=== PATIENT | female | born 1955 | race Caucasian/White ===

== ENCOUNTER → 2021-09-14 04:25 | Outpatient (REF) | payer MEDICARE, MEDICAID, SELFPAY ==
[2021-09-14 06:44] LABS: Hemoglobin 8.8 g/dL (12.0-15.0); Mean Corp Hgb Conc 29.3 g/dL (32-36); Mean Corpuscular Hgb 27.5 pg (27.0-32.0); Mean Corpuscular Volume 93.8 fL (81-99); Mean Platelet Vol. 11.2 fl (6.2-12.0); Platelet Count 300 K/mm3 (150-450); RBC Distribution Width CV 14.6 % (11.6-14.6); RBC Distribution Width SD 49.9 fl (35.1-43.9); White Blood Count 6.5 K/mm3 (4.4-11.0)
[2021-09-14 06:59] LABS: Anion Gap 6 (5-15); BUN 11 mg/dL (7-18); BUN/Creat Ratio 17.7 RATIO (10-20); Calcium,Total 8.6 mg/dL (8.5-10.1); Chloride 108 mmol/L (98-107); Creatinine, Serum 0.62 mg/dL (0.55-1.02); EST Glomerular Filtration Rate 102 mL/min (>60); Est Glom Filt Rate - Afr Amer 123 mL/min (>60); Glucose 86 mg/dL (74-106); Potassium 3.7 mmol/L (3.5-5.1); Sodium Level 142 mmol/L (136-145)
== END ==
LOC: OLS.WHLTCC 04:25
PROVIDERS: Visit Provider Family Medicine
DX: N17.8 Other acute kidney failure (principal); R65.21 Severe sepsis with septic shock; G25.0 Essential tremor; J96.11 Chronic respiratory failure with hypoxia; J44.9 Chronic obstructive pulmonary disease, unspecified; I50.32 Chronic diastolic (congestive) heart failure
CPT/HCPCS: 36415; 80048; 85027

== ENCOUNTER 2021-09-21 05:00 | Outpatient (REF) | payer MEDICARE, MEDICAID, SELFPAY ==
[2021-09-21 06:52] LABS: Hematocrit 27.7 % (37-47); Hemoglobin 8.3 g/dL (12.0-15.0); Mean Corpuscular Hgb 27.9 pg (27.0-32.0); Mean Platelet Vol. 11.3 fl (6.2-12.0); Platelet Count 254 K/mm3 (150-450); RBC Distribution Width CV 14.6 % (11.6-14.6); RBC Distribution Width SD 49.7 fl (35.1-43.9); Red Blood Count 2.98 M/mm3 (4.2-5.4); White Blood Count 5.9 K/mm3 (4.4-11.0)
[2021-09-21 07:05] LABS: Anion Gap 5 (5-15); BUN 10 mg/dL (7-18); BUN/Creat Ratio 18.9 RATIO (10-20); Calcium,Total 8.9 mg/dL (8.5-10.1); Chloride 110 mmol/L (98-107); Creatinine, Serum 0.53 mg/dL (0.55-1.02); EST Glomerular Filtration Rate 122 mL/min (>60); Est Glom Filt Rate - Afr Amer 148 mL/min (>60); Glucose 97 mg/dL (74-106); Potassium 3.9 mmol/L (3.5-5.1); Sodium Level 143 mmol/L (136-145)
== END 2021-09-21 23:59 | disposition home or self-care (01) ==
LOC: OLS.WHLTCC 05:00
PROVIDERS: Visit Provider Family Medicine
DX: N17.8 Other acute kidney failure (principal); R65.21 Severe sepsis with septic shock; J44.9 Chronic obstructive pulmonary disease, unspecified; I50.32 Chronic diastolic (congestive) heart failure; J96.11 Chronic respiratory failure with hypoxia; G25.0 Essential tremor
CPT/HCPCS: 36415; 80048; 85027

== ENCOUNTER 2021-09-28 04:00 | Outpatient (REF) | payer MEDICARE, MEDICAID, SELFPAY ==
[2021-09-28 08:36] LABS: Hemoglobin 8.6 g/dL (12.0-15.0); Mean Corp Hgb Conc 29.7 g/dL (32-36); Mean Corpuscular Hgb 27.2 pg (27.0-32.0); Mean Corpuscular Volume 91.8 fL (81-99); Mean Platelet Vol. 11.1 fl (6.2-12.0); Platelet Count 245 K/mm3 (150-450); RBC Distribution Width CV 14.7 % (11.6-14.6); RBC Distribution Width SD 49.7 fl (35.1-43.9); Red Blood Count 3.16 M/mm3 (4.2-5.4); White Blood Count 5.9 K/mm3 (4.4-11.0)
[2021-09-28 08:44] LABS: Anion Gap 6 (5-15); BUN 8 mg/dL (7-18); Calcium,Total 8.6 mg/dL (8.5-10.1); Chloride 111 mmol/L (98-107); EST Glomerular Filtration Rate 131 mL/min (>60); Est Glom Filt Rate - Afr Amer 158 mL/min (>60); Glucose 85 mg/dL (74-106); Potassium 3.8 mmol/L (3.5-5.1); Sodium Level 143 mmol/L (136-145)
== END 2021-09-28 23:59 | disposition home or self-care (01) ==
LOC: OLS.WHLEAS 04:00
PROVIDERS: Referring Provider Family Medicine; Visit Provider Family Medicine
DX: N17.8 Other acute kidney failure (principal); R65.21 Severe sepsis with septic shock; J44.9 Chronic obstructive pulmonary disease, unspecified; I50.32 Chronic diastolic (congestive) heart failure; J96.11 Chronic respiratory failure with hypoxia; G25.0 Essential tremor
CPT/HCPCS: 36415; 80048; 85027

== ENCOUNTER → 2021-10-05 | Outpatient (REF) | payer MEDICARE, MEDICAID, SELFPAY ==
[2021-10-05 07:06] LABS: Hematocrit 29.1 % (37-47); Hemoglobin 8.5 g/dL (12.0-15.0); Mean Corp Hgb Conc 29.2 g/dL (32-36); Mean Corpuscular Hgb 26.4 pg (27.0-32.0); Mean Corpuscular Volume 90.4 fL (81-99); Platelet Count 276 K/mm3 (150-450); RBC Distribution Width SD 49.8 fl (35.1-43.9); Red Blood Count 3.22 M/mm3 (4.2-5.4); White Blood Count 5.4 K/mm3 (4.4-11.0)
[2021-10-05 07:28] LABS: Anion Gap 7 (5-15); BUN 8 mg/dL (7-18); BUN/Creat Ratio 15.5 RATIO (10-20); Calcium,Total 8.4 mg/dL (8.5-10.1); Chloride 110 mmol/L (98-107); Creatinine, Serum 0.52 mg/dL (0.55-1.02); EST Glomerular Filtration Rate 126 mL/min (>60); Est Glom Filt Rate - Afr Amer 152 mL/min (>60); Glucose 87 mg/dL (74-106); Potassium 3.5 mmol/L (3.5-5.1); Sodium Level 143 mmol/L (136-145)
== END | disposition home or self-care (01) ==
LOC: OLS.WHLEAS 04:00
PROVIDERS: Visit Provider Family Medicine
DX: N17.8 Other acute kidney failure (principal); R65.21 Severe sepsis with septic shock; J44.9 Chronic obstructive pulmonary disease, unspecified; I50.32 Chronic diastolic (congestive) heart failure; J96.11 Chronic respiratory failure with hypoxia; G25.0 Essential tremor
CPT/HCPCS: 36415; 80048; 85027

== ENCOUNTER → 2021-10-12 | Outpatient (REF) | payer MEDICARE, MEDICAID, SELFPAY ==
[2021-10-12 08:21] LABS: Hematocrit 29.3 % (37-47); Hemoglobin 8.8 g/dL (12.0-15.0); Mean Corpuscular Hgb 26.8 pg (27.0-32.0); Mean Corpuscular Volume 89.3 fL (81-99); Platelet Count 301 K/mm3 (150-450); RBC Distribution Width CV 15.2 % (11.6-14.6); RBC Distribution Width SD 49.9 fl (35.1-43.9); Red Blood Count 3.28 M/mm3 (4.2-5.4); White Blood Count 6.4 K/mm3 (4.4-11.0)
[2021-10-12 08:38] LABS: Anion Gap 9 (5-15); BUN 7 mg/dL (7-18); Calcium,Total 8.8 mg/dL (8.5-10.1); Chloride 110 mmol/L (98-107); Creatinine, Serum 0.54 mg/dL (0.55-1.02); EST Glomerular Filtration Rate 120 mL/min (>60); Est Glom Filt Rate - Afr Amer 145 mL/min (>60); Glucose 87 mg/dL (74-106); Potassium 3.7 mmol/L (3.5-5.1); Sodium Level 142 mmol/L (136-145)
== END | disposition home or self-care (01) ==
LOC: OLS.WHLEAS 04:00
PROVIDERS: Visit Provider Family Medicine
DX: N17.8 Other acute kidney failure (principal); R65.21 Severe sepsis with septic shock; J44.9 Chronic obstructive pulmonary disease, unspecified; I50.32 Chronic diastolic (congestive) heart failure; J96.11 Chronic respiratory failure with hypoxia; G25.0 Essential tremor
CPT/HCPCS: 36415; 80048; 85027

== ENCOUNTER → 2021-10-19 | Outpatient (REF) | payer MEDICARE, MEDICAID, SELFPAY ==
[2021-10-19 10:37] LABS: Hematocrit 30.5 % (37-47); Hemoglobin 9.1 g/dL (12.0-15.0); Mean Corp Hgb Conc 29.8 g/dL (32-36); Mean Corpuscular Hgb 26.5 pg (27.0-32.0); Mean Corpuscular Volume 88.9 fL (81-99); Mean Platelet Vol. 11.2 fl (6.2-12.0); Platelet Count 276 K/mm3 (150-450); RBC Distribution Width CV 15.8 % (11.6-14.6); RBC Distribution Width SD 51.4 fl (35.1-43.9); Red Blood Count 3.43 M/mm3 (4.2-5.4); White Blood Count 5.7 K/mm3 (4.4-11.0)
[2021-10-19 11:08] LABS: Anion Gap 10 (5-15); BUN 17 mg/dL (7-18); BUN/Creat Ratio 16.8 RATIO (10-20); Calcium,Total 8.9 mg/dL (8.5-10.1); Chloride 110 mmol/L (98-107); Creatinine, Serum 1.01 mg/dL (0.55-1.02); EST Glomerular Filtration Rate 58 mL/min (>60); Est Glom Filt Rate - Afr Amer 70 mL/min (>60); Glucose 85 mg/dL (74-106); Potassium 4.4 mmol/L (3.5-5.1); Sodium Level 138 mmol/L (136-145)
== END | disposition home or self-care (01) ==
LOC: OLS.WHLEAS 04:00
PROVIDERS: Visit Provider Family Medicine
DX: N17.8 Other acute kidney failure (principal); R65.21 Severe sepsis with septic shock; J44.9 Chronic obstructive pulmonary disease, unspecified; I50.32 Chronic diastolic (congestive) heart failure; J96.11 Chronic respiratory failure with hypoxia; G25.0 Essential tremor
CPT/HCPCS: 36415; 80048; 85027

== ENCOUNTER → 2021-10-26 | Outpatient (REF) | payer MEDICARE, MEDICAID, SELFPAY ==
[2021-10-26 09:34] LABS: Hematocrit 30.5 % (37-47); Mean Corp Hgb Conc 29.5 g/dL (32-36); Mean Corpuscular Hgb 26.2 pg (27.0-32.0); Mean Corpuscular Volume 88.9 fL (81-99); Mean Platelet Vol. 11.4 fl (6.2-12.0); Platelet Count 298 K/mm3 (150-450); RBC Distribution Width CV 16.3 % (11.6-14.6); RBC Distribution Width SD 53.3 fl (35.1-43.9); Red Blood Count 3.43 M/mm3 (4.2-5.4); White Blood Count 6.7 K/mm3 (4.4-11.0)
[2021-10-26 10:07] LABS: Anion Gap 6 (5-15); BUN 12 mg/dL (7-18); BUN/Creat Ratio 15.5 RATIO (10-20); Calcium,Total 8.6 mg/dL (8.5-10.1); Chloride 113 mmol/L (98-107); Creatinine, Serum 0.78 mg/dL (0.55-1.02); EST Glomerular Filtration Rate 79 mL/min (>60); Est Glom Filt Rate - Afr Amer 95 mL/min (>60); Glucose 102 mg/dL (74-106); Sodium Level 143 mmol/L (136-145)
[2021-10-26 10:23] LABS: Digoxin Level 1.18 ng/mL (0.80-2.00)
== END | disposition home or self-care (01) ==
LOC: OLS.WHLEAS 04:00
PROVIDERS: Referring Provider Family Medicine; Visit Provider Family Medicine
DX: N17.8 Other acute kidney failure (principal); R65.21 Severe sepsis with septic shock; J44.9 Chronic obstructive pulmonary disease, unspecified; I50.32 Chronic diastolic (congestive) heart failure; J96.11 Chronic respiratory failure with hypoxia; I48.91 Unspecified atrial fibrillation; G25.0 Essential tremor
CPT/HCPCS: 36415; 80048; 80162; 85027

== ENCOUNTER 2021-11-17 15:15 | Outpatient (CLI) | payer MEDICARE, MEDICAID, SELFPAY | END 2021-11-17 23:59 | disposition home or self-care (01) | LOC: OPBI 15:25 | PROVIDERS: Visit Provider Family Medicine | DX: Z00.00 Encounter for general adult medical examination without abnormal findings (principal) ==

== ENCOUNTER 2021-11-30 14:29 | Outpatient (CLI) | payer MEDICARE, MEDICAID, SELFPAY ==
--- NOTE | 2021-11-30 14:40 | BI_ITS ---
MAMMOGRAPHY - BILATERAL DIAGNOSTIC REASON FOR EXAM: Female, 66 years old. Left nipple discharge. PERTINENT HISTORY: TECHNIQUE: Digital bilateral breast rachelle (3D mammographic acquisition) in the CC and MLO projections. 2-D mediolateral oblique (MLO) and craniocaudad (CC) views of both breasts were obtained. CAD: Full Field Digital Mammography with Computer Added Detection was performed. COMPARISON: Comparison is made with prior outside examination dated 04/24/2019. FINDINGS: Breast Composition: The breasts are heterogeneously dense, which may obscure small masses. There are no dominant masses or suspicious calcifications. A port is seen in the axillary region of the left breast. No other significant abnormalities are identified. There has been no significant change since the prior study. BI/DIAG MAMM W/CAD, BILAT IMPRESSION: Stable bilateral diagnostic mammogram. With the patient''s history of left nipple discharge, correlation with ultrasound is recommended. ASSESSMENT CATEGORY: BIRADS Category 0: Incomplete. Need additional imaging evaluation. A letter regarding these results will be sent to the patient by the facility within 30 days. Approximately 10% of breast cancers are not detected by mammography. A normal mammogram should not delay biopsy of a clinically suspicious abnormality. Electronically Signed: Emmanuel Martínez MD at 15:35 EST ,
--- NOTE | 2021-11-30 14:41 | US_ITS ---
STUDY: ULTRASOUND BREAST - LEFT REASON FOR EXAM: Female, 66 years old. Nipple discharge. TECHNIQUE: Axial and longitudinal images of the LEFT breast were performed with a high resolution ultrasound transducer. # OF IMAGES: 12 COMPARISON: Comparison is made with prior mammogram done earlier in the day. FINDINGS: LEFT Breast: The retroareolar region of the breast was examined with ultrasound. No sonographic abnormality is seen. US/Breast Limited Unilateral IMPRESSION: No sonographic abnormality is seen. ASSESSMENT CATEGORY: BIRADS Category 1: Negative. A letter regarding these results will be sent to the patient by the facility within 30 days. Electronically Signed: Emmanuel Martínez MD at 11:01 EST ,
== END 2021-11-30 23:59 | disposition home or self-care (01) ==
LOC: OPBI 14:30
PROVIDERS: Visit Provider Family Medicine
DX: R92.2 Inconclusive mammogram (principal); N63.20 Unspecified lump in the left breast, unspecified quadrant
CPT/HCPCS: 76642; 77062; 77066; G0279

== ENCOUNTER → 2022-01-14 | Outpatient (REF) | payer MEDICARE, MEDICAID, SELFPAY ==
[2022-01-14 09:47] LABS: Absolute Lymphocyte Count 1.78 X10^3/uL (0.83-4.51); Absolute Neutrophil Count 3.5 X10^3/uL (2.0-7.7); Basophil# 0.01 X10^3/uL; Basophil% 0.2 % (0-1); Eosinophil# 0.08 X10^3/uL; Eosinophils% 1.4 % (0-5); Hematocrit 27.7 % (37-47); Lymphocyte # 1.78 X10^3/ul (0.83-4.51); Lymphocyte % 30.3 % (19-41); Mean Corp Hgb Conc 28.9 g/dL (32-36); Mean Corpuscular Hgb 26.8 pg (27.0-32.0); Mean Corpuscular Volume 92.6 fL (81-99); Mean Platelet Vol. 11.5 fl (6.2-12.0); Monocyte# 0.45 X10^3/uL; Monocyte% 7.7 % (0-10); NRBC Flagged by Analyzer 0 % (0-5); Neutrophil # 3.54 X10^3/uL (2.7-7.7); Neutrophil % 60.1 % (47-70); Platelet Count 212 K/mm3 (150-450); RBC Distribution Width CV 17.5 % (11.6-14.6); RBC Distribution Width SD 59.4 fl (35.1-43.9); Red Blood Count 2.99 M/mm3 (4.2-5.4); White Blood Count 5.9 K/mm3 (4.4-11.0)
[2022-01-14 10:00] LABS: Anion Gap 6 (5-15); BUN 25 mg/dL (7-18); BUN/Creat Ratio 24.5 RATIO (10-20); Calcium,Total 8.5 mg/dL (8.5-10.1); Chloride 108 mmol/L (98-107); Creatinine, Serum 1.02 mg/dL (0.55-1.02); EST Glomerular Filtration Rate 57 mL/min (>60); Est Glom Filt Rate - Afr Amer 69 mL/min (>60); Glucose 106 mg/dL (74-106); Potassium 4.7 mmol/L (3.5-5.1); Sodium Level 137 mmol/L (136-145)
[2022-01-14 10:35] LABS: Digoxin Level 1.26 ng/mL (0.80-2.00)
== END | disposition home or self-care (01) ==
LOC: OLS.WHLEAS 05:00
PROVIDERS: Visit Provider Family Medicine
DX: R11.0 Nausea (principal); J96.11 Chronic respiratory failure with hypoxia; F71 Moderate intellectual disabilities; M62.81 Muscle weakness (generalized); R26.2 Difficulty in walking, not elsewhere classified; R27.8 Other lack of coordination; Z74.1 Need for assistance with personal care
CPT/HCPCS: 36415; 80048; 80162; 85025

== ENCOUNTER → 2022-01-25 | Outpatient (REF) | payer MEDICARE, MEDICAID, SELFPAY ==
[2022-01-25 09:13] LABS: Hematocrit 30.5 % (37-47); Mean Corp Hgb Conc 29.5 g/dL (32-36); Mean Corpuscular Hgb 26.5 pg (27.0-32.0); Mean Platelet Vol. 11.1 fl (6.2-12.0); Platelet Count 391 K/mm3 (150-450); RBC Distribution Width CV 16.6 % (11.6-14.6); RBC Distribution Width SD 55.3 fl (35.1-43.9); Red Blood Count 3.39 M/mm3 (4.2-5.4); White Blood Count 7.4 K/mm3 (4.4-11.0)
[2022-01-25 09:23] LABS: Anion Gap 8 (5-15); BUN 22 mg/dL (7-18); BUN/Creat Ratio 15.5 RATIO (10-20); Calcium,Total 9.3 mg/dL (8.5-10.1); Chloride 110 mmol/L (98-107); Creatinine, Serum 1.42 mg/dL (0.55-1.02); EST Glomerular Filtration Rate 39 mL/min (>60); Est Glom Filt Rate - Afr Amer 47 mL/min (>60); Glucose 87 mg/dL (74-106); Potassium 4.5 mmol/L (3.5-5.1); Sodium Level 137 mmol/L (136-145); Vitamin B12 1405 pg/mL (211-911)
== END | disposition home or self-care (01) ==
LOC: OLS.WHLEAS 04:00
PROVIDERS: Referring Provider Family Medicine; Visit Provider Family Medicine
DX: E55.9 Vitamin D deficiency, unspecified (principal); J96.11 Chronic respiratory failure with hypoxia; F71 Moderate intellectual disabilities; M62.81 Muscle weakness (generalized); R26.2 Difficulty in walking, not elsewhere classified; R27.8 Other lack of coordination; D50.9 Iron deficiency anemia, unspecified; Z74.1 Need for assistance with personal care
CPT/HCPCS: 36415; 80048; 82607; 85027

== ENCOUNTER → 2022-01-28 | Outpatient (REF) | payer SELFPAY ==
[2022-01-28 07:43] LABS: Absolute Lymphocyte Count 1.47 X10^3/uL (0.83-4.51); Basophil# 0.03 X10^3/uL; Basophil% 0.4 % (0-1); Hematocrit 32.4 % (37-47); Hemoglobin 9.3 g/dL (12.0-15.0); Lymphocyte # 1.47 X10^3/ul (0.83-4.51); Lymphocyte % 18.9 % (19-41); Mean Corp Hgb Conc 28.7 g/dL (32-36); Mean Corpuscular Hgb 26.3 pg (27.0-32.0); Mean Corpuscular Volume 91.5 fL (81-99); Mean Platelet Vol. 11.3 fl (6.2-12.0); Monocyte# 0.15 X10^3/uL; Monocyte% 1.9 % (0-10); NRBC Flagged by Analyzer 0 % (0-5); Neutrophil # 6.03 X10^3/uL (2.7-7.7); Neutrophil % 77.8 % (47-70); Platelet Count 449 K/mm3 (150-450); RBC Distribution Width CV 16.6 % (11.6-14.6); Red Blood Count 3.54 M/mm3 (4.2-5.4); White Blood Count 7.8 K/mm3 (4.4-11.0)
[2022-01-28 08:05] LABS: ALB/GLOB Ratio 0.9 RATIO (0.9-2.4); AST(SGOT) 6 U/L (15-37); Alanine Aminotransfer ALT/SGPT 9 U/L (13-56); Albumin, Serum 3.2 g/dL (3.2-5.0); Alkaline Phosphatase 60 U/L (45-117); Anion Gap 6 (5-15); BUN 27 mg/dL (7-18); BUN/Creat Ratio 14.5 RATIO (10-20); Calcium,Total 9.1 mg/dL (8.5-10.1); Chloride 110 mmol/L (98-107); Creatinine, Serum 1.86 mg/dL (0.55-1.02); EST Glomerular Filtration Rate 29 mL/min (>60); Est Glom Filt Rate - Afr Amer 35 mL/min (>60); Globulin 3.7 g/dL (2.2-4.2); Glucose 109 mg/dL (74-106); Potassium 5.8 mmol/L (3.5-5.1); Protein, Total 6.9 g/dL (6.4-8.2); Sodium Level 135 mmol/L (136-145)
== END | disposition home or self-care (01) ==
LOC: OLS.WHLEAS 04:00
PROVIDERS: Visit Provider Family Medicine
DX: R11.0 Nausea (principal); J96.11 Chronic respiratory failure with hypoxia; F71 Moderate intellectual disabilities; M62.81 Muscle weakness (generalized); R26.2 Difficulty in walking, not elsewhere classified; R27.8 Other lack of coordination; Z74.1 Need for assistance with personal care
CPT/HCPCS: 36415; 80053; 85025

== ENCOUNTER 2022-01-30 16:26 | Inpatient (IN) | payer MEDICARE, MEDICAID, SELFPAY ==
[2022-01-30] VITALS (9 sets, daily range): BP systolic 72–113; BP diastolic 32–68; PULSE 68–105; RESP 16–20; TEMP 36.3–37; O2SAT 95–100; BMI 26.9; BMI 26.2
--- NOTE | 2022-01-30 16:56 | EKG12_ITS ---
Test Reason : ABP Blood Pressure : / mmHG Vent. Rate : 068 BPM Atrial Rate : 068 BPM P-R Int : 166 ms QRS Dur : 076 ms QT Int : 372 ms P-R-T Axes : 040 -01 057 degrees QTc Int : 395 ms Normal sinus rhythm Low voltage QRS Borderline ECG Confirmed by MARY BETH CABALLERO, JULES ([id number]), film or videotape editor NATALIA ROJAS ([id number]) on 02/01/2022 11:20:01 AM Referred By: MICHELE Confirmed By:JULES CLINTON MD
--- NOTE | 2022-01-30 16:57 | CT_ITS ---
INDICATION: abd pain EXAMINATION: CT ABDOMEN AND PELVIS WITHOUT CONTRAST - CT Abdomen And Pelvis W/O Contrast Injection TECHNIQUE: Helically acquired images were obtained of the abdomen and pelvis without oral or IV contrast. A radiation dose optimization technique was used for this scan. IV Contrast dosage and agent: None. Oral contrast: None. COMPARISON: None. FINDINGS: LOWER CHEST: Lung bases are clear. No cardiomegaly or pericardial effusion. Coronary artery calcifications and/or stents. Possible left mitral valvular calcifications. LIVER: Homogeneous. No focal mass. GALLBLADDER AND BILIARY TREE: Surgically absent. Surgical clips gallbladder fossa. No intra- or extrahepatic biliary ductal dilation. PANCREAS: No focal cystic or solid mass. SPLEEN: Normal size without focal cystic or solid mass. ADRENAL GLANDS: No nodules. KIDNEYS, URETERS and BLADDER: Normal renal size and position. No mass. No hydronephrosis. Bladder is unremarkable. PERITONEUM: No ascites or free air. No other fluid collection. BOWEL: Cervical clips within the cecum suggesting prior appendectomy. No appendix visualized. General clips also seen around the proximal stomach and in the splenic hilum. There is a mildly distended, 5 cm diameter loop of small bowel that appears adherent to the anterior abdominal wall, below the umbilicus suggesting adhesion. Surgical lines visible around the small bowel at this level. This short segment of distended small bowel is not associated with wall thickening and the rest of the small bowel is within normal limits. LYMPH NODES: No enlarged mesenteric or retroperitoneal lymph nodes. VESSELS: Scattered intimal calcifications at the origin of the celiac trunk and renal arteries and in the proximal common iliac arteries. REPRODUCTIVE ORGANS: Within normal limits for age. ABDOMINAL WALL: No discrete abdominal or pelvic wall hernia. BONES: No lytic or blastic abnormality. Evidence of remote right inferior pubic ramus fracture. Status post right hip total arthroplasty without evidence of complication. Subjective appearance of decreased bone mineral density. Expected degenerative changes lower lumbar spine with no evidence of significant stenosis. CT/Abdomen/Pelvis without Cont IMPRESSION: No evidence of acute intra-abdominal pathology. Patient status post multiple surgeries with surgical clips seen around the stomach and small bowel, cecum and gallbladder fossa. There is a distended small bowel loop, which appears adherent to the anterior abdomen, suggesting adhesions without small bowel obstruction. Coronary artery calcifications may be associated with increased risk for acute coronary syndrome. Electronically Signed: Estuardo Monteiro DO at 19:20 EDT ,
--- NOTE | 2022-01-30 17:00 | EDS_ITS ---
HPI HPI - GI History of Present Illness Chief Complaint: Abd Pain Informant: patient and family Narrative Narrative: Patient evidently started with some mild nausea about a week or 2 ago. This is progressed to epigastric area discomfort for about a week. Outpatient ultrasound was ordered. This was not able to get done yet. She did have some blood work that showed a rise in creatinine from 1.04-1.68. Potassium was slightly high at 5.8. Hemoglobin is 9.3 which is about her baseline. Her primary physician held her potassium chloride, lisinopril and digoxin. Today he was called from the [facility] that patient has some low blood pressure and has a little bit increased abdominal pain. She admits she really has not been eating or drinking because eating or drinking aggravates her symptoms. She is still moving some bowels but slightly dry. Patient has had multiple abdominal surgeries. Is unclear exactly how many. She has had several hernias. She has had several placements of mesh. She has had multiple bowel obstructions. In 2018 she had a surgery to try to decrease the recurrence of adhesions up in [facility]. She generally has not had many problems since. She is not having urinary symptoms now. [facility] Medical History (Updated 01/30/22 @ 20:[address] Nestor Gandara MD) Anxiety and depression Atrial fibrillation Chronic anemia Chronic respiratory failure COPD (chronic obstructive pulmonary disease) Crohn's disease Diastolic CHF Dysphagia Former tobacco use GERD (gastroesophageal reflux disease) History of COVID-19 History of deep venous thrombosis or pulmonary embolus Hypertension Iron deficiency anemia Parkinsons disease Sleep apnea Home Medications Lactobacillus rhamnosus GG [Culturelle] 1 cap PO DAILY 01/30/22 [History Last Taken Unknown] albuterol 90 mcg INHALATION BID 01/30/22 [History Last Taken Unknown] apixaban [Eliquis] 5 mg PO BID 01/30/22 [History Last Taken Unknown] aspirin 81 mg PO DAILY 01/30/22 [History Last Taken Unknown] budesonide 3 mg PO DAILY 01/30/22 [History Last Taken Unknown] cetirizine 10 mg PO DAILY 01/30/22 [History Last Taken Unknown] cyanocobalamin (vitamin B-12) 1,000 mcg PO DAILY 01/30/22 [History Last Taken Unknown] cyclobenzaprine 10 mg PO QHS 01/30/22 [History Last Taken Unknown] diltiazem HCl 240 mg PO DAILY 01/30/22 [History Last Taken Unknown] dorzolamide-timolol (PF) 1 drp OPHTHALMIC (EYE) BID 01/30/22 [History Last Taken Unknown] qpthhaxqjgy-maawgxqfy-rhllgzkm [Trelegy Ellipta] 1 inh INHALATION DAILY 01/30/22 [History Last Taken Unknown] folic acid 1 mg PO DAILY 01/30/22 [History Last Taken Unknown] furosemide 20 mg PO DAILY 01/30/22 [History Last Taken Unknown] guaifenesin [Mucinex] 600 mg PO BID 01/30/22 [History Last Taken Unknown] ipratropium-albuterol 3 ml INHALATION Q4H PRN 01/30/22 [History Last Taken Unknown] loperamide 2 mg PO Q4H PRN 01/30/22 [History Last Taken Unknown] mesalamine 1.125 g PO DAILY 01/30/22 [History Last Taken Unknown] metoprolol tartrate 100 mg PO Q12H 01/30/22 [History Last Taken Unknown] pantoprazole 40 mg PO BID 01/30/22 [History Last Taken Unknown] potassium chloride 20 meq PO BID 01/30/22 [History Last Taken Unknown] prednisone 10 mg PO BID 01/30/22 [History Last Taken Unknown] roflumilast [Daliresp] 250 mcg PO QHS 01/30/22 [History Last Taken Unknown] sulfasalazine 1 g PO BID 01/30/22 [History Last Taken Unknown] Allergy/AdvReac Type Severity Reaction Status Date / Time amoxicillin [From Augmentin] Allergy PT UNABLE Verified 01/30/22 16:37 TO RESPOND-NEEDS F/U clavulanic acid Allergy PT UNABLE Verified 01/30/22 16:37 [From Augmentin] TO RESPOND-NEEDS F/U codeine Allergy PT UNABLE Verified 01/30/22 16:37 TO RESPOND-NEEDS F/U Iodinated Contrast Media Allergy Anaphylaxis Verified 01/30/22 16:37 metronidazole [From Flagyl] Allergy PT UNABLE Verified 01/30/22 16:37 TO RESPOND-NEEDS F/U morphine Allergy PT UNSURE Verified 01/30/22 16:37 OF REACTION oxycodone Allergy PT UNSURE Verified 01/30/22 16:37 OF REACTION ropinirole Allergy PT UNSURE Verified 01/30/22 16:37 OF REACTION acetaminophen [From Vicodin] AdvReac PT UNSURE Verified 01/30/22 16:37 OF REACTION hydrocodone [From Vicodin] AdvReac PT UNSURE Verified 01/30/22 16:37 OF REACTION IV DYE Allergy Anaphylaxis Uncoded 01/30/22 16:37 Family History (Updated 01/30/22 @ 20:[address] Ladonna Pastor MD) Mother Alzheimer's dementia Surgical History (Updated 01/30/22 @ 20:[address] Ladonna Pastor MD) H/O exploratory laparotomy History of bilateral tubal ligation History of repair of hiatal hernia History of resection of small bowel History of total right hip replacement Hx of cataract surgery S/P carpal tunnel release S/P cholecystectomy Social History (Updated 01/30/22 @ 19:[address] Ladonna Pastor MD) housing: long-term Smoking Status: Current every day smoker how long ago did patient quit smoking: Quit ~ 13 years prior to current presentation. alcohol intake: never substance use type: does not use ROS ROS ED Constitutional Constitutional ED: Denies chills or fever(s) ENT ENT ED: Denies rhinorrhea Cardiovascular Cardiovascular: Denies chest pain or palpitations Respiratory/Chest Respiratory/Chest: Denies cough or dyspnea Gastrointestinal Gastrointestinal: Reports abdominal pain, constipation, nausea and vomiting; Denies diarrhea Genitourinary Genitourinary ED: Denies dysuria or hematuria Musculoskeletal Musculoskeletal: Denies myalgias Integumentary Denies rash Neurologic Neurologic: Denies headache(s) Endocrine Endocrinology: Denies polydipsia or polyuria Hematologic/Lymphatic Hematologic/Lymphatic: Reports easy bleeding, easy bruising and other Details: Patient is on anticoagulation possibly Eliquis. We are obtaining a med list because she and her sister are not familiar with all the meds she is on. Allergic/Immunologic Allergic/Immunologic ED: Reports urticaria EXAM Physical Exam Const Vital Signs: 01/30/22 16:28 01/30/22 17:00 01/30/22 17:19 Temperature 97.7 F L Temperature Source Temporal Pulse Rate 90 68 68 Respiratory Rate 18 17 17 Blood Pressure 78/52 L 81/39 L 86/32 L Blood Pressure Mean 60 53 50 Pulse Ox 97 96 100 Oxygen Delivery Method Nasal Cannula Nasal Cannula Nasal Cannula Oxygen Flow Rate (L/min) 2 01/30/22 17:38 01/30/22 17:45 01/30/22 18:15 Temperature 97.8 F Temperature Source Oral Pulse Rate 68 73 105 H Respiratory Rate 17 17 Blood Pressure 72/37 L 89/53 L 89/42 L Blood Pressure Mean 48 65 57 Pulse Ox 100 98 Oxygen Delivery Method Nasal Cannula Nasal Cannula Nasal Cannula Oxygen Flow Rate (L/min) Positive well nourished and well developed Constitutional Narrative: Patient is awake and alert. She looks clinically dehydrated. General Appearance ED: well developed HEENT Reports dry mucous membranes Mouth ED: Yes dry mucous membranes Mouth: dry mucous membranes Eyes General Eye ED: Negative for pale conjunctiva or scleral icterus Neck no JVD Resp normal respiratory effort and clear to auscultation bilaterally Cardio regular rate and regular rhythm GI non-distended and no masses GI Narrative: Abdomen does not look notably distended. There are well-healed surgical scars. Bowel sounds sound decreased. There is mild nonfocal tenderness but no rebound or guarding. No rigidity. No mass. Auscultation: Negative for normoactive bowel sounds Palpation: soft and tender; Negative for guarding, rigid or rebound tenderness present Back/Spine no CVA tenderness Extremity General Extremety ED: Negative for edema or tenderness General Extremity: Negative for edema Neuro Sensorium / Orientation: alert and oriented to person Psych mental status grossly normal Skin Rashes: no rashes MDM MDM MDM Narrative Medical decision making narrative: Patient's blood pressure is making a slight trend up. She still fluctuates between the low 90s and about 120. Most of her blood pressures are in the mid to upper 90s. However, her lactate is normal despite this and having 2 weeks of symptoms. Hemoglobin is low but at her baseline. White count is not elevated. Creatinine is elevated fairly above her baseline showing an acute kidney injury. LFTs show no acute process. Lipase is 293. Urine is clean. CT scan was done that shows chronic changes. There is a small bowel loop that slightly distended and appears to be adherent to the anterior abdominal wall. However there is no inflammatory changes or small bowel obstruction. She does have a history of significant adhesions. But this does not appear as though it is causing obstruction. With her 2 weeks of symptoms, unable to control symptoms in outpatient, acute kidney injury I think she does need to come in the hospital. I discussed case with hospitalist. Lab Data Attestation: I reviewed the patient's lab results. Labs: Laboratory Results - last 24 hr 01/30/22 01/30/22 01/30/22 16:50 16:50 17:30 WBC 9.6 RBC 3.55 L Hgb 9.2 L Hct 31.7 L MCV 89.3 MCH 25.9 L MCHC 29.0 L RDW Std Deviation 55.7 H RDW Coeff of Pascual 16.9 H Plt Count 467 H MPV 11.3 Immature Gran % (Auto) 1.000 H Neut % (Auto) 70.2 H Lymph % (Auto) 20.1 [place] % (Auto) 7.3 Eos % (Auto) 0.7 Baso % (Auto) 0.7 Absolute Neuts (auto) 6.7 Absolute Lymphs (auto) 1.93 Nucleated RBC % 0 Sodium 136 Potassium 4.9 Chloride 111 H Carbon Dioxide 14.0 L Anion Gap 11 BUN 41 H Creatinine 2.67 H Estim Creat Clear Calc 18.56 Est GFR (MDRD) Af Amer 23 L Est GFR (MDRD) Non-Af 19 L BUN/Creatinine Ratio 15.4 Glucose 108 H Lactic Acid 0.5 Calcium 9.0 Total Bilirubin 0.40 AST 5 L ALT < 6 L Alkaline Phosphatase 63 Troponin I High Sens 28 Total Protein 6.7 Albumin 3.0 L Globulin 3.7 Albumin/Globulin Ratio 0.8 L Lipase 293 Urine Color Urine Clarity Urine pH Ur Specific [place] Urine Protein Urine Glucose (UA) Urine Ketones Urine Occult Blood Urine Nitrite Urine Bilirubin Urine Urobilinogen Ur Leukocyte Esterase Urine RBC Urine WBC Ur Squamous Epith Cells Urine Bacteria Urine Mucus 01/30/22 17:47 WBC RBC Hgb Hct MCV MCH MCHC RDW Std Deviation RDW Coeff of Pascual Plt Count MPV Immature Gran % (Auto) Neut % (Auto) Lymph % (Auto) [place] % (Auto) Eos % (Auto) Baso % (Auto) Absolute Neuts (auto) Absolute Lymphs (auto) Nucleated RBC % Sodium Potassium Chloride Carbon Dioxide Anion Gap BUN Creatinine Estim Creat Clear Calc Est GFR (MDRD) Af Amer Est GFR (MDRD) Non-Af BUN/Creatinine Ratio Glucose Lactic Acid Calcium Total Bilirubin AST ALT Alkaline Phosphatase Troponin I High Sens Total Protein Albumin Globulin Albumin/Globulin Ratio Lipase Urine Color Yellow Urine Clarity Clear Urine pH 5.0 Ur Specific [place] 1.010 Urine Protein Negative Urine Glucose (UA) Normal Urine Ketones 5 H Urine Occult Blood 10 H Urine Nitrite Negative Urine Bilirubin Negative Urine Urobilinogen Normal Ur Leukocyte Esterase Negative Urine RBC 0 SEEN Urine WBC 0 SEEN Ur Squamous Epith Cells 0-5 SEEN Urine Bacteria RARE Urine Mucus 0 SEEN Radiography Diagnostic Testing: Clinical Impression(s) from Imaging Studies Abdomen/Pelvis CT 01/30/22 16:57 IMPRESSION: No evidence of acute intra-abdominal pathology. Patient status post multiple surgeries with surgical clips seen around the stomach and small bowel, cecum and gallbladder fossa. There is a distended small bowel loop, which appears adherent to the anterior abdomen, suggesting adhesions without small bowel obstruction. Coronary artery calcifications may be associated with increased risk for acute coronary syndrome. Electronically Signed: Estuardo Monteiro DO at 19:20 EDT , Discharge Plan Triage Chief Complaint: Abd Pain ED Provider: Nestor Gandara Dx/Rx/DC Orders Clinical Impression: Nausea & vomiting, CATE (acute kidney injury) Primary Care Provider: Quique Burroughs Disposition Disposition: Acute Care Hospital
[2022-01-30 17:23] LABS: Absolute Lymphocyte Count 1.93 X10^3/uL (0.83-4.51); Absolute Neutrophil Count 6.7 X10^3/uL (2.0-7.7); Basophil# 0.07 X10^3/uL; Basophil% 0.7 % (0-1); Eosinophil# 0.07 X10^3/uL; Eosinophils% 0.7 % (0-5); Hematocrit 31.7 % (37-47); Hemoglobin 9.2 g/dL (12.0-15.0); Lymphocyte # 1.93 X10^3/ul (0.83-4.51); Lymphocyte % 20.1 % (19-41); Mean Corpuscular Hgb 25.9 pg (27.0-32.0); Mean Corpuscular Volume 89.3 fL (81-99); Mean Platelet Vol. 11.3 fl (6.2-12.0); Monocyte% 7.3 % (0-10); NRBC Flagged by Analyzer 0 % (0-5); Neutrophil # 6.73 X10^3/uL (2.7-7.7); Neutrophil % 70.2 % (47-70); Platelet Count 467 K/mm3 (150-450); RBC Distribution Width CV 16.9 % (11.6-14.6); RBC Distribution Width SD 55.7 fl (35.1-43.9); Red Blood Count 3.55 M/mm3 (4.2-5.4); White Blood Count 9.6 K/mm3 (4.4-11.0)
[2022-01-30] MEDS: Ondansetron 4 MG/2 ML Vial IV (17:31)
[2022-01-30 17:56] LABS: ALB/GLOB Ratio 0.8 RATIO (0.9-2.4); AST(SGOT) 5 U/L (15-37); Alanine Aminotransfer ALT/SGPT < 6 U/L (13-56); Alkaline Phosphatase 63 U/L (45-117); Anion Gap 11 (5-15); BUN 41 mg/dL (7-18); BUN/Creat Ratio 15.4 RATIO (10-20); Chloride 111 mmol/L (98-107); Creatinine, Serum 2.67 mg/dL (0.55-1.02); EST Glomerular Filtration Rate 19 mL/min (>60); Est Glom Filt Rate - Afr Amer 23 mL/min (>60); Estimated Creatinine Clearance 18.56 ml/min; Globulin 3.7 g/dL (2.2-4.2); Glucose 108 mg/dL (74-106); Lipase 293 U/L (73-393); Potassium 4.9 mmol/L (3.5-5.1); Protein, Total 6.7 g/dL (6.4-8.2); Sodium Level 136 mmol/L (136-145); Troponin-I HS 28 pg/mL (3.0-54.0)
[2022-01-30 17:59] LABS: Mucous, Urine 0 SEEN /hpf (<or=2+); Red Blood Cells-Urine 0 SEEN /hpf (0-5); White Blood Cells 0 SEEN /hpf (0-5)
[2022-01-30 18:08] LABS: Color, Urine Yellow (Yellow); Glucose, Dipstick Normal (Normal); Ketone-Dipstick 5 mg/dl (Negative); Leukocyte Esterase-Dipstick Negative /ul (Negative); Nitrite-Dipstick Negative (Negative); Occult Blood-Urine 10 /ul (Negative); Protein-Dipstick Negative (Negative); Urine Bilirubin Dipstick Negative (Negative); Urine Clarity Clear (Clear); Urine Urobilinogen Normal (Normal)
[2022-01-30 18:23] LABS: Lactic Acid 0.5 mmol/L (0.4-1.9)
[2022-01-30 18:26] LABS: Bacteria RARE /hpf (None Seen); Squamous Epithelial Cells - UA 0-5 SEEN /hpf (5-10)
--- NOTE | 2022-01-30 20:01 | HP.PCM.HOS_ITS ---
HPI - General General Date of Admission: 01/30/22 Date of Service: 01/30/22 Chief Complaint: N/V/Diarrhea, abdominal discomfort. HPI Narrative The patient is a 67 y/o F w/ PMHx: Chronic normocytic anemia/iron deficiency anemia, Anxiety and Depression, PAF, Chronic Diastolic CHF, COPD w/ Chronic Hypoxic Respiratory Failure (4L NC), Crohn's disease, HTN, HLD, LEMUEL, GERD who presents to the [facility] ED on 01/30/22 with history of ~ 2 weeks of nausea, emesis, diarrhea earlier in the course although lessened, abdominal discomfort, weakness, dizziness and decreased BP on day of presentation prompting ED evaluation given not improving. She notes when she eats at all she has episodes of emesis. She has been able to keep fluids down. She saw her PCP outpatient and he was going to order a GB US but she has primarily epigastric discomfort. She d enies any fever or chills. Work-up in the ED included T97.7, heart rate 90, BP initially 78/52 with most recent 89/42, respiratory rate 97% on 2 L nasal cannula, CBC with WC 9.6, hemoglobin 9.2, platelet 467 with increased immature granulocytes, CMP with chloride 111, complex at 14, BUN/creat 41/2.67, glucose 108, lactic acid 0.5, hepatic profile not marked appearing, lipase 293, troponin 28, urinalysis unremarkable, CT abdomen and pelvis with no acute evidence of intra-abdominal pathology with evidence of significant multiple surgeries with surgical clips seen around the stomach and small bowel, cecum and gallbladder fossa with distended small loop which appears adherent to the anterior abdomen suggestive of likely adhesions but no evidence of any bowel obstruction, coronary artery calcifications evident. In the ED patient ministered normal saline 2 L bolus and Zofran 4 mg IV x1. [facility] Medical History (Updated 01/30/22 @ 20:[address] Ladonna Pastor MD) Anxiety and depression Atrial fibrillation Chronic anemia Chronic respiratory failure COPD (chronic obstructive pulmonary disease) Crohn's disease Diastolic CHF Dysphagia Former tobacco use GERD (gastroesophageal reflux disease) History of COVID-19 History of deep venous thrombosis or pulmonary embolus Hypertension Iron deficiency anemia Parkinsons disease Sleep apnea Home Medications Lactobacillus rhamnosus GG [Culturelle] 1 cap PO DAILY 01/30/22 [History Last Taken Unknown] albuterol 90 mcg INHALATION BID 01/30/22 [History Last Taken Unknown] apixaban [Eliquis] 5 mg PO BID 01/30/22 [History Last Taken Unknown] aspirin 81 mg PO DAILY 01/30/22 [History Last Taken Unknown] budesonide 3 mg PO DAILY 01/30/22 [History Last Taken Unknown] cetirizine 10 mg PO DAILY 01/30/22 [History Last Taken Unknown] cyanocobalamin (vitamin B-12) 1,000 mcg PO DAILY 01/30/22 [History Last Taken Unknown] cyclobenzaprine 10 mg PO QHS 01/30/22 [History Last Taken Unknown] diltiazem HCl 240 mg PO DAILY 01/30/22 [History Last Taken Unknown] dorzolamide-timolol (PF) 1 drp OPHTHALMIC (EYE) BID 01/30/22 [History Last Taken Unknown] [id number] [Trelegy Ellipta] 1 inh INHALATION DAILY 01/30/22 [History Last Taken Unknown] folic acid 1 mg PO DAILY 01/30/22 [History Last Taken Unknown] furosemide 20 mg PO DAILY 01/30/22 [History Last Taken Unknown] guaifenesin [Mucinex] 600 mg PO BID 01/30/22 [History Last Taken Unknown] ipratropium-albuterol 3 ml INHALATION Q4H PRN 01/30/22 [History Last Taken Unknown] loperamide 2 mg PO Q4H PRN 01/30/22 [History Last Taken Unknown] mesalamine 1.125 g PO DAILY 01/30/22 [History Last Taken Unknown] metoprolol tartrate 100 mg PO Q12H 01/30/22 [History Last Taken Unknown] pantoprazole 40 mg PO BID 01/30/22 [History Last Taken Unknown] potassium chloride 20 meq PO BID 01/30/22 [History Last Taken Unknown] prednisone 10 mg PO BID 01/30/22 [History Last Taken Unknown] roflumilast [Daliresp] 250 mcg PO QHS 01/30/22 [History Last Taken Unknown] sulfasalazine 1 g PO BID 01/30/22 [History Last Taken Unknown] Allergy/AdvReac Type Severity Reaction Status Date / Time amoxicillin [From Augmentin] Allergy PT UNABLE Verified 01/30/22 16:37 TO RESPOND-NEEDS F/U clavulanic acid Allergy PT UNABLE Verified 01/30/22 16:37 [From Augmentin] TO RESPOND-NEEDS F/U codeine Allergy PT UNABLE Verified 01/30/22 16:37 TO RESPOND-NEEDS F/U Iodinated Contrast Media Allergy Anaphylaxis Verified 01/30/22 16:37 metronidazole [From Flagyl] Allergy PT UNABLE Verified 01/30/22 16:37 TO RESPOND-NEEDS F/U morphine Allergy PT UNSURE Verified 01/30/22 16:37 OF REACTION oxycodone Allergy PT UNSURE Verified 01/30/22 16:37 OF REACTION ropinirole Allergy PT UNSURE Verified 01/30/22 16:37 OF REACTION acetaminophen [From Vicodin] AdvReac PT UNSURE Verified 01/30/22 16:37 OF REACTION hydrocodone [From Vicodin] AdvReac PT UNSURE Verified 01/30/22 16:37 OF REACTION IV DYE Allergy Anaphylaxis Uncoded 01/30/22 16:37 Family History (Updated 01/30/22 @ 20:[address] Ladonna Pastor MD) Mother Alzheimer's dementia other (Patient does not know her father nor any of his medical history of note.) Surgical History (Updated 01/30/22 @ 20:[address] Ladonna Pastor MD) H/O exploratory laparotomy History of bilateral tubal ligation History of repair of hiatal hernia History of resection of small bowel History of total right hip replacement Hx of cataract surgery S/P carpal tunnel release S/P cholecystectomy Social History (Updated 01/30/22 @ 19:[address] Ladonna Pastor MD) housing: senior care Smoking Status: Current every day smoker how long ago did patient quit smoking: Quit ~ 13 years prior to current presentation. alcohol intake: never substance use type: does not use ROS ROS Narrative Admission Review of Systems: CONSTITUTIONAL: No weight loss, fever, chills, + weakness or fatigue. HEENT: + Headache. Eyes: No visual loss, blurred vision, double vision or yellow sclerae. Ears, Nose, Throat: No hearing loss, sneezing, congestion, runny nose or sore throat. SKIN: No rash or itching, lesions, wounds. CARDIOVASCULAR: No chest pain, chest pressure or chest discomfort, palpitations, edema, orthopnea, syncopal events. RESPIRATORY: + Chronic dyspnea, occasional chronic cough and wheezing, No hemoptysis. GASTROINTESTINAL: + Anorexia, nausea, vomiting, diarrhea, abdominal pain, No melena, BRBPR. GENITOURINARY: No dysuria, frequency, urgency or retention. NEUROLOGICAL:+ Headache, dizziness, No syncope, paralysis, ataxia, numbness or tingling in the extremities, focal weakness, change in bowel or bladder control, seizure. MUSCULOSKELETAL: + muscle, back pain, joint pain or stiffness. HEMATOLOGIC: + anemia, bleeding or bruising. LYMPHATICS: No enlarged nodes. No history of splenectomy. PSYCHIATRIC: No history of depression or anxiety. ENDOCRINOLOGIC: No reports of sweating, cold or heat intolerance. No polyuria or polydipsia. ALLERGIES: + history of hives, eczema or rhinitis. Vital Signs Vital Signs Vital Signs: 01/30/22 16:28 01/30/22 17:00 01/30/22 17:19 Temperature 97.7 F L Temperature Source Temporal Pulse Rate 90 68 68 Respiratory Rate 18 17 17 Blood Pressure 78/52 L 81/39 L 86/32 L Blood Pressure Mean 60 53 50 Pulse Ox 97 96 100 Oxygen Delivery Method Nasal Cannula Nasal Cannula Nasal Cannula Oxygen Flow Rate (L/min) 2 01/30/22 17:38 01/30/22 17:45 01/30/22 18:15 Temperature 97.8 F Temperature Source Oral Pulse Rate 68 73 105 H Respiratory Rate 17 17 Blood Pressure 72/37 L 89/53 L 89/42 L Blood Pressure Mean 48 65 57 Pulse Ox 100 98 Oxygen Delivery Method Nasal Cannula Nasal Cannula Nasal Cannula Oxygen Flow Rate (L/min) Weight Weight: 128 lb 8.472 oz Body Mass Index (BMI) 26.9 Physical Exam Narrative Physical Examination: General: Awake, alert, oriented x 3 and cooperative, seated upright in the ED bed, fatigued appearing. Skin: Normal color, normal turgor, no icterus, no cyanosis. HEENT: AT/NC, EOMI, PERRLA, dry MM, no carotid bruits or JVD noted; however, thickened neck makes evaluation difficult. Lungs: Significantly diffusely diminished, greater bases, moderate effort, on chronic supplementation 4 L, no rales, ronchi or wheezing. Heart: Currently regular rate and rhythm; no gallop, rub audible. Abdomen: Soft, mild generalized discomfort but no rebound or guarding, ND, mildly distant hyperactive BS, no HSM. Extremities: No cyanosis, clubbing, or edema. Neurological: Patient awake, alert, oriented as noted, cognitive function appears intact; pupils equally reactive to light and accommodation, cranial nerves grossly normal, moving all 4 extremities, no focal deficits, strength moderately to severely global decreased secondary to acute presentation Psychiatric: Affect appears fatigued otherwise normal, no acute evidence of depressive or anxiety feelings. Results Lab / Micro Data Result Diagrams: 01/30/22 16:50 01/30/22 16:50 Labs: Laboratory Results - last 24 hr 01/30/22 16:50: WBC 9.6, RBC 3.55 L, Hgb 9.2 L, Hct 31.7 L, MCV 89.3, MCH 25.9 L , MCHC 29.0 L, RDW Std Deviation 55.7 H, RDW Coeff of Pascual 16.9 H, Plt Count 467 H, MPV 11.3, Immature Gran % (Auto) 1.000 H, Neut % (Auto) 70.2 H, Lymph % (Aut o) 20.1, [place] % (Auto) 7.3, Eos % (Auto) 0.7, Baso % (Auto) 0.7, Absolute Neuts (auto) 6.7, Absolute Lymphs (auto) 1.93, Nucleated RBC % 0 01/30/22 16:50: Sodium 136, Potassium 4.9, Chloride 111 H, Carbon Dioxide 14.0 L , Anion Gap 11, BUN 41 H, Creatinine 2.67 H, Estim Creat Clear Calc 18.56, Est GFR (MDRD) Af Amer 23 L, Est GFR (MDRD) Non-Af 19 L, BUN/Creatinine Ratio 15.4, Glucose 108 H, Calcium 9.0, Total Bilirubin 0.40, AST 5 L, ALT < 6 L, Alkaline Phosphatase 63, Troponin I High Sens 28, Total Protein 6.7, Albumin 3.0 L, Globulin 3.7, Albumin/Globulin Ratio 0.8 L, Lipase 293 01/30/22 17:30: Lactic Acid 0.5 01/30/22 17:47: Urine Color Yellow, Urine Clarity Clear, Urine pH 5.0, Ur Specific [place] 1.010, Urine Protein Negative, Urine Glucose (UA) Normal, Urine Ketones 5 H, Urine Occult Blood 10 H, Urine Nitrite Negative, Urine Bilirubin Negative, Urine Urobilinogen Normal, Ur Leukocyte Esterase Negative, Urine RBC 0 SEEN, Urine WBC 0 SEEN, Ur Squamous Epith Cells 0-5 SEEN, Urine Bacteria RARE, Urine Mucus 0 SEEN Radiology Impression Abdomen/Pelvis CT 01/30/22 16:57 IMPRESSION: No evidence of acute intra-abdominal pathology. Patient status post multiple surgeries with surgical clips seen around the stomach and small bowel, cecum and gallbladder fossa. There is a distended small bowel loop, which appears adherent to the anterior abdomen, suggesting adhesions without small bowel obstruction. Coronary artery calcifications may be associated with increased risk for acute coronary syndrome. Electronically Signed: Estuardo Monteiro DO at 19:20 EDT , Assessment & Plan Assessment/Plan (1) Gastroenteritis: (2) CATE (acute kidney injury): PLAN: The patient is a 67 y/o F w/ PMHx: Chronic normocytic anemia/iron deficiency anemia, Anxiety and Depression, PAF, Chronic Diastolic CHF, COPD w/ Chronic Hypoxic Respiratory Failure (4L NC), Crohn's disease, HTN, HLD, LEMUEL, GERD who presents to the [facility] ED on 01/30/22 with history of ~ 2 weeks of nausea, emesis, diarrhea earlier in the course although lessened, abdominal discomfort, weakness, dizziness and decreased BP on day of presentation prompting ED evaluation given not improving. #1. N/V/D, Gastroenteritis with significant GI losses with associated hypotension and #2: We will admit to PCU given initial significant hypotension, continue judicious hydration, will obtain c diff, stool cx if recurrent diarrhea with repeat AM CBC. Will not start antibiotics at this time given unclear source pending stool studies as may be viral gastroenteritis. Will request respiratory panel. Anti-emetics, pain regimen PRN. Maintain on fall precautions. We will trial clear liquids only at this time if able to tolerate. Will maintain on IV PPI. Procalcitonin requested. COVID requested. PT/OT/case management consultations for discharge planning. #2. Acute kidney injury: Secondary to poor intake with acute GI presentation complaint. Admission BUN/Cr 41/2.67, prior baseline creatinine noted to be 0.7- 1.0 but has been increasing since recent onset of symptoms. Will hydrate, hold nephrotoxic medications and repeat chemistry in AM. If no improvement would plan FeNa assessment. #3. Chronic Diastolic CHF: Unclear EF, no ECHO in system, judiciously hydrating given presentation, holding patient hypertensive regimen, not on statin therapy. #4. PAF: We will continue patient home Eliquis regimen, temporarily holding patient's metoprolol given hypotension on presentation, add back once appropriate as well as patient's diltiazem. #5. Crohn's disease: We will continue patient home sulfasalazine, mesalamine, budesonide home regimen. CT with no obvious acute findings of exacerbation. If worsening discomfort may need to consider GI involvement given extensive history. #6. Chronic COPD w/ Chronic Hypoxic Respiratory Failure: Will maintain on oxygen with wean as tolerated to room air, temporarily hold home inhalers and transition to ATC duonebs, continue home Daliresp regimen, PRN albuterol, HOB, IS parameters. #7. Hypertension: Patient with notably low BP upon presentation, will hold regimen and add back once appropriate, as needed IV hydralazine in interim. #8. Hyperlipidemia: Not on regimen, defer to outpatient. #9. Parkinson disease with chronic tremors: Encourage continued outpatient follow-up with neurology, maintain on fall precautions. #10. Chronic normocytic anemia/iron deficiency anemia: Admission hemoglobin 9.2, baseline 8-9, stable, trend. #11. GERD: We will maintain on IV PPI. #12. LEMUEL: Will place on BIPAP q HS, patient reports not using since SNF transition but had prior. #13. DVT prophylaxis: SCDs, will maintain on home Eliquis regimen. #14. CODE status: Patient ALDAIR is her sister she notes and living will is she believes not in place but unsure. Discussed CODE status at length including difference between FULL code, DNR-CCA and DNR-CC status. Following discussions about the differences in these status, requested DNR-CCA, no intubation status. Advanced Care Planning Face to Face Time: 16 minutes. Charges/Coding Visit Charges Inpatient E&M: 15240 Init Hosp L3 Procedures Hospitalists Procedures: 77419 Advncd Care Plan 30 Min
[2022-01-30 21:30] LABS: Magnesium 1.5 mg/dL (1.6-2.6); Phosphorus 4.6 mg/dL (2.5-4.9)
[2022-01-30] MEDS: 0.9% Normal Saline 1,000 ML 100 ML IV (21:33)
[2022-01-30] MEDS: guaiFENesin 600 MG Tablet PO (21:38)
[2022-01-30] MEDS: APIXABAN 2.5 MG TABLET PO (21:38)
[2022-01-30] MEDS: Dorzolamide HCL/Timolol 10 ml Bottle 1 DRP OPHTHALMIC (21:41)
--- NOTE | 2022-01-30 22:36 | CPS ---
Patient stated that she used to wear a bipap machine at night, however no longer wears one and feels that her breathing is better. Patient stated that she no longer has the machine, and does not wish to wear one while here.
[2022-01-30] MEDS: Acetaminophen 325 MG Tablet 650 MG PO (22:53)
--- NOTE | 2022-01-30 23:17 | NURSING ---
This RN called [facility] ([phone]) to ask if someone can bring a med that pt currently taking. Spoke w/ Qiana (unit staff) and no one is able to bring med at this time. Qiana states that she will ff up tomorrow and ask.
[2022-01-31] VITALS (10 sets, daily range): BP systolic 103–111; BP diastolic 52–60; PULSE 67–107; RESP 18; TEMP 36.3–36.6; O2SAT 96–99
[2022-01-31 07:39] LABS: Absolute Lymphocyte Count 1.72 X10^3/uL (0.83-4.51); Absolute Neutrophil Count 2.9 X10^3/uL (2.0-7.7); Basophil# 0.03 X10^3/uL; Basophil% 0.6 % (0-1); Eosinophil# 0.06 X10^3/uL; Eosinophils% 1.2 % (0-5); Hematocrit 28.7 % (37-47); Hemoglobin 8.1 g/dL (12.0-15.0); Lymphocyte # 1.72 X10^3/ul (0.83-4.51); Lymphocyte % 33.2 % (19-41); Mean Corp Hgb Conc 28.2 g/dL (32-36); Mean Platelet Vol. 11.3 fl (6.2-12.0); Monocyte# 0.42 X10^3/uL; Monocyte% 8.1 % (0-10); NRBC Flagged by Analyzer 0 % (0-5); Neutrophil # 2.89 X10^3/uL (2.7-7.7); Neutrophil % 55.7 % (47-70); Platelet Count 290 K/mm3 (150-450); RBC Distribution Width SD 57.5 fl (35.1-43.9); Red Blood Count 3.12 M/mm3 (4.2-5.4); White Blood Count 5.2 K/mm3 (4.4-11.0)
[2022-01-31] MEDS: 0.9% Normal Saline 1,000 ML 100 ML IV ×2 (07:42→15:47)
[2022-01-31] MEDS: sulfaSALAzine 500 MG Tablet 1000 MG PO ×2 (07:48→15:47)
[2022-01-31] MEDS: Folic Acid 1 MG Tablet PO (07:48)
[2022-01-31] MEDS: Potassium Chloride Oral Tablet 20 MEQ PO ×2 (07:48→15:47)
[2022-01-31] MEDS: predniSONE 10 MG Tablet PO ×2 (07:49→15:47)
[2022-01-31] MEDS: Aspirin 81 MG TAB.CHEW PO (07:49)
[2022-01-31 07:54] LABS: ALB/GLOB Ratio 0.8 RATIO (0.9-2.4); AST(SGOT) 8 U/L (15-37); Alanine Aminotransfer ALT/SGPT 8 U/L (13-56); Albumin, Serum 2.7 g/dL (3.2-5.0); Alkaline Phosphatase 55 U/L (45-117); Anion Gap 10 (5-15); BUN 32 mg/dL (7-18); BUN/Creat Ratio 17.8 RATIO (10-20); Chloride 115 mmol/L (98-107); EST Glomerular Filtration Rate 30 mL/min (>60); Est Glom Filt Rate - Afr Amer 36 mL/min (>60); Estimated Creatinine Clearance 27.48 ml/min; Globulin 3.2 g/dL (2.2-4.2); Glucose 76 mg/dL (74-106); Potassium 4.4 mmol/L (3.5-5.1); Protein, Total 5.9 g/dL (6.4-8.2); Sodium Level 138 mmol/L (136-145)
[2022-01-31] MEDS: Acetaminophen 325 MG Tablet 650 MG PO ×3 (07:55→21:24)
[2022-01-31 08:54] LABS: Procalcitonin 0.09 ng/mL (0.00-0.09)
--- NOTE | 2022-01-31 09:24 | EKG12_ITS ---
Test Reason : CP Blood Pressure : / mmHG Vent. Rate : 076 BPM Atrial Rate : 076 BPM P-R Int : 148 ms QRS Dur : 074 ms QT Int : 372 ms P-R-T Axes : 008 -17 042 degrees QTc Int : 418 ms Normal sinus rhythm Nonspecific ST and T wave abnormality Abnormal ECG When compared with ECG of 30-JAN-2022 17:05, MANUAL COMPARISON REQUIRED, DATA IS UNCONFIRMED Confirmed by MELBA CABALLERO, VALENTIN ([id number]), newspaper photo editor NATALIA ROJAS ([id number]) on 02/02/2022 8:22:42 AM Referred By: RAMONA Confirmed By:VALENTIN REILLY MD
[2022-01-31] MEDS: Budesonide 3 MG CAPSULE.EC PO (09:26)
[2022-01-31] MEDS: guaiFENesin 600 MG Tablet PO ×2 (09:26→21:24)
[2022-01-31] MEDS: Loratadine 10 MG Tablet PO (09:26)
[2022-01-31] MEDS: Cyanocobalamin 500 MCG Tablet 1000 MCG PO (09:27)
[2022-01-31] MEDS: APIXABAN 2.5 MG TABLET PO ×2 (09:27→21:24)
[2022-01-31] MEDS: Lidocaine 5% Patch 1 PATCH TOPICAL (09:29)
[2022-01-31] MEDS: Dorzolamide HCL/Timolol 10 ml Bottle 1 DRP OPHTHALMIC ×2 (09:31→21:25)
--- NOTE | 2022-01-31 13:13 | PCM.PN.HOSP ---
Documented by User: Quique CHERY 01/31/22 13:35 Subjective Subjective Patient is a 67-year-old female comfortably resting in bed, alert and orient x3. Patient reports that her abdominal pain has improved from admission. Denies any N/V/D. Does not appear in acute distress. Objective Data Objective Data Vital Signs: Vital Signs Temp Pulse Resp BP Pulse Ox 97.9 F 81 18 103/54 L 99 01/31/22 09:22 01/31/22 09:22 01/31/22 09:22 01/31/22 09:22 01/31/22 10:13 Oxygen Flow Rate (L/min) 4 Oxygen Delivery Method Nasal Cannula Weight: 128 lb 4.944 oz Body Mass Index (BMI) 26.2 Intake & Output: Intake and Output for Last 24 Hours 01/29/22 01/30/22 01/31/22 23:59 23:59 23:59 Intake Total 1170 / 1170 1760 / 1760 Output Total 650 / 650 Balance 1170 / 1170 1110 / 1110 Medical Nutrition Assessment Dietitian: Malnutrition Criteria Met Start: 01/31/22 10:37 Freq: Status: Active Protocol: Document 01/31/22 10:37 SLA (Rec: 01/31/22 10:37 SLA [id number]) Nutrition Malnutrition Evidence of Malnutrition Exists Yes Malnutrition (severe): Acute Illness/Injury Evidenced By Suboptimal Energy Intake ( Severe),Weight Loss (Severe) Clinical Problem Acute Disease or Injury Related Malnutrition Etiology related to gastroenteritis 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 as evidenced by <50% po intake and 8.4% wt loss x 2 wks Status Active Problem Recommendation Dietitian Recommendations/Changes Will provide 8 oz ensure clear w/ meals while pt on liquid diet As medically able, rec diet as tolerated to Transitional diet Lab / Micro Data Result Diagrams: 01/31/22 07:15 01/31/22 07:15 Labs: Laboratory Results - last 24 hr 01/30/22 16:50: WBC 9.6, RBC 3.55 L, Hgb 9.2 L, Hct 31.7 L, MCV 89.3, MCH 25.9 L, MCHC 29.0 L, RDW Std Deviation 55.7 H, RDW Coeff of Pascual 16.9 H, Plt Count 467 H, MPV 11.3, Immature Gran % (Auto) 1.000 H, Neut % (Auto) 70.2 H, Lymph % (Auto) 20.1, [place] % (Auto) 7.3, Eos % (Auto) 0.7, Baso % (Auto) 0.7, Absolute Neuts (auto) 6.7, Absolute Lymphs (auto) 1.93, Nucleated RBC % 0 01/30/22 16:50: Sodium 136, Potassium 4.9, Chloride 111 H, Carbon Dioxide 14.0 L, Anion Gap 11, BUN 41 H, Creatinine 2.67 H, Estim Creat Clear Calc 18.56, Est GFR (MDRD) Af Amer 23 L, Est GFR (MDRD) Non-Af 19 L, BUN/Creatinine Ratio 15.4, Glucose 108 H, Calcium 9.0, Total Bilirubin 0.40, AST 5 L, ALT < 6 L, Alkaline Phosphatase 63, Troponin I High Sens 28, Total Protein 6.7, Albumin 3.0 L, Globulin 3.7, Albumin/Globulin Ratio 0.8 L, Lipase 293 01/30/22 16:50: Phosphorus 4.6, Magnesium 1.5 L 01/30/22 17:30: Lactic Acid 0.5 01/30/22 17:47: Urine Color Yellow, Urine Clarity Clear, Urine pH 5.0, Ur Specific [place] 1.010, Urine Protein Negative, Urine Glucose (UA) Normal, Urine Ketones 5 H, Urine Occult Blood 10 H, Urine Nitrite Negative, Urine Bilirubin Negative, Urine Urobilinogen Normal, Ur Leukocyte Esterase Negative, Urine RBC 0 SEEN, Urine WBC 0 SEEN, Ur Squamous Epith Cells 0-5 SEEN, Urine Bacteria RARE, Urine Mucus 0 SEEN 01/30/22 21:45: COVID-19 ([place]) Not Detected 01/31/22 07:15: Procalcitonin 0.09 01/31/22 07:15: WBC 5.2, RBC 3.12 L, Hgb 8.1 L, Hct 28.7 L, MCV 92.0, MCH 26.0 L, MCHC 28.2 L, RDW Std Deviation 57.5 H, RDW Coeff of Pascual 17.0 H, Plt Count 290, MPV 11.3, Immature Gran % (Auto) 1.200 H, Neut % (Auto) 55.7, Lymph % (Auto) 33.2, [place] % (Auto) 8.1, Eos % (Auto) 1.2, Baso % (Auto) 0.6, Absolute Neuts (auto) 2.9, Absolute Lymphs (auto) 1.72, Nucleated RBC % 0 01/31/22 07:15: Sodium 138, Potassium 4.4, Chloride 115 H, Carbon Dioxide 13.0 L, Anion Gap 10, BUN 32 H, Creatinine 1.80 H, Estim Creat Clear Calc 27.48, Est GFR (MDRD) Af Amer 36 L, Est GFR (MDRD) Non-Af 30 L, BUN/Creatinine Ratio 17.8, Glucose 76, Calcium 8.0 L, Total Bilirubin 0.30, AST 8 L, ALT 8 L, Alkaline Phosphatase 55, Total Protein 5.9 L, Albumin 2.7 L, Globulin 3.2, Albumin/Globulin Ratio 0.8 L Micro: Microbiology 01/30/22 21:45 Mucosa - Nose Respiratory Panel (PCR) - Final Radiography Diagnostic Testing: Radiology Impression Abdomen/Pelvis CT 01/30/22 16:57 IMPRESSION: No evidence of acute intra-abdominal pathology. Patient status post multiple surgeries with surgical clips seen around the stomach and small bowel, cecum and gallbladder fossa. There is a distended small bowel loop, which appears adherent to the anterior abdomen, suggesting adhesions without small bowel obstruction. Coronary artery calcifications may be associated with increased risk for acute coronary syndrome. Electronically Signed: Estuardo Monteiro DO at 19:20 EDT , Physical Exam Const alert, oriented x3 and no apparent distress HEENT head/scalp atraumatic and moist oral mucous membranes Head and Scalp: normocephalic Eyes PERRL, EOMs intact bilaterally and conjunctivae normal Neck no lymphadenopathy, supple and no JVD Resp normal respiratory effort, no retractions and no use of accessory muscles Cardio regular rate, regular rhythm and no JVD GI normal to inspection, nondistended, normoactive bowel sounds and soft to palpation Extremity normal to inspection and full ROM Skin no rashes or lesions noted, no wounds and skin turgor normal Neuro CN's II-XII intact bilaterally Psych affect normal Assessment & Plan Assessment/Plan (1) Gastroenteritis: (2) CATE (acute kidney injury): (3) Nausea & vomiting: PLAN: Day 1 Discharge planning: To be determined. 1) gastroenteritis Viral respiratory panel is unremarkable. Vital signs stable, CBC does not demonstrate a white count. Patient reports that her abdominal pain and N/V/D have markedly improved. Currently awaiting for patient to produce a stool sample to test for C. difficile, advance to full liquid diet and advance as tolerated. 2) CATE Improved, creatinine currently 1.8, down from admission. Likely secondary to poor oral intake and fluid loss. We will continue IV fluids and hold nephrotoxic agents. 3) paroxysmal atrial fibrillation On diltiazem and metoprolol for rate control. Patient is anticoagulated on Eliquis. Continue to hold diltiazem and metoprolol given ongoing hypotension. We will add back when ready. 4) Crohn's disease Complicates #1. CT obtained admission did not demonstrate any findings of an acute exacerbation. Continue home cefazolin, mesalamine and budesonide. 5) chronic COPD with chronic hypoxic respiratory failure Not in acute exacerbation, patient is maintaining on 4 L of oxygen which is her home oxygen requirement. Continue bronchodilators, and Daliresp regimen. 6) hypertension Currently BP is running low, continue to hold diltiazem and metoprolol as above. 7) GERD Continue IV PPI. 8) LEMUEL Continue BiPAP nightly. DVT prophylaxis -chronic Eliquis. Patient seen by Quique Beebe PA-C, under the supervision of Dr. Stubbs. Time spent on patient care: 10 minutes. Documented by User: Dr. Jerod Stubbs MD 01/31/22 15:04 Objective Data Lab / Micro Data Result Diagrams: 01/31/22 07:15 01/31/22 07:15 Charges/Coding Addendum Addendum: Dr. Stubbs: I personally reviewed the chart and examined the patient, and agree with the above findings. 67-year-old female from a [place] [facility] admitted for gastroenteritis resulting in an CATE. Reports were that she has been having 2 weeks of nausea, emesis, and diarrhea though then she also states that she is has not had a bowel movement in 5 days. She has not had a bowel movement today and we are unable to send a stool sample to check for C. difficile or any other type of infection. The fact that she has not had multiple episodes of diarrhea here Erin speaks against C. difficile as a diagnosis. We will continue with IV fluids, her creatinine has improved today. She does have chronic oxygen requirements of 4 L secondary to COPD. Her other medical history appears to be stable at this time. Clinical time spent in all aspects of patient care: 20 minutes Visit Charges Inpatient E&M: 55361 Subs Hosp L2
[2022-02-01] VITALS (13 sets, daily range): BP systolic 100–149; BP diastolic 51–73; PULSE 77–120; RESP 16–18; TEMP 36.5–36.7; O2SAT 95–100
[2022-02-01] MEDS: 0.9% Normal Saline 1,000 ML 100 ML IV ×2 (01:53→13:36)
[2022-02-01] MEDS: Acetaminophen 325 MG Tablet 650 MG PO ×2 (02:13→11:29)
[2022-02-01 06:08] LABS: Absolute Lymphocyte Count 1.12 X10^3/uL (0.83-4.51); Absolute Neutrophil Count 2.3 X10^3/uL (2.0-7.7); Basophil# 0.02 X10^3/uL; Basophil% 0.5 % (0-1); Eosinophil# 0.02 X10^3/uL; Eosinophils% 0.5 % (0-5); Hematocrit 23.4 % (37-47); Hemoglobin 6.8 g/dL (12.0-15.0); Lymphocyte # 1.12 X10^3/ul (0.83-4.51); Lymphocyte % 30.3 % (19-41); Mean Corp Hgb Conc 29.1 g/dL (32-36); Mean Corpuscular Hgb 26.4 pg (27.0-32.0); Mean Corpuscular Volume 90.7 fL (81-99); Mean Platelet Vol. 10.9 fl (6.2-12.0); Monocyte# 0.23 X10^3/uL; Monocyte% 6.2 % (0-10); NRBC Flagged by Analyzer 0 % (0-5); Neutrophil # 2.28 X10^3/uL (2.7-7.7); Neutrophil % 61.7 % (47-70); Platelet Count 248 K/mm3 (150-450); RBC Distribution Width CV 17.3 % (11.6-14.6); RBC Distribution Width SD 57.6 fl (35.1-43.9); Red Blood Count 2.58 M/mm3 (4.2-5.4); White Blood Count 3.7 K/mm3 (4.4-11.0)
[2022-02-01 06:59] LABS: Anion Gap 8 (5-15); BUN 17 mg/dL (7-18); BUN/Creat Ratio 17.6 RATIO (10-20); Calcium,Total 7.6 mg/dL (8.5-10.1); Chloride 118 mmol/L (98-107); Creatinine, Serum 0.97 mg/dL (0.55-1.02); EST Glomerular Filtration Rate 61 mL/min (>60); Est Glom Filt Rate - Afr Amer 74 mL/min (>60); Estimated Creatinine Clearance 51.26 ml/min; Glucose 92 mg/dL (74-106); Potassium 4.1 mmol/L (3.5-5.1); Sodium Level 141 mmol/L (136-145)
[2022-02-01] MEDS: guaiFENesin 600 MG Tablet PO ×2 (09:52→22:21)
[2022-02-01] MEDS: Budesonide 3 MG CAPSULE.EC PO (09:52)
[2022-02-01] MEDS: Potassium Chloride Oral Tablet 20 MEQ PO ×2 (09:52→17:09)
[2022-02-01] MEDS: Cyanocobalamin 500 MCG Tablet 1000 MCG PO (09:52)
[2022-02-01] MEDS: predniSONE 10 MG Tablet PO ×2 (09:52→17:09)
[2022-02-01] MEDS: sulfaSALAzine 500 MG Tablet 1000 MG PO ×2 (09:52→17:09)
[2022-02-01] MEDS: Loratadine 10 MG Tablet PO (09:52)
[2022-02-01] MEDS: APIXABAN 2.5 MG TABLET PO (09:52)
[2022-02-01] MEDS: Aspirin 81 MG TAB.CHEW PO (09:52)
[2022-02-01] MEDS: Folic Acid 1 MG Tablet PO (09:52)
[2022-02-01] MEDS: Lidocaine 5% Patch 1 PATCH TOPICAL (09:56)
[2022-02-01] MEDS: Dorzolamide HCL/Timolol 10 ml Bottle 1 DRP OPHTHALMIC ×2 (09:57→21:34)
--- NOTE | 2022-02-01 10:20 | CASEMGMT ---
SINDI reviewed chart and patient is from [facility]. SINDI faxed information to [facility]. SINDI also called Tawn[facility] and left her a voice mail. Carrie Haley [employer] WU
[2022-02-01 10:28] LABS: Platelet Count 267 K/mm3 (150-450); Reticulocyte Count 1.89 % (0.5-1.5)
[2022-02-01 10:43] LABS: Ferritin 102 ng/mL (8-252); Iron 75 ug/dL (50-170); Iron Binding Capacity,Total 197 ug/dL (250-450); PERCENT IRON SATURATION 38.1 % (15.0-55.0)
--- NOTE | 2022-02-01 11:49 | CASEMGMT ---
SW met with patient. Introduced self and role at [facility]. Patient confirmed her plan is to return to [place] at discharge. Carrie Haley MSW WU
--- NOTE | 2022-02-01 12:30 | PN.HOSP_ITS ---
Documented by User: Quique CHERY 02/01/22 12:43 Subjective Subjective Patient is a 67-year-old female comfortably resting in bed, alert and orient x3. Patient denies development of any new symptoms overnight. Does not appear in acute distress. Objective Data Objective Data Vital Signs: Vital Signs Temp Pulse Resp BP Pulse Ox 97.8 F 101 H 18 122/70 H 97 02/01/22 09:41 02/01/22 09:41 02/01/22 09:41 02/01/22 09:41 02/01/22 09:41 Oxygen Flow Rate (L/min) 4 Oxygen Delivery Method Nasal Cannula Weight: 128 lb 15.527 oz Body Mass Index (BMI) 26.2 Intake & Output: Intake and Output for Last 24 Hours 01/30/22 01/31/22 02/01/22 23:59 23:59 23:59 Intake Total 1170 / 1170 3300.33 / 3300.33 2551.67 / 2551.67 Output Total 650 / 650 Balance 1170 / 1170 2650.33 / 2650.33 2551.67 / 2551.67 Medical Nutrition Assessment Dietitian: Malnutrition Criteria Met Start: 01/31/22 10:37 Freq: Status: Active Protocol: Document 01/31/22 10:37 STEFFI (Rec: 01/31/22 10:37 [id number] [id number]) Nutrition Malnutrition Evidence of Malnutrition Exists Yes Malnutrition (severe): Acute Illness/Injury Evidenced By Suboptimal Energy Intake ( Severe),Weight Loss (Severe) Clinical Problem Acute Disease or Injury Related Malnutrition Etiology related to gastroenteritis w/ n/v/d x 2 wks travel pta Signs/Symptoms as evidenced by <50% po intake and 8.4% wt loss x 2 wks Status Active Problem Recommendation Dietitian Recommendations/Changes Will provide 8 oz ensure clear w/ meals while pt on liquid diet As medically able, rec diet as tolerated to Transitional diet Lab / Micro Data Result Diagrams: 02/01/22 06:00 02/01/22 06:00 Labs: Laboratory Results - last 24 hr 02/01/22 06:00: Sodium 141, Potassium 4.1, Chloride 118 H, Carbon Dioxide 15.0 L , Anion Gap 8, BUN 17, Creatinine 0.97, Estim Creat Clear Calc 51.26, Est GFR (MDRD) Af Amer 74, Est GFR (MDRD) Non-Af 61, BUN/Creatinine Ratio 17.6, Glucose 92, Calcium 7.6 L 02/01/22 06:00: WBC 3.7 L, RBC 2.58 L, Hgb 6.8 L, Hct 23.4 L, MCV 90.7, MCH 26.4 L, MCHC 29.1 L, RDW Std Deviation 57.6 H, RDW Coeff of Pascual 17.3 H, Plt Count 248, MPV 10.9, Immature Gran % (Auto) 0.800, Neut % (Auto) 61.7, Lymph % (Auto) 30.3, [place] % (Auto) 6.2, Eos % (Auto) 0.5, Baso % (Auto) 0.5, Absolute Neuts (auto) 2.3, Absolute Lymphs (auto) 1.12, Nucleated RBC % 0 02/01/22 06:00: Retic Count 1.89 H, Immature Retic Fraction 16.60 H, Retic Hgb Equivalent 28.0 L 02/01/22 06:00: Iron 75, TIBC 197 L, Iron Saturation 38.1, Ferritin 102 02/01/22 : WBC Cancelled, Corrected WBC Cancelled, RBC Cancelled, Hgb Cancelled, Hct Cancelled, MCV Cancelled, MCH Cancelled, MCHC Cancelled, RDW Std Deviation Cancelled, RDW Coeff of [place] Cancelled, Plt Count Cancelled, MPV Cancelled, Immature Gran % (Auto) Cancelled, Neut % (Auto) Cancelled, Lymph % (Auto) Cancelled, [place] % (Auto) Cancelled, Eos % (Auto) Cancelled, Baso % (Auto) Cancelled, Absolute Neuts (auto) Cancelled, Absolute Lymphs (auto) Cancelled, Total Counted Cancelled, Neutrophils % (Manual) Cancelled, Band Neutrophils % Cancelled, Lymphocytes % (Manual) Cancelled, Monocytes % (Manual) Cancelled, Eosinophils % (Manual) Cancelled, Basophils % (Manual) Cancelled, Metamyelocytes % Cancelled, Myelocytes % Cancelled, Promyelocytes % Cancelled, Blast Cells % Cancelled, Plasma Cell % (Manual) Cancelled, Other Cells % Cancelled, Nucleated RBC % Cancelled, Nucleated RBCs/100 WBC Cancelled, Differential Comment Cancelled, Diff Path Review Cancelled, Hypersegmented Neuts Cancelled, Atypical Lymphocytes Cancelled, Reactive Lymphocytes Cancelled, Smudge Cells Cancelled, Toxic Granulation Cancelled, Toxic Vacuolation Cancelled, Dohle Bodies Cancelled, Shyann Rods Cancelled, Platelet Estimate Cancelled, Plt Morphology Comment Cancelled, RBC Morphology Cancelled, Polychromasia Cancelled, Hypochromasia Cancelled, Poikilocytosis Cancelled, Basophilic Stippling Cancelled, Anisocytosis Cancelled, Microcytosis Cancelled, Macrocytosis Cancelled, Spherocytes Cancelled, Sickle Cells Cancelled, Target Cells Cancelled, Tear Drop Cells Cancelled, Ovalocytes Cancelled, Stomatocytes Cancelled, [place] Bodies Cancelled, [place] Cells Cancelled, Bite Cells Cancelled, Crenated Cell Cancelled, Acanthocytes (Spur) Cancelled, Rouleaux Cancelled, Schistocytes Cancelled 02/01/22 : Sodium Cancelled, Potassium Cancelled, Chloride Cancelled, Carbon Dioxide Cancelled, Anion Gap Cancelled, BUN Cancelled, Creatinine Cancelled, Estim Creat Clear Calc Cancelled, Est GFR (MDRD) Af Amer Cancelled, Est GFR (MDRD) Non-Af Cancelled, BUN/Creatinine Ratio Cancelled, Glucose Cancelled, Calcium Cancelled Micro: Microbiology 01/31/22 14:40 Stool Stool Lactoferrin - Final 01/31/22 14:40 Stool Stool Occult Blood ([facility]) - Final 01/30/22 21:45 Mucosa - Nose Respiratory Panel (PCR) - Final Physical Exam Const alert, oriented x3 and no apparent distress HEENT head/scalp atraumatic and moist oral mucous membranes Head and Scalp: normocephalic Eyes PERRL, EOMs intact bilaterally and conjunctivae normal Neck no lymphadenopathy, supple and no JVD Resp normal respiratory effort, no retractions and no use of accessory muscles Cardio regular rate, regular rhythm and no JVD GI normal to inspection, nondistended, normoactive bowel sounds and soft to palpation Extremity normal to inspection, full ROM and no clubbing, cyanosis or edema Skin no rashes or lesions noted Neuro CN's II-XII intact bilaterally Psych affect normal Assessment & Plan Assessment/Plan (1) Gastroenteritis: (2) CATE (acute kidney injury): (3) Nausea & vomiting: PLAN: Day 2 Discharge planning: To be determined. 1) gastroenteritis Viral respiratory panel is unremarkable. Vital signs stable, CBC does not demonstrate a white count. Patient reports that her abdominal pain and N/V/D have markedly improved. Viral panel is negative. C. difficile stool panel and enteric stool panel are currently pending. We will continue supportive treatments. 2) acute on chronic anemia Patient's hemoglobin this a.m. was 6.8, baseline appears between 8 and 9. Patient does report blood in stool, although stool lactoferrin and occult stool were negative. Patient does have history of iron deficiency anemia, but does not take iron supplementation at home. Initiate IV iron, continue IV PPI, GI consult ordered. 3) CATE Resolved, creatinine currently 0.97. Likely due to poor oral intake and fluid loss on admission. We will continue to monitor. 4) Crohn's disease Complicates #1. CT obtained admission did not demonstrate any findings of an acute exacerbation. Continue home cefazolin, mesalamine and budesonide. 5) chronic COPD with chronic hypoxic respiratory failure Not in acute exacerbation, patient is maintaining on 4 L of oxygen which is her home oxygen requirement. Continue bronchodilators. 6) hypertension Currently BP is running low, continue to hold diltiazem and metoprolol as above. 7) GERD Continue IV PPI. 8) LEMUEL Continue BiPAP nightly. 9) paroxysmal atrial fibrillation On diltiazem and metoprolol for rate control. Patient is anticoagulated on Eliquis. Continue to hold diltiazem and metoprolol given ongoing hypotension. We will add back when ready. Hold home Eliquis Given #2. DVT prophylaxis - SCD's Patient seen by Quique Beebe PA-C, under the supervision of Dr. Min. Time spent on patient care: 10 minutes Documented by User: Dr. Avery Min MD 02/01/22 16:35 Subjective Subjective Follow-up for gastroenteritis and abdominal pain. Seen and examined Patient does not have abdominal pain today. Last bowel movement was darker stool yesterday morning/afternoon. Hemoglobin dropped to 6.8. No dizziness or headache or hypotension. Objective Data Lab / Micro Data Result Diagrams: 02/01/22 06:00 02/01/22 06:00 Physical Exam Narrative General: Alert, Oriented x3, Cooperative HEENT: Atraumatic, PERRLA, EOMI, Normocephalic, glaucoma in left eye Oral: No Gingival or Mucosal Lesions/ Ulcerations Neck: Supple, No JVD, Negative Carotid Bruits Lungs: Air entry diminished in bilateral lung bases. No crepitation/rhonchi Cardiovascular: Sinus tachycardia, Normal S1, Normal S2, systolic murmur over LLSB Abdomen: Bowel Sounds Present, Soft, Non Tender, Non-Distended. Lower surgical abdominal scar : No renal angle tenderness. No suprapubic tenderness. Extremities: No edema, Capillary Refill Less than 3 Seconds Skin: No rashes, No breakdown Musculoskeletal: No Tenderness to Palpation of Joints or Extremities Neurological: Cranial nerves II-XII grossly intact, DTR 2+/4 and Symmetrical, Neuro grossly intact Psych/Mental Status: Normal Affect, Appropriate Assessment & Plan Assessment/Plan (1) Gastroenteritis: (2) CATE (acute kidney injury): PLAN: This patient was seen in conjunction with MIRI Ferrell. I have independently interviewed and examined the patient and reviewed pertinent history, examination findings, laboratory and plan of management. I have reviewed the note and agree with the documented findings with the few ad ditional points. In brief, patient is 67-year-old female was admitted with abdominal pain and diarrhea. Her last bowel movement was yesterday, dark stool. Abdominal pain and diarrhea has resolved. She did not receive any antibiotic in last 6 months. Stool for C. difficile, occult blood and lactoferrin negative. Viral respiratory panel negative. GI consulted for acute drop in hemoglobin from 8.1- 6.8. Platelet 48,000. Patient was on apixaban 2.5 mg twice daily discontinued. Assessment and plan Acute gastroenteritis most probably viral: Resolved. CT abdomen shows a small loop of bowel adhered to the anterior abdominal wall not associated with wall edema. Acute on chronic normocytic normochromic anemia probably lower GI bleed: GI is consulted. Monitor H&H. Rest as mentioned above Patient has Crohn's disease on sulfasalazine. At home she is on Entocort and sulfasalazine. The patient has history of resection and small bowel with anastomosis. CATE most likely due to prerenal/volume loss Paroxysmal A. fib on Eliquis, Eliquis discontinued. COPD with chronic hypoxic respiratory failure on 4 L of oxygen. She also has glaucoma in left eye with blurry vision she says was try central Multiple other comorbidities include hypertension, dyslipidemia, chronic diastolic heart failure, Parkinson's disease, chronic normocytic anemia, obstructive sleep apnea on BiPAP: Multiple comorbidities complicates the present care and expect difficult and delay recovery I have discussed my assessment with MIRI Ferrell and orders have been reviewed. Charges/Coding Visit Charges Inpatient E&M: 75956 Subs Hosp L2
--- NOTE | 2022-02-01 13:30 | CON.PCM_ITS ---
Assessment & Plan Assessment/Plan (1) Nausea & vomiting: PLAN: She is tolerating a diet and not having any signs of nausea vomiting at this time. Her C. difficile and stool lactoferrin were negative for infectious etiologies of her gastroenteritis. That is a lot better. My only concern is that she could be haVING an intermittent upper GI bleed secondary to Eliquis and aspirin. I would continue PPI therapy. For now would not (2) Anemia: PLAN: She seems to think that her anemia is secondary to a very large hemorrhoid. She does have a small hemorrhoid on exam but it did not have any bleeding stigmata. I would recommend an upper lower endoscopy to evaluate her upper lower GI tract for inflammatory bowel disease and or peptic ulcer disease along with telangiectasias. However she would rather do work-up as an outpatient as she does not want to lose her bed at the alf. (3) Crohn's disease: PLAN: She is on mesalamine therapy now. I would not make any changes regarding her current therapy recommendations until she is undergone an upper lower endoscopy to stage and determined allergy of the GI bleedinG and anemia. HPI Consult Data Date of Consult: 02/01/22 HPI Narrative HPI Narrative: GOLDIE PAIZ, is a 67 F who presents from the nurse at home with worsening shortness of breath and abdominal pain. She has a past medical history of COPD on 4 L of oxygen, Crohn's disease status post ileocolonic resection on mesalamine therapy. She also has a past medical history of paroxysmal atrial fibrillation on anticoagulation and iron deficiency anemia. She did admit to some blood in her stool but she is convinced it is from her hemorrhoids that have been treated in past with banding procedures. Her abdominal pain is a lot better since being started on antisuppressive therapy and antisecretory therapy. She is tolerating a diet. I was called to see her due to the fact that she had blood in her stool and a hemoglobin of 6.8. Initially when she came to the hospital her hemoglobin was 9.2, white blood cell count of 9.6, platelet count of 467. Her hemoglobin dropped down to 6.8 this morning. In the hospital emergency room she had a CT scan abdomen pelvis that showed no acute evidence of intra-abdominal pathology. There were multiple surg eries seen because of the presence of clips and a right upper quadrant and right lower quadrant. [facility] Medical History (Updated 02/01/22 @ 13:[address] Alegre Friend, DO) Anxiety and depression Atrial fibrillation Chronic anemia Chronic respiratory failure COPD (chronic obstructive pulmonary disease) Crohn's disease Crohn's disease Diastolic CHF Dysphagia Former tobacco use GERD (gastroesophageal reflux disease) History of COVID-19 History of deep venous thrombosis or pulmonary embolus Hypertension Iron deficiency anemia Parkinsons disease Sleep apnea Home Medications Lactobacillus rhamnosus GG [Culturelle] 1 cap PO DAILY 01/30/22 [History Last Taken Unknown] albuterol 90 mcg INHALATION BID 01/30/22 [History Last Taken Unknown] apixaban [Eliquis] 5 mg PO BID 01/30/22 [History Last Taken Unknown] aspirin 81 mg PO DAILY 01/30/22 [History Last Taken Unknown] budesonide 3 mg PO DAILY 01/30/22 [History Last Taken Unknown] cetirizine 10 mg PO DAILY 01/30/22 [History Last Taken Unknown] cyanocobalamin (vitamin B-12) 1,000 mcg PO DAILY 01/30/22 [History Last Taken Unknown] cyclobenzaprine 10 mg PO QHS 01/30/22 [History Last Taken Unknown] diltiazem HCl 240 mg PO DAILY 01/30/22 [History Last Taken Unknown] dorzolamide-timolol (PF) 1 drp OPHTHALMIC (EYE) BID 01/30/22 [History Last Taken Unknown] nnsgerygupk-[id number]-[id number] [Trelegy Ellipta] 1 inh INHALATION DAILY 01/30/22 [History Last Taken Unknown] folic acid 1 mg PO DAILY 01/30/22 [History Last Taken Unknown] furosemide 20 mg PO DAILY 01/30/22 [History Last Taken Unknown] guaifenesin [Mucinex] 600 mg PO BID 01/30/22 [History Last Taken Unknown] ipratropium-albuterol 3 ml INHALATION Q4H PRN 01/30/22 [History Last Taken Unknown] loperamide 2 mg PO Q4H PRN 01/30/22 [History Last Taken Unknown] mesalamine 1.125 g PO DAILY 01/30/22 [History Last Taken Unknown] metoprolol tartrate 100 mg PO Q12H 01/30/22 [History Last Taken Unknown] pantoprazole 40 mg PO BID 01/30/22 [History Last Taken Unknown] potassium chloride 20 meq PO BID 01/30/22 [History Last Taken Unknown] prednisone 10 mg PO BID 01/30/22 [History Last Taken Unknown] roflumilast [Daliresp] 250 mcg PO QHS 01/30/22 [History Last Taken Unknown] sulfasalazine 1 g PO BID 01/30/22 [History Last Taken Unknown] Allergy/AdvReac Type Severity Reaction Status Date / Time amoxicillin [From Augmentin] Allergy PT UNABLE Verified 01/30/22 16:37 TO RESPOND-NEEDS F/U clavulanic acid Allergy PT UNABLE Verified 01/30/22 16:37 [From Augmentin] TO RESPOND-NEEDS F/U codeine Allergy PT UNABLE Verified 01/30/22 16:37 TO RESPOND-NEEDS F/U Iodinated Contrast Media Allergy Anaphylaxis Verified 01/30/22 16:37 metronidazole [From Flagyl] Allergy PT UNABLE Verified 01/30/22 16:37 TO RESPOND-NEEDS F/U morphine Allergy PT UNSURE Verified 01/30/22 16:37 OF REACTION oxycodone Allergy PT UNSURE Verified 01/30/22 16:37 OF REACTION ropinirole Allergy PT UNSURE Verified 01/30/22 16:37 OF REACTION acetaminophen [From Vicodin] AdvReac PT UNSURE Verified 01/30/22 16:37 OF REACTION hydrocodone [From Vicodin] AdvReac PT UNSURE Verified 01/30/22 16:37 OF REACTION IV DYE Allergy Anaphylaxis Uncoded 01/30/22 16:37 Family History (Updated 01/30/22 @ 20:[address] Ladonna Pastor MD) Mother Alzheimer's dementia Family History other Surgical History (Updated 01/30/22 @ 20:[address] Ladonna Pastor MD) H/O exploratory laparotomy History of bilateral tubal ligation History of repair of hiatal hernia History of resection of small bowel History of total right hip replacement Hx of cataract surgery S/P carpal tunnel release S/P cholecystectomy Social History (Updated 01/30/22 @ 19:[address] Ladonna Pastor MD) housing: alf Smoking Status: Current every day smoker tobacco type: cigarettes how long ago did patient quit smoking: Quit ~ 13 years prior to current presentation. alcohol intake: never substance use type: does not use ROS Gastrointestinal Gastrointestinal: Reports abdominal pain and hematochezia Physical Exam Const alert General Appearance: cooperative Orientation / Consciousness: oriented to person HEENT hearing grossly normal bilaterally Head and Scalp: normal to inspection Face and Sinus: face symmetric Nose: external nose normal Mouth: oral and palatal mucosa normal Eyes conjunctivae normal General Eye: normal appearance of both eyes Neck full ROM General: normal visual inspection Lymph Lymphatic: no lymphadenopathy noted Chest inspection of chest normal and palpation of chest normal Chest: symmetrical chest wall rise Resp normal respiratory effort Effort and Inspection: able to speak in complete sentences Cardio regular rate GI non-distended Percussion: normal to percussion Rectal Exam: deferred Neuro Speech: speech normal Gait (Neuro): normal gait Medical Records Data Medical Nutrition Assessment Dietitian: Malnutrition Criteria Met Start: 01/31/22 10:37 Freq: Status: Active Protocol: Document 01/31/22 10:37 [facility] (Rec: 01/31/22 10:37 [facility] [id number]) Nutrition Malnutrition Evidence of Malnutrition Exists Yes Malnutrition (severe): Acute Illness/Injury Evidenced By Suboptimal Energy Intake ( Severe),Weight Loss (Severe) Clinical Problem Acute Disease or Injury Related Malnutrition Etiology related to gastroenteritis w/ n/v/d x 2 wks mechanical intern Signs/Symptoms as evidenced by <50% po intake and 8.4% wt loss x 2 wks Status Active Problem Recommendation Dietitian Recommendations/Changes Will provide 8 oz ensure clear w/ meals while pt on liquid diet As medically able, rec diet as tolerated to Transitional diet Lab / Micro Data Result Diagrams: 02/01/22 06:00 02/01/22 06:00 Labs: Laboratory Results - last 24 hr 02/01/22 06:00: Sodium 141, Potassium 4.1, Chloride 118 H, Carbon Dioxide 15.0 L , Anion Gap 8, BUN 17, Creatinine 0.97, Estim Creat Clear Calc 51.26, Est GFR (MDRD) Af Amer 74, Est GFR (MDRD) Non-Af 61, BUN/Creatinine Ratio 17.6, Glucose 92, Calcium 7.6 L 02/01/22 06:00: WBC 3.7 L, RBC 2.58 L, Hgb 6.8 L, Hct 23.4 L, MCV 90.7, MCH 26.4 L, MCHC 29.1 L, RDW Std Deviation 57.6 H, RDW Coeff of [place] 17.3 H, Plt Count 248, MPV 10.9, Immature Gran % (Auto) 0.800, Neut % (Auto) 61.7, Lymph % (Auto) 30.3, [place] % (Auto) 6.2, Eos % (Auto) 0.5, Baso % (Auto) 0.5, Absolute Neuts (auto) 2.3, Absolute Lymphs (auto) 1.12, Nucleated RBC % 0 02/01/22 06:00: Retic Count 1.89 H, Immature Retic Fraction 16.60 H, Retic Hgb Equivalent 28.0 L 02/01/22 06:00: Iron 75, TIBC 197 L, Iron Saturation 38.1, Ferritin 102 02/01/22 : WBC Cancelled, Corrected WBC Cancelled, RBC Cancelled, Hgb Cancelled, Hct Cancelled, MCV Cancelled, MCH Cancelled, MCHC Cancelled, RDW Std Deviation Cancelled, RDW Coeff of [place] Cancelled, Plt Count Cancelled, MPV Cancelled, Immature Gran % (Auto) Cancelled, Neut % (Auto) Cancelled, Lymph % (Auto) Cancelled, [place] % (Auto) Cancelled, Eos % (Auto) Cancelled, Baso % (Auto) Cancelled, Absolute Neuts (auto) Cancelled, Absolute Lymphs (auto) Cancelled, Total Counted Cancelled, Neutrophils % (Manual) Cancelled, Band Neutrophils % Cancelled, Lymphocytes % (Manual) Cancelled, Monocytes % (Manual) Cancelled, Eosinophils % (Manual) Cancelled, Basophils % (Manual) Cancelled, Metamyelocytes % Cancelled, Myelocytes % Cancelled, Promyelocytes % Cancelled, Blast Cells % Cancelled, Plasma Cell % (Manual) Cancelled, Other Cells % Cancelled, Nucleated RBC % Cancelled, Nucleated RBCs/100 WBC Cancelled, Differential Comment Cancelled, Diff Path Review Cancelled, Hypersegmented Neuts Cancelled, Atypical Lymphocytes Cancelled, Reactive Lymphocytes Cancelled, Smudge Cells Cancelled, Toxic Granulation Cancelled, Toxic Vacuolation Cancelled, Dohle Bodies Cancelled, Shyann Rods Cancelled, Platelet Estimate Cancelled, Plt Morphology Comment Cancelled, RBC Morphology Cancelled, Polychromasia Cancelled, Hypochromasia Cancelled, Poikilocytosis Cancelled, Basophilic Stippling Cancelled, Anisocytosis Cancelled, Microcytosis Cancelled, Macrocytosis Cancelled, Spherocytes Cancelled, Sickle Cells Cancelled, Target Cells Cancelled , Tear Drop Cells Cancelled, Ovalocytes Cancelled, Stomatocytes Cancelled, Breaux[place] Bodies Cancelled, [place] Cells Cancelled, Bite Cells Cancelled, Crenated Cell Cancelled, Acanthocytes (Spur) Cancelled, Rouleaux Cancelled, Schistocytes Cancelled 02/01/22 : Sodium Cancelled, Potassium Cancelled, Chloride Cancelled, Carbon Dioxide Cancelled, Anion Gap Cancelled, BUN Cancelled, Creatinine Cancelled, Estim Creat Clear Calc Cancelled, Est GFR (MDRD) Af Amer Cancelled, Est GFR (MDRD) Non-Af Cancelled, BUN/Creatinine Ratio Cancelled, Glucose Cancelled, Calcium Cancelled Micro: Microbiology 01/31/22 14:40 Stool C. difficile DNA Amplification - Final 01/31/22 14:40 Stool Stool Lactoferrin - Final 01/31/22 14:40 Stool Stool Occult Blood ([facility]) - Final Charges/Coding Visit Charges Inpatient E&M: 91216 Init Hosp L3
[2022-02-01] MEDS: Metoprolol Tartrate 100 MG Tablet PO ×2 (15:49→21:34)
[2022-02-01 17:33] LABS: Hematocrit 25.1 % (37-47); Hemoglobin 7.7 g/dL (12.0-15.0)
[2022-02-01] MEDS: Pantoprazole Sodium 40 MG Tablet PO (21:34)
[2022-02-02] VITALS (8 sets, daily range): BP systolic 107–128; BP diastolic 63–67; PULSE 62–78; RESP 16–18; TEMP 36.6–36.7; O2SAT 93–100
[2022-02-02 01:01] LABS: Hematocrit 23.5 % (37-47); Hemoglobin 6.8 g/dL (12.0-15.0)
[2022-02-02 05:42] LABS: Absolute Lymphocyte Count 1.26 X10^3/uL (0.83-4.51); Absolute Neutrophil Count 2.8 X10^3/uL (2.0-7.7); Basophil# 0.02 X10^3/uL; Basophil% 0.4 % (0-1); Eosinophil# 0.03 X10^3/uL; Eosinophils% 0.7 % (0-5); Hematocrit 23.6 % (37-47); Hemoglobin 6.9 g/dL (12.0-15.0); Lymphocyte # 1.26 X10^3/ul (0.83-4.51); Lymphocyte % 27.8 % (19-41); Mean Corp Hgb Conc 29.2 g/dL (32-36); Mean Corpuscular Hgb 26.3 pg (27.0-32.0); Mean Corpuscular Volume 90.1 fL (81-99); Mean Platelet Vol. 11.1 fl (6.2-12.0); Monocyte# 0.33 X10^3/uL; Monocyte% 7.3 % (0-10); NRBC Flagged by Analyzer 0 % (0-5); Neutrophil # 2.76 X10^3/uL (2.7-7.7); Neutrophil % 60.7 % (47-70); Platelet Count 228 K/mm3 (150-450); RBC Distribution Width CV 17.3 % (11.6-14.6); RBC Distribution Width SD 57.7 fl (35.1-43.9); Red Blood Count 2.62 M/mm3 (4.2-5.4); White Blood Count 4.5 K/mm3 (4.4-11.0)
[2022-02-02 06:10] LABS: Anion Gap 7 (5-15); BUN 9 mg/dL (7-18); BUN/Creat Ratio 12.8 RATIO (10-20); Calcium,Total 6.9 mg/dL (8.5-10.1); Chloride 118 mmol/L (98-107); EST Glomerular Filtration Rate 88 mL/min (>60); Est Glom Filt Rate - Afr Amer 106 mL/min (>60); Estimated Creatinine Clearance 49.73 ml/min; Glucose 92 mg/dL (74-106); Magnesium 1.3 mg/dL (1.6-2.6); Potassium 4.2 mmol/L (3.5-5.1); Sodium Level 142 mmol/L (136-145)
[2022-02-02] MEDS: Potassium Chloride Oral Tablet 20 MEQ PO (08:04)
[2022-02-02] MEDS: Aspirin 81 MG TAB.CHEW PO (08:04)
[2022-02-02] MEDS: sulfaSALAzine 500 MG Tablet 1000 MG PO (08:04)
[2022-02-02] MEDS: Folic Acid 1 MG Tablet PO (08:04)
[2022-02-02] MEDS: predniSONE 10 MG Tablet PO (08:04)
[2022-02-02] MEDS: guaiFENesin 600 MG Tablet PO (10:02)
[2022-02-02] MEDS: Cyanocobalamin 500 MCG Tablet 1000 MCG PO (10:02)
[2022-02-02] MEDS: Loratadine 10 MG Tablet PO (10:02)
[2022-02-02] MEDS: Budesonide 3 MG CAPSULE.EC PO (10:02)
[2022-02-02] MEDS: Pantoprazole Sodium 40 MG Tablet PO (10:03)
[2022-02-02] MEDS: Metoprolol Tartrate 100 MG Tablet PO (10:03)
[2022-02-02] MEDS: dilTIAZem CD 240 MG Capsule PO (10:03)
--- NOTE | 2022-02-02 10:03 | TREXTCAR_ITS ---
Documented by User: Quique CHERY 02/02/22 11:04 Diet 02/01/22 10:31 Diet: Regular - General Food consistency:: Soft & Bite Sized Liquid Consistency:: Regular/Thin Is pt able to select menu?: Yes Diet Comments: 8 oz ensure clear w/ meals while on liquid diet Therapies Weight Bearing: Full weight bearing Physical Therapy: Eval and Treat Occupational Therapy: Eval and Treat Problem/Diagnosis (1) Gastroenteritis: Status: Acute (2) CATE (acute kidney injury): Status: Acute Allergies/Procedures Done in Hospital Allergies amoxicillin [From Augmentin] Allergy (Verified 01/30/22 16:37) PT UNABLE TO RESPOND-NEEDS F/U clavulanic acid [From Augmentin] Allergy (Verified 01/30/22 16:37) PT UNABLE TO RESPOND-NEEDS F/U codeine Allergy (Verified 01/30/22 16:37) PT UNABLE TO RESPOND-NEEDS F/U Iodinated Contrast Media Allergy (Verified 01/30/22 16:37) Anaphylaxis metronidazole [From Flagyl] Allergy (Verified 01/30/22 16:37) PT UNABLE TO RESPOND-NEEDS F/U morphine Allergy (Verified 01/30/22 16:37) PT UNSURE OF REACTION oxycodone Allergy (Verified 01/30/22 16:37) PT UNSURE OF REACTION ropinirole Allergy (Verified 01/30/22 16:37) PT UNSURE OF REACTION acetaminophen [From Vicodin] Adverse Reaction (Verified 01/30/22 16:37) PT UNSURE OF REACTION hydrocodone [From Vicodin] Adverse Reaction (Verified 01/30/22 16:37) PT UNSURE OF REACTION IV DYE Allergy (Uncoded 01/30/22 16:37) Anaphylaxis Type of Care/Length of Stay Estimated LOS: More Than 30 Days Type of Care Needed: Intermediate Rehab Potential: Fair Prognosis: Fair Additional Orders/Day of Discharge Day of Discharge: 02/02/22 Dietary and Speech Recommendations Dietitian Recommendations/Changes: Will provide 8 oz ensure clear w/ meals while pt on liquid diet As medically able, rec diet as tolerated to Transitional diet Discharge Plan Admission Admit Date/Time: 01/30/22 20:07 Primary Reason for Your Visit: abdominal pain with N/V/D. Attending Provider: Avery Min Primary Care Provider: Quique Burroughs Instructions Additional Instructions / Restrictions: * obtain daily Hemoglobin & Hematocrit for the next 4-5 days to monitor your anemia. Discharge Orders/Prescriptions Prescriptions: Continued cyclobenzaprine 10 mg Tablet 10 mg PO QHS RF: 0 diltiazem HCl 240 mg Capsule,Ext.Rel 24h Degradable 240 mg PO DAILY RF: 0 metoprolol tartrate 100 mg Tablet 100 mg PO Q12H RF: 0 cyanocobalamin (vitamin B-12) 500 mcg Tablet 1,000 mcg PO DAILY RF: 0 folic acid 1 mg Tablet 1 mg PO DAILY RF: 0 albuterol 90 mcg/actuation Aerosol 90 mcg INHALATION BID RF: 0 budesonide 3 mg Capsule,Delayed,Extend.Release 3 mg PO DAILY RF: 0 mesalamine 0.375 gram Capsule,Extended Release 24hr 1.125 g PO DAILY RF: 0 dorzolamide-timolol (PF) 2-0.5 % Dropperette 1 drp OPHTHALMIC (EYE) BID RF: 0 guaifenesin [Mucinex] 600 mg Tablet Extended Release 12hr 600 mg PO BID RF: 0 Daliresp 250 mcg Tablet 250 mcg PO QHS RF: 0 sulfasalazine 500 mg Tablet 1 g PO BID RF: 0 cetirizine 10 mg Tablet 10 mg PO DAILY RF: 0 loperamide 2 mg Tablet 2 mg PO Q4H PRN (Reason: Diarrhea) RF: 0 potassium chloride 20 mEq Packet 20 meq PO BID RF: 0 furosemide 20 mg Tablet 20 mg PO DAILY RF: 0 Culturelle 15 billion cell Capsule, Sprinkle 1 cap PO DAILY RF: 0 Trelegy Ellipta 100-62.5-25 mcg Blister With Device 1 inh INHALATION DAILY RF: 0 ipratropium-albuterol 0.5 mg-3 mg(2.5 mg base)/3 mL Solution For Nebulization 3 ml INHALATION Q4H PRN (Reason: SHORTNESS) RF: 0 pantoprazole 40 mg Tablet,Delayed Release (Dr/Ec) 40 mg PO BID RF: 0 Held Eliquis 5 mg Tablet 5 mg PO BID RF: 0 Hold Instructions: Hold it at least for 2 MORE days until Hb >8 gm/dl and resume at lower dose 2.5 mg bid. Daily CBC prednisone 10 mg Tablet 10 mg PO BID RF: 0 Hold Instructions: Hold until instrcuted to resume by your primary care provider. Discontinued aspirin 81 mg Tablet 81 mg PO DAILY RF: 0 Hold Instructions: Hold until told to resume by our primary care provider. Other Ambulatory Orders: HH, Hemoglobin & Hematocrit (Routine) Timeframe: 1 Day Facility: [facility] - Location: Laboratory Ordered By: Quique CHREY Referrals / Follow Up: Quique Burroughs MD [Primary Care Provider] - Within 2 Weeks FriendCodey DO [STAFF PHYSICIAN] - 03/15/22 8:15 am Disposition Disposition (needs filled in before D/C Order can be placed): Home, Self Care Documented by User: Dr. Avery Min MD 02/02/22 11:33 Allergies/Procedures Done in Hospital Allergies amoxicillin [From Augmentin] Allergy (Verified 01/30/22 16:37) PT UNABLE TO RESPOND-NEEDS F/U clavulanic acid [From Augmentin] Allergy (Verified 01/30/22 16:37) PT UNABLE TO RESPOND-NEEDS F/U codeine Allergy (Verified 01/30/22 16:37) PT UNABLE TO RESPOND-NEEDS F/U Iodinated Contrast Media Allergy (Verified 01/30/22 16:37) Anaphylaxis metronidazole [From Flagyl] Allergy (Verified 01/30/22 16:37) PT UNABLE TO RESPOND-NEEDS F/U morphine Allergy (Verified 01/30/22 16:37) PT UNSURE OF REACTION oxycodone Allergy (Verified 01/30/22 16:37) PT UNSURE OF REACTION ropinirole Allergy (Verified 01/30/22 16:37) PT UNSURE OF REACTION acetaminophen [From Vicodin] Adverse Reaction (Verified 01/30/22 16:37) PT UNSURE OF REACTION hydrocodone [From Vicodin] Adverse Reaction (Verified 01/30/22 16:37) PT UNSURE OF REACTION IV DYE Allergy (Uncoded 01/30/22 16:37) Anaphylaxis Discharge Plan Admission Admit Date/Time: 01/30/22 20:07 Primary Reason for Your Visit: abdominal pain with N/V/D. Attending Provider: Avery Min Primary Care Provider: Quique Burroughs Instructions Additional Instructions / Restrictions: * obtain daily Hemoglobin & Hematocrit for the next 4-5 days to monitor your anemia. Discharge Orders/Prescriptions Prescriptions: Continued cyclobenzaprine 10 mg Tablet 10 mg PO QHS RF: 0 diltiazem HCl 240 mg Capsule,Ext.Rel 24h Degradable 240 mg PO DAILY RF: 0 metoprolol tartrate 100 mg Tablet 100 mg PO Q12H RF: 0 cyanocobalamin (vitamin B-12) 500 mcg Tablet 1,000 mcg PO DAILY RF: 0 folic acid 1 mg Tablet 1 mg PO DAILY RF: 0 albuterol 90 mcg/actuation Aerosol 90 mcg INHALATION BID RF: 0 budesonide 3 mg Capsule,Delayed,Extend.Release 3 mg PO DAILY RF: 0 mesalamine 0.375 gram Capsule,Extended Release 24hr 1.125 g PO DAILY RF: 0 dorzolamide-timolol (PF) 2-0.5 % Dropperette 1 drp OPHTHALMIC (EYE) BID RF: 0 guaifenesin [Mucinex] 600 mg Tablet Extended Release 12hr 600 mg PO BID RF: 0 Daliresp 250 mcg Tablet 250 mcg PO QHS RF: 0 sulfasalazine 500 mg Tablet 1 g PO BID RF: 0 cetirizine 10 mg Tablet 10 mg PO DAILY RF: 0 loperamide 2 mg Tablet 2 mg PO Q4H PRN (Reason: Diarrhea) RF: 0 potassium chloride 20 mEq Packet 20 meq PO BID RF: 0 furosemide 20 mg Tablet 20 mg PO DAILY RF: 0 Culturelle 15 billion cell Capsule, Sprinkle 1 cap PO DAILY RF: 0 Trelegy Ellipta 100-62.5-25 mcg Blister With Device 1 inh INHALATION DAILY RF: 0 ipratropium-albuterol 0.5 mg-3 mg(2.5 mg base)/3 mL Solution For Nebulization 3 ml INHALATION Q4H PRN (Reason: SHORTNESS) RF: 0 pantoprazole 40 mg Tablet,Delayed Release (Dr/Ec) 40 mg PO BID RF: 0 Held Eliquis 5 mg Tablet 5 mg PO BID RF: 0 Hold Instructions: Hold it at least for 2 MORE days until Hb >8 gm/dl and resume at lower dose 2.5 mg bid. Daily CBC prednisone 10 mg Tablet 10 mg PO BID RF: 0 Hold Instructions: Hold until instrcuted to resume by your primary care provider. Discontinued aspirin 81 mg Tablet 81 mg PO DAILY RF: 0 Hold Instructions: Hold until told to resume by our primary care provider. Other Ambulatory Orders: HH, Hemoglobin & Hematocrit (Routine) Timeframe: 1 Day Facility: [facility] - Location: Laboratory Ordered By: Quique CHERY Referrals / Follow Up: Quique Burroughs MD [Primary Care Provider] - Within 2 Weeks FriendCodey DO [STAFF PHYSICIAN] - 03/15/22 8:15 am Disposition Disposition (needs filled in before D/C Order can be placed): Home, Self Care
[2022-02-02] MEDS: Dorzolamide HCL/Timolol 10 ml Bottle 1 DRP OPHTHALMIC (10:04)
[2022-02-02] MEDS: Lidocaine 5% Patch 1 PATCH TOPICAL (10:05)
--- NOTE | 2022-02-02 10:29 | DCINST_ITS ---
Discharge Instructions Follow Up Care Test Results: Test results from this visit will be discussed in further detail at your follow-up appointment, if applicable. Discharge Plan Admission Admit Date/Time: 01/30/22 20:07 Primary Reason for Your Visit: abdominal pain with N/V/D. Attending Provider: Avery Min Primary Care Provider: Quique Burroughs Instructions Additional Instructions / Restrictions: * obtain daily Hemoglobin & Hematocrit for the next 4-5 days to monitor your anemia. Discharge Orders/Prescriptions Prescriptions: Continued cyclobenzaprine 10 mg Tablet 10 mg PO QHS RF: 0 diltiazem HCl 240 mg Capsule,Ext.Rel 24h Degradable 240 mg PO DAILY RF: 0 metoprolol tartrate 100 mg Tablet 100 mg PO Q12H RF: 0 cyanocobalamin (vitamin B-12) 500 mcg Tablet 1,000 mcg PO DAILY RF: 0 folic acid 1 mg Tablet 1 mg PO DAILY RF: 0 albuterol 90 mcg/actuation Aerosol 90 mcg INHALATION BID RF: 0 budesonide 3 mg Capsule,Delayed,Extend.Release 3 mg PO DAILY RF: 0 mesalamine 0.375 gram Capsule,Extended Release 24hr 1.125 g PO DAILY RF: 0 dorzolamide-timolol (PF) 2-0.5 % Dropperette 1 drp OPHTHALMIC (EYE) BID RF: 0 guaifenesin [Mucinex] 600 mg Tablet Extended Release 12hr 600 mg PO BID RF: 0 Daliresp 250 mcg Tablet 250 mcg PO QHS RF: 0 sulfasalazine 500 mg Tablet 1 g PO BID RF: 0 cetirizine 10 mg Tablet 10 mg PO DAILY RF: 0 loperamide 2 mg Tablet 2 mg PO Q4H PRN (Reason: Diarrhea) RF: 0 potassium chloride 20 mEq Packet 20 meq PO BID RF: 0 furosemide 20 mg Tablet 20 mg PO DAILY RF: 0 Culturelle 15 billion cell Capsule, Sprinkle 1 cap PO DAILY RF: 0 Trelegy Ellipta 100-62.5-25 mcg Blister With Device 1 inh INHALATION DAILY RF: 0 ipratropium-albuterol 0.5 mg-3 mg(2.5 mg base)/3 mL Solution For Nebulization 3 ml INHALATION Q4H PRN (Reason: SHORTNESS) RF: 0 pantoprazole 40 mg Tablet,Delayed Release (Dr/Ec) 40 mg PO BID RF: 0 Held aspirin 81 mg Tablet 81 mg PO DAILY RF: 0 Hold Instructions: Hold until told to resume by our primary care provider. Eliquis 5 mg Tablet 5 mg PO BID RF: 0 Hold Instructions: Resume on 02/08/22. prednisone 10 mg Tablet 10 mg PO BID RF: 0 Hold Instructions: Hold until instrcuted to resume by your primary care provider. Other Ambulatory Orders: HH, Hemoglobin & Hematocrit (Routine) Timeframe: 1 Day Facility: [facility] - Location: Laboratory Ordered By: Quique CHERY Referrals / Follow Up: Quique Burroughs MD [Primary Care Provider] - Within 2 Weeks Codey Schaffer DO [STAFF PHYSICIAN] - Within 2 Weeks Disposition Disposition (needs filled in before D/C Order can be placed): Home, Self Care
--- NOTE | 2022-02-02 10:54 | PHA.DC.MR ---
Pharmacy Service has performed discharge medication reconciliation for this patient. The patient's discharge medication list was reviewed for discrepancies and discrepancies were resolved. Home Medications Culturelle 1 cap PO DAILY 01/30/22 Daliresp 250 mcg PO QHS 01/30/22 Eliquis 5 mg PO BID 01/30/22 Trelegy Ellipta 1 inh INHALATION DAILY 01/30/22 albuterol 90 mcg INHALATION BID 01/30/22 aspirin 81 mg PO DAILY 01/30/22 budesonide 3 mg PO DAILY 01/30/22 cetirizine 10 mg PO DAILY 01/30/22 cyanocobalamin (vitamin B-12) 1,000 mcg PO DAILY 01/30/22 cyclobenzaprine 10 mg PO QHS 01/30/22 diltiazem HCl 240 mg PO DAILY 01/30/22 dorzolamide-timolol (PF) 1 drp OPHTHALMIC (EYE) BID 01/30/22 folic acid 1 mg PO DAILY 01/30/22 furosemide 20 mg PO DAILY 01/30/22 guaifenesin [Mucinex] 600 mg PO BID 01/30/22 ipratropium-albuterol 3 ml INHALATION Q4H PRN 01/30/22 loperamide 2 mg PO Q4H PRN 01/30/22 mesalamine 1.125 g PO DAILY 01/30/22 metoprolol tartrate 100 mg PO Q12H 01/30/22 pantoprazole 40 mg PO BID 01/30/22 potassium chloride 20 meq PO BID 01/30/22 prednisone 10 mg PO BID 01/30/22 sulfasalazine 1 g PO BID 01/30/22
--- NOTE | 2022-02-02 11:22 | CASEMGMT ---
Patient is ready for discharge back to [facility] today. SINDI called Tawny at [facility] and left her a voice mail letting her know this information. Patient told the physician and her RN that her sister can transport her. SW called patient's sister, Janette. Janette said she is not going to be able to transport patient. She has an appt later today and she has a class. SINDI told Janette that is fine and SINDI can arrange transportation for patient. She did not need to know a orange picker time. SINDI notified RN and patient that Janette cannot transport patient and SINDI will arrange transport. Carrie Haley ASSISTANT BASKETBALL COACH WU
--- NOTE | 2022-02-02 12:07 | CASEMGMT ---
SINDI called Tawny at [facility] and updated her on patient and d/c information. Carrie Haley HEATING AND COOLING TECHNICIAN DEPILATORY PAINTER
--- NOTE | 2022-02-02 13:19 | PCM.DC.SUM ---
Documented by User: Quique CHERY 02/02/22 13:44 Providers Date of Admission: 01/30/22 Date of Discharge: 02/02/22 Primary Care Physician: Dr. Quique Burroughs MD Consultations 02/01/22 09:47 Consult: Gastroenterology Routine Consulting Provider: [facility] Reason for Consult: Acute anemia, seems lower GI Bleed EMERGENT Consult: No MD Notified: Yes Date Notified: 02/01/22 Time Notified: 09:47 Method of Notification: Text Reason For Visit: GASTROENTERITIS, CATE, HYPOTENSION Diagnosis Discharge Diagnosis (1) Gastroenteritis: Status: Acute Code(s): K52.9 - Noninfective gastroenteritis and colitis, unspecified (2) CATE (acute kidney injury): Status: Acute Code(s): N17.9 - Acute kidney failure, unspecified Medications at Discharge Home Medications Culturelle 1 cap PO DAILY 01/30/22 Daliresp 250 mcg PO QHS 01/30/22 Eliquis 5 mg PO BID 01/30/22 Trelegy Ellipta 1 inh INHALATION DAILY 01/30/22 albuterol 90 mcg INHALATION BID 01/30/22 budesonide 3 mg PO DAILY 01/30/22 cetirizine 10 mg PO DAILY 01/30/22 cyanocobalamin (vitamin B-12) 1,000 mcg PO DAILY 01/30/22 cyclobenzaprine 10 mg PO QHS 01/30/22 diltiazem HCl 240 mg PO DAILY 01/30/22 dorzolamide-timolol (PF) 1 drp OPHTHALMIC (EYE) BID 01/30/22 folic acid 1 mg PO DAILY 01/30/22 furosemide 20 mg PO DAILY 01/30/22 guaifenesin [Mucinex] 600 mg PO BID 01/30/22 ipratropium-albuterol 3 ml INHALATION Q4H PRN 01/30/22 loperamide 2 mg PO Q4H PRN 01/30/22 mesalamine 1.125 g PO DAILY 01/30/22 metoprolol tartrate 100 mg PO Q12H 01/30/22 pantoprazole 40 mg PO BID 01/30/22 potassium chloride 20 meq PO BID 01/30/22 prednisone 10 mg PO BID 01/30/22 sulfasalazine 1 g PO BID 01/30/22 Hospital Course Summary of Care Provided Minutes Spent on Discharge: 20 Hospital Course: Patient is a 67-year-old female who was admitted to [facility] on 01/30/2022 for evaluation and management of abdominal pain with N/V/D. Hospital course and management as below. 1) gastroenteritis Viral respiratory panel is unremarkable. Vital signs stable, CBC does not demonstrate a white count. Patient reports that her abdominal pain and N/V/D have markedly improved. Viral panel is negative. C. difficile stool panel and enteric stool panel are negative. Stable for discharge. 2) acute on chronic anemia Patient's hemoglobin on day of discharge was 6.9. Occult stool and stool lactoferrin were negative. Patient was evaluated by GI who feels that patient's anemia could be multifactorial and related to patient's known hemorrhoids, Crohn's disease and blood thinners. Patient's home aspirin was stopped, home Eliquis and prednisone are being held on discharge. Patient to resume Eliquis in 2 days or when hemoglobin raises above 8. Patient should monitor H&H daily after discharge. Patient is to follow-up with Dr. Schaffer within the next 1 to 2 weeks for outpatient colonoscopy/endoscopy. Iron to be transfused prior to discharge. 3) CATE Resolved. Likely due to poor oral intake and fluid loss on admission. 4) Crohn's disease Complicates #1. CT obtained admission did not demonstrate any findings of an acute exacerbation. Continue home regimen. 5) chronic COPD with chronic hypoxic respiratory failure Not in acute exacerbation, patient is maintaining on 4 L of oxygen which is her home oxygen requirement. Continue bronchodilators. 6) hypertension Currently BP is running low, continue to hold diltiazem and metoprolol as above. 7) GERD Continue PPI. 8) LEMUEL Continue BiPAP nightly. 9) paroxysmal atrial fibrillation On diltiazem and metoprolol for rate control. Patient is anticoagulated on Eliquis. Continue to hold diltiazem and metoprolol given ongoing hypotension. We will add back when ready. Hold home Eliquis as above. Patient seen by Quique Beebe PA-C, under the supervision of Dr. Min. 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 Signs/Symptoms as evidenced by <50% po intake and 8.4% wt loss x 2 wks Status Active Problem Recommendation Dietitian Recommendations/Changes Will provide 8 oz ensure clear w/ meals while pt on liquid diet As medically able, rec diet as tolerated to Transitional diet Weight / BMI Weight Weight: 128 lb 15.527 oz Body Mass Index (BMI) 26.2 ABG / Lab / Microbiology Data Result Diagrams: 02/02/22 05:30 02/02/22 05:30 Laboratory: Laboratory Results - last 24 hr 02/01/22 17:08: Hgb 7.7 L, Hct 25.1 L 02/02/22 00:55: Hgb 6.8 L, Hct 23.5 L 02/02/22 05:30: WBC 4.5, RBC 2.62 L, Hgb 6.9 L, Hct 23.6 L, MCV 90.1, MCH 26.3 L, MCHC 29.2 L, RDW Std Deviation 57.7 H, RDW Coeff of Pascual 17.3 H, Plt Count 228, MPV 11.1, Immature Gran % (Auto) 3.100 H, Neut % (Auto) 60.7, Lymph % (Auto) 27.8, [place] % (Auto) 7.3, Eos % (Auto) 0.7, Baso % (Auto) 0.4, Absolute Neuts (auto) 2.8, Absolute Lymphs (auto) 1.26, Nucleated RBC % 0 02/02/22 05:30: Sodium 142, Potassium 4.2, Chloride 118 H, Carbon Dioxide 17.0 L, Anion Gap 7, BUN 9, Creatinine 0.70, Estim Creat Clear Calc 49.73, Est GFR (MDRD) Af Amer 106, Est GFR (MDRD) Non-Af 88, BUN/Creatinine Ratio 12.8, Glucose 92, Calcium 6.9 L, Magnesium 1.3 L Microbiology: Microbiology 02/02/22 11:55 Nasal Secretion SARS-CoV-2 Antigen (Rapid) - Final 01/31/22 14:40 Stool C. difficile DNA Amplification - Final 01/31/22 14:40 Stool Stool Lactoferrin - Final 01/31/22 14:40 Stool Stool Occult Blood (WILLEM) - Final 01/30/22 21:45 Mucosa - Nose Respiratory Panel (PCR) - Final Meaningful Use Info Meaningful Use Diagnoses (Choose all that apply): None applicable Discharge Plan Admission Admit Date/Time: 01/30/22 20:07 Primary Reason for Your Visit: abdominal pain with N/V/D. Attending Provider: Avery Min Primary Care Provider: Quique Burroughs Instructions Additional Instructions / Restrictions: * obtain daily Hemoglobin & Hematocrit for the next 4-5 days to monitor your anemia. Discharge Orders/Prescriptions Prescriptions: Continued cyclobenzaprine 10 mg Tablet 10 mg PO QHS RF: 0 diltiazem HCl 240 mg Capsule,Ext.Rel 24h Degradable 240 mg PO DAILY RF: 0 metoprolol tartrate 100 mg Tablet 100 mg PO Q12H RF: 0 cyanocobalamin (vitamin B-12) 500 mcg Tablet 1,000 mcg PO DAILY RF: 0 folic acid 1 mg Tablet 1 mg PO DAILY RF: 0 albuterol 90 mcg/actuation Aerosol 90 mcg INHALATION BID RF: 0 budesonide 3 mg Capsule,Delayed,Extend.Release 3 mg PO DAILY RF: 0 mesalamine 0.375 gram Capsule,Extended Release 24hr 1.125 g PO DAILY RF: 0 dorzolamide-timolol (PF) 2-0.5 % Dropperette 1 drp OPHTHALMIC (EYE) BID RF: 0 guaifenesin [Mucinex] 600 mg Tablet Extended Release 12hr 600 mg PO BID RF: 0 Daliresp 250 mcg Tablet 250 mcg PO QHS RF: 0 sulfasalazine 500 mg Tablet 1 g PO BID RF: 0 cetirizine 10 mg Tablet 10 mg PO DAILY RF: 0 loperamide 2 mg Tablet 2 mg PO Q4H PRN (Reason: Diarrhea) RF: 0 potassium chloride 20 mEq Packet 20 meq PO BID RF: 0 furosemide 20 mg Tablet 20 mg PO DAILY RF: 0 Culturelle 15 billion cell Capsule, Sprinkle 1 cap PO DAILY RF: 0 Trelegy Ellipta 100-62.5-25 mcg Blister With Device 1 inh INHALATION DAILY RF: 0 ipratropium-albuterol 0.5 mg-3 mg(2.5 mg base)/3 mL Solution For Nebulization 3 ml INHALATION Q4H PRN (Reason: SHORTNESS) RF: 0 pantoprazole 40 mg Tablet,Delayed Release (Dr/Ec) 40 mg PO BID RF: 0 Held Eliquis 5 mg Tablet 5 mg PO BID RF: 0 Hold Instructions: Resume on 02/08/22. prednisone 10 mg Tablet 10 mg PO BID RF: 0 Hold Instructions: Hold until instrcuted to resume by your primary care provider. Discontinued aspirin 81 mg Tablet 81 mg PO DAILY RF: 0 Hold Instructions: Hold until told to resume by our primary care provider. Other Ambulatory Orders: HH, Hemoglobin & Hematocrit (Routine) Timeframe: 1 Day Facility: [facility] - Location: Laboratory Ordered By: Quique CHERY Referrals / Follow Up: Quique Burroughs MD [Primary Care Provider] - Within 2 Weeks FriendCodey DO [STAFF PHYSICIAN] - 03/15/22 8:15 am Disposition Disposition (needs filled in before D/C Order can be placed): Home, Self Care Documented by User: Dr. Avery Min MD 02/02/22 17:30 Providers Date of Admission: 01/30/22 Reason For Visit: GASTROENTERITIS, CATE, HYPOTENSION Medications at Discharge Home Medications Culturelle 1 cap PO DAILY 01/30/22 Daliresp 250 mcg PO QHS 01/30/22 Eliquis 5 mg PO BID 01/30/22 Trelegy Ellipta 1 inh INHALATION DAILY 01/30/22 albuterol 90 mcg INHALATION BID 01/30/22 budesonide 3 mg PO DAILY 01/30/22 cetirizine 10 mg PO DAILY 01/30/22 cyanocobalamin (vitamin B-12) 1,000 mcg PO DAILY 01/30/22 cyclobenzaprine 10 mg PO QHS 01/30/22 diltiazem HCl 240 mg PO DAILY 01/30/22 dorzolamide-timolol (PF) 1 drp OPHTHALMIC (EYE) BID 01/30/22 folic acid 1 mg PO DAILY 01/30/22 furosemide 20 mg PO DAILY 01/30/22 guaifenesin [Mucinex] 600 mg PO BID 01/30/22 ipratropium-albuterol 3 ml INHALATION Q4H PRN 01/30/22 loperamide 2 mg PO Q4H PRN 01/30/22 mesalamine 1.125 g PO DAILY 01/30/22 metoprolol tartrate 100 mg PO Q12H 01/30/22 pantoprazole 40 mg PO BID 01/30/22 potassium chloride 20 meq PO BID 01/30/22 prednisone 10 mg PO BID 01/30/22 sulfasalazine 1 g PO BID 01/30/22 Hospital Course Summary of Care Provided Hospital Course: This patient was seen in conjunction with MIRI Ferrell. I have independently interviewed and examined the patient and reviewed pertinent history, examination findings, laboratory and plan of management. I have reviewed the note and agree with the documented findings with the few additional points. In brief, patient is 67-year-old female was admitted with abdominal pain and diarrhea. Her last bowel movement was yesterday, dark stool. Abdominal pain and diarrhea has resolved. She did not receive any antibiotic in last 6 months. Stool for C. difficile, occult blood and lactoferrin negative. Viral respiratory panel negative. GI consulted for acute drop in hemoglobin from 8.1-6.8. Platelet 48,000. Patient was on apixaban 2.5 mg twice daily discontinued. Assessment and plan Acute gastroenteritis most probably viral: Resolved. CT abdomen shows a small loop of bowel adhered to the anterior abdominal wall not associated with wall edema. Acute on chronic normocytic normochromic anemia probably lower GI bleed: GI was consulted. Her bleeding most likely due to Eliquis and aspirin. Aspirin is discontinued. Hold Eliquis until bleeding is controlled and hemoglobin is more than 8. Patient will need daily monitoring of CBC chcf. Patient does not want EGD and colonoscopy as she might lose precertification but wants to get it done as an outpatient. Continue Protonix 40 mg twice daily. Patient has Crohn's disease on sulfasalazine. At home she is on Entocort and sulfasalazine. The patient has history of resection and small bowel with anastomosis. CATE most likely due to prerenal/volume loss. CATE resolved. Paroxysmal A. fib on Eliquis. Eliquis on hold as mentioned above COPD with chronic hypoxic respiratory failure on 4 L of oxygen. She also has glaucoma in left eye with blurry vision. Continue follow-up with [facility]. Multiple other comorbidities include hypertension, dyslipidemia, chronic diastolic heart failure, Parkinson's disease, chronic normocytic anemia, obstructive sleep apnea on BiPAP: Multiple comorbidities complicates the present care and expect difficult and delay recovery I have discussed my assessment with MIRI Ferrell and orders have been reviewed. Physical Exam Narrative Seen and examined on the day of discharge. Patient had dark-colored bowel movement in the morning. No abdominal pain. She denies dizziness. She wants EGD and colonoscopy as an outpatient as he does not want to lose precertification for chcf. General: Alert, Oriented x3, Cooperative HEENT: Atraumatic, PERRLA, EOMI, Normocephalic, glaucoma in left eye Oral: No Gingival or Mucosal Lesions/ Ulcerations Neck: Supple, No JVD, Negative Carotid Bruits Lungs: Air entry diminished in bilateral lung bases. No crepitation/rhonchi Cardiovascular: Sinus tachycardia, Normal S1, Normal S2, systolic murmur over LLSB Abdomen: Bowel Sounds Present, Soft, Non Tender, Non-Distended. Lower surgical abdominal scar : No renal angle tenderness. No suprapubic tenderness. Extremities: No edema, Capillary Refill Less than 3 Seconds Skin: No rashes, No breakdown Musculoskeletal: No Tenderness to Palpation of Joints or Extremities Neurological: Cranial nerves II-XII grossly intact, DTR 2+/4 and Symmetrical, Neuro grossly intact Psych/Mental Status: Normal Affect, Appropriate ABG / Lab / Microbiology Data Result Diagrams: 02/02/22 05:30 02/02/22 05:30 Discharge Plan Admission Admit Date/Time: 01/30/22 20:07 Primary Reason for Your Visit: abdominal pain with N/V/D. Attending Provider: Aevry Min Primary Care Provider: Quique Burroughs Instructions Additional Instructions / Restrictions: * obtain daily Hemoglobin & Hematocrit for the next 4-5 days to monitor your anemia. Discharge Orders/Prescriptions Prescriptions: Continued cyclobenzaprine 10 mg Tablet 10 mg PO QHS RF: 0 diltiazem HCl 240 mg Capsule,Ext.Rel 24h Degradable 240 mg PO DAILY RF: 0 metoprolol tartrate 100 mg Tablet 100 mg PO Q12H RF: 0 cyanocobalamin (vitamin B-12) 500 mcg Tablet 1,000 mcg PO DAILY RF: 0 folic acid 1 mg Tablet 1 mg PO DAILY RF: 0 albuterol 90 mcg/actuation Aerosol 90 mcg INHALATION BID RF: 0 budesonide 3 mg Capsule,Delayed,Extend.Release 3 mg PO DAILY RF: 0 mesalamine 0.375 gram Capsule,Extended Release 24hr 1.125 g PO DAILY RF: 0 dorzolamide-timolol (PF) 2-0.5 % Dropperette 1 drp OPHTHALMIC (EYE) BID RF: 0 guaifenesin [Mucinex] 600 mg Tablet Extended Release 12hr 600 mg PO BID RF: 0 Daliresp 250 mcg Tablet 250 mcg PO QHS RF: 0 sulfasalazine 500 mg Tablet 1 g PO BID RF: 0 cetirizine 10 mg Tablet 10 mg PO DAILY RF: 0 loperamide 2 mg Tablet 2 mg PO Q4H PRN (Reason: Diarrhea) RF: 0 potassium chloride 20 mEq Packet 20 meq PO BID RF: 0 furosemide 20 mg Tablet 20 mg PO DAILY RF: 0 Culturelle 15 billion cell Capsule, Sprinkle 1 cap PO DAILY RF: 0 Trelegy Ellipta 100-62.5-25 mcg Blister With Device 1 inh INHALATION DAILY RF: 0 ipratropium-albuterol 0.5 mg-3 mg(2.5 mg base)/3 mL Solution For Nebulization 3 ml INHALATION Q4H PRN (Reason: SHORTNESS) RF: 0 pantoprazole 40 mg Tablet,Delayed Release (Dr/Ec) 40 mg PO BID RF: 0 Held Eliquis 5 mg Tablet 5 mg PO BID RF: 0 Hold Instructions: Resume on 02/08/22. prednisone 10 mg Tablet 10 mg PO BID RF: 0 Hold Instructions: Hold until instrcuted to resume by your primary care provider. Discontinued aspirin 81 mg Tablet 81 mg PO DAILY RF: 0 Hold Instructions: Hold until told to resume by our primary care provider. Other Ambulatory Orders: HH, Hemoglobin & Hematocrit (Routine) Timeframe: 1 Day Facility: [facility] - Location: Laboratory Ordered By: Quique CHERY Referrals / Follow Up: Quique Burroughs MD [Primary Care Provider] - Within 2 Weeks Codey Schaffer DO [STAFF PHYSICIAN] - 03/15/22 8:15 am Disposition Disposition (needs filled in before D/C Order can be placed): Home, Self Care Charges/Coding Visit Charges Inpatient E&M: 31199 Disch Hosp
--- NOTE | 2022-02-02 14:11 | CASEMGMT ---
SINDI faxed negative COVID test to [facility] along with picker tender time of 4p. SW notified RN and department secretary. Plan: d/c back to [facility] under intermediate level of care. [facility] transported patient. Carrie WASHBURN
[2022-02-02] MEDS: 0.9 % NaCl (Sterile) Posiflush 10 mL IV (15:28)
--- NOTE | 2022-02-02 15:29 | NURSING ---
report called to wvm to bryanna with no questions voiced.
== END 2022-02-02 16:15 | disposition home or self-care (01) | DRG 391 ==
LOC: ED 20:13 → PCU 20:27
PROVIDERS: Family Medicine; Physician Assistant; Admitting Provider Family Medicine; Emergency Provider Emergency Medicine; Visit Provider Internal Medicine
DX: A08.4 Viral intestinal infection, unspecified (principal); E43 Unspecified severe protein-calorie malnutrition; N17.9 Acute kidney failure, unspecified; J96.11 Chronic respiratory failure with hypoxia; K92.2 Gastrointestinal hemorrhage, unspecified; I50.32 Chronic diastolic (congestive) heart failure; K50.90 Crohn's disease, unspecified, without complications; D63.8 Anemia in other chronic diseases classified elsewhere; I11.0 Hypertensive heart disease with heart failure; G20 Parkinson's disease; J44.9 Chronic obstructive pulmonary disease, unspecified; I48.0 Paroxysmal atrial fibrillation; F17.200 Nicotine dependence, unspecified, uncomplicated; D50.9 Iron deficiency anemia, unspecified; E78.5 Hyperlipidemia, unspecified; K21.9 Gastro-esophageal reflux disease without esophagitis; G47.33 Obstructive sleep apnea (adult) (pediatric); Z79.51 Long term (current) use of inhaled steroids; H40.9 Unspecified glaucoma; Z79.01 Long term (current) use of anticoagulants; Z66 Do not resuscitate; T45.515A Adverse effect of anticoagulants, initial encounter; T39.015A Adverse effect of aspirin, initial encounter
CPT/HCPCS: 36415; 74176; 80048; 80053; 81001; 82274; 82728; 83540; 83550; 83605; 83630; 83690; 83735; 84100; 84145; 84484; 85014; 85018; 85025; 85045; 87426; 87493; 87506; 87633; 87635; 93005; 97161; 97165; 97530; 97535; 97802; 99251; 99285; J7030; J7050; A4216; G0463; J2405; J2916; U0003; U0005

== ENCOUNTER → 2022-02-03 | Outpatient (REF) | payer SELFPAY ==
[2022-02-03 08:10] LABS: Hematocrit 23.8 % (37-47); Hemoglobin 7.3 g/dL (12.0-15.0); Mean Corp Hgb Conc 30.7 g/dL (32-36); Mean Corpuscular Volume 84.7 fL (81-99); Mean Platelet Vol. 11.6 fl (6.2-12.0); Platelet Count 218 K/mm3 (150-450); RBC Distribution Width CV 17.7 % (11.6-14.6); RBC Distribution Width SD 55.4 fl (35.1-43.9); Red Blood Count 2.81 M/mm3 (4.2-5.4); White Blood Count 6.6 K/mm3 (4.4-11.0)
== END | disposition home or self-care (01) ==
LOC: OLS.WHLEAS 05:00
PROVIDERS: Visit Provider Family Medicine
DX: D50.9 Iron deficiency anemia, unspecified (principal); N17.9 Acute kidney failure, unspecified; J96.11 Chronic respiratory failure with hypoxia; K52.9 Noninfective gastroenteritis and colitis, unspecified; F71 Moderate intellectual disabilities; M62.81 Muscle weakness (generalized)
CPT/HCPCS: 36415; 85027

== ENCOUNTER → 2022-02-04 | Outpatient (REF) | payer SELFPAY ==
[2022-02-04 07:42] LABS: Hematocrit 25.8 % (37-47); Hemoglobin 7.5 g/dL (12.0-15.0); Mean Corp Hgb Conc 29.1 g/dL (32-36); Mean Corpuscular Volume 89.6 fL (81-99); Mean Platelet Vol. 11.7 fl (6.2-12.0); Platelet Count 197 K/mm3 (150-450); RBC Distribution Width CV 18.1 % (11.6-14.6); RBC Distribution Width SD 58.4 fl (35.1-43.9); Red Blood Count 2.88 M/mm3 (4.2-5.4); White Blood Count 7.2 K/mm3 (4.4-11.0)
[2022-02-04 07:54] LABS: Anion Gap 6 (5-15); BUN 4 mg/dL (7-18); BUN/Creat Ratio 6.5 RATIO (10-20); Calcium,Total 8.4 mg/dL (8.5-10.1); Chloride 113 mmol/L (98-107); Creatinine, Serum 0.62 mg/dL (0.55-1.02); EST Glomerular Filtration Rate 103 mL/min (>60); Est Glom Filt Rate - Afr Amer 124 mL/min (>60); Glucose 87 mg/dL (74-106); Potassium 3.6 mmol/L (3.5-5.1); Sodium Level 141 mmol/L (136-145)
== END | disposition home or self-care (01) ==
LOC: OLS.WHLEAS 04:00
PROVIDERS: Visit Provider Family Medicine
DX: N17.9 Acute kidney failure, unspecified (principal); J96.11 Chronic respiratory failure with hypoxia; K52.9 Noninfective gastroenteritis and colitis, unspecified; F71 Moderate intellectual disabilities; M62.81 Muscle weakness (generalized)
CPT/HCPCS: 36415; 80048; 85027

== ENCOUNTER → 2022-02-05 | Outpatient (REF) | payer SELFPAY ==
[2022-02-05 09:41] LABS: Hematocrit 25.1 % (37-47); Hemoglobin 7.7 g/dL (12.0-15.0); Mean Corp Hgb Conc 30.7 g/dL (32-36); Mean Corpuscular Hgb 26.6 pg (27.0-32.0); Mean Corpuscular Volume 86.9 fL (81-99); Mean Platelet Vol. 12.1 fl (6.2-12.0); Platelet Count 186 K/mm3 (150-450); RBC Distribution Width CV 18.3 % (11.6-14.6); RBC Distribution Width SD 57.1 fl (35.1-43.9); Red Blood Count 2.89 M/mm3 (4.2-5.4); White Blood Count 8.2 K/mm3 (4.4-11.0)
[2022-02-05 09:42] LABS: Anion Gap 10 (5-15); BUN 7 mg/dL (7-18); BUN/Creat Ratio 11.9 RATIO (10-20); Calcium,Total 7.8 mg/dL (8.5-10.1); Chloride 111 mmol/L (98-107); Creatinine, Serum 0.59 mg/dL (0.55-1.02); EST Glomerular Filtration Rate 108 mL/min (>60); Est Glom Filt Rate - Afr Amer 131 mL/min (>60); Glucose 84 mg/dL (74-106); Potassium 3.1 mmol/L (3.5-5.1); Sodium Level 142 mmol/L (136-145)
== END | disposition home or self-care (01) ==
LOC: OLS.WHLEAS 05:00
PROVIDERS: Visit Provider Family Medicine
DX: D50.9 Iron deficiency anemia, unspecified (principal); N17.9 Acute kidney failure, unspecified; J96.11 Chronic respiratory failure with hypoxia; K52.9 Noninfective gastroenteritis and colitis, unspecified; F71 Moderate intellectual disabilities; M62.81 Muscle weakness (generalized)
CPT/HCPCS: 36415; 80048; 85027

== ENCOUNTER → 2022-02-06 | Outpatient (REF) | payer SELFPAY ==
[2022-02-06 10:41] LABS: Hematocrit 28.7 % (37-47); Hemoglobin 8.4 g/dL (12.0-15.0); Mean Corp Hgb Conc 29.3 g/dL (32-36); Mean Corpuscular Hgb 26.2 pg (27.0-32.0); Mean Corpuscular Volume 89.4 fL (81-99); Mean Platelet Vol. 11.6 fl (6.2-12.0); Platelet Count 239 K/mm3 (150-450); RBC Distribution Width SD 58.3 fl (35.1-43.9); Red Blood Count 3.21 M/mm3 (4.2-5.4); White Blood Count 10.8 K/mm3 (4.4-11.0)
== END | disposition home or self-care (01) ==
LOC: OLS.WHLEAS 10:00
PROVIDERS: Visit Provider Family Medicine
DX: D50.9 Iron deficiency anemia, unspecified (principal); N17.9 Acute kidney failure, unspecified; J96.11 Chronic respiratory failure with hypoxia; K52.9 Noninfective gastroenteritis and colitis, unspecified; F71 Moderate intellectual disabilities; M62.81 Muscle weakness (generalized)
CPT/HCPCS: 36415; 85027

== ENCOUNTER → 2022-02-07 | Outpatient (REF) | payer SELFPAY ==
[2022-02-07 09:02] LABS: Hematocrit 25.6 % (37-47); Hemoglobin 7.8 g/dL (12.0-15.0); Mean Corp Hgb Conc 30.5 g/dL (32-36); Mean Corpuscular Hgb 27.2 pg (27.0-32.0); Mean Corpuscular Volume 89.2 fL (81-99); Mean Platelet Vol. 11.3 fl (6.2-12.0); Platelet Count 196 K/mm3 (150-450); RBC Distribution Width CV 18.9 % (11.6-14.6); RBC Distribution Width SD 58.4 fl (35.1-43.9); Red Blood Count 2.87 M/mm3 (4.2-5.4)
== END | disposition home or self-care (01) ==
LOC: OLS.WHLEAS 08:25
PROVIDERS: Visit Provider Family Medicine
DX: D50.9 Iron deficiency anemia, unspecified (principal); N17.9 Acute kidney failure, unspecified; J96.11 Chronic respiratory failure with hypoxia; K52.9 Noninfective gastroenteritis and colitis, unspecified; F71 Moderate intellectual disabilities; M62.81 Muscle weakness (generalized)
CPT/HCPCS: 36415; 85027

== ENCOUNTER → 2022-02-08 | Outpatient (REF) | payer SELFPAY ==
[2022-02-08 09:35] LABS: Hematocrit 28.9 % (37-47); Hemoglobin 8.2 g/dL (12.0-15.0); Mean Corp Hgb Conc 28.4 g/dL (32-36); Mean Corpuscular Hgb 26.5 pg (27.0-32.0); Mean Corpuscular Volume 93.5 fL (81-99); POSITIVE MORPHOLOGY YES; Platelet Count 258 K/mm3 (150-450); RBC Distribution Width CV 20.2 % (11.6-14.6); RBC Distribution Width SD 64.3 fl (35.1-43.9); Red Blood Count 3.09 M/mm3 (4.2-5.4); Scan Indicated on CBC? Y/N YES- FLAGS NOTED; White Blood Count 9.4 K/mm3 (4.4-11.0)
[2022-02-08 09:40] LABS: Phosphorus 1.3 mg/dL (2.5-4.9)
[2022-02-08 09:45] LABS: Vitamin D,25 Hydroxy 19.4 ng/mL
[2022-02-08 10:37] LABS: PTHIN 123.7 pg/mL (18.4-80.1)
[2022-02-08 10:42] LABS: Differential Comment SCANNED
== END | disposition home or self-care (01) ==
LOC: OLS.WHLEAS 05:00
PROVIDERS: Visit Provider Family Medicine
DX: D50.9 Iron deficiency anemia, unspecified (principal); N17.9 Acute kidney failure, unspecified; J96.11 Chronic respiratory failure with hypoxia; K52.9 Noninfective gastroenteritis and colitis, unspecified; F71 Moderate intellectual disabilities; M62.81 Muscle weakness (generalized); E83.51 Hypocalcemia
CPT/HCPCS: 36415; 82306; 83970; 84100; 85027

== ENCOUNTER → 2022-02-15 | Outpatient (REF) | payer SELFPAY ==
[2022-02-15 09:06] LABS: Hematocrit 27.5 % (37-47); Hemoglobin 7.7 g/dL (12.0-15.0); Mean Corpuscular Hgb 27.4 pg (27.0-32.0); Mean Corpuscular Volume 97.9 fL (81-99); Mean Platelet Vol. 10.8 fl (6.2-12.0); POSITIVE MORPHOLOGY YES; Platelet Count 187 K/mm3 (150-450); RBC Distribution Width CV 21.6 % (11.6-14.6); Red Blood Count 2.81 M/mm3 (4.2-5.4); White Blood Count 5.6 K/mm3 (4.4-11.0)
[2022-02-15 09:08] LABS: Scan Indicated on CBC? Y/N YES- FLAGS NOTED
[2022-02-15 09:32] LABS: Anion Gap 10 (5-15); BUN 13 mg/dL (7-18); Calcium,Total 7.5 mg/dL (8.5-10.1); Chloride 105 mmol/L (98-107); Creatinine, Serum 0.57 mg/dL (0.55-1.02); EST Glomerular Filtration Rate 113 mL/min (>60); Est Glom Filt Rate - Afr Amer 137 mL/min (>60); Glucose 78 mg/dL (74-106)
[2022-02-15 13:50] LABS: Potassium 2.7 mmol/L (3.5-5.1)
[2022-02-15 13:51] LABS: Sodium Level 144 mmol/L (136-145)
== END | disposition home or self-care (01) ==
LOC: OLS.WHLEAS 05:00
PROVIDERS: Referring Provider Family Medicine; Visit Provider Family Medicine
DX: N17.9 Acute kidney failure, unspecified (principal); J96.11 Chronic respiratory failure with hypoxia; K52.9 Noninfective gastroenteritis and colitis, unspecified; F71 Moderate intellectual disabilities; M62.81 Muscle weakness (generalized)
CPT/HCPCS: 36415; 80048; 85027

== ENCOUNTER 2022-02-22 05:00 | Outpatient (REF) | payer SELFPAY ==
[2022-02-22 09:31] LABS: Absolute Lymphocyte Count 1.67 X10^3/uL (0.83-4.51); Absolute Neutrophil Count 2.5 X10^3/uL (2.0-7.7); Basophil# 0.03 X10^3/uL; Basophil% 0.6 % (0-1); Eosinophil# 0.15 X10^3/uL; Eosinophils% 3.1 % (0-5); Hematocrit 28.7 % (37-47); Hemoglobin 7.9 g/dL (12.0-15.0); Lymphocyte # 1.67 X10^3/ul (0.83-4.51); Lymphocyte % 34.1 % (19-41); Mean Corp Hgb Conc 27.5 g/dL (32-36); Mean Corpuscular Hgb 27.3 pg (27.0-32.0); Mean Corpuscular Volume 99.3 fL (81-99); Mean Platelet Vol. 10.6 fl (6.2-12.0); Monocyte% 10.2 % (0-10); NRBC Flagged by Analyzer 0 % (0-5); Neutrophil # 2.53 X10^3/uL (2.7-7.7); Neutrophil % 51.6 % (47-70); POSITIVE MORPHOLOGY YES; Platelet Count 261 K/mm3 (150-450); RBC Distribution Width CV 20.6 % (11.6-14.6); RBC Distribution Width SD 75.5 fl (35.1-43.9); Red Blood Count 2.89 M/mm3 (4.2-5.4); White Blood Count 4.9 K/mm3 (4.4-11.0)
[2022-02-22 09:32] LABS: Differential Indicated SCAN CRITERIA MET
[2022-02-22 09:53] LABS: Anion Gap 6 (5-15); BUN 10 mg/dL (7-18); BUN/Creat Ratio 15.1 RATIO (10-20); Calcium,Total 7.6 mg/dL (8.5-10.1); Chloride 109 mmol/L (98-107); Creatinine, Serum 0.66 mg/dL (0.55-1.02); EST Glomerular Filtration Rate 95 mL/min (>60); Est Glom Filt Rate - Afr Amer 114 mL/min (>60); Glucose 87 mg/dL (74-106); Potassium 3.8 mmol/L (3.5-5.1); Sodium Level 141 mmol/L (136-145)
[2022-02-22 10:35] LABS: Anisocytosis 1+; Hypochromasia 1+
== END 2022-02-22 23:59 | disposition home or self-care (01) ==
LOC: OLS.WHLEAS 05:00
PROVIDERS: Visit Provider Family Medicine
DX: N17.9 Acute kidney failure, unspecified (principal); J96.11 Chronic respiratory failure with hypoxia; K52.9 Noninfective gastroenteritis and colitis, unspecified; F71 Moderate intellectual disabilities; M62.81 Muscle weakness (generalized)
CPT/HCPCS: 36415; 80048; 85025

== ENCOUNTER → 2022-03-02 | Outpatient (REF) | payer SELFPAY ==
[2022-03-02 09:00] LABS: Hematocrit 30.4 % (37-47); Mean Corp Hgb Conc 29.6 g/dL (32-36); Mean Corpuscular Hgb 28.8 pg (27.0-32.0); Mean Corpuscular Volume 97.4 fL (81-99); POSITIVE MORPHOLOGY YES; Platelet Count 308 K/mm3 (150-450); RBC Distribution Width CV 19.1 % (11.6-14.6); RBC Distribution Width SD 69.7 fl (35.1-43.9); Red Blood Count 3.12 M/mm3 (4.2-5.4); White Blood Count 4.8 K/mm3 (4.4-11.0)
[2022-03-02 09:17] LABS: Anion Gap 7 (5-15); BUN 12 mg/dL (7-18); BUN/Creat Ratio 20.7 RATIO (10-20); Calcium,Total 8.5 mg/dL (8.5-10.1); Chloride 108 mmol/L (98-107); Creatinine, Serum 0.58 mg/dL (0.55-1.02); EST Glomerular Filtration Rate 110 mL/min (>60); Est Glom Filt Rate - Afr Amer 133 mL/min (>60); Glucose 81 mg/dL (74-106); Potassium 4.2 mmol/L (3.5-5.1); Sodium Level 140 mmol/L (136-145)
== END | disposition home or self-care (01) ==
LOC: OLS.WHLEAS 04:00
PROVIDERS: Referring Provider Family Medicine; Visit Provider Family Medicine
DX: N17.9 Acute kidney failure, unspecified (principal); J96.11 Chronic respiratory failure with hypoxia; K52.9 Noninfective gastroenteritis and colitis, unspecified; F71 Moderate intellectual disabilities; M62.81 Muscle weakness (generalized)
CPT/HCPCS: 36415; 80048; 85027

== ENCOUNTER → 2022-03-04 | Outpatient (REF) | payer SELFPAY ==
[2022-03-04 09:11] LABS: Absolute Neutrophil Count 2.4 X10^3/uL (2.0-7.7); Basophil# 0.04 X10^3/uL; Basophil% 0.9 % (0-1); Eosinophil# 0.13 X10^3/uL; Eosinophils% 3.1 % (0-5); Hematocrit 30.9 % (37-47); Hemoglobin 8.8 g/dL (12.0-15.0); Lymphocyte % 28.4 % (19-41); Mean Corp Hgb Conc 28.5 g/dL (32-36); Mean Corpuscular Hgb 27.5 pg (27.0-32.0); Mean Corpuscular Volume 96.6 fL (81-99); Mean Platelet Vol. 11.2 fl (6.2-12.0); Monocyte# 0.49 X10^3/uL; Monocyte% 11.6 % (0-10); NRBC Flagged by Analyzer 0 % (0-5); Neutrophil # 2.35 X10^3/uL (2.7-7.7); Neutrophil % 55.8 % (47-70); POSITIVE MORPHOLOGY YES; Platelet Count 269 K/mm3 (150-450); RBC Distribution Width CV 18.7 % (11.6-14.6); RBC Distribution Width SD 67.3 fl (35.1-43.9); White Blood Count 4.2 K/mm3 (4.4-11.0)
[2022-03-04 09:14] LABS: Differential Indicated SCAN CRITERIA MET
[2022-03-04 09:48] LABS: Anisocytosis 2+
== END | disposition home or self-care (01) ==
LOC: OLS.WHLEAS 05:00
PROVIDERS: Referring Provider Family Medicine; Visit Provider Family Medicine
DX: N17.9 Acute kidney failure, unspecified (principal); J96.11 Chronic respiratory failure with hypoxia; K52.9 Noninfective gastroenteritis and colitis, unspecified; F71 Moderate intellectual disabilities; M62.81 Muscle weakness (generalized); K64.8 Other hemorrhoids
CPT/HCPCS: 36415; 85025

== ENCOUNTER → 2022-03-09 | Outpatient (REF) | payer MEDICARE, MEDICAID, SELFPAY ==
[2022-03-09 08:04] LABS: Hematocrit 31.8 % (37-47); Mean Corp Hgb Conc 28.3 g/dL (32-36); Mean Corpuscular Hgb 27.4 pg (27.0-32.0); Mean Corpuscular Volume 96.7 fL (81-99); Platelet Count 266 K/mm3 (150-450); RBC Distribution Width SD 63.9 fl (35.1-43.9); Red Blood Count 3.29 M/mm3 (4.2-5.4); White Blood Count 4.3 K/mm3 (4.4-11.0)
[2022-03-09 08:14] LABS: Anion Gap 6 (5-15); BUN 8 mg/dL (7-18); Calcium,Total 8.1 mg/dL (8.5-10.1); Chloride 110 mmol/L (98-107); Creatinine, Serum 0.62 mg/dL (0.55-1.02); EST Glomerular Filtration Rate 102 mL/min (>60); Est Glom Filt Rate - Afr Amer 124 mL/min (>60); Glucose 91 mg/dL (74-106); Potassium 3.7 mmol/L (3.5-5.1); Sodium Level 141 mmol/L (136-145)
== END | disposition home or self-care (01) ==
LOC: OLS.WHLEAS 05:00
PROVIDERS: Visit Provider Family Medicine
DX: N17.9 Acute kidney failure, unspecified (principal); J96.11 Chronic respiratory failure with hypoxia; K52.9 Noninfective gastroenteritis and colitis, unspecified; F71 Moderate intellectual disabilities; M62.81 Muscle weakness (generalized)
CPT/HCPCS: 36415; 80048; 85027

== ENCOUNTER → 2022-03-16 | Outpatient (REF) | payer MEDICARE, MEDICAID, SELFPAY ==
[2022-03-16 07:09] LABS: Hematocrit 33.2 % (37-47); Hemoglobin 9.9 g/dL (12.0-15.0); Mean Corp Hgb Conc 29.8 g/dL (32-36); Mean Corpuscular Hgb 27.6 pg (27.0-32.0); Mean Corpuscular Volume 92.5 fL (81-99); Mean Platelet Vol. 10.6 fl (6.2-12.0); Platelet Count 244 K/mm3 (150-450); RBC Distribution Width CV 17.3 % (11.6-14.6); RBC Distribution Width SD 59.4 fl (35.1-43.9); Red Blood Count 3.59 M/mm3 (4.2-5.4); White Blood Count 4.2 K/mm3 (4.4-11.0)
[2022-03-16 07:19] LABS: Anion Gap 7 (5-15); BUN 9 mg/dL (7-18); BUN/Creat Ratio 14.6 RATIO (10-20); Calcium,Total 8.3 mg/dL (8.5-10.1); Chloride 105 mmol/L (98-107); Creatinine, Serum 0.62 mg/dL (0.55-1.02); EST Glomerular Filtration Rate 102 mL/min (>60); Est Glom Filt Rate - Afr Amer 124 mL/min (>60); Glucose 121 mg/dL (74-106); Potassium 3.8 mmol/L (3.5-5.1); Sodium Level 139 mmol/L (136-145)
== END | disposition home or self-care (01) ==
LOC: OLS.WHLEAS 05:00
PROVIDERS: Visit Provider Family Medicine
DX: N17.9 Acute kidney failure, unspecified (principal); J96.11 Chronic respiratory failure with hypoxia; K52.9 Noninfective gastroenteritis and colitis, unspecified; F71 Moderate intellectual disabilities; M62.81 Muscle weakness (generalized)
CPT/HCPCS: 36415; 80048; 85027

== ENCOUNTER → 2022-03-23 | Outpatient (REF) | payer MEDICARE, MEDICAID, SELFPAY ==
[2022-03-23 08:10] LABS: Hematocrit 33.6 % (37-47); Hemoglobin 10.1 g/dL (12.0-15.0); Mean Corp Hgb Conc 30.1 g/dL (32-36); Mean Corpuscular Hgb 28.1 pg (27.0-32.0); Mean Corpuscular Volume 93.3 fL (81-99); Platelet Count 248 K/mm3 (150-450); RBC Distribution Width CV 17.6 % (11.6-14.6); RBC Distribution Width SD 60.7 fl (35.1-43.9); White Blood Count 3.5 K/mm3 (4.4-11.0)
[2022-03-23 08:21] LABS: Anion Gap 13 (5-15); BUN 9 mg/dL (7-18); BUN/Creat Ratio 12.9 RATIO (10-20); Calcium,Total 8.3 mg/dL (8.5-10.1); Chloride 107 mmol/L (98-107); EST Glomerular Filtration Rate 88 mL/min (>60); Est Glom Filt Rate - Afr Amer 107 mL/min (>60); Glucose 118 mg/dL (74-106); Potassium 3.8 mmol/L (3.5-5.1); Sodium Level 142 mmol/L (136-145)
== END | disposition home or self-care (01) ==
LOC: OLS.WHLEAS 05:00
PROVIDERS: Visit Provider Family Medicine
DX: K52.9 Noninfective gastroenteritis and colitis, unspecified (principal); J96.11 Chronic respiratory failure with hypoxia; F71 Moderate intellectual disabilities; M62.81 Muscle weakness (generalized)
CPT/HCPCS: 36415; 80048; 85027

== ENCOUNTER → 2022-03-30 | Outpatient (REF) | payer MEDICARE, MEDICAID, SELFPAY ==
[2022-03-30 09:03] LABS: Hematocrit 31.3 % (37-47); Hemoglobin 9.2 g/dL (12.0-15.0); Mean Corp Hgb Conc 29.4 g/dL (32-36); Mean Corpuscular Volume 95.4 fL (81-99); Mean Platelet Vol. 11.8 fl (6.2-12.0); Platelet Count 195 K/mm3 (150-450); RBC Distribution Width CV 17.9 % (11.6-14.6); RBC Distribution Width SD 62.8 fl (35.1-43.9); Red Blood Count 3.28 M/mm3 (4.2-5.4); White Blood Count 6.6 K/mm3 (4.4-11.0)
[2022-03-30 09:15] LABS: Anion Gap 8 (5-15); BUN 12 mg/dL (7-18); BUN/Creat Ratio 22.7 RATIO (10-20); Calcium,Total 7.1 mg/dL (8.5-10.1); Chloride 108 mmol/L (98-107); Creatinine, Serum 0.53 mg/dL (0.55-1.02); EST Glomerular Filtration Rate 122 mL/min (>60); Est Glom Filt Rate - Afr Amer 148 mL/min (>60); Glucose 93 mg/dL (74-106); Potassium 4.1 mmol/L (3.5-5.1); Sodium Level 142 mmol/L (136-145)
== END | disposition home or self-care (01) ==
LOC: OLS.WHLEAS 05:00
PROVIDERS: Referring Provider Family Medicine; Visit Provider Family Medicine
DX: N17.9 Acute kidney failure, unspecified (principal); J96.11 Chronic respiratory failure with hypoxia; K52.9 Noninfective gastroenteritis and colitis, unspecified; F71 Moderate intellectual disabilities; M62.81 Muscle weakness (generalized)
CPT/HCPCS: 36415; 80048; 85027

== ENCOUNTER 2022-04-06 04:00 | Outpatient (REF) | payer MEDICARE, MEDICAID, SELFPAY ==
[2022-04-06 09:11] LABS: Hematocrit 30.5 % (37-47); Hemoglobin 8.7 g/dL (12.0-15.0); Mean Corp Hgb Conc 28.5 g/dL (32-36); Mean Corpuscular Hgb 27.4 pg (27.0-32.0); Mean Corpuscular Volume 96.2 fL (81-99); Mean Platelet Vol. 11.4 fl (6.2-12.0); Platelet Count 176 K/mm3 (150-450); RBC Distribution Width CV 17.7 % (11.6-14.6); RBC Distribution Width SD 63.3 fl (35.1-43.9); Red Blood Count 3.17 M/mm3 (4.2-5.4)
[2022-04-06 09:23] LABS: Anion Gap 6 (5-15); BUN 14 mg/dL (7-18); BUN/Creat Ratio 24.8 RATIO (10-20); Chloride 111 mmol/L (98-107); Creatinine, Serum 0.56 mg/dL (0.55-1.02); EST Glomerular Filtration Rate 113 mL/min (>60); Est Glom Filt Rate - Afr Amer 137 mL/min (>60); Glucose 100 mg/dL (74-106); Potassium 3.2 mmol/L (3.5-5.1); Sodium Level 143 mmol/L (136-145)
[2022-04-06 09:29] LABS: Vitamin D,25 Hydroxy 38.5 ng/mL
== END 2022-04-06 23:59 | disposition home or self-care (01) ==
LOC: OLS.WHLEAS 04:00
PROVIDERS: Referring Provider Family Medicine; Visit Provider Family Medicine
DX: N17.9 Acute kidney failure, unspecified (principal); J44.9 Chronic obstructive pulmonary disease, unspecified; J96.11 Chronic respiratory failure with hypoxia; K52.9 Noninfective gastroenteritis and colitis, unspecified; F71 Moderate intellectual disabilities; M62.81 Muscle weakness (generalized); G25.0 Essential tremor; G47.33 Obstructive sleep apnea (adult) (pediatric); E87.6 Hypokalemia; E55.9 Vitamin D deficiency, unspecified
CPT/HCPCS: 36415; 80048; 82306; 85027

== ENCOUNTER → 2022-04-13 | Outpatient (REF) | payer MEDICARE, MEDICAID, SELFPAY ==
[2022-04-13 09:30] LABS: Hematocrit 34.9 % (37-47); Hemoglobin 10.2 g/dL (12.0-15.0); Mean Corp Hgb Conc 29.2 g/dL (32-36); Mean Corpuscular Hgb 28.3 pg (27.0-32.0); Mean Corpuscular Volume 96.7 fL (81-99); Mean Platelet Vol. 11.4 fl (6.2-12.0); Platelet Count 255 K/mm3 (150-450); RBC Distribution Width CV 16.8 % (11.6-14.6); RBC Distribution Width SD 59.7 fl (35.1-43.9); Red Blood Count 3.61 M/mm3 (4.2-5.4); White Blood Count 5.9 K/mm3 (4.4-11.0)
[2022-04-13 09:40] LABS: Anion Gap 5 (5-15); BUN 10 mg/dL (7-18); BUN/Creat Ratio 16.8 RATIO (10-20); Calcium,Total 8.2 mg/dL (8.5-10.1); Chloride 109 mmol/L (98-107); EST Glomerular Filtration Rate 107 mL/min (>60); Est Glom Filt Rate - Afr Amer 129 mL/min (>60); Glucose 94 mg/dL (74-106); Sodium Level 141 mmol/L (136-145)
== END | disposition home or self-care (01) ==
LOC: OLS.WHLEAS 07:30
PROVIDERS: Visit Provider Family Medicine
DX: N17.9 Acute kidney failure, unspecified (principal); J96.11 Chronic respiratory failure with hypoxia; K52.9 Noninfective gastroenteritis and colitis, unspecified; F71 Moderate intellectual disabilities; M62.81 Muscle weakness (generalized)
CPT/HCPCS: 36415; 80048; 85027

== ENCOUNTER → 2022-04-20 | Outpatient (REF) | payer MEDICARE, MEDICAID, SELFPAY ==
[2022-04-20 09:26] LABS: Hematocrit 34.8 % (37-47); Hemoglobin 10.4 g/dL (12.0-15.0); Mean Corp Hgb Conc 29.9 g/dL (32-36); Mean Corpuscular Hgb 28.2 pg (27.0-32.0); Mean Corpuscular Volume 94.3 fL (81-99); Mean Platelet Vol. 11.2 fl (6.2-12.0); Platelet Count 293 K/mm3 (150-450); RBC Distribution Width CV 15.5 % (11.6-14.6); RBC Distribution Width SD 54.3 fl (35.1-43.9); Red Blood Count 3.69 M/mm3 (4.2-5.4); White Blood Count 7.2 K/mm3 (4.4-11.0)
[2022-04-20 09:37] LABS: Anion Gap 9 (5-15); BUN 7 mg/dL (7-18); Calcium,Total 8.4 mg/dL (8.5-10.1); Chloride 109 mmol/L (98-107); Creatinine, Serum 0.64 mg/dL (0.55-1.02); EST Glomerular Filtration Rate 99 mL/min (>60); Est Glom Filt Rate - Afr Amer 119 mL/min (>60); Glucose 88 mg/dL (74-106); Potassium 3.9 mmol/L (3.5-5.1); Sodium Level 141 mmol/L (136-145)
== END | disposition home or self-care (01) ==
LOC: OLS.WHLEAS 08:05
PROVIDERS: Visit Provider Family Medicine
DX: N17.9 Acute kidney failure, unspecified (principal); J96.11 Chronic respiratory failure with hypoxia; K52.9 Noninfective gastroenteritis and colitis, unspecified; F71 Moderate intellectual disabilities; M62.81 Muscle weakness (generalized)
CPT/HCPCS: 36415; 80048; 85027

== ENCOUNTER → 2022-04-27 | Outpatient (REF) | payer MEDICARE, MEDICAID, SELFPAY ==
[2022-04-27 11:01] LABS: Hematocrit 37.2 % (37-47); Hemoglobin 10.7 g/dL (12.0-15.0); Mean Corp Hgb Conc 28.8 g/dL (32-36); Mean Corpuscular Hgb 27.7 pg (27.0-32.0); Mean Corpuscular Volume 96.4 fL (81-99); Mean Platelet Vol. 11.2 fl (6.2-12.0); Platelet Count 325 K/mm3 (150-450); RBC Distribution Width CV 15.6 % (11.6-14.6); RBC Distribution Width SD 55.6 fl (35.1-43.9); Red Blood Count 3.86 M/mm3 (4.2-5.4); White Blood Count 5.7 K/mm3 (4.4-11.0)
[2022-04-27 11:33] LABS: Anion Gap 8 (5-15); BUN 9 mg/dL (7-18); BUN/Creat Ratio 12.1 RATIO (10-20); Calcium,Total 8.4 mg/dL (8.5-10.1); Chloride 108 mmol/L (98-107); Creatinine, Serum 0.75 mg/dL (0.55-1.02); EST Glomerular Filtration Rate 82 mL/min (>60); Est Glom Filt Rate - Afr Amer 99 mL/min (>60); Glucose 83 mg/dL (74-106); Potassium 3.3 mmol/L (3.5-5.1); Sodium Level 140 mmol/L (136-145)
== END | disposition home or self-care (01) ==
LOC: OLS.WHLEAS 04:00
PROVIDERS: Visit Provider Family Medicine
DX: N17.9 Acute kidney failure, unspecified (principal); J96.11 Chronic respiratory failure with hypoxia; K52.9 Noninfective gastroenteritis and colitis, unspecified; F71 Moderate intellectual disabilities; M62.81 Muscle weakness (generalized)
CPT/HCPCS: 36415; 80048; 85027

== ENCOUNTER → 2022-05-04 | Outpatient (REF) | payer MEDICARE, MEDICAID, SELFPAY ==
[2022-05-04 07:59] LABS: Hemoglobin 11.5 g/dL (12.0-15.0); Mean Corp Hgb Conc 30.3 g/dL (32-36); Mean Corpuscular Hgb 27.5 pg (27.0-32.0); Mean Corpuscular Volume 90.9 fL (81-99); Mean Platelet Vol. 11.3 fl (6.2-12.0); Platelet Count 397 K/mm3 (150-450); RBC Distribution Width CV 15.5 % (11.6-14.6); Red Blood Count 4.18 M/mm3 (4.2-5.4); White Blood Count 7.7 K/mm3 (4.4-11.0)
[2022-05-04 08:14] LABS: Vitamin D,25 Hydroxy 57.5 ng/mL
[2022-05-04 08:25] LABS: Anion Gap 8 (5-15); BUN 12 mg/dL (7-18); BUN/Creat Ratio 15.8 RATIO (10-20); Calcium,Total 8.7 mg/dL (8.5-10.1); Chloride 110 mmol/L (98-107); Creatinine, Serum 0.76 mg/dL (0.55-1.02); EST Glomerular Filtration Rate 81 mL/min (>60); Est Glom Filt Rate - Afr Amer 98 mL/min (>60); Glucose 94 mg/dL (74-106); Potassium 3.6 mmol/L (3.5-5.1); Sodium Level 138 mmol/L (136-145)
== END ==
LOC: OLS.WHLEAS 05:00
PROVIDERS: Visit Provider Family Medicine
DX: N17.9 Acute kidney failure, unspecified (principal); K52.9 Noninfective gastroenteritis and colitis, unspecified; J96.11 Chronic respiratory failure with hypoxia; F71 Moderate intellectual disabilities; M62.81 Muscle weakness (generalized); E55.9 Vitamin D deficiency, unspecified
CPT/HCPCS: 36415; 80048; 82306; 85027

== ENCOUNTER 2022-05-05 20:50 | Inpatient (IN) | payer MEDICARE, MEDICAID, SELFPAY ==
[2022-05-05 20:51] VITALS: BP 160/98; PULSE 105; RESP 18; TEMP 36.4; O2SAT 100; BMI 25.9
--- NOTE | 2022-05-05 20:58 | EKG12_ITS ---
Test Reason : cp Blood Pressure : / mmHG Vent. Rate : 100 BPM Atrial Rate : 100 BPM P-R Int : 130 ms QRS Dur : 054 ms QT Int : 346 ms P-R-T Axes : -08 -04 030 degrees QTc Int : 446 ms Normal sinus rhythm Low voltage QRS Septal infarct , age undetermined Abnormal ECG Confirmed by MARY BETH CABALLERO, JULES ([id number]), editor index NATALIA ROJAS ([id number]) on 05/06/2022 1:26:38 PM Referred By: Rui Confirmed By:JULES CLINTON MD
[2022-05-05 21:00] VITALS: O2SAT 100
--- NOTE | 2022-05-05 21:15 | RAD_ITS ---
STUDY: X-RAY CHEST REASON FOR EXAM: Female, 67 years old. chest pain TECHNIQUE: XR Chest 1 View COMPARISON: None FINDINGS: There is no demonstrated pleural abnormality. There is no pneumothorax. There is a vascular port in place. Normal size heart. Normal mediastinum and syeda. Normal visualized pulmonary arteries. There is atherosclerotic calcification of the aortic arch with tortuosity. There are diffuse degenerative changes of the visualized thoracic spine. There is degenerative osteoarthritis of the bilateral shoulders. There is no demonstrated abnormality of the visualized soft tissue structures of the upper abdomen. RAD/Chest 1 View (Portable) IMPRESSION: There are no acute findings. Electronically Signed: Manolo Lagos MD at 21:27 EDT ,
[2022-05-05 21:20] LABS: Absolute Lymphocyte Count 2.65 X10^3/uL (0.83-4.51); Absolute Neutrophil Count 4.6 X10^3/uL (2.0-7.7); Basophil# 0.04 X10^3/uL; Basophil% 0.5 % (0-1); Eosinophil# 0.07 X10^3/uL; Eosinophils% 0.9 % (0-5); Hematocrit 37.6 % (37-47); Hemoglobin 11.8 g/dL (12.0-15.0); Lymphocyte # 2.65 X10^3/ul (0.83-4.51); Lymphocyte % 33.7 % (19-41); Mean Corp Hgb Conc 31.4 g/dL (32-36); Mean Corpuscular Hgb 28.4 pg (27.0-32.0); Mean Corpuscular Volume 90.4 fL (81-99); Mean Platelet Vol. 10.6 fl (6.2-12.0); Monocyte# 0.52 X10^3/uL; Monocyte% 6.6 % (0-10); NRBC Flagged by Analyzer 0 % (0-5); Neutrophil # 4.56 X10^3/uL (2.7-7.7); Platelet Count 354 K/mm3 (150-450); RBC Distribution Width CV 15.1 % (11.6-14.6); RBC Distribution Width SD 49.7 fl (35.1-43.9); Red Blood Count 4.16 M/mm3 (4.2-5.4); White Blood Count 7.9 K/mm3 (4.4-11.0)
[2022-05-05 21:44] LABS: Anion Gap 8 (5-15); BUN 12 mg/dL (7-18); BUN/Creat Ratio 13.5 RATIO (10-20); Calcium,Total 8.5 mg/dL (8.5-10.1); Chloride 108 mmol/L (98-107); Creatinine, Serum 0.89 mg/dL (0.55-1.02); EST Glomerular Filtration Rate 67 mL/min (>60); Est Glom Filt Rate - Afr Amer 81 mL/min (>60); Estimated Creatinine Clearance 53.77 ml/min; Glucose 103 mg/dL (74-106); Potassium 3.7 mmol/L (3.5-5.1); Sodium Level 138 mmol/L (136-145); Troponin-I HS (w/2H Reflex) 5 pg/mL (3.0-54.0)
--- NOTE | 2022-05-05 22:00 | CT_ITS ---
EXAM: CT HEAD WITHOUT INTRAVENOUS CONTRAST CLINICAL INDICATION: aphasia TECHNIQUE: Multiple axial images were obtained of the head without intravenous contrast. This CT exam was performed using one or more of the following dose reduction techniques: automated exposure control, adjustment of the mA and/or kV according to patient size, and/or use of iterative reconstruction technique. This report was created using [employer] report generation technology. RADIATION DOSE: CTDIvol = 44.99 mGy, DLP = 846.73 mGy-cm COMPARISON: None. FINDINGS: BRAIN AND EXTRA-AXIAL SPACES: There is a moderate zone of low attenuation in the inferior-posterior and medial left occipital lobe extending towards the posterior and medial left temporal lobe in the left CONCERT MANAGER distribution, with a mildly thick hyperdense serpiginous rim of suspected dystrophic calcification or laminar necrosis. The low attenuation is well circumscribed and very low in attenuation, there appears to be at least late subacute or chronic infarct. No midline shift. Also small chronic-appearing wedge-shaped infarct in the right gzzztzjl-nggwagyyt-mgdnbrv cerebellum without mass effect. Mild-moderate cavernous carotid calcifications. Mild low-attenuation deep periventricular chronic white matter changes. Small chronic lacunar infarct in the left thalamus. No intra- or extra-axial hemorrhage. No hydrocephalus. Basal cisterns are patent. BONES/JOINTS: Unremarkable. No discrete lytic or blastic abnormalities. SINUSES: Completely included paranasal sinuses are unremarkable with the exception of mild right nasal septal deviation. MASTOID AIR CELLS: Unremarkable. Clear. ORBITS: Visualized globes, extraocular muscles, optic nerves and retrobulbar fat appear unremarkable. CT/Brain/Head without Contrast IMPRESSION: 1. Multiple chronic-appearing infarcts, the largest in the left CONCERT MANAGER distribution. Suspicion of serpiginous dystrophic calcification along the margin of the left CONCERT MANAGER distribution infarct. Additional small chronic infarcts in the right cerebellum and left thalamus. 2. No convincing acute CVA. 3. Prior exam would be useful for comparison available. 4. Consider MRI if there is strong clinical suspicion of acute CVA. Electronically Signed: Grace Alcazar MD at 22:53 EDT ,
--- NOTE | 2022-05-05 22:13 | ED.VIS.STROK ---
HPI History of Present Illness Chief Complaint: Chest Pain Informant: patient and family Narrative Narrative: Patient is a 67-year-old female presenting from nursing facility for concern of speech difficulty. Patient has extensive medical history including Crohn's disease, diastolic heart failure, GERD, hypertension, Parkinson's disease, atrial fibrillation, COPD and chronic respiratory failure on 2 to 3 L of oxygen at baseline. She [facility] facility. At some time today patient started having word finding difficulties. Patient was trying to speak but just could not get the words out. Is not clear when this started but it seems to be around lunchtime. There is also report of patient having some chest pain however patient currently denies any chest pain or discomfort. Her sister is at the bedside who feels that her speech is improved but is waxing and waning. There was report of some vision changes earlier today as well. Her sister notes the patient's been more confused lately such as forgetting her bank number which she normally would know or forgetting about a food item that she is previously been very familiar with. [facility] Medical History (Updated 05/05/22 @ 23:[address] Alexandra Kimbrough, ) Anxiety and depression Atrial fibrillation Chronic anemia Chronic respiratory failure COPD (chronic obstructive pulmonary disease) Crohn's disease Crohn's disease Diastolic CHF Dysphagia Former tobacco use GERD (gastroesophageal reflux disease) History of COVID-19 History of deep venous thrombosis or pulmonary embolus Hypertension Iron deficiency anemia Parkinsons disease Sleep apnea Home Medications Lactobacillus rhamnosus GG 15 billion cell sprinkle capsule (Culturelle) 1 cap PO DAILY 01/30/22 [History Last Taken Unknown] albuterol 90 mcg/actuation aerosol inhaler 90 mcg inhalation BID 01/30/22 [History Last Taken Unknown] budesonide 3 mg capsule,delayed,extended release 3 mg PO DAILY 01/30/22 [History Last Taken Unknown] cetirizine 10 mg tablet 10 mg PO DAILY 01/30/22 [History Last Taken Unknown] cyanocobalamin (vitamin B-12) 500 mcg tablet 1,000 mcg PO DAILY 01/30/22 [History Last Taken Unknown] cyclobenzaprine 10 mg tablet 10 mg PO QHS 01/30/22 [History Last Taken Unknown] diltiazem HCl 240 mg capsule,extended release 24 hr, controlled 180 mg PO DAILY 01/30/22 [History Last Taken Unknown] fluticasone fur. 100 mcg-umeclid 62.5 mcg-vilant 25 mcg inhalat.powder (Trelegy Ellipta) 1 inh inhalation DAILY 01/30/22 [History Last Taken Unknown] folic acid 1 mg tablet 1 mg PO DAILY 01/30/22 [History Last Taken Unknown] furosemide 20 mg tablet 20 mg PO DAILY 01/30/22 [History Last Taken Unknown] guaifenesin 600 mg tablet, extended release 12 hr (Mucinex) 600 mg PO BID 01/30/22 [History Last Taken Unknown] ipratropium 0.5 mg-albuterol 3 mg (2.5 mg base)/3 mL nebulization soln 3 ml inhalation Q4H PRN SHORTNESS 01/30/22 [History Last Taken Unknown] loperamide 2 mg tablet 2 mg PO Q4H PRN Diarrhea 01/30/22 [History Last Taken Unknown] mesalamine 0.375 gram capsule,extended release 24 hr 1.125 g PO DAILY 01/30/22 [History Last Taken Unknown] metoprolol tartrate 100 mg tablet 50 mg PO Q12H 01/30/22 [History Last Taken Unknown] pantoprazole 40 mg tablet,delayed release 40 mg PO BID 01/30/22 [History Last Taken Unknown] potassium chloride 20 mEq oral packet 20 meq PO BID 01/30/22 [History Last Taken Unknown] roflumilast 250 mcg tablet (Daliresp) 250 mcg PO QHS 01/30/22 [History Last Taken Unknown] sulfasalazine 500 mg tablet 500 mg PO BID 01/30/22 [History Last Taken Unknown] latanoprost 0.005 % eye drops 1 drp EACH EYE QPM 05/05/22 [History Last Taken Unknown] tramadol 50 mg tablet 50 mg PO Q6H PRN Pain 05/05/22 [History Last Taken Unknown] Allergy/AdvReac Type Severity Reaction Status Date / Time amoxicillin [From Augmentin] Allergy PT UNABLE Verified 05/05/22 20:57 TO RESPOND-NEEDS F/U clavulanic acid Allergy PT UNABLE Verified 05/05/22 20:57 [From Augmentin] TO RESPOND-NEEDS F/U codeine Allergy PT UNABLE Verified 05/05/22 20:57 TO RESPOND-NEEDS F/U Iodinated Contrast Media Allergy Anaphylaxis Verified 05/05/22 20:57 metronidazole [From Flagyl] Allergy PT UNABLE Verified 05/05/22 20:57 TO RESPOND-NEEDS F/U morphine Allergy PT UNSURE Verified 05/05/22 20:57 OF REACTION oxycodone Allergy PT UNSURE Verified 05/05/22 20:57 OF REACTION ropinirole Allergy PT UNSURE Verified 05/05/22 20:57 OF REACTION acetaminophen [From Vicodin] AdvReac PT UNSURE Verified 05/05/22 20:57 OF REACTION hydrocodone [From Vicodin] AdvReac PT UNSURE Verified 05/05/22 20:57 OF REACTION Family History (Updated 01/30/22 @ 20:[address] Ladonna Pastor MD) Mother Alzheimer's dementia Surgical History H/O exploratory laparotomy History of bilateral tubal ligation History of repair of hiatal hernia History of resection of small bowel History of total right hip replacement Hx of cataract surgery S/P carpal tunnel release S/P cholecystectomy Social History (Updated 01/30/22 @ 19:[address] Ladonna Pastor MD) housing: care home Smoking Status: Former smoker how long ago did patient quit smoking: Quit ~ 13 years prior to current presentation. alcohol intake: never substance use type: does not use ROS ROS ED Review of Systems ROS Unobtainable: other Details: Difficulty speaking Eyes Eyes: Reports change in vision Cardiovascular Cardiovascular: Reports chest pain EXAM Physical Exam Const Vital Signs: 05/05/22 20:51 05/05/22 20:58 05/05/22 21:00 Temperature 97.6 F L Temperature Source Temporal Pulse Rate 105 H Respiratory Rate 18 Respiratory Effort Normal Non-Labored Blood Pressure 160/98 H Blood Pressure Mean 118 Pulse Ox 100 100 Oxygen Delivery Method Nasal Cannula Nasal Cannula Oxygen Flow Rate (L/min) 4 4 05/05/22 23:02 Temperature 97.9 F Temperature Source Temporal Pulse Rate 99 Respiratory Rate 18 Respiratory Effort Blood Pressure 153/90 H Blood Pressure Mean 111 Pulse Ox 98 Oxygen Delivery Method Nasal Cannula Oxygen Flow Rate (L/min) 2 Positive well nourished and well developed General Appearance ED: well developed and NAD HEENT Reports moist mucous membranes Eyes PERRL and EOMs intact bilaterally Neck supple and no JVD Chest Wall inspection of chest normal Resp normal respiratory effort Auscultation: diminished lung sounds Cardio no murmurs Rate: regular rate Rhythm: regular rhythm GI normal to inspection, nondistended, normoactive bowel sounds Extremity normal to inspection General Extremety ED: Negative for deformity or edema General Extremity: Negative for deformity or edema Neuro CN's II-XII intact bilaterally and no sensory deficits noted Neuro Narrative: Expressive aphasia. Patient intermittently can say some words but struggles. Can only name an ink pen but not a watch or glove. Intermittently can speak with no slurred speech. Sensorium / Orientation: alert Speech: Negative for speech normal Psych mental status grossly normal Skin no wounds STROKE Vital Signs/Narrative: Vital Signs Temp Pulse Resp BP Pulse Ox O2 Del Method O2 Flow Rate 05/05/22 23:02 97.9 F 99 18 153/90 H 98 Nasal Cannula 2 05/05/22 21:00 100 Nasal Cannula 4 05/05/22 20:51 97.6 F L 105 H 18 160/98 H 100 Nasal Cannula 4 NIHSS Initial: 1a Level of Consciousness: 0 1b LOC Questions (Score 2 if aphasic/stupor): 0 1c LOC Commands (Only score 1st attempt): 0 2 Best Gaze (If aphasic, use reflexive mvmts.): 0 3 Visual: 0 4 Facial Palsy: 0 5 Motor Arm Right (UN = amputation/fusion): 0 5 Motor Arm Left: 0 6 Motor Leg Right: 0 6 Motor Leg Left: 0 7 Limb ataxia (Only + if out of proportion): 0 8 Sensory (Aphasia/stupor=0 or 1, coma=2): 0 9 Best Language: 1 10 Dysarthria (mute, coma=2, intubated=UN): 0 11 Extinction and Inattention (only scored if +): 0 Total Score: 1 MDM MDM MDM Narrative Medical decision making narrative: Patient is evaluated for speech changes that occurred at sometime today. Last known well is not known as she is a resident of a care home. She is also had some increased forgetfulness over the past few days if not week per sister who is in the room. Initially protocol orders were placed because report was of more chest pain related. Patient is currently denying any chest pain for me. Cardiac work-up is unremarkable with no acute ischemic findings and normal high-sensitivity troponin. Urinalysis is consistent with infection with 500 leukoesterase, 25-50 white blood cells and 3+ bacteria. There is no contamination. CT of the brain shows multiple chronic appearing infarcts, the largest in the left SOCIAL WORK ASSISTANT distribution and suspicion of a serpiginous dystrophic calcification along the margins of the left SOCIAL WORK ASSISTANT distribution infarct. No acute stroke is seen. Patient is given aspirin. She is given a dose of IV Rocephin. She will be admitted to the hospital for further treatment of UTI as well as speech changes. Differential includes stroke versus encephalopathy from UTI. Given waxing and waning symptoms as well as unknown last normal she is not a tPA candidate. Lab Data Attestation: I reviewed the patient's lab results. Labs: Laboratory Results - last 24 hr 05/05/22 05/05/22 05/05/22 21:10 21:10 22:29 WBC 7.9 RBC 4.16 L Hgb 11.8 L Hct 37.6 MCV 90.4 MCH 28.4 MCHC 31.4 L RDW Std Deviation 49.7 H RDW Coeff of [place]ascual 15.1 H Plt Count 354 MPV 10.6 Immature Gran % (Auto) 0.300 Neut % (Auto) 58.0 Lymph % (Auto) 33.7 [place] % (Auto) 6.6 Eos % (Auto) 0.9 Baso % (Auto) 0.5 Absolute Neuts (auto) 4.6 Absolute Lymphs (auto) 2.65 Nucleated RBC % 0 Sodium 138 Potassium 3.7 Chloride 108 H Carbon Dioxide 22.0 Anion Gap 8 BUN 12 Creatinine 0.89 Estim Creat Clear Calc 53.77 Est GFR (MDRD) Af Amer 81 Est GFR (MDRD) Non-Af 67 BUN/Creatinine Ratio 13.5 Glucose 103 Calcium 8.5 Troponin I High Sens 5 Urine Color Yellow Urine Clarity Cloudy Urine pH 5.0 Ur Specific [place] 1.020 Urine Protein 30 H Urine Glucose (UA) Normal Urine Ketones Negative Urine Occult Blood 10 H Urine Nitrite Negative Urine Bilirubin 1 H Urine Urobilinogen Normal Ur Leukocyte Esterase 500 H Urine RBC 0-5 SEEN Urine WBC 25-50 SEEN Ur Squamous Epith Cells 0 SEEN Ur Transition Epith Cell 0 SEEN Urine Bacteria 3+ Hyaline Casts 10-25 SEEN Urine Mucus 0 SEEN Radiography Diagnostic Testing: Clinical Impression(s) from Imaging Studies Chest X-Ray 05/05/22 21:15 IMPRESSION: There are no acute findings. Electronically Signed: Manolo Lagos MD at 21:27 EDT , Brain CT 05/05/22 22:00 IMPRESSION: 1. Multiple chronic-appearing infarcts, the largest in the left SOCIAL WORK ASSISTANT distribution. Suspicion of serpiginous dystrophic calcification along the margin of the left SOCIAL WORK ASSISTANT distribution infarct. Additional small chronic infarcts in the right cerebellum and left thalamus. 2. No convincing acute CVA. 3. Prior exam would be useful for comparison available. 4. Consider MRI if there is strong clinical suspicion of acute CVA. Electronically Signed: Grace Alcazar MD at 22:53 EDT , Discharge Plan Triage Chief Complaint: Chest Pain ED Provider: Alexandra Kimbrough Dx/Rx/DC Orders Clinical Impression: Expressive aphasia, Acute UTI, Parkinson's disease Primary Care Provider: Quique Burroughs Disposition Disposition: Acute Care [facility]
[2022-05-05 22:35] LABS: Mucous, Urine 0 SEEN /hpf (<or=2+); Squamous Epithelial Cells - UA 0 SEEN /hpf (5-10)
[2022-05-05 22:37] LABS: Color, Urine Yellow (Yellow); Glucose, Dipstick Normal (Normal); Ketone-Dipstick Negative (Negative); Leukocyte Esterase-Dipstick 500 /ul (Negative); Nitrite-Dipstick Negative (Negative); Occult Blood-Urine 10 /ul (Negative); Protein-Dipstick 30 mg/dl (Negative); Urine Clarity Cloudy (Clear); Urine Urobilinogen Normal (Normal)
[2022-05-05 22:38] LABS: Urine Bilirubin Dipstick 1 mg/dL (Negative)
[2022-05-05 22:46] LABS: Bacteria 3+ /hpf (None Seen); Red Blood Cells-Urine 0-5 SEEN /hpf (0-5); White Blood Cells 25-50 SEEN /hpf (0-5)
[2022-05-05 22:47] LABS: Hyaline Cast 10-25 SEEN /lpf (0-5)
[2022-05-05 22:48] LABS: Transitional Epithelial - Ur 0 SEEN /hpf (0-5)
[2022-05-05 23:02] VITALS: BP 153/90; PULSE 99; RESP 18; TEMP 36.6; O2SAT 98
[2022-05-05 23:17] LABS: Reflex Troponin-HS? (from REC) Y
[2022-05-05] MEDS: Aspirin 325 MG Tablet PO (23:19)
[2022-05-05] MEDS: Ceftriaxone 1 GM/50 ML BAG IV (23:19)
--- NOTE | 2022-05-05 23:27 | HP.PCM.HOS_ITS ---
HPI - General General Date of Admission: 05/05/22 Date of Service: 05/05/22 Chief Complaint: Aphasia, confusion- 3 days HPI Narrative GOLDIE PAIZ, is a 67 F who presents with the above. Patient is a skilled nursing resident. Patient has baseline history of chronic hypoxic respiratory failure secondary to COPD, on 3 L of oxygen, hypertension, LEMUEL on BiPAP. Patient at baseline is alert oriented x3. History was obtained from patient's sister was at the bedside. Patient was noted to be intermittently confused on Tuesday when she spent the day with his sister and her family. She kept persevering on things that were not true. For example, she insisted that the fried rice overeating was red rice. She had to be corrected over and over was persevering with it. Her sister was called today from the skilled nursing that she is confused, appears weak, cannot seem to get her words out. According to her sister, she appears slow in proc essing things and answering questions. This is not how she is. She is having difficulty getting the words out. She seems to be more forgetful today. No obvious extremity weakness. She has chronic right shoulder weakness from shoulder injury. Admitting vitals in the ED showed blood pressure 160/98, heart rate 105, respiratory rate 18, temperature 97.6 F, SPO2 100% on 4 L of oxygen. WBC 7.9, h emoglobin 11.8, platelet count 354 BMP unremarkable. UA is cloudy, nitrite negative, leukocyte esterase 500, WBC 25-50, +3 bacteria. Urine culture is pending. Brain CT shows multiple chronic appearing infarcts, the largest in the left CAD LIBRARIAN distribution, small chronic infarct in the right cerebellar and left thalamus. Chest x-ray is unremarkable. Patient was started on IV ceftriaxone. [facility] Medical History Anxiety and depression Atrial fibrillation Chronic anemia Chronic respiratory failure COPD (chronic obstructive pulmonary disease) Crohn's disease Crohn's disease Diastolic CHF Dysphagia Former tobacco use GERD (gastroesophageal reflux disease) History of COVID-19 History of deep venous thrombosis or pulmonary embolus Hypertension Iron deficiency anemia Parkinsons disease Sleep apnea Home Medications Lactobacillus rhamnosus GG 15 billion cell sprinkle capsule (Culturelle) 1 cap PO DAILY 01/30/22 [History Last Taken Unknown] albuterol 90 mcg/actuation aerosol inhaler 90 mcg inhalation BID 01/30/22 [History Last Taken Unknown] budesonide 3 mg capsule,delayed,extended release 3 mg PO DAILY 01/30/22 [History Last Taken Unknown] cetirizine 10 mg tablet 10 mg PO DAILY 01/30/22 [History Last Taken Unknown] cyanocobalamin (vitamin B-12) 500 mcg tablet 1,000 mcg PO DAILY 01/30/22 [History Last Taken Unknown] cyclobenzaprine 10 mg tablet 10 mg PO QHS 01/30/22 [History Last Taken Unknown] diltiazem HCl 240 mg capsule,extended release 24 hr, controlled 180 mg PO DAILY 01/30/22 [History Last Taken Unknown] fluticasone fur. 100 mcg-umeclid 62.5 mcg-vilant 25 mcg inhalat.powder (Trelegy Ellipta) 1 inh inhalation DAILY 01/30/22 [History Last Taken Unknown] folic acid 1 mg tablet 1 mg PO DAILY 01/30/22 [History Last Taken Unknown] furosemide 20 mg tablet 20 mg PO DAILY 01/30/22 [History Last Taken Unknown] guaifenesin 600 mg tablet, extended release 12 hr (Mucinex) 600 mg PO BID 01/30/22 [History Last Taken Unknown] ipratropium 0.5 mg-albuterol 3 mg (2.5 mg base)/3 mL nebulization soln 3 ml inhalation Q4H PRN SHORTNESS 01/30/22 [History Last Taken Unknown] loperamide 2 mg tablet 2 mg PO Q4H PRN Diarrhea 01/30/22 [History Last Taken Unknown] mesalamine 0.375 gram capsule,extended release 24 hr 1.125 g PO DAILY 01/30/22 [History Last Taken Unknown] metoprolol tartrate 100 mg tablet 50 mg PO Q12H 01/30/22 [History Last Taken Unknown] pantoprazole 40 mg tablet,delayed release 40 mg PO BID 01/30/22 [History Last Taken Unknown] potassium chloride 20 mEq oral packet 20 meq PO BID 01/30/22 [History Last Taken Unknown] roflumilast 250 mcg tablet (Daliresp) 250 mcg PO QHS 01/30/22 [History Last Taken Unknown] sulfasalazine 500 mg tablet 500 mg PO BID 01/30/22 [History Last Taken Unknown] latanoprost 0.005 % eye drops 1 drp EACH EYE QPM 05/05/22 [History Last Taken Unknown] tramadol 50 mg tablet 50 mg PO Q6H PRN Pain 05/05/22 [History Last Taken Unknown] Allergy/AdvReac Type Severity Reaction Status Date / Time amoxicillin [From Augmentin] Allergy PT UNABLE Verified 05/05/22 20:57 TO RESPOND-NEEDS F/U clavulanic acid Allergy PT UNABLE Verified 05/05/22 20:57 [From Augmentin] TO RESPOND-NEEDS F/U codeine Allergy PT UNABLE Verified 05/05/22 20:57 TO RESPOND-NEEDS F/U Iodinated Contrast Media Allergy Anaphylaxis Verified 05/05/22 20:57 metronidazole [From Flagyl] Allergy PT UNABLE Verified 05/05/22 20:57 TO RESPOND-NEEDS F/U morphine Allergy PT UNSURE Verified 05/05/22 20:57 OF REACTION oxycodone Allergy PT UNSURE Verified 05/05/22 20:57 OF REACTION ropinirole Allergy PT UNSURE Verified 05/05/22 20:57 OF REACTION acetaminophen [From Vicodin] AdvReac PT UNSURE Verified 05/05/22 20:57 OF REACTION hydrocodone [From Vicodin] AdvReac PT UNSURE Verified 05/05/22 20:57 OF REACTION Family History Mother Alzheimer's dementia Surgical History H/O exploratory laparotomy History of bilateral tubal ligation History of repair of hiatal hernia History of resection of small bowel History of total right hip replacement Hx of cataract surgery S/P carpal tunnel release S/P cholecystectomy Social History housing: skilled nursing Smoking Status: Former smoker how long ago did patient quit smoking: Quit ~ 13 years prior to current presentation. alcohol intake: never substance use type: does not use ROS Review of Systems ROS Unobtainable: due to encephalopathy Vital Signs Vital Signs Vital Signs: 05/05/22 20:51 05/05/22 20:58 05/05/22 21:00 Temperature 97.6 F L Temperature Source Temporal Pulse Rate 105 H Respiratory Rate 18 Respiratory Effort Normal Non-Labored Blood Pressure 160/98 H Blood Pressure Mean 118 Pulse Ox 100 100 Oxygen Delivery Method Nasal Cannula Nasal Cannula Oxygen Flow Rate (L/min) 4 4 05/05/22 23:02 Temperature 97.9 F Temperature Source Temporal Pulse Rate 99 Respiratory Rate 18 Respiratory Effort Blood Pressure 153/90 H Blood Pressure Mean 111 Pulse Ox 98 Oxygen Delivery Method Nasal Cannula Oxygen Flow Rate (L/min) 2 Weight Weight: 56.3 kg Body Mass Index (BMI) 25.9 Physical Exam Narrative Physical exam: General: Alert, oriented to self, appears very frail, on 3 L of oxygen, HEENT: Atraumatic Oral: Moist Mucosa Neck: Supple Lungs: Diminished to auscultation Cardiovascular: HS I+II, regular, no murmurs Abdomen: Bowel Sounds Present, Soft, Non Tender Extremities: No edema Skin: No rashes, No breakdown Neurological: Slight right facial droop, power in all extremities is 4/5, right shoulder limited right upper extremity exam, appears dysarthric Psych/Mental Status: Appropriate Results Lab / Micro Data Result Diagrams: 05/05/22 21:10 05/05/22 21:10 Labs: Laboratory Results - last 24 hr 05/05/22 21:10: WBC 7.9, RBC 4.16 L, Hgb 11.8 L, Hct 37.6, MCV 90.4, MCH 28.4, MCHC 31.4 L, RDW Std Deviation 49.7 H, RDW Coeff of [place] 15.1 H, Plt Count 354, MPV 10.6, Immature Gran % (Auto) 0.300, Neut % (Auto) 58.0, Lymph % (Auto) 33.7, [place] % (Auto) 6.6, Eos % (Auto) 0.9, Baso % (Auto) 0.5, Absolute Neuts (auto) 4.6, Absolute Lymphs (auto) 2.65, Nucleated RBC % 0 05/05/22 21:10: Sodium 138, Potassium 3.7, Chloride 108 H, Carbon Dioxide 22.0, Anion Gap 8, BUN 12, Creatinine 0.89, Estim Creat Clear Calc 53.77, Est GFR (MDRD) Af Amer 81, Est GFR (MDRD) Non-Af 67, BUN/Creatinine Ratio 13.5, Glucose 103, Calcium 8.5, Troponin I High Sens 5 05/05/22 22:29: Urine Color Yellow, Urine Clarity Cloudy, Urine pH 5.0, Ur Specific [place] 1.020, Urine Protein 30 H, Urine Glucose (UA) Normal, Urine Ketones Negative, Urine Occult Blood 10 H, Urine Nitrite Negative, Urine Bilirubin 1 H, Urine Urobilinogen Normal, Ur Leukocyte Esterase 500 H, Urine RBC 0-5 SEEN, Urine WBC 25-50 SEEN, Ur Squamous Epith Cells 0 SEEN, Ur Transition Epith Cell 0 SEEN, Urine Bacteria 3+, Hyaline Casts 10-25 SEEN, Urine Mucus 0 SEEN Radiology Impression Chest X-Ray 05/05/22 21:15 IMPRESSION: There are no acute findings. Electronically Signed: Manolo Lagos MD at 21:27 EDT , Brain CT 05/05/22 22:00 IMPRESSION: 1. Multiple chronic-appearing infarcts, the largest in the left CAD LIBRARIAN distribution. Suspicion of serpiginous dystrophic calcification along the margin of the left CAD LIBRARIAN distribution infarct. Additional small chronic infarcts in the right cerebellum and left thalamus. 2. No convincing acute CVA. 3. Prior exam would be useful for comparison available. 4. Consider MRI if there is strong clinical suspicion of acute CVA. Electronically Signed: Grace Alcazar MD at 22:53 EDT , Assessment & Plan Assessment/Plan (1) Expressive aphasia: PLAN: Plan 1. Acute/subacute onset of expressive aphasia, confusion, suggestive of possible acute/subacute stroke Brain CT shows multiple chronic appearing infarcts, the largest in the left CAD LIBRARIAN distribution, small chronic infarct in the right cerebellar and left thalamus We will admit for acute stroke work-up, MRI brain, MRA head, Will hold off on ordering MRA of the neck because of contrast. Patient has allergy to contrast with anaphylaxis We will order carotid ultrasound although that would not do justice to the posterior circulation PT/OT/ST to evaluate and treat Continue on aspirin, statin 2. Probable acute UTI, patient denied acute symptoms, UA is positive, urine cultures pending Started on IV ceftriaxone, will continue it empirically pending urine cultures If MRI is positive, then acute UTI is less likely a contributing factor to #1 3. Paroxysmal atrial fibrillation/hypertension/hyperlipidemia We will continue to manage blood pressures as this condition does not appear to be acute Continue on metoprolol and Cardizem with holding parameters Patient is not on anticoagulation for A. fib; unclear reason, probably secondary to falls 4. Crohn's disease, continue on mesalamine, budesonide, sulfasalazine 5. Chronic hypoxic respiratory failure secondary to COPD, patient is on chronic 3 L of oxygen Continue on breathing treatments as needed 6. Chronic degenerative joint disease, continue on tramadol, Will discontinue Flexeril for now on account of current confusion 7. DVT prophylaxis?Heparin subcu CODE STATUS is DNR CCA, no intubation from the skilled nursing records Charges/Coding Visit Charges Inpatient E&M: 45353 Init Hosp L3
[2022-05-06] VITALS (20 sets, daily range): BP systolic 126–154; BP diastolic 56–87; PULSE 79–146; RESP 16–24; TEMP 36.4–36.9; O2SAT 89–100; BMI 21.2
--- NOTE | 2022-05-06 00:01 | MRI_ITS ---
INDICATION: Neuro deficits EXAMINATION: MRA - MRA Head W/O Contrast TECHNIQUE: Routine lummi of Boo/brain 3D time of flight MR angiogram protocol was performed without gadolinium. 3D reconstructions were reviewed. IV Contrast Dosage and Agent: None. COMPARISON: None. FINDINGS: --Anterior Circulation: ICAs: No significant stenosis at the intracranial/visualized segments. ACAs: No significant stenosis at the visualized segments. ACOM: Present. MCAs: No significant stenosis at the visualized segments. --Posterior Circulation: PCOMs: Not present nuclear medicine tech: Distal portion of the left posterior cerebral artery appears occluded in keeping with a chronic ischemic changes noted on MR and CT brain. Right posterior cerebral artery is patent. BASILAR ARTERY: No significant stenosis. VERTEBRAL ARTERIES: No significant stenosis at the intradural/visualized segments. No evidence of intracranial aneurysm or vascular malformation. 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 Otherwise normal MRA head. Electronically Signed: Reid Quiroz MD at 10:36 EDT ,
--- NOTE | 2022-05-06 00:01 | MRI_ITS ---
EXAM: MR HEAD WITHOUT INTRAVENOUS CONTRAST CLINICAL INDICATION: Neuro deficits TECHNIQUE: Multiplanar and multisequence MR images of the brain were obtained without intravenous contrast. This report was created using Intense[employer]ate report generation technology. COMPARISON: None. FINDINGS: BRAIN AND EXTRA-AXIAL SPACES: Localized restricted diffusion noted along the posterior left frontal cortex consistent with acute ischemia. Increased T2 signal intensity within the cerebral white matter suggestive of chronic microvascular change. Old lacunar infarct noted within the left thalamus. Large area of encephalomalacic change within the left occipital lobe consistent with chronic ischemic change associated with mild compensatory dilatation of the left lateral ventricle. No intra- or extra-axial hemorrhage. No intracranial mass or mass effect. Posterior fossa structures are unremarkable. Basal cisterns are patent. SELLA: Normal. Normal sella turcica, pituitary gland, infundibular stalk, optic chiasm and hypothalamus. AUDITORY SYSTEM: Normal. The internal auditory canals are patent. BONES/JOINTS: Intact calvarium. SINUSES: Unremarkable as visualized. Clear. MASTOID AIR CELLS: Unremarkable as visualized. Clear. ORBITS: Unremarkable as visualized. Both globes, extraocular muscles, optic nerves and retrobulbar fat appear unremarkable. VASCULATURE: Unremarkable as visualized. Normal flow voids in the major intracranial circulation. MRI/Brain without Contrast IMPRESSION: 1. Acute ischemic change of the left posterior frontal cortex. 2. Chronic microvascular changes. N.B. : The above Results were Read Back by Reid Quiroz MD to Krista Blackman RN, and understanding confirmed on 05/06/2022 11:15:14 (ET). Electronically Signed: Reid Quiroz MD at 10:57 EDT ,
[2022-05-06 00:08] LABS: Troponin-I HS 7 pg/mL (3.0-54.0)
[2022-05-06] MEDS: Metoprolol Tartrate 50 MG Tablet PO ×3 (02:46→22:43)
[2022-05-06] MEDS: 0.9% Normal Saline 1,000 ML 75 ML IV (02:47)
--- NOTE | 2022-05-06 06:17 | CDU_ITS ---
Reason For Study: CVA Rt. Velocities/BP Lt. Velocities/BP Prox CCA 108.8/23.3 cm/sec. Prox CCA 126.6/22.5 cm/sec. Mid CCA 149.9/33.6 cm/sec. Mid CCA 93.7/22.5 cm/sec. Dist CCA 114.8/35.8 cm/sec. Dist CCA 110.1/24.3 cm/sec. Prox ICA 97.4/20.6 cm/sec. Prox ICA 112/24.3 cm/sec. Mid ICA 91.2/28.6 cm/sec. Mid ICA 106.5/24.3 cm/sec. Dist ICA 113.5/29.1 cm/sec. Dist ICA 95.5/26.1 cm/sec. Rt. ICA/CCA = 0.99. Lt. ICA/CCA = 1.02. Prox ECA 97.2/16 cm/sec. Prox ECA 106.5/13.3 cm/sec. Rt. Vert. 50.9/11.3 cm/sec. Lt. Vert. 42.1/11.3 cm/sec. Right Extracranial There is homogeneous, smooth atherosclerotic plaque noted in the right common carotid artery. There is intimal thickening but no significant atherosclerotic plaque noted in the right internal carotid artery. There is intimal thickening but no significant atherosclerotic plaque noted in the right external carotid artery. Antegrade flow is noted in the right vertebral artery. Left Extracranial There is intimal thickening but no significant atherosclerotic plaque noted in the left common carotid artery. There is intimal thickening but no significant atherosclerotic plaque noted in the left internal carotid artery. There is intimal thickening but no significant atherosclerotic plaque noted in the left external carotid artery. Antegrade flow is noted in the left vertebral artery. Procedure Carotid Duplex 80009. This is a Carotid Duplex examination using B-mode, color flow and specral Doppler. Exam performed portable in patient room. VL/Carotid Duplex Ultrasound Interpretation Summary Mild (<50%) stenosis right extracranial internal carotid. Mild (<50%) stenosis left extracranial internal carotid. The Right vertebral artery is patent and antegrade. The Left vertebral artery is patent and antegrade. Ordering Physician: María Morfin Referring Physician: Quique Burroughs Performed By: Vicky Vitale RVT
[2022-05-06 06:45] LABS: Absolute Lymphocyte Count 2.33 X10^3/uL (0.83-4.51); Basophil# 0.04 X10^3/uL; Basophil% 0.6 % (0-1); Eosinophils% 1.4 % (0-5); Hematocrit 34.5 % (37-47); Hemoglobin 10.3 g/dL (12.0-15.0); Lymphocyte # 2.33 X10^3/ul (0.83-4.51); Lymphocyte % 33.2 % (19-41); Mean Corp Hgb Conc 29.9 g/dL (32-36); Mean Corpuscular Hgb 27.4 pg (27.0-32.0); Mean Corpuscular Volume 91.8 fL (81-99); Mean Platelet Vol. 11.2 fl (6.2-12.0); Monocyte# 0.49 X10^3/uL; NRBC Flagged by Analyzer 0 % (0-5); Neutrophil # 4.03 X10^3/uL (2.7-7.7); Neutrophil % 57.4 % (47-70); Platelet Count 283 K/mm3 (150-450); RBC Distribution Width CV 15.2 % (11.6-14.6); RBC Distribution Width SD 50.6 fl (35.1-43.9); Red Blood Count 3.76 M/mm3 (4.2-5.4)
[2022-05-06] MEDS: Ipratropium/Albuterol Sulfate 3 ML AMPUL.NEB INHALATION ×3 (07:07→20:38)
[2022-05-06] MEDS: Budesonide Respules 0.5 MG/2 ML AMPUL.NEB. INHALATION ×2 (07:07→20:38)
[2022-05-06 07:12] LABS: ALB/GLOB Ratio 0.9 RATIO (0.9-2.4); AST(SGOT) 11 U/L (15-37); Alanine Aminotransfer ALT/SGPT 10 U/L (13-56); Albumin, Serum 2.8 g/dL (3.2-5.0); Alkaline Phosphatase 60 U/L (45-117); Anion Gap 9 (5-15); BUN 11 mg/dL (7-18); BUN/Creat Ratio 14.8 RATIO (10-20); Calcium,Total 7.7 mg/dL (8.5-10.1); Chloride 109 mmol/L (98-107); Cholesterol 216 mg/dL (200); Creatinine, Serum 0.74 mg/dL (0.55-1.02); EST Glomerular Filtration Rate 83 mL/min (>60); Est Glom Filt Rate - Afr Amer 100 mL/min (>60); Estimated Creatinine Clearance 44.54 ml/min; Globulin 3.2 g/dL (2.2-4.2); Glucose 92 mg/dL (74-106); High Density Lipoprotein 77 mg/dL; Potassium 2.9 mmol/L (3.5-5.1); Sodium Level 138 mmol/L (136-145); Triglycerides 161 mg/dL; Very Low Density Lipoprotein 32 mg/dL (5-40)
[2022-05-06 07:42] LABS: Magnesium 0.6 mg/dL (1.6-2.6)
[2022-05-06] MEDS: Heparin Injection (Vial) 5,000 UNIT/ML VIAL 5000 UNIT SC ×2 (07:46→22:43)
[2022-05-06] MEDS: Aspirin 81 MG TAB.CHEW PO (07:47)
[2022-05-06] MEDS: Cyanocobalamin 500 MCG Tablet 1000 MCG PO (07:47)
[2022-05-06] MEDS: Folic Acid 1 MG Tablet PO (07:47)
[2022-05-06] MEDS: Potassium Chloride Oral Tablet 20 MEQ PO ×2 (07:47→17:44)
[2022-05-06] MEDS: Pantoprazole Sodium 40 MG Tablet PO ×2 (07:47→22:43)
[2022-05-06] MEDS: guaiFENesin 600 MG Tablet PO ×2 (07:47→22:43)
[2022-05-06] MEDS: dilTIAZem CD 180 MG Capsule PO (07:48)
[2022-05-06] MEDS: Loratadine 10 MG Tablet PO (07:48)
[2022-05-06] MEDS: Budesonide 3 MG CAPSULE.EC PO (07:48)
[2022-05-06] MEDS: sulfaSALAzine 500 MG Tablet PO ×2 (07:48→17:42)
[2022-05-06] MEDS: Mesalamine 1.2 GM Tablet PO (07:48)
--- NOTE | 2022-05-06 10:00 | CASEMGMT ---
Social Work Note SINDI reviewed chart. Pt is listed as being from [facility]. SINDI placed a call to Tawny at [facility]. [facility] states pt is [facility] and they will want pt to return skilled. SINDI to continue to follow. Plan: Return to [facility] skilled Vicky Miller [employer], WHEEL [employer]
--- NOTE | 2022-05-06 11:16 | TELEMED_ITS ---
SOC Telemed has confirmed receipt of a request for visit. This document confirms receipt of the order initiating the consult. To find the results of the consultation, please view the patient's reports for the scanned Telemed Consult.
[2022-05-06 11:23] LABS: Hemoglobin A1c 4.6 % (3.8-5.6)
--- NOTE | 2022-05-06 11:41 | PCM.PN.HOSP ---
Documented by User: Felicia Flores NP-Chiqui 05/06/22 12:11 Subjective Subjective Patient seen and examined. Patient lying in bed no distress noted. Daughter at bedside. Objective Data Objective Data Vital Signs: Vital Signs Temp Pulse Resp BP Pulse Ox O2 Del Method O2 Flow Rate 98.5 F 84 16 146/77 H 89 Nasal Cannula 2 05/06/22 06:00 05/06/22 10:00 05/06/22 10:00 05/06/22 10:00 05/06/22 10:00 05/06/22 10:00 05/06/22 10:00 Oxygen Flow Rate (L/min) 2 Oxygen Delivery Method Nasal Cannula Weight: 121 lb 4.068 oz Body Mass Index (BMI) 21.2 Intake & Output: Intake and Output for Last 24 Hours 05/04/22 05/05/22 05/06/22 23:59 23:59 23:59 Intake Total 170 / 170 Balance 170 / 170 Lab / Micro Data Result Diagrams: 05/06/22 06:14 05/06/22 06:14 Labs: Laboratory Results - last 24 hr 05/05/22 21:10: WBC 7.9, RBC 4.16 L, Hgb 11.8 L, Hct 37.6, MCV 90.4, MCH 28.4, MCHC 31.4 L, RDW Std Deviation 49.7 H, RDW Coeff of Pascual 15.1 H, Plt Count 354, MPV 10.6, Immature Gran % (Auto) 0.300, Neut % (Auto) 58.0, Lymph % (Auto) 33.7, Ballard % (Auto) 6.6, Eos % (Auto) 0.9, Baso % (Auto) 0.5, Absolute Neuts (auto) 4.6, Absolute Lymphs (auto) 2.65, Nucleated RBC % 0 05/05/22 21:10: Sodium 138, Potassium 3.7, Chloride 108 H, Carbon Dioxide 22.0, Anion Gap 8, BUN 12, Creatinine 0.89, Estim Creat Clear Calc 53.77, Est GFR (MDRD) Af Amer 81, Est GFR (MDRD) Non-Af 67, BUN/Creatinine Ratio 13.5, Glucose 103, Calcium 8.5, Troponin I High Sens 5 05/05/22 22:29: Urine Color Yellow, Urine Clarity Cloudy, Urine pH 5.0, Ur Specific [place] 1.020, Urine Protein 30 H, Urine Glucose (UA) Normal, Urine Ketones Negative, Urine Occult Blood 10 H, Urine Nitrite Negative, Urine Bilirubin 1 H, Urine Urobilinogen Normal, Ur Leukocyte Esterase 500 H, Urine RBC 0-5 SEEN, Urine WBC 25-50 SEEN, Ur Squamous Epith Cells 0 SEEN, Ur Transition Epith Cell 0 SEEN, Urine Bacteria 3+, Hyaline Casts 10-25 SEEN, Urine Mucus 0 SEEN 05/05/22 23:35: Troponin I High Sens 7 05/06/22 06:14: WBC 7.0, RBC 3.76 L, Hgb 10.3 L, Hct 34.5 L, MCV 91.8, MCH 27.4, MCHC 29.9 L, RDW Std Deviation 50.6 H, RDW Coeff of Pascual 15.2 H, Plt Count 283, MPV 11.2, Immature Gran % (Auto) 0.400, Neut % (Auto) 57.4, Lymph % (Auto) 33.2, Ballard % (Auto) 7.0, Eos % (Auto) 1.4, Baso % (Auto) 0.6, Absolute Neuts (auto) 4.0, Absolute Lymphs (auto) 2.33, Nucleated RBC % 0 05/06/22 06:14: Sodium 138, Potassium 2.9 L, Chloride 109 H, Carbon Dioxide 20.0 L, Anion Gap 9, BUN 11, Creatinine 0.74, Estim Creat Clear Calc 44.54, Est GFR (MDRD) Af Amer 100, Est GFR (MDRD) Non-Af 83, BUN/Creatinine Ratio 14.8, Glucose 92, Calcium 7.7 L, Total Bilirubin 0.20, AST 11 L, ALT 10 L, Alkaline Phosphatase 60, Total Protein 6.0 L, Albumin 2.8 L, Globulin 3.2, Albumin/Globulin Ratio 0.9, Triglycerides 161, Cholesterol 216 H, LDL Cholesterol 107, VLDL Cholesterol 32, HDL Cholesterol 77 05/06/22 06:14: Magnesium 0.6 L* 05/06/22 06:14: Hemoglobin A1c 4.6 Radiography Diagnostic Testing: Radiology Impression Chest X-Ray 05/05/22 21:15 IMPRESSION: There are no acute findings. Electronically Signed: Manolo Lagos MD at 21:27 EDT , Brain CT 05/05/22 22:00 IMPRESSION: 1. Multiple chronic-appearing infarcts, the largest in the left MESSENGER COPY distribution. Suspicion of serpiginous dystrophic calcification along the margin of the left MESSENGER COPY distribution infarct. Additional small chronic infarcts in the right cerebellum and left thalamus. 2. No convincing acute CVA. 3. Prior exam would be useful for comparison available. 4. Consider MRI if there is strong clinical suspicion of acute CVA. Electronically Signed: Grace Alcazar MD at 22:53 EDT , Brain MRI 05/06/22 00:01 IMPRESSION: 1. Acute ischemic change of the left posterior frontal cortex. 2. Chronic microvascular changes. Electronically Signed: Reid Quiroz MD at 10:57 EDT , Head MRA 05/06/22 00:01 IMPRESSION: Occlusion of the distal portion of the left posterior cerebral artery. Otherwise normal MRA head. Electronically Signed: Reid Quiroz MD at 10:36 EDT , Physical Exam Const alert and no apparent distress Orientation / Consciousness: confused HEENT head/scalp atraumatic and moist oral mucous membranes Head and Scalp: normocephalic Eyes conjunctivae normal and no scleral icterus Neck no lymphadenopathy and supple Resp normal respiratory effort, no use of accessory muscles and clear to auscultation bilaterally Cardio regular rate, regular rhythm, S1 normal heart sound and S2 normal heart sound GI normal to inspection, nondistended, normoactive bowel sounds, soft to palpation and non-tender Extremity normal to inspection and no clubbing, cyanosis or edema Neuro moves all extremities Neuro Narrative: Right-sided weakness and inattention Sensorium / Orientation: oriented to person and confused Psych affect normal Assessment & Plan Assessment/Plan (1) Acute UTI: (2) Expressive aphasia: PLAN: Plan 1. Acute CVA -MRI demonstrates acute ischemic change of the left posterior frontal cortex, MRA demonstrates occlusion of the distal portion of the left posterior cerebral artery -SOC consulted -Continue NIH and vital sign monitoring -Carotid ultrasound pending -PT OT and ST following -Continue aspirin and statin 2. Probable with UTI, urine cultures pending -Continue ceftriaxone pending culture results 3. Atrial fibrillation -Continue metoprolol and Cardizem -Patient not currently anticoagulated likely due to history of falls 4. Hypertension -Vital signs per protocol, currently stable -Continue metoprolol and Lasix 5. Crohn's disease -Continue mesalamine, budesonide, sulfasalazine 6. Chronic hypoxic respiratory failure secondary to COPD -Patient on 3 L nasal cannula, baseline O2 -Continue breathing treatments DVT prophylaxis-subcu heparin This patient was seen by Felicia Flores, GABE-C under the supervision of Dr. Davey. 12 minutes spent in clinical coordination of patient's plan of care. Documented by User: Dr. Tereso Davey DO 05/06/22 14:04 Objective Data Lab / Micro Data Result Diagrams: 05/06/22 06:14 05/06/22 06:14 Assessment & Plan Assessment/Plan (1) Acute UTI: (2) Expressive aphasia: Charges/Coding Addendum Addendum: Patient seen and examined independently. Data and vitals reviewed. I agree with the above note by the nurse practitioner. Subjective: Patient sisters at bedside and said that she is noticed weeks where the patient has been intermittently more confused. Objective: Patient is awake but confused. Extraocular muscles are limited as patient appears to have a right-sided deficit that she cannot turn either eyes to her right. Does have some slight right-sided neglect. Heart rate regular rate and rhythm plus S1-S2 with any murmurs Rubs. Lungs Are Clear to Auscultation Bilaterally. Abdomen Is Soft Nontender Nondistended Normal Bowel Sounds. Muscle Strength Is 5 out of 5 on the left but 4-5 on the right. Assessment and plan 1. Acute CVA MRI showed acute ischemic changes to the left posterior frontal cortex and MRA showed occlusion of the distal portion of the left posterior cerebral artery Consult SOC telemetry neurology for further recommendations. Continue aspirin, high intensity statin and clopidogrel 2. Urinary tract infection Urinalysis suggestive of UTI. Urine culture pending Continue with ceftriaxone Greater than 35 minutes spent reviewing data, documentation and discussing with the patient and primarily her sister at bedside. Visit Charges Inpatient E&M: 91541 Subs Hosp L3
[2022-05-06] MEDS: traMADol 50 MG Tablet PO (13:06)
[2022-05-06] MEDS: Magnesium Sulfate 4gm/100mL 4 GM/100 ML IV.SOLN. IV (13:12)
[2022-05-06] MEDS: Potassium Chloride Oral Tablet 20 MEQ 60 MEQ PO (13:12)
--- NOTE | 2022-05-06 14:04 | CASEMGMT ---
GITA MCFARLANE NOTE: Updated clinicals faxed to [place] at this time. Sinai LOCKHART RN CM
[2022-05-06] MEDS: Acetaminophen 325 MG Tablet 650 MG PO (18:54)
[2022-05-06] MEDS: Latanoprost 0.005% 1 Bottle 1 DRP EACH EYE (22:42)
[2022-05-06] MEDS: Atorvastatin Calcium 40 MG Tablet PO (22:43)
[2022-05-06] MEDS: Ceftriaxone 1 GM/50 ML BAG IV (22:43)
[2022-05-07] VITALS (11 sets, daily range): BP systolic 105–143; BP diastolic 55–74; PULSE 65–94; RESP 12–20; TEMP 36.6–36.7; O2SAT 95–100; BMI 21.2
[2022-05-07 06:39] LABS: Absolute Lymphocyte Count 1.55 X10^3/uL (0.83-4.51); Absolute Neutrophil Count 3.2 X10^3/uL (2.0-7.7); Basophil# 0.03 X10^3/uL; Basophil% 0.6 % (0-1); Eosinophil# 0.08 X10^3/uL; Eosinophils% 1.5 % (0-5); Hematocrit 31.5 % (37-47); Hemoglobin 9.7 g/dL (12.0-15.0); Lymphocyte # 1.55 X10^3/ul (0.83-4.51); Lymphocyte % 29.6 % (19-41); Mean Corp Hgb Conc 30.8 g/dL (32-36); Mean Corpuscular Hgb 28.4 pg (27.0-32.0); Mean Corpuscular Volume 92.4 fL (81-99); Mean Platelet Vol. 11.1 fl (6.2-12.0); Monocyte% 7.6 % (0-10); NRBC Flagged by Analyzer 0 % (0-5); Neutrophil # 3.16 X10^3/uL (2.7-7.7); Neutrophil % 60.3 % (47-70); Platelet Count 243 K/mm3 (150-450); RBC Distribution Width CV 15.8 % (11.6-14.6); RBC Distribution Width SD 52.9 fl (35.1-43.9); Red Blood Count 3.41 M/mm3 (4.2-5.4); White Blood Count 5.2 K/mm3 (4.4-11.0)
[2022-05-07] MEDS: Budesonide Respules 0.5 MG/2 ML AMPUL.NEB. INHALATION (06:56)
[2022-05-07] MEDS: Ipratropium/Albuterol Sulfate 3 ML AMPUL.NEB INHALATION ×2 (06:56→12:37)
[2022-05-07 07:03] LABS: ALB/GLOB Ratio 0.9 RATIO (0.9-2.4); AST(SGOT) 7 U/L (15-37); Alanine Aminotransfer ALT/SGPT 10 U/L (13-56); Albumin, Serum 2.6 g/dL (3.2-5.0); Alkaline Phosphatase 56 U/L (45-117); Anion Gap 4 (5-15); BUN 6 mg/dL (7-18); BUN/Creat Ratio 11.1 RATIO (10-20); Calcium,Total 8.1 mg/dL (8.5-10.1); Chloride 110 mmol/L (98-107); Creatinine, Serum 0.54 mg/dL (0.55-1.02); EST Glomerular Filtration Rate 119 mL/min (>60); Est Glom Filt Rate - Afr Amer 144 mL/min (>60); Estimated Creatinine Clearance 44.54 ml/min; Glucose 90 mg/dL (74-106); Potassium 4.1 mmol/L (3.5-5.1); Protein, Total 5.6 g/dL (6.4-8.2); Sodium Level 139 mmol/L (136-145)
[2022-05-07 07:08] LABS: Magnesium 2.3 mg/dL (1.6-2.6)
--- NOTE | 2022-05-07 09:31 | TREXTCAR_ITS ---
Diet Diet Order/Speech Therapy: 05/06/22 02:31 Diet: Cardiac - Heart Healthy Food consistency:: Easy to Chew Liquid Consistency:: Regular/Thin Is pt able to select menu?: No Diet Comments: Distant Supervision Routine Orders/Code Status Enema Type: Fleetz Enema Frequency: Daily PRN Suppository Type: Dulcolax 10mg Suppository Frequency: Daily PRN O2 Liters per Minute: 3 O2 Frequency: Continuous Keep PO Greater than or Equal to (%): 90 Routine Lab Work: CBC and BMP Code Status: DNRCC-A (no intubation) Suggestions for Active Care Change Position every (hours): 2 Times a day to sit in chair: 3 Therapies Weight Bearing: Full weight bearing Physical Therapy: Eval and Treat Occupational Therapy: Eval and Treat Speech Therapy: Eval and Treat Problem/Diagnosis (1) Acute UTI: Status: Acute Code(s): N39.0 - Urinary tract infection, site not specified (2) Expressive aphasia: Status: Acute Code(s): R47.01 - Aphasia Allergies/Procedures Done in Hospital Allergies amoxicillin [From Augmentin] Allergy (Verified 05/05/22 20:57) PT UNABLE TO RESPOND-NEEDS F/U clavulanic acid [From Augmentin] Allergy (Verified 05/05/22 20:57) PT UNABLE TO RESPOND-NEEDS F/U codeine Allergy (Verified 05/05/22 20:57) PT UNABLE TO RESPOND-NEEDS F/U Iodinated Contrast Media Allergy (Verified 05/05/22 20:57) Anaphylaxis metronidazole [From Flagyl] Allergy (Verified 05/05/22 20:57) PT UNABLE TO RESPOND-NEEDS F/U morphine Allergy (Verified 05/05/22 20:57) PT UNSURE OF REACTION oxycodone Allergy (Verified 05/05/22 20:57) PT UNSURE OF REACTION ropinirole Allergy (Verified 05/05/22 20:57) PT UNSURE OF REACTION acetaminophen [From Vicodin] Adverse Reaction (Verified 05/05/22 20:57) PT UNSURE OF REACTION hydrocodone [From Vicodin] Adverse Reaction (Verified 05/05/22 20:57) PT UNSURE OF REACTION Procedures: - (MRI Brain, MRA Head, Brain CT, Carotid Duplex) Type of Care/Length of Stay Estimated LOS: Convalescent Care Less Than 30 days Type of Care Needed: Skilled Rehab Potential: Fair Prognosis: Fair Additional Orders/Day of Discharge Day of Discharge: 05/07/22 Dietary and Speech Recommendations Dietitian Recommendations/Changes: Continue Cardiac - Heart Healthy Diet Speech Linguistic Eval Summary: Per family, the patient has prior deficits with reading longer words. Upon admission, the family member noticed that the patient was having increased difficulty writing her full name out when signing papers. She is having apparent word retrieval difficulty. Orientation: Pt oriented to self, month. She appeared to have difficulty with word retrieval answering orientation questions. She was able to orient to age, place, and full when provided field of 2 choices (written or verbal). Verbal Expression: In 2-minute conversational sample, she had MLU of ~4 words. Pt with frequent moments of anomia and attempts to gesture to communicate in these moments. Groping apparent in speech production attempts. Confrontation naming of common objects: 7/10 acc increasing to 9/10 with field of 2 choices (verbal). Generative namin animals in 1 minute (+1 perseveration). Auditory comprehension: Following 1-step directions - 9/10 acc. Following 2-step directions - 2/5 acc. Basic yes/no questions - 4/5 acc. Moderate yes/no questions - 2/5 acc. The patient presents with moderate mixed aphasia which appears to be negatively impacting her ability to meet basic, medical, and social and wants/needs. Will recommend skilled speech therapy services to address deficits in auditory comprehension, fluency, and word retrieval. Provided the patient a low tech [employer] picture communication board. Will further assess cognitive-linguistic abilities in upcoming sessions to set additional goals to POC as needed. Discharge Plan Admission Admit Date/Time: 05/05/22 23:15 Primary Reason for Your Visit: Acute CVA Attending Provider: Tereso Davey Primary Care Provider: Quique Burroughs Consulting Providers: María Morfin Discharge Orders/Prescriptions Prescriptions: New aspirin 81 mg Tablet,Chewable 81 mg PO BREAKFAST Qty: 0 0RF atorvastatin 40 mg Tablet 40 mg PO QHS Qty: 0 0RF cefdinir 300 mg capsule 300 mg PO BID Qty: 10 0RF Eliquis 2.5 mg tablet 2.5 mg PO BID Qty: 60 0RF Rx Instructions: Do not restart until 05/16/2022 Continued diltiazem HCl 240 mg Capsule,Ext.Rel 24h Degradable 180 mg PO DAILY metoprolol tartrate 100 mg Tablet 50 mg PO Q12H cyanocobalamin (vitamin B-12) 500 mcg Tablet 1,000 mcg PO DAILY folic acid 1 mg Tablet 1 mg PO DAILY albuterol 90 mcg/actuation Aerosol 90 mcg INHALATION BID budesonide 3 mg Capsule,Delayed,Extend.Release 3 mg PO DAILY mesalamine 0.375 gram Capsule,Extended Release 24hr 1.125 g PO DAILY guaifenesin [Mucinex] 600 mg Tablet Extended Release 12hr 600 mg PO BID Daliresp 250 mcg Tablet 250 mcg PO QHS sulfasalazine 500 mg Tablet 500 mg PO BID cetirizine 10 mg Tablet 10 mg PO DAILY loperamide 2 mg Tablet 2 mg PO Q4H PRN (Reason: Diarrhea) potassium chloride 20 mEq Packet 20 meq PO BID furosemide 20 mg Tablet 20 mg PO DAILY Culturelle 15 billion cell Capsule, Sprinkle 1 cap PO DAILY Trelegy Ellipta 100-62.5-25 mcg Blister With Device 1 inh INHALATION DAILY ipratropium-albuterol 0.5 mg-3 mg(2.5 mg base)/3 mL Solution For Nebulization 3 ml INHALATION Q4H PRN (Reason: SHORTNESS) pantoprazole 40 mg Tablet,Delayed Release (Dr/Ec) 40 mg PO BID latanoprost 0.005 % Drops 1 drp EACH EYE QPM tramadol 50 mg Tablet 50 mg PO Q6H PRN (Reason: Pain) Discontinued cyclobenzaprine 10 mg Tablet 10 mg PO QHS Referrals / Follow Up: Quique Burroughs MD [Primary Care Provider] - Disposition Disposition (needs filled in before D/C Order can be placed): Senior Living Facility
[2022-05-07] MEDS: guaiFENesin 600 MG Tablet PO (09:51)
[2022-05-07] MEDS: Heparin Injection (Vial) 5,000 UNIT/ML VIAL 5000 UNIT SC (09:51)
[2022-05-07] MEDS: Metoprolol Tartrate 50 MG Tablet PO (09:52)
[2022-05-07] MEDS: Mesalamine 1.2 GM Tablet PO (09:52)
[2022-05-07] MEDS: Loratadine 10 MG Tablet PO (09:52)
[2022-05-07] MEDS: Aspirin 81 MG TAB.CHEW PO (09:52)
[2022-05-07] MEDS: Cyanocobalamin 500 MCG Tablet 1000 MCG PO (09:52)
[2022-05-07] MEDS: Budesonide 3 MG CAPSULE.EC PO (09:52)
[2022-05-07] MEDS: Pantoprazole Sodium 40 MG Tablet PO (09:52)
[2022-05-07] MEDS: Folic Acid 1 MG Tablet PO (09:52)
[2022-05-07] MEDS: sulfaSALAzine 500 MG Tablet PO ×2 (09:52→17:36)
[2022-05-07] MEDS: dilTIAZem CD 180 MG Capsule PO (09:52)
[2022-05-07] MEDS: Potassium Chloride Oral Tablet 20 MEQ PO ×2 (09:53→17:36)
--- NOTE | 2022-05-07 09:53 | PCM.DC.SUM ---
Documented by User: ELSIE Carmen 05/07/22 10:07 Providers Date of Admission: 05/05/22 Date of Discharge: 05/07/22 Primary Care Physician: Dr. Quique Burroughs MD Reason For Visit: ACUTE CVA Diagnosis Discharge Diagnosis (1) Acute UTI: Status: Acute Code(s): N39.0 - Urinary tract infection, site not specified (2) Expressive aphasia: Status: Acute Code(s): R47.01 - Aphasia Plan 1. Acute CVA -MRI demonstrates acute ischemic change of the left posterior frontal cortex, MRA demonstrates occlusion of the distal portion of the left posterior cerebral artery -SOC consulted -Continue NIH and vital sign monitoring -Carotid ultrasound pending -PT OT and ST following -Continue aspirin and statin 2. Probable with UTI, urine cultures pending -Continue ceftriaxone pending culture results 3. Atrial fibrillation -Continue metoprolol and Cardizem -Patient not currently anticoagulated likely due to history of falls 4. Hypertension -Vital signs per protocol, currently stable -Continue metoprolol and Lasix 5. Crohn's disease -Continue mesalamine, budesonide, sulfasalazine 6. Chronic hypoxic respiratory failure secondary to COPD -Patient on 3 L nasal cannula, baseline O2 -Continue breathing treatments DVT prophylaxis-subcu heparin This patient was seen by ELSIE Carmen under the supervision of Dr. Davey. 12 minutes spent in clinical coordination of patient's plan of care. Medications at Discharge Home Medications Lactobacillus rhamnosus GG 15 billion cell sprinkle capsule (Culturelle) 1 cap PO DAILY 01/30/22 albuterol 90 mcg/actuation aerosol inhaler 90 mcg inhalation BID 01/30/22 budesonide 3 mg capsule,delayed,extended release 3 mg PO DAILY 01/30/22 cetirizine 10 mg tablet 10 mg PO DAILY 01/30/22 cyanocobalamin (vitamin B-12) 500 mcg tablet 1,000 mcg PO DAILY 01/30/22 diltiazem HCl 240 mg capsule,extended release 24 hr, controlled 180 mg PO DAILY 01/30/22 fluticasone fur. 100 mcg-umeclid 62.5 mcg-vilant 25 mcg inhalat.powder (Trelegy Ellipta) 1 inh inhalation DAILY 01/30/22 folic acid 1 mg tablet 1 mg PO DAILY 01/30/22 furosemide 20 mg tablet 20 mg PO DAILY 01/30/22 guaifenesin 600 mg tablet, extended release 12 hr (Mucinex) 600 mg PO BID 01/30/22 ipratropium 0.5 mg-albuterol 3 mg (2.5 mg base)/3 mL nebulization soln 3 ml inhalation Q4H PRN SHORTNESS 01/30/22 loperamide 2 mg tablet 2 mg PO Q4H PRN Diarrhea 01/30/22 mesalamine 0.375 gram capsule,extended release 24 hr 1.125 g PO DAILY 01/30/22 metoprolol tartrate 100 mg tablet 50 mg PO Q12H 01/30/22 pantoprazole 40 mg tablet,delayed release 40 mg PO BID 01/30/22 potassium chloride 20 mEq oral packet 20 meq PO BID 01/30/22 roflumilast 250 mcg tablet (Daliresp) 250 mcg PO QHS 01/30/22 sulfasalazine 500 mg tablet 500 mg PO BID 01/30/22 latanoprost 0.005 % eye drops 1 drp EACH EYE QPM 05/05/22 tramadol 50 mg tablet 50 mg PO Q6H PRN Pain 05/05/22 apixaban 2.5 mg tablet (Eliquis) 2.5 mg PO BID #60 tabs 05/07/22 aspirin 81 mg chewable tablet 81 mg PO BREAKFAST #0 tabs 05/07/22 atorvastatin 40 mg tablet 40 mg PO QHS #0 tabs 05/07/22 cefdinir 300 mg capsule 300 mg PO BID #10 caps 05/07/22 Hospital Course Operations None Procedures None Summary of Care Provided Minutes Spent on Discharge: 35 Hospital Course: Patient is a 67-year-old female who initially presented to the ER with slurred speech and confusion. Patient was noted to have a UTI and was initiated on Rocephin. Patient will be discharged with Omnicef p.o. for another 5 days. Patient work-up was also completed for stroke symptoms and patient was noted to have a new acute ischemic change of the left posterior frontal cortex. Patient also underwent head MRA which demonstrated occlusion of the distal portion of the left posterior cerebral artery. Carotid duplex demonstrates mild stenosis of the right and left extracranial internal carotid and patent left and right vertebral arteries. Patient was evaluated by [facility] neurology who encouraged the reinitiation of Eliquis 10 days post stroke. Patient had been on Eliquis but has a history of GI bleed however per GIs notes patient could be restarted on Eliquis. Eliquis prescribed at discharge with instructions to restart on 07/16/2022 at which time patient can discontinue aspirin. Patient will be discharged with instructions to continue PT, OT, ST. Physical Exam Const alert General Appearance: cooperative Orientation / Consciousness: oriented to person and confused HEENT normocephalic and head/scalp atraumatic Eyes conjunctivae normal and no scleral icterus Neck no lymphadenopathy and supple General: trachea midline Resp normal respiratory effort and normal air movement Auscultation: diminished lung sounds Cardio regular rate, regular rhythm, S1 normal heart sound and S2 normal heart sound GI normal to inspection, nondistended, normoactive bowel sounds, soft to palpation and non-tender Extremity normal capillary refill and no clubbing, cyanosis or edema Skin Lesions: no lesions Rashes: no rashes Neuro Neuro Narrative: Right-sided weakness upper and lower extremity and right side inattention Speech: speech normal Psych affect normal Weight / BMI Weight Weight: 122 lb 8 oz Body Mass Index (BMI) 21.2 ABG / Lab / Microbiology Data Result Diagrams: 05/07/22 05:35 05/07/22 05:35 Laboratory: Laboratory Results - last 24 hr 05/06/22 06:14: Hemoglobin A1c 4.6 05/07/22 05:35: WBC 5.2, RBC 3.41 L, Hgb 9.7 L, Hct 31.5 L, MCV 92.4, MCH 28.4, MCHC 30.8 L, RDW Std Deviation 52.9 H, RDW Coeff of Pascual 15.8 H, Plt Count 243, MPV 11.1, Immature Gran % (Auto) 0.400, Neut % (Auto) 60.3, Lymph % (Auto) 29.6, [place] % (Auto) 7.6, Eos % (Auto) 1.5, Baso % (Auto) 0.6, Absolute Neuts (auto) 3.2, Absolute Lymphs (auto) 1.55, Nucleated RBC % 0 05/07/22 05:35: Sodium 139, Potassium 4.1, Chloride 110 H, Carbon Dioxide 25.0, Anion Gap 4 L, BUN 6 L, Creatinine 0.54 L, Estim Creat Clear Calc 44.54, Est GFR (MDRD) Af Amer 144, Est GFR (MDRD) Non-Af 119, BUN/Creatinine Ratio 11.1, Glucose 90, Calcium 8.1 L, Total Bilirubin 0.20, AST 7 L, ALT 10 L, Alkaline Phosphatase 56, Total Protein 5.6 L, Albumin 2.6 L, Globulin 3.0, Albumin/Globulin Ratio 0.9 05/07/22 05:35: Magnesium 2.3 Radiography Diagnostic Testing: Radiology Impression Brain MRI 05/06/22 00:01 IMPRESSION: 1. Acute ischemic change of the left posterior frontal cortex. 2. Chronic microvascular changes. N.B. : The above Results were Read Back by Reid Quiroz MD to Krista Blackman RN, and understanding confirmed on 05/06/2022 11:15:14 (ET). Electronically Signed: Reid Quiroz MD at 10:57 EDT , Head MRA 05/06/22 00:01 IMPRESSION: Occlusion of the distal portion of the left posterior cerebral artery. Otherwise normal MRA head. Electronically Signed: Reid Quiroz MD at 10:36 EDT , Carotid Duplex 05/06/22 06:17 Interpretation Summary Mild (<50%) stenosis right extracranial internal carotid. Mild (<50%) stenosis left extracranial internal carotid. The Right vertebral artery is patent and antegrade. The Left vertebral artery is patent and antegrade. Ordering Physician: María Morfin Referring Physician: Quique Burroughs Performed By: Vicky Vitale RVT D/C Instructions Discharge Diet: Low fat / Low cholesterol Discharge Activity: Use Walker Call your doctor if you observe: Numbness or Tingling and Dizziness Meaningful Use Info Meaningful Use Diagnoses (Choose all that apply): Ischemic CVA CVA Therapy Assessed for PT,OT and/or ST?: Yes Ischemic Stroke Antithrombotic order at d/c?: Yes Dx of Atrial fib/flutter?: No Anticoagulant at discharge?: Yes Statins at discharge?: Yes Primary Dx Acute Ischemic CVA?: Yes IV tPA ordered during stay?: No Reason IV t-PA not ordered: Treatment not Indicated Discharge Plan Admission Admit Date/Time: 05/05/22 23:15 Primary Reason for Your Visit: Acute CVA Attending Provider: Tereso Davey Primary Care Provider: Quique Burroughs Consulting Providers: María Morfin Discharge Orders/Prescriptions Prescriptions: New aspirin 81 mg Tablet,Chewable 81 mg PO BREAKFAST Qty: 0 0RF atorvastatin 40 mg Tablet 40 mg PO QHS Qty: 0 0RF cefdinir 300 mg capsule 300 mg PO BID Qty: 10 0RF Eliquis 2.5 mg tablet 2.5 mg PO BID Qty: 60 0RF Rx Instructions: Do not restart until 05/16/2022 Continued diltiazem HCl 240 mg Capsule,Ext.Rel 24h Degradable 180 mg PO DAILY metoprolol tartrate 100 mg Tablet 50 mg PO Q12H cyanocobalamin (vitamin B-12) 500 mcg Tablet 1,000 mcg PO DAILY folic acid 1 mg Tablet 1 mg PO DAILY albuterol 90 mcg/actuation Aerosol 90 mcg INHALATION BID budesonide 3 mg Capsule,Delayed,Extend.Release 3 mg PO DAILY mesalamine 0.375 gram Capsule,Extended Release 24hr 1.125 g PO DAILY guaifenesin [Mucinex] 600 mg Tablet Extended Release 12hr 600 mg PO BID Daliresp 250 mcg Tablet 250 mcg PO QHS sulfasalazine 500 mg Tablet 500 mg PO BID cetirizine 10 mg Tablet 10 mg PO DAILY loperamide 2 mg Tablet 2 mg PO Q4H PRN (Reason: Diarrhea) potassium chloride 20 mEq Packet 20 meq PO BID furosemide 20 mg Tablet 20 mg PO DAILY Culturelle 15 billion cell Capsule, Sprinkle 1 cap PO DAILY Trelegy Ellipta 100-62.5-25 mcg Blister With Device 1 inh INHALATION DAILY ipratropium-albuterol 0.5 mg-3 mg(2.5 mg base)/3 mL Solution For Nebulization 3 ml INHALATION Q4H PRN (Reason: SHORTNESS) pantoprazole 40 mg Tablet,Delayed Release (Dr/Ec) 40 mg PO BID latanoprost 0.005 % Drops 1 drp EACH EYE QPM tramadol 50 mg Tablet 50 mg PO Q6H PRN (Reason: Pain) Discontinued cyclobenzaprine 10 mg Tablet 10 mg PO QHS Referrals / Follow Up: Quique Burroughs MD [Primary Care Provider] - Within 2 Weeks Ilan Russo MD [NON-STAFF] - Within 1 Month Disposition Disposition (needs filled in before D/C Order can be placed): [facility] Documented by User: Dr. Tereso Davey DO 05/07/22 11:27 Providers Date of Admission: 05/05/22 Reason For Visit: ACUTE CVA Diagnosis Discharge Diagnosis (1) Acute UTI: Status: Acute Code(s): N39.0 - Urinary tract infection, site not specified (2) Expressive aphasia: Status: Acute Code(s): R47.01 - Aphasia Medications at Discharge Home Medications Lactobacillus rhamnosus GG 15 billion cell sprinkle capsule (Culturelle) 1 cap PO DAILY 01/30/22 albuterol 90 mcg/actuation aerosol inhaler 90 mcg inhalation BID 01/30/22 budesonide 3 mg capsule,delayed,extended release 3 mg PO DAILY 01/30/22 cetirizine 10 mg tablet 10 mg PO DAILY 01/30/22 cyanocobalamin (vitamin B-12) 500 mcg tablet 1,000 mcg PO DAILY 01/30/22 diltiazem HCl 240 mg capsule,extended release 24 hr, controlled 180 mg PO DAILY 01/30/22 fluticasone fur. 100 mcg-umeclid 62.5 mcg-vilant 25 mcg inhalat.powder (Trelegy Ellipta) 1 inh inhalation DAILY 01/30/22 folic acid 1 mg tablet 1 mg PO DAILY 01/30/22 furosemide 20 mg tablet 20 mg PO DAILY 01/30/22 guaifenesin 600 mg tablet, extended release 12 hr (Mucinex) 600 mg PO BID 01/30/22 ipratropium 0.5 mg-albuterol 3 mg (2.5 mg base)/3 mL nebulization soln 3 ml inhalation Q4H PRN SHORTNESS 01/30/22 loperamide 2 mg tablet 2 mg PO Q4H PRN Diarrhea 01/30/22 mesalamine 0.375 gram capsule,extended release 24 hr 1.125 g PO DAILY 01/30/22 metoprolol tartrate 100 mg tablet 50 mg PO Q12H 01/30/22 pantoprazole 40 mg tablet,delayed release 40 mg PO BID 01/30/22 potassium chloride 20 mEq oral packet 20 meq PO BID 01/30/22 roflumilast 250 mcg tablet (Daliresp) 250 mcg PO QHS 01/30/22 sulfasalazine 500 mg tablet 500 mg PO BID 01/30/22 latanoprost 0.005 % eye drops 1 drp EACH EYE QPM 05/05/22 tramadol 50 mg tablet 50 mg PO Q6H PRN Pain 05/05/22 apixaban 2.5 mg tablet (Eliquis) 2.5 mg PO BID #60 tabs 05/07/22 aspirin 81 mg chewable tablet 81 mg PO BREAKFAST #0 tabs 05/07/22 atorvastatin 40 mg tablet 40 mg PO QHS #0 tabs 05/07/22 cefdinir 300 mg capsule 300 mg PO BID #10 caps 05/07/22 ABG / Lab / Microbiology Data Result Diagrams: 05/07/22 05:35 05/07/22 05:35 Discharge Plan Admission Admit Date/Time: 05/05/22 23:15 Primary Reason for Your Visit: Acute CVA Attending Provider: Tereso Davey Primary Care Provider: Quique Burroughs Consulting Providers: María Morfin Discharge Orders/Prescriptions Prescriptions: New aspirin 81 mg Tablet,Chewable 81 mg PO BREAKFAST Qty: 0 0RF atorvastatin 40 mg Tablet 40 mg PO QHS Qty: 0 0RF cefdinir 300 mg capsule 300 mg PO BID Qty: 10 0RF Eliquis 2.5 mg tablet 2.5 mg PO BID Qty: 60 0RF Rx Instructions: Do not restart until 05/16/2022 Continued diltiazem HCl 240 mg Capsule,Ext.Rel 24h Degradable 180 mg PO DAILY metoprolol tartrate 100 mg Tablet 50 mg PO Q12H cyanocobalamin (vitamin B-12) 500 mcg Tablet 1,000 mcg PO DAILY folic acid 1 mg Tablet 1 mg PO DAILY albuterol 90 mcg/actuation Aerosol 90 mcg INHALATION BID budesonide 3 mg Capsule,Delayed,Extend.Release 3 mg PO DAILY mesalamine 0.375 gram Capsule,Extended Release 24hr 1.125 g PO DAILY guaifenesin [Mucinex] 600 mg Tablet Extended Release 12hr 600 mg PO BID Daliresp 250 mcg Tablet 250 mcg PO QHS sulfasalazine 500 mg Tablet 500 mg PO BID cetirizine 10 mg Tablet 10 mg PO DAILY loperamide 2 mg Tablet 2 mg PO Q4H PRN (Reason: Diarrhea) potassium chloride 20 mEq Packet 20 meq PO BID furosemide 20 mg Tablet 20 mg PO DAILY Culturelle 15 billion cell Capsule, Sprinkle 1 cap PO DAILY Trelegy Ellipta 100-62.5-25 mcg Blister With Device 1 inh INHALATION DAILY ipratropium-albuterol 0.5 mg-3 mg(2.5 mg base)/3 mL Solution For Nebulization 3 ml INHALATION Q4H PRN (Reason: SHORTNESS) pantoprazole 40 mg Tablet,Delayed Release (Dr/Ec) 40 mg PO BID latanoprost 0.005 % Drops 1 drp EACH EYE QPM tramadol 50 mg Tablet 50 mg PO Q6H PRN (Reason: Pain) Discontinued cyclobenzaprine 10 mg Tablet 10 mg PO QHS Referrals / Follow Up: Quique Burroughs MD [Primary Care Provider] - Within 2 Weeks Ilan Russo MD [NON-STAFF] - Within 1 Month Disposition Disposition (needs filled in before D/C Order can be placed): [facility] Charges/Coding Addendum Addendum: Patient seen and examined independently.? Data and vitals reviewed.? I agree with the above note by the nurse practitioner. Subjective: Patient having difficulty speaking today. Objective: Patient is awake but having some expressive aphasia. Able to move all extremities spontaneously and able to tell me that she needs to have surgery on her right shoulder which she has limitations of movement of her right arm. Extraocular muscles are limited as patient appears to have a right-sided deficit that she cannot turn either eyes to her right.? Does have some slight right-sided neglect.? Heart rate regular rate and rhythm plus S1-S2 with any murmurs Rubs.? Lungs Are Clear to Auscultation Bilaterally.? Abdomen Is Soft Nontender Nondistended Normal Bowel Sounds.? Muscle Strength Is 5 out of 5 on the left but 4-5 on the right. Assessment and plan 1.? Acute CVA MRI showed acute ischemic changes to the left posterior frontal cortex and MRA showed occlusion of the distal portion of the left posterior cerebral artery Consult SOC telemetry neurology for further recommendations. Continue aspirin, high intensity statin and clopidogrel. SOC neurology consult. Patient to resume apixaban 10 days after her stroke. Patient was taken off of it previously due to a GI bleed. But that now that her hemoglobin has been stable it is okay to resume that but would give time for the stroke. 2.? Urinary tract infection Urinalysis suggestive of UTI.? Urine culture pending Continue with ceftriaxone Disposition is to [facility] facility. Greater than 35 minutes.
--- NOTE | 2022-05-07 11:34 | CASEMGMT ---
Social Work Telephone call [facility], [place]. Tawny confirms that plan would be for patient to return skilled. This social insurance specialist communicating that per physician patient is medically cleared for today. Tawny request for updated clinicals and then will let this social insurance specialist know if [facility] is able to accept patient today. Clinical information faxed. Will continue to follow. Jory BARNES, SHERRIE
[2022-05-07] MEDS: Acetaminophen 325 MG Tablet 650 MG PO (12:13)
[2022-05-07] MEDS: 0.9% Saline Lock 10 ML Syringe IV (14:04)
--- NOTE | 2022-05-07 14:07 | CASEMGMT ---
Social Work Telephone call from [facility]. [facility] reports to be able to accept patient skilled today. This social staff worker updated patient on above information. Patient agreeable to discharge date and plan. Patient request for this social staff worker to call patient daughter, Manju. Patient request to be transported via cot. Telephone call to Manju, This social staff worker updated Manju on above information. Proposed discharge date: 05/07/2022 PLAN: Discharge to [facility]. Jory BARNES, WU-S
--- NOTE | 2022-05-07 14:57 | CASEMGMT ---
Social Work Unable to complete PHQ-9 due to patient confusion. Patient tearful throughout conversation, this social service technician attempted to normalize patient emotions as a result of stroke. Active support provided. Patient difficult to understand as a result of stroke symptoms. This social service technician able to provide support. Jory BARNES, SHERRIE
--- NOTE | 2022-05-07 15:45 | CASEMGMT ---
Social Work Transportation set up for 18:00 [facility]. Transportation form completed and placed with discharge packet. This social sciences professor faxed discharge information (COVID test results, transfer summary, and signed medication list) to [facility]. This social sciences professor updated medical team, patient, patient family, and [facility] on discharge time/date. Proposed discharge date: 05/07/2022 PLAN: Discharge to [facility], skilled. Jory BARNES, WU-S
--- NOTE | 2022-05-07 18:08 | NURSING ---
[facility] as [facility] will transport pt to nursing facility
--- NOTE | 2022-05-07 18:20 | NURSING ---
Report given to nurse Tellez at [facility] as pt is getting transferred back to facility
== END 2022-05-07 18:18 | DRG 65 ==
LOC: ED 21:34 → PCU 23:46
PROVIDERS: Nurse Practitioner Family; Admitting Provider Internal Medicine; Emergency Provider Emergency Medicine
DX: I63.9 Cerebral infarction, unspecified (principal); N39.0 Urinary tract infection, site not specified; J96.11 Chronic respiratory failure with hypoxia; I50.32 Chronic diastolic (congestive) heart failure; K50.90 Crohn's disease, unspecified, without complications; G20 Parkinson's disease; I48.0 Paroxysmal atrial fibrillation; R47.01 Aphasia; E78.5 Hyperlipidemia, unspecified; E87.6 Hypokalemia; I11.0 Hypertensive heart disease with heart failure; J44.9 Chronic obstructive pulmonary disease, unspecified; K21.9 Gastro-esophageal reflux disease without esophagitis; M19.90 Unspecified osteoarthritis, unspecified site; G47.33 Obstructive sleep apnea (adult) (pediatric); Z87.891 Personal history of nicotine dependence; Z86.73 Personal history of transient ischemic attack (TIA), and cerebral infarction without residual deficits; Z79.51 Long term (current) use of inhaled steroids; Z51.5 Encounter for palliative care; Z79.82 Long term (current) use of aspirin; Z79.02 Long term (current) use of antithrombotics/antiplatelets; Z66 Do not resuscitate; Z79.01 Long term (current) use of anticoagulants; Z99.81 Dependence on supplemental oxygen
CPT/HCPCS: 36415; 36591; 70450; 70544; 70551; 71045; 80048; 80053; 80061; 81001; 83036; 83735; 84484; 85025; 87086; 87426; 92507; 92523; 92526; 92610; 93005; 93880; 94002; 94640; 94762; 97162; 97166; 97530; 97802; 99285; J7030; J7050; P9612; A4216

== ENCOUNTER 2022-05-28 06:13 | Inpatient (IN) | payer MEDICARE, MEDICAID, SELFPAY ==
[2022-05-28] VITALS (19 sets, daily range): BP systolic 91–149; BP diastolic 57–83; PULSE 75–141; RESP 12–26; TEMP 36.4–36.7; O2SAT 92–100; BMI 21.7; BMI 21.3
--- NOTE | 2022-05-28 06:27 | CT_ITS ---
STUDY: CT BRAIN WITHOUT CONTRAST REASON FOR EXAM: Female, 67 years old. altered mental status RADIATION DOSAGE (If Supplied By Facility): CTDIvol = ( 44.99 ) mGy, DLP = ( 863.60 ) mGycm TECHNIQUE: Transaxial CT imaging of the brain was performed without administration of intravenous contrast material. Individualized dose optimization techniques were used for this CT. COMPARISON: CT head 05/05/2022. MRI brain 05/06/2022. FINDINGS: BRAIN: No acute bleed. No edema. Decreased attenuation in the periventricular white matter bilaterally. Encephalomalacia left occipital lobe consistent with old infarct. Old lacunar infarcts in the left basal ganglia and thalamus. Small old infarct in the right cerebellar hemisphere. Small focus of decreased attenuation in the left frontoparietal periventricular white matter likely corresponds to the site of recent infarct shown on the recent MRI. Overton-white matter differentiation is maintained. VENTRICLES AND SULCI: Not dilated. EXTRA-AXIAL: No hemorrhage, fluid collection, or mass. CALVARIUM / SKULL BASE: Unremarkable. FACE/SINUSES: Unremarkable. SOFT TISSUES: Unremarkable. CT/Brain/Head without Contrast IMPRESSION: No acute findings. Small hypodensity in the left frontoparietal region may be related to recent infarct. MRI may be helpful to evaluate for acute infarct if clinically indicated. Old bilateral infarcts and chronic microvascular ischemic disease. Electronically Signed: Callie Mercado MD at 7:49 EDT ,
--- NOTE | 2022-05-28 06:27 | RAD_ITS ---
STUDY: X-RAY CHEST REASON FOR EXAM: Female, 67 years old. altered mental status TECHNIQUE: AP portable. 7:26 AM COMPARISON: 05/05/2022. FINDINGS: LINES/DEVICES: Indwelling central venous catheter are unchanged. LUNGS: No consolidation. No pneumothorax. MEDIASTINUM: Aorta atherosclerotic. CARDIAC SILHOUETTE: Not enlarged. BONES AND SOFT TISSUES: Degenerative changes dorsal spine and shoulders. Surgical clips in the upper abdomen. RAD/Chest 1 View (Portable) IMPRESSION: No evidence of active intrathoracic disease. Electronically Signed: Callie Mercado MD at 7:51 EDT ,
--- NOTE | 2022-05-28 06:29 | EKG12_ITS ---
Test Reason : Blood Pressure : / mmHG Vent. Rate : 115 BPM Atrial Rate : 115 BPM P-R Int : 144 ms QRS Dur : 070 ms QT Int : 352 ms P-R-T Axes : 004 -28 -03 degrees QTc Int : 486 ms Sinus tachycardia Anteroseptal infarct , age undetermined Abnormal ECG Confirmed by MARIAELENA CABALLERO, SADIA ([id number]), videotape editor NATALIA ROJAS ([id number]) on 05/31/2022 9:35:13 AM Referred By: KIERAN Confirmed By:DANIELA FERRELL MD
[2022-05-28 06:57] LABS: Absolute Lymphocyte Count 5.55 X10^3/uL (0.83-4.51); Absolute Neutrophil Count 6.8 X10^3/uL (2.0-7.7); Basophil# 0.04 X10^3/uL; Basophil% 0.3 % (0-1); Eosinophil# 0.22 X10^3/uL; Eosinophils% 1.7 % (0-5); Hematocrit 39.8 % (37-47); Hemoglobin 11.3 g/dL (12.0-15.0); Lymphocyte # 5.55 X10^3/ul (0.83-4.51); Lymphocyte % 41.7 % (19-41); Mean Corp Hgb Conc 28.4 g/dL (32-36); Mean Corpuscular Hgb 27.9 pg (27.0-32.0); Mean Corpuscular Volume 98.3 fL (81-99); Mean Platelet Vol. 11.5 fl (6.2-12.0); Monocyte# 0.71 X10^3/uL; Monocyte% 5.3 % (0-10); NRBC Flagged by Analyzer 0 % (0-5); Neutrophil # 6.75 X10^3/uL (2.7-7.7); Neutrophil % 50.6 % (47-70); POSITIVE COUNT YES; POSITIVE DIFFERENTIAL YES; POSITIVE MORPHOLOGY YES; Platelet Count 263 K/mm3 (150-450); RBC Distribution Width CV 17.4 % (11.6-14.6); RBC Distribution Width SD 63.3 fl (35.1-43.9); Red Blood Count 4.05 M/mm3 (4.2-5.4); White Blood Count 13.3 K/mm3 (4.4-11.0)
[2022-05-28] MEDS: LORazepam 2 MG/ML Syringe IM (06:58)
[2022-05-28 07:02] LABS: International Normalized Ratio 1.1; Prothrombin Time (Protime)PT. 13.7 SECONDS (11.7-14.9)
[2022-05-28 07:03] LABS: Differential Indicated SCAN CRITERIA MET
[2022-05-28 07:13] LABS: Partial Thromboplast Time < 24.0 Seconds (24.1-36.2)
--- NOTE | 2022-05-28 07:15 | EDS_ITS ---
HPI History of Present Illness Chief Complaint: Alt LOC Narrative Narrative: Patient is a 67-year-old female from the skilled nursing with past medical history of right sided deficit from previous CVA who is currently on Eliquis. 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 EMS states they were called this morning because nursing apparently witnessed patient shaking and foaming at the mouth and then was unresponsive. Reportedly skilled nursing thought patient was having another stroke and therefore EMS was called for evaluation. EMS states when they arrived she had a little bit of drool at her mouth but there was no seizure-like activity but she did appear postictal. Blood sugar was checked at that time and was normal at approximately 130. Upon arrival to the ER the patient is awake but not speaking and therefore she cannot offer further history. [facility] Medical History Anemia Anxiety and depression Atrial fibrillation Chronic anemia Chronic respiratory failure COPD (chronic obstructive pulmonary disease) Crohn's disease Crohn's disease [place] syndrome Diastolic CHF Dysphagia Former tobacco use GERD (gastroesophageal reflux disease) History of COVID-19 History of deep venous thrombosis or pulmonary embolus Hyperlipemia Hypertension Iron deficiency anemia Parkinsons disease Sleep apnea Stroke/cerebrovascular accident Home Medications albuterol 90 mcg/actuation aerosol inhaler 90 mcg inhalation BID 01/30/22 [ History Last Taken Unknown] budesonide 3 mg capsule,delayed,extended release 3 mg PO DAILY 01/30/22 [History Last Taken Unknown] cetirizine 10 mg tablet 10 mg PO DAILY 01/30/22 [History Last Taken Unknown] fluticasone fur. 100 mcg-umeclid 62.5 mcg-vilant 25 mcg inhalat.powder (Trelegy Ellipta) 1 inh inhalation DAILY 01/30/22 [History Last Taken Unknown] furosemide 20 mg tablet 20 mg PO DAILY 01/30/22 [History Last Taken Unknown] guaifenesin 600 mg tablet, extended release 12 hr (Mucinex) 600 mg PO BID 01/30/22 [History Last Taken Unknown] ipratropium 0.5 mg-albuterol 3 mg (2.5 mg base)/3 mL nebulization soln 3 ml inhalation Q4H PRN SHORTNESS 01/30/22 [History Last Taken Unknown] loperamide 2 mg tablet 2 mg PO Q4H PRN Diarrhea 01/30/22 [History Last Taken Unknown] mesalamine 0.375 gram capsule,extended release 24 hr 1.125 g PO DAILY 01/30/22 [History Last Taken Unknown] metoprolol tartrate 100 mg tablet 50 mg PO Q12H 01/30/22 [History Last Taken Unknown] pantoprazole 40 mg tablet,delayed release 40 mg PO BID 01/30/22 [History Last Taken Unknown] potassium chloride 20 mEq oral packet 20 meq PO BID 01/30/22 [History Last Taken Unknown] sulfasalazine 500 mg tablet 500 mg PO BID 01/30/22 [History Last Taken Unknown] latanoprost 0.005 % eye drops 1 drp EACH EYE QPM 05/05/22 [History Last Taken Unknown] tramadol 50 mg tablet 50 mg PO Q6H PRN Pain 05/05/22 [History Last Taken Unknown] apixaban 2.5 mg tablet (Eliquis) 2.5 mg PO BID #60 tabs 05/07/22 [Rx Last Taken Unknown] aspirin 81 mg chewable tablet 81 mg PO BREAKFAST #0 tabs 05/07/22 [Rx Last Taken Unknown] atorvastatin 40 mg tablet 40 mg PO QHS #0 tabs 05/07/22 [Rx Last Taken Unknown] acetaminophen 500 mg tablet 1,000 mg PO Q8H PRN 05/28/22 [History Last Taken Unknown] diclofenac sodium 1 % topical gel (Voltaren Arthritis Pain) 2 g topical BID 05/28/22 [History Last Taken Unknown] diltiazem HCl 180 mg capsule,extended release 24 hr 180 mg PO DAILY 05/28/22 [History Last Taken Unknown] dorzolamide 22.3 mg-timolol 6.8 mg/mL eye drops 1 drp EACH EYE BID 05/28/22 [History Last Taken Unknown] ferrous sulfate 325 mg (65 mg iron) tablet 325 mg PO DAILY 05/28/22 [History Last Taken Unknown] lidocaine 4 % topical patch 1 patch topical DAILY 05/28/22 [History Last Taken Unknown] ondansetron 4 mg disintegrating tablet 4 mg PO Q4H PRN PRN Nausea 05/28/22 [History Last Taken Unknown] roflumilast 250 mcg tablet (Daliresp) 250 mcg PO QHS 05/28/22 [History Last Taken Unknown] Allergy/AdvReac Type Severity Reaction Status Date / Time amoxicillin [From Augmentin] Allergy PT UNABLE Verified 05/28/22 06:19 TO RESPOND-NEEDS F/U clavulanic acid Allergy PT UNABLE Verified 05/28/22 06:19 [From Augmentin] TO RESPOND-NEEDS F/U codeine Allergy PT UNABLE Verified 05/28/22 06:19 TO RESPOND-NEEDS F/U Iodinated Contrast Media Allergy Anaphylaxis Verified 05/28/22 06:19 metronidazole [From Flagyl] Allergy PT UNABLE Verified 05/05/22 20:57 TO RESPOND-NEEDS F/U morphine Allergy PT UNSURE Verified 05/28/22 06:19 OF REACTION oxycodone Allergy PT UNSURE Verified 05/28/22 06:19 OF REACTION ropinirole Allergy PT UNSURE Verified 05/28/22 06:19 OF REACTION acetaminophen [From Vicodin] AdvReac PT UNSURE Verified 05/28/22 06:19 OF REACTION hydrocodone [From Vicodin] AdvReac PT UNSURE Verified 05/28/22 06:19 OF REACTION Family History Mother Alzheimer's dementia Surgical History H/O exploratory laparotomy History of bilateral tubal ligation History of repair of hiatal hernia History of resection of small bowel History of total right hip replacement Hx of cataract surgery S/P carpal tunnel release S/P cholecystectomy Social History housing: skilled nursing Smoking Status: Former smoker how long ago did patient quit smoking: Quit ~ 13 years prior to current presentation. alcohol intake: never substance use type: does not use ROS ROS ED ROS Narrative Review of systems unable to be obtained secondary to patient's mental condition Review of Systems ROS Unobtainable: due to mental condition EXAM Physical Exam Const Vital Signs: 05/28/22 06:15 05/28/22 07:19 Temperature 97.6 F L Temperature Source Temporal Pulse Rate 106 H 109 H Respiratory Rate 26 H 20 H Blood Pressure 91/69 132/83 H Blood Pressure Mean 76 99 Pulse Ox 98 100 Oxygen Delivery Method Room Air Nasal Cannula Oxygen Flow Rate (L/min) 4 Positive well nourished, well developed and obese General Appearance ED: well developed Nutritional Appearance: obese HEENT Reports moist mucous membranes HEENT Narrative: Positive lip biting noted Eyes PERRL and EOMs intact bilaterally Neck supple Neck Narrative: No meningeal signs Chest Wall palpation of chest normal Resp normal respiratory effort Resp Narrative: Breath sounds are diminished throughout with faint expiratory wheeze but no signs of respiratory distress Cardio regular rhythm Rate: tachycardic and other Other Details: Carotid pulses are equal bilaterally GI non-tender and non-distended GI Narrative: No voluntary guarding or rigidity no pulsatile mass Auscultation: normoactive bowel sounds Palpation: soft Extremity Extremity Narrative: No bony deformity or joint effusions noted Neuro Neuro Narrative: Patient is awake but nonverbal. She is moving her left arm and leg and has right sided arm and leg weakness consistent with her previous CVA. There is also right-sided facial droop noted which is consistent with her previous CVA. Patient is not following commands but does feel pain in the left arm and leg. Psych Psych Narrative: Patient is obtunded with GCS of 10 Skin no rashes or lesions noted MDM MDM MDM Narrative Medical decision making narrative: Patient arrived to the ER with GCS of 10 and protecting her airway but was not answering questions or following commands. The right sided deficits appear chronic in nature. The history of shaking and foaming of the mouth does correlate with seizure activity especially as she has biting to her left lower lip. While in the ER patient had a witnessed tonic-clonic seizure lasting approximately a minute with postictal phase. However prior to this patient had return to what nursing reports as her baseline as she could tell me her name and was answering question. Therefore this time as patient's had 2 seizures this morning with no known history of seizure activity basic work-up will be obtained patient will be given IV fluids and loaded with a gram of Keppra and will most likely need admitted to the hospital for further care. Patient will be signed out to Dr. Baker pending the completion of her work-up Lab Data Attestation: I reviewed the patient's lab results. Labs: Laboratory Results - last 24 hr 05/28/22 05/28/22 05/28/22 06:50 06:50 06:50 WBC 13.3 H RBC 4.05 L Hgb 11.3 L Hct 39.8 MCV 98.3 MCH 27.9 MCHC 28.4 L RDW Std Deviation 63.3 H RDW Coeff of Pascual 17.4 H Plt Count 263 MPV 11.5 Immature Gran % (Auto) 0.400 Neut % (Auto) 50.6 Lymph % (Auto) 41.7 H Evans % (Auto) 5.3 Eos % (Auto) 1.7 Baso % (Auto) 0.3 Absolute Neuts (auto) 6.8 Absolute Lymphs (auto) 5.55 H Nucleated RBC % 0 PT 13.7 INR 1.1 APTT < 24.0 L Sodium 141 Potassium 3.4 L Chloride 110 H Carbon Dioxide 18.0 L Anion Gap 13 BUN 6 L Creatinine 1.04 H Estim Creat Clear Calc 42.83 Est GFR (MDRD) Af Amer 68 Est GFR (MDRD) Non-Af 56 L BUN/Creatinine Ratio 5.8 L Glucose 136 H Calcium 7.7 L Discharge Plan Triage Chief Complaint: Alt LOC ED Provider: Roberto Becerril Dx/Rx/DC Orders Clinical Impression: New onset seizure, History of cerebrovascular accident, Paroxysmal A-fib, Current use of intermediate anticoagulation Prescriptions: No Action metoprolol tartrate 100 mg Tablet 50 mg PO Q12H albuterol 90 mcg/actuation Aerosol 90 mcg INHALATION BID budesonide 3 mg Capsule,Delayed,Extend.Release 3 mg PO DAILY mesalamine 0.375 gram Capsule,Extended Release 24hr 1.125 g PO DAILY guaifenesin [Mucinex] 600 mg Tablet Extended Release 12hr 600 mg PO BID PRN (Reason: Nasal Congestion) sulfasalazine 500 mg Tablet 1,000 mg PO BID cetirizine 10 mg Tablet 10 mg PO DAILY loperamide 2 mg Tablet 2 mg PO Q4H PRN (Reason: Diarrhea) potassium chloride 20 mEq Packet 40 meq PO QHS furosemide 20 mg Tablet 20 mg PO DAILY Trelegy Ellipta 100-62.5-25 mcg Blister With Device 1 inh INHALATION DAILY ipratropium-albuterol 0.5 mg-3 mg(2.5 mg base)/3 mL Solution For Nebulization 3 ml INHALATION Q4H PRN (Reason: SHORTNESS) pantoprazole 40 mg Tablet,Delayed Release (Dr/Ec) 40 mg PO BID latanoprost 0.005 % Drops 1 drp EACH EYE QPM tramadol 50 mg Tablet 50 mg PO Q6H PRN (Reason: Pain) aspirin 81 mg Tablet,Chewable 81 mg PO BREAKFAST Qty: 0 0RF atorvastatin 40 mg Tablet 40 mg PO QHS Qty: 0 0RF Eliquis 2.5 mg tablet 2.5 mg PO BID Qty: 60 0RF Rx Instructions: Do not restart until 05/16/2022 lidocaine 4 % Adhesive Patch,Medicated 1 patch TOPICAL DAILY diltiazem HCl 180 mg capsule,extended release 24hr 180 mg PO DAILY acetaminophen 500 mg Tablet 1,000 mg PO Q8H PRN ferrous sulfate 325 mg (65 mg iron) Tablet 325 mg PO DAILY dorzolamide-timolol 22.3-6.8 mg/mL drops 1 drp EACH EYE BID ondansetron 4 mg Tablet,Disintegrating 4 mg PO Q4H PRN PRN (Reason: Nausea) diclofenac sodium [Voltaren Arthritis Pain] 1 % Gel 2 g TOPICAL BID Daliresp 250 mcg tablet 250 mcg PO QHS Primary Care Provider: Quique Burroughs Referrals: Quique Burroughs MD [Primary Care Provider] -
[2022-05-28 07:17] LABS: Anion Gap 13 (5-15); BUN 6 mg/dL (7-18); BUN/Creat Ratio 5.8 RATIO (10-20); Calcium,Total 7.7 mg/dL (8.5-10.1); Chloride 110 mmol/L (98-107); Creatinine, Serum 1.04 mg/dL (0.55-1.02); EST Glomerular Filtration Rate 56 mL/min (>60); Est Glom Filt Rate - Afr Amer 68 mL/min (>60); Estimated Creatinine Clearance 42.83 ml/min; Glucose 136 mg/dL (74-106); Potassium 3.4 mmol/L (3.5-5.1); Sodium Level 141 mmol/L (136-145)
[2022-05-28] MEDS: levETIRAcetam IV 1,000 MG/100 ML BAG 400 MG IV (07:17)
[2022-05-28 07:26] LABS: Lactic Acid 5.2 mmol/L (0.4-1.9)
[2022-05-28 08:14] LABS: Bacteria 0 SEEN /hpf (None Seen)
[2022-05-28 08:18] LABS: Atypical Lymphocyte 1+ %; Platelet Estimate ADEQUATE (ADEQ); Red Cell Morphology NORM C+C NORMAL (NORM C&C)
[2022-05-28 08:21] LABS: Color, Urine Yellow (Yellow); Glucose, Dipstick Normal (Normal); Ketone-Dipstick 5 mg/dl (Negative); Leukocyte Esterase-Dipstick 500 /ul (Negative); Nitrite-Dipstick Negative (Negative); Occult Blood-Urine 25 /ul (Negative); Protein-Dipstick 30 mg/dl (Negative); Urine Bilirubin Dipstick Negative (Negative); Urine Clarity Sl. Cloudy (Clear); Urine Urobilinogen Normal (Normal)
[2022-05-28 08:40] LABS: Hyaline Cast 5-10 SEEN /lpf (0-5); Mucous, Urine 1+ /hpf (<or=2+); Red Blood Cells-Urine 5-10 SEEN /hpf (0-5); Squamous Epithelial Cells - UA 5-10 SEEN /hpf (5-10); Transitional Epithelial - Ur 10-25 SEEN /hpf (0-5); White Blood Cells 25-50 SEEN /hpf (0-5)
--- NOTE | 2022-05-28 09:35 | MRI_ITS ---
ACR Level 3 findings have been noted. An addendum which confirms receipt of the report will follow. HISTORY: seizure -- Pt moving, unable to tolerate. TECHNIQUE: Multiplanar and multisequence MR images of the brain were obtained without contrast. 285 images. COMPARISON: CT same day, MR 05/06/2022. FINDINGS: Motion artifact lowers the sensitivity of examination BRAIN PARENCHYMA: Small zone of restricted diffusion in the left posterior frontal subcortical white matter, more medial compared to prior acute cortical infarct. Chronic left posterior cerebral territory infarct. Chronic small vessel ischemic gliosis. No acute intracranial hemorrhage identified. CSF SPACES: Mild volume loss. No significant midline shift or other mass effect.No extra-axial fluid collection. VASCULAR SYSTEM: Major intracranial flow voids are maintained. PARANASAL SINUSES AND MASTOID AIR CELLS: No significant air fluid levels. ORBITS: Bilateral lens resections. MRI/Brain without Contrast IMPRESSION: Motion artifact. Small acute left posterior frontal subcortical infarct. Adjacent chronic left posterior frontal cortical infarct, corresponding to prior MRI findings. Chronic left posterior cerebral artery territory infarct. Electronically Signed: Leah Astudillo MD at 11:47 EDT ,
--- NOTE | 2022-05-28 09:55 | ED.RN ---
THIS RN GAVE REPORT TO ANTONIA Jane RN. PT TAKEN TO MRI PRIOR TO ROCEPHIN BEING GIVEN PER RAD NURSE REQUEST. WAIT FOR ANTIBIOTIC INFUSION UNTIL AFTER MRI. DR. VARGAS AWARE AND AGREES WITH PLAN.
--- NOTE | 2022-05-28 10:03 | ED.RN ---
pcu transmitter engineer in charge notified that rocephin will need to be given post mri.
[2022-05-28 10:52] LABS: Reflex Lactate? Y
[2022-05-28] MEDS: 0.9% Normal Saline 1,000 ML 70 ML IV (12:43)
[2022-05-28] MEDS: Ceftriaxone 1 GM/50 ML BAG IV (12:44)
[2022-05-28 13:16] LABS: Lactic Acid 0.8 mmol/L (0.4-1.9)
--- NOTE | 2022-05-28 13:21 | HP.PCM.HOS_ITS ---
HPI - General General Date of Admission: 05/28/22 Date of Service: 05/28/22 Chief Complaint: Seizure-New onset HPI Narrative GOLDIE PAIZ, is a 67 F who presented to the emergency department from the [facility] that which she resides with new onset seizures. The patient was recently admitted from 05/05/2022 through 05/07/2021 at which time she was found to have a stroke. At the time of discharge she was having some expressive aphasia and some right-sided weakness that was quite minimal and appeared to have some right-sided neglect. Her MRI at that time showed acute ischemic changes in the left posterior frontal cortex and an MRI showed occlusion of the distal portion of the left posterior cerebral artery. She was evaluated by [facility] neurology at that time and they recommended continuing her aspirin as well as high intensity statin, obtain an echocardiogram and resuming her apixaban 10 days after her stroke. She was evidently off of her Eliquis related to previous GI bleeding. Her hemoglobin had been stable throughout her hospital course and therefore she was restarted on her Eliquis at [facility] on 05/15/2022. She was at [facility] this morning in her normal state of health and she had a witnessed event with shaking and foaming at the mouth and then went unresponsive. The detention thought she was having another stroke and called EMS for evaluation. When EMS arrived they noted she had a little bit of drool coming from her mouth but there was no seizure-like activity at that time however the patient did appear postictal. Blood sugar was normal at 130 and upon arrival to the emergency department the patient was awake but not speaking coherently. While in the emergency department the patient suffered another generalized tonic-clonic seizure for which she was given Ativan and loaded with Keppra. When I was in for admission by the emergency department physician I requested an MRI be performed prior to transferring to the medical floor. Vital signs on presentation showed a temperature of 97.6, heart rate of 106, blood pressure of 91/69 with a repeat at 132/83, respiratory rate anywhere from 20-26, and oxygen saturation was 98% on room air. Her CBC shows a mild leukocytosis with no left shift present. Her hemoglobin was 11.3 which is stable compared to previous. Coags were unremarkable. Her chemistry panel showed normal sodium with mild hypokalemia with potassium of 3.4, her serum bicarb was 18 with an elevated chloride at 110. Renal function was normal with a BUN of 6 and a serum creatinine of 1.04. Her initial lactic acid was 5.2. A UA was obtained and was positive for leuk esterase and white cells but no bacteria was present. CT of her brain showed no acute findings, small hyp odensity in the left parietal frontal region and evidence of old bilateral infarcts and chronic microvascular changes. Chest x-ray showed no evidence of intrathoracic acute process. Her MRI showed motion artifact with a small acute left posterior frontal subcortical infarct and adjacent chronic left posterior frontal cortical infarct corresponding to previous MRI findings as well as chronic left posterior cerebral artery territory infarct. The emergency department she was given Ativan, loaded with Keppra, and initiated on IV antibiotics given the concerns based on her UA for infection. [facility] Medical History Anemia Anxiety and depression Atrial fibrillation Chronic anemia Chronic respiratory failure COPD (chronic obstructive pulmonary disease) Crohn's disease Crohn's disease Celso syndrome Diastolic CHF Dysphagia Former tobacco use GERD (gastroesophageal reflux disease) History of COVID-19 History of deep venous thrombosis or pulmonary embolus Hyperlipemia Hypertension Iron deficiency anemia Parkinsons disease Sleep apnea Stroke/cerebrovascular accident Home Medications albuterol 90 mcg/actuation aerosol inhaler 90 mcg inhalation BID 01/30/22 [History Last Taken Unknown] budesonide 3 mg capsule,delayed,extended release 3 mg PO DAILY 01/30/22 [History Last Taken Unknown] cetirizine 10 mg tablet 10 mg PO DAILY 01/30/22 [History Last Taken Unknown] fluticasone fur. 100 mcg-umeclid 62.5 mcg-vilant 25 mcg inhalat.powder (Trelegy Ellipta) 1 inh inhalation DAILY 01/30/22 [History Last Taken Unknown] furosemide 20 mg tablet 20 mg PO DAILY 01/30/22 [History Last Taken Unknown] guaifenesin 600 mg tablet, extended release 12 hr (Mucinex) 600 mg PO BID PRN Nasal Congestion 01/30/22 [History Last Taken Unknown] ipratropium 0.5 mg-albuterol 3 mg (2.5 mg base)/3 mL nebulization soln 3 ml inhalation Q4H PRN SHORTNESS 01/30/22 [History Last Taken Unknown] loperamide 2 mg tablet 2 mg PO Q4H PRN Diarrhea 01/30/22 [History Last Taken Unknown] mesalamine 0.375 gram capsule,extended release 24 hr 1.125 g PO DAILY 01/30/22 [History Last Taken Unknown] metoprolol tartrate 100 mg tablet 50 mg PO Q12H 01/30/22 [History Last Taken Unknown] pantoprazole 40 mg tablet,delayed release 40 mg PO BID 01/30/22 [History Last Taken Unknown] potassium chloride 20 mEq oral packet 40 meq PO QHS 01/30/22 [History Last Taken Unknown] sulfasalazine 500 mg tablet 1,000 mg PO BID 01/30/22 [History Last Taken Unknown] latanoprost 0.005 % eye drops 1 drp EACH EYE QPM 05/05/22 [History Last Taken Unknown] tramadol 50 mg tablet 50 mg PO Q6H PRN Pain 05/05/22 [History Last Taken Unknown] apixaban 2.5 mg tablet (Eliquis) 2.5 mg PO BID #60 tabs 05/07/22 [Rx Last Taken Unknown] aspirin 81 mg chewable tablet 81 mg PO BREAKFAST #0 tabs 05/07/22 [Rx Last Taken Unknown] atorvastatin 40 mg tablet 40 mg PO QHS #0 tabs 05/07/22 [Rx Last Taken Unknown] acetaminophen 500 mg tablet 1,000 mg PO Q8H PRN 05/28/22 [History Last Taken Unknown] diclofenac sodium 1 % topical gel (Voltaren Arthritis Pain) 2 g topical BID 05/28/22 [History Last Taken Unknown] diltiazem HCl 180 mg capsule,extended release 24 hr 180 mg PO DAILY 05/28/22 [History Last Taken Unknown] dorzolamide 22.3 mg-timolol 6.8 mg/mL eye drops 1 drp EACH EYE BID 05/28/22 [History Last Taken Unknown] ferrous sulfate 325 mg (65 mg iron) tablet 325 mg PO DAILY 05/28/22 [History Last Taken Unknown] lidocaine 4 % topical patch 1 patch topical DAILY 05/28/22 [History Last Taken Unknown] ondansetron 4 mg disintegrating tablet 4 mg PO Q4H PRN PRN Nausea 05/28/22 [History Last Taken Unknown] roflumilast 250 mcg tablet (Daliresp) 250 mcg PO QHS 05/28/22 [History Last Taken Unknown] Allergy/AdvReac Type Severity Reaction Status Date / Time amoxicillin [From Augmentin] Allergy PT UNABLE Verified 05/28/22 06:19 TO RESPOND-NEEDS F/U clavulanic acid Allergy PT UNABLE Verified 05/28/22 06:19 [From Augmentin] TO RESPOND-NEEDS F/U codeine Allergy PT UNABLE Verified 05/28/22 06:19 TO RESPOND-NEEDS F/U Iodinated Contrast Media Allergy Anaphylaxis Verified 05/28/22 06:19 metronidazole [From Flagyl] Allergy PT UNABLE Verified 05/05/22 20:57 TO RESPOND-NEEDS F/U morphine Allergy PT UNSURE Verified 05/28/22 06:19 OF REACTION oxycodone Allergy PT UNSURE Verified 05/28/22 06:19 OF REACTION ropinirole Allergy PT UNSURE Verified 05/28/22 06:19 OF REACTION acetaminophen [From Vicodin] AdvReac PT UNSURE Verified 05/28/22 06:19 OF REACTION hydrocodone [From Vicodin] AdvReac PT UNSURE Verified 05/28/22 06:19 OF REACTION Family History Mother Alzheimer's dementia Surgical History H/O exploratory laparotomy History of bilateral tubal ligation History of repair of hiatal hernia History of resection of small bowel History of total right hip replacement Hx of cataract surgery S/P carpal tunnel release S/P cholecystectomy Social History housing: detention sexually active: No Smoking Status: Former smoker how long ago did patient quit smoking: Quit ~ 13 years prior to current presentation. alcohol intake: never substance use type: does not use ROS Review of Systems ROS Unobtainable: due to mental status Vital Signs Vital Signs Vital Signs: 05/28/22 06:15 05/28/22 07:19 05/28/22 08:09 Temperature 97.6 F L Temperature Source Temporal Pulse Rate 106 H 109 H 81 Respiratory Rate 26 H 20 H 16 Blood Pressure 91/69 132/83 H 114/76 Blood Pressure Mean 76 99 88 Blood Pressure Source Blood Pressure Position Blood Pressure Location Pulse Ox 98 100 100 Oxygen Delivery Method Room Air Nasal Cannula Nasal Cannula Oxygen Flow Rate (L/min) 4 3 05/28/22 09:04 05/28/22 10:02 05/28/22 10:03 Temperature 98.0 F 98.0 F 98.0 F Temperature Source Temporal Temporal Temporal Pulse Rate 87 85 85 Respiratory Rate 14 16 16 Blood Pressure 96/58 L 102/59 L 102/59 L Blood Pressure Mean 70 73 73 Blood Pressure Source Blood Pressure Position Blood Pressure Location Pulse Ox 99 100 100 Oxygen Delivery Method Room Air Room Air Room Air Oxygen Flow Rate (L/min) 05/28/22 10:25 05/28/22 10:55 05/28/22 11:25 Temperature Temperature Source Pulse Rate 78 76 113 H Respiratory Rate 12 Blood Pressure 101/57 L 104/58 L Blood Pressure Mean 71 73 Blood Pressure Source Monitor Monitor Blood Pressure Position Supine Semi-Fowlers Blood Pressure Location Right Arm Right Arm Pulse Ox 94 Oxygen Delivery Method Nasal Cannula Oxygen Flow Rate (L/min) 2 05/28/22 11:28 Temperature 97.8 F Temperature Source Temporal Pulse Rate 141 H Respiratory Rate 16 Blood Pressure 149/64 H Blood Pressure Mean 92 Blood Pressure Source Monitor Blood Pressure Position Semi-Fowlers Blood Pressure Location Right Arm Pulse Ox 92 Oxygen Delivery Method Nasal Cannula Oxygen Flow Rate (L/min) 2 Weight Weight: 54.7 kg Body Mass Index (BMI) 21.3 Physical Exam Const alert Constitutional Narrative: Intermittently alert upper middle-aged white female sitting up in bed, speech is somewhat garbled and nonsensical, patient appears much older than stated age, family at bedside, patient intermittently follows commands Orientation / Consciousness: confused, disoriented and lethargic HEENT normocephalic and head/scalp atraumatic HEENT Narrative: Mucous membranes appear somewhat dry, appears that the patient bit her tongue/lip Eyes PERRL, EOMs intact bilaterally and conjunctivae normal Eyes Narrative: Scleral icterus Neck no lymphadenopathy, supple, no JVD and no carotid bruits Neck Narrative: Trachea midline, no thyroid enlargement Resp normal respiratory effort, no retractions, no use of accessory muscles and clear to auscultation bilaterally Resp Narrative: Diffusely diminished but clear Auscultation: Negative for crackles, rales, rhonchi or wheezes Cardio regular rate, regular rhythm, S1 normal heart sound, S2 normal heart sound, no murmurs, no rub, no gallops, no clicks and no JVD GI normal to inspection, nondistended, normoactive bowel sounds, soft to palpation and non-tender Extremity no clubbing, cyanosis or edema Skin no rashes or lesions noted, no wounds, skin turgor normal, no jaundice, no petechiae and no mottling Skin Narrative: Skin is pale Neuro Neuro Narrative: Confused and intermittent somnolent, limited exam secondary to inability consistently follow commands, possible slight right facial droop which family reports has been chronic, decreased strength on the right side compared to left, reflexes are 2+ on the right and 2+ on the left, patient with expressive aphasia when she is able to communicate Psych Psych Narrative: Unable to assess Results Lab / Micro Data Result Diagrams: 05/28/22 06:50 05/28/22 06:50 Labs: Laboratory Results - last 24 hr 05/28/22 06:50: WBC 13.3 H, RBC 4.05 L, Hgb 11.3 L, Hct 39.8, MCV 98.3, MCH 27.9, MCHC 28.4 L, RDW Std Deviation 63.3 H, RDW Coeff of Pascual 17.4 H, Plt Count 263, MPV 11.5, Immature Gran % (Auto) 0.400, Neut % (Auto) 50.6, Lymph % (Auto) 41.7 H, Lyon % (Auto) 5.3, Eos % (Auto) 1.7, Baso % (Auto) 0.3, Absolute Neuts (auto) 6.8, Absolute Lymphs (auto) 5.55 H, Nucleated RBC % 0, Differential Comment , Atypical Lymphocytes 1+, Platelet Estimate ADEQUATE, RBC Morphology NORM C+C 05/28/22 06:50: PT 13.7, INR 1.1, APTT < 24.0 L 05/28/22 06:50: Sodium 141, Potassium 3.4 L, Chloride 110 H, Carbon Dioxide 18.0 L, Anion Gap 13, BUN 6 L, Creatinine 1.04 H, Estim Creat Clear Calc 42.83, Est GFR (MDRD) Af Amer 68, Est GFR (MDRD) Non-Af 56 L, BUN/Creatinine Ratio 5.8 L, Glucose 136 H, Calcium 7.7 L 05/28/22 06:50: Lactic Acid 5.2 H* 05/28/22 08:08: Urine Color Yellow, Urine Clarity Sl. Cloudy, Urine pH 5.0, Ur Specific Prentice 1.020, Urine Protein 30 H, Urine Glucose (UA) Normal, Urine Ketones 5 H, Urine Occult Blood 25 H, Urine Nitrite Negative, Urine Bilirubin Negative, Urine Urobilinogen Normal, Ur Leukocyte Esterase 500 H, Urine RBC 5-10 SEEN, Urine WBC 25-50 SEEN, Ur Squamous Epith Cells 5-10 SEEN, Ur Transition Epith Cell 10-25 SEEN, Urine Bacteria 0 SEEN, Hyaline Casts 5-10 SEEN, Urine Mucus 1+ 05/28/22 12:37: Lactic Acid 0.[address] 05/28/22 06:27 IMPRESSION: No acute findings. Small hypodensity in the left frontoparietal region may be related to recent infarct. MRI may be helpful to evaluate for acute infarct if clinically indicated. Old bilateral infarcts and chronic microvascular ischemic disease. Electronically Signed: Callie Mercado MD at 7:49 EDT , Chest X-Ray 05/28/22 06:27 IMPRESSION: No evidence of active intrathoracic disease. Electronically Signed: Callie Mercado MD at 7:51 EDT , Brain MRI 05/28/22 09:35 IMPRESSION: Motion artifact. Small acute left posterior frontal subcortical infarct. Adjacent chronic left posterior frontal cortical infarct, corresponding to prior MRI findings. Chronic left posterior cerebral artery territory infarct. Electronically Signed: Leah Astudillo MD at 11:47 EDT , ADDENDUM: 05/28/22 1210 IMPRESSION: Motion artifact. Small acute left posterior frontal subcortical infarct. Adjacent chronic left posterior frontal cortical infarct, corresponding to prior MRI findings. Chronic left posterior cerebral artery territory infarct. N.B. : RN Abigail Blackman RN, confirmed on 05/28/2022 12:03:29 (ET) that the healthcare facility has received the radiology report. Electronically Signed: Leah Astudillo MD at 11:47 EDT , Assessment & Plan Assessment/Plan (1) Acidosis, lactic: (2) Acute UTI: (3) New onset seizure: (4) Acute stroke due to ischemia: PLAN: Plan Acute stroke -MRI shows new stroke in the left posterior frontal subcortical area -Recent stroke in the left posterior frontal cortical area -Continue aspirin -Hold apixaban but restart on 05/31/2022 per discussion with neurology -Start at 5 mg for appropriate dosing based on age and renal function -We will monitor hemoglobin with history of remote GI bleeding -Continue statin -Continue to control blood pressure -Check echocardiogram New onset seizure -Likely related to structural abnormality related to recent stroke -Discussed case with neurology -EEG pending -Continue Keppra -Seizure precautions -We will discontinue Ultram upon return to facility as this may decrease seizure threshold Possible urinary tract infection -UA is somewhat suggestive of a infection -Culture pending -Continue empiric Rocephin at this time Lactic acidosis -Quickly resolved -Likely related to acute seizures Parkinson's disease -New home medications PAF -Patient in normal sinus rhythm on admission -Continue diltiazem him -Continue metoprolol 50 mg of -Restart Xarelto at 5 mg p.o. twice daily on 05/31/2022 History of Crohn's disease -Continue mesalamine -Patient to follow-up with GI as an outpatient--> make referral as discharge as patient will need to have this closely monitored with reinitiation of anticoagulation due to stroke x2 -Hemoglobin is currently stable GERD with history of GI bleed -Continue Protonix 40 mg p.o. twice daily COPD -Continue home inhalers -As needed albuterol -Supplemental oxygen as needed Hypertension -Continue diltiazem Continue mature prolonged Chronic anemia -Count stable -Continue to monitor LEMUEL -Patient is currently only on nocturnal oxygen and does not wear CPAP DVT prophylaxis -Start Lovenox subcu daily -SCDs CODE STATUS -DNR CCA without intubation Charges/Coding Visit Charges Inpatient E&M: 52480 Init Hosp L3
[2022-05-28] MEDS: Potassium Chloride 10mEq/100mL 10 MEQ/100 ML IV.SOLN. 100 MEQ IV BOLUS ×4 (13:32→17:37)
[2022-05-28] MEDS: Metoprolol Tartrate 50 MG Tablet PO (14:48)
[2022-05-28] MEDS: Pantoprazole Sodium 40 MG Tablet PO ×2 (14:48→21:51)
[2022-05-28] MEDS: sulfaSALAzine 500 MG Tablet 1000 MG PO ×2 (14:48→22:06)
--- NOTE | 2022-05-28 15:15 | ECHOD_ITS ---
Reason For Study: TIA/CVA Procedure This was a 2D Doppler, Color Flow transthoracic echocardiogram. Exam performed portable in patient room. Left Ventricle Normal LV size. The estimated ejection fraction is 65 %. Unable to assess diastolic dysfunction. No regional wall motion abnormalities noted. Right Ventricle Normal right ventricle. Normal systolic function. Atria Normal left atrium. Normal right atrium. No doppler evidence for ASD. Mitral Valve There is moderate mitral annular calcification. Moderate focal mitral valve calcification of the anterior leaflet. There is no mitral valve stenosis. No mitral valve insufficiency. Tricuspid Valve There is no tricuspid stenosis. Unable to estimate RV systolic pressure due to insufficient tricuspid regurgitant envelope. Trivial tricuspid valve insufficiency. Aortic Valve Trisinus/trileaflet aortic valve. Aortic sclerosis, no stenosis. There is no aortic stenosis. No aortic valve insufficiency. Pulmonic Valve There is no pulmonic valvular stenosis. No pulmonic valve insufficiency. Great Vessels Normal aortic root. Pericardium/Pleural Trivial pericardial effusion. Medication Performed a rapid injection of agitated mix of 9 cc saline and 1cc air to assess for atrial septal defect. MMode/2D Measurements & Calculations LVIDd: 3.0 cm IVSd: 1.1 cm Ao root diam: 2.9 cm LVIDs: 1.7 cm LVPWd: 1.2 cm RVDd: 2.5 cm FS: 44.5 % LAV(MOD-bp): 29.4 ml LA A4 area: 13.5 cm2 LA dimension(2D): 4.8 cm LAV(MOD-bp) Indexed: 18.9 ml/m2 LAV(MOD-sp2): 29.3 ml LAV(MOD-sp4): 29.5 ml RA A4 area: 9.4 cm2 Time Measurements MV dec time: 0.25 sec Doppler Measurements & Calculations MV E max rodney: 115.3 cm/sec Lat Peak E' Rodney: 8.6 cm/sec Med Peak E' Rodney: 4.0 cm/sec MV A max rodney: 161.4 cm/sec E/E' lat: 13.4 E/E' med: 29.0 MV E/A: 0.71 MV V2 max: 167.7 cm/sec MV P1/2t max rodney: 114.1 cm/sec Ao V2 max: 116.7 cm/sec MV max P.3 mmHg MV P1/2t: 73.9 msec Ao max P.4 mmHg MV V2 mean: 99.9 cm/sec MV dec slope: 452.2 cm/sec2 Ao V2 mean: 80.7 cm/sec MV mean P.5 mmHg Ao mean P.9 mmHg MV V2 VTI: 31.4 cm MVA(P1/2t): 3.0 cm2 Ao V2 VTI: 24.3 cm LV V1 max: 105.9 cm/sec PA V2 max: 68.1 cm/sec TR max rodney: 235.7 cm/sec LV V1 max P.5 mmHg TR max P.2 mmHg ECHO/Echo Complete Interpretation Summary The estimated ejection fraction is 65 %. Unable to assess diastolic dysfunction. Trivial pericardial effusion. Ordering Physician: Liliana Higgins Referring Physician: Quique Burroughs Performed By: Karyn Zimmer RDCS, DEE
--- NOTE | 2022-05-28 16:20 | CASEMGMT ---
SINDI sent updates to [facility] via [facility]. SINDI also notified Tawny patient may return over the weekend. SINDI also verified with patient's family the plan is for patient to return to [facility]. Plan: d/c back to [facility] under skilled level of care. Carrie Haley EN[employer]MENT[employer]OC[employer] [facility]
--- NOTE | 2022-05-28 16:47 | NURSING ---
patient care assumed by this RN at [id number]
[2022-05-28] MEDS: Ipratropium/Albuterol Sulfate 3 ML AMPUL.NEB INHALATION (19:19)
[2022-05-28] MEDS: Budesonide Respules 0.5 MG/2 ML AMPUL.NEB. INHALATION (19:19)
[2022-05-28] MEDS: Dorzolamide HCL/Timolol 10 ml Bottle 1 DRP EACH EYE (21:49)
[2022-05-28] MEDS: Atorvastatin Calcium 40 MG Tablet PO (21:51)
[2022-05-28] MEDS: Latanoprost 0.005% 1 Bottle 1 DRP EACH EYE (21:52)
[2022-05-29] VITALS (18 sets, daily range): BP systolic 94–116; BP diastolic 52–71; PULSE 70–101; RESP 16–20; TEMP 36.2–36.7; O2SAT 94–100; BMI 21.3
[2022-05-29] MEDS: 0.9% Normal Saline 1,000 ML 70 ML IV ×2 (07:10→18:11)
[2022-05-29 07:19] LABS: Absolute Lymphocyte Count 1.44 X10^3/uL (0.83-4.51); Absolute Neutrophil Count 4.5 X10^3/uL (2.0-7.7); Basophil# 0.03 X10^3/uL; Basophil% 0.5 % (0-1); Eosinophil# 0.17 X10^3/uL; Eosinophils% 2.6 % (0-5); Hematocrit 29.1 % (37-47); Hemoglobin 8.6 g/dL (12.0-15.0); Lymphocyte # 1.44 X10^3/ul (0.83-4.51); Lymphocyte % 22.1 % (19-41); Mean Corp Hgb Conc 29.6 g/dL (32-36); Mean Corpuscular Hgb 27.7 pg (27.0-32.0); Mean Corpuscular Volume 93.9 fL (81-99); Mean Platelet Vol. 11.2 fl (6.2-12.0); Monocyte# 0.37 X10^3/uL; Monocyte% 5.7 % (0-10); NRBC Flagged by Analyzer 0 % (0-5); Neutrophil # 4.49 X10^3/uL (2.7-7.7); Neutrophil % 68.6 % (47-70); Platelet Count 191 K/mm3 (150-450); RBC Distribution Width CV 17.6 % (11.6-14.6); RBC Distribution Width SD 60.7 fl (35.1-43.9); White Blood Count 6.5 K/mm3 (4.4-11.0)
[2022-05-29] MEDS: Ipratropium/Albuterol Sulfate 3 ML AMPUL.NEB INHALATION ×3 (07:28→19:30)
[2022-05-29] MEDS: Budesonide Respules 0.5 MG/2 ML AMPUL.NEB. INHALATION ×2 (07:28→19:30)
[2022-05-29 08:06] LABS: ALB/GLOB Ratio 0.8 RATIO (0.9-2.4); AST(SGOT) 12 U/L (15-37); Alanine Aminotransfer ALT/SGPT 10 U/L (13-56); Albumin, Serum 1.9 g/dL (3.2-5.0); Alkaline Phosphatase 49 U/L (45-117); Anion Gap 10 (5-15); BUN 4 mg/dL (7-18); BUN/Creat Ratio 10.2 RATIO (10-20); Calcium,Total 6.9 mg/dL (8.5-10.1); Chloride 114 mmol/L (98-107); Creatinine, Serum 0.39 mg/dL (0.55-1.02); EST Glomerular Filtration Rate 173 mL/min (>60); Est Glom Filt Rate - Afr Amer 209 mL/min (>60); Estimated Creatinine Clearance 42.59 ml/min; Globulin 2.4 g/dL (2.2-4.2); Glucose 57 mg/dL (74-106); Magnesium 0.6 mg/dL (1.6-2.6); Potassium 3.2 mmol/L (3.5-5.1); Protein, Total 4.3 g/dL (6.4-8.2); Sodium Level 143 mmol/L (136-145); Thyroid Stim Hormone (TSH) 0.82 uIU/mL (0.358-3.74)
[2022-05-29 08:28] LABS: International Normalized Ratio 1.2; Prothrombin Time (Protime)PT. 14.9 SECONDS (11.7-14.9)
[2022-05-29] MEDS: Ceftriaxone 1 GM/50 ML BAG IV (08:52)
[2022-05-29] MEDS: dilTIAZem CD 180 MG Capsule PO (08:55)
[2022-05-29] MEDS: Loratadine 10 MG Tablet PO (08:55)
[2022-05-29] MEDS: Furosemide 20 MG Tablet PO (08:56)
[2022-05-29] MEDS: Dorzolamide HCL/Timolol 10 ml Bottle 1 DRP EACH EYE ×2 (08:56→22:01)
[2022-05-29] MEDS: Budesonide 3 MG CAPSULE.EC PO (08:56)
[2022-05-29] MEDS: Aspirin 81 MG TAB.CHEW PO (08:56)
[2022-05-29] MEDS: sulfaSALAzine 500 MG Tablet 1000 MG PO ×2 (08:56→22:02)
[2022-05-29] MEDS: Pantoprazole Sodium 40 MG Tablet PO ×2 (09:09→22:01)
[2022-05-29] MEDS: Mesalamine 1.2 GM Tablet PO (09:09)
[2022-05-29] MEDS: Metoprolol Tartrate 50 MG Tablet PO ×2 (09:09→22:01)
[2022-05-29] MEDS: Lidocaine 5% Patch 1 PATCH TOPICAL (09:09)
[2022-05-29] MEDS: Magnesium Sulfate 4gm/100mL 4 GM/100 ML IV.SOLN. IV (10:06)
[2022-05-29 11:08] LABS: Absolute Lymphocyte Count 1.51 X10^3/uL (0.83-4.51); Absolute Neutrophil Count 5.7 X10^3/uL (2.0-7.7); Basophil# 0.05 X10^3/uL; Basophil% 0.6 % (0-1); Eosinophil# 0.21 X10^3/uL; Eosinophils% 2.6 % (0-5); Hematocrit 32.8 % (37-47); Hemoglobin 9.8 g/dL (12.0-15.0); Lymphocyte # 1.51 X10^3/ul (0.83-4.51); Mean Corp Hgb Conc 29.9 g/dL (32-36); Mean Corpuscular Hgb 28.4 pg (27.0-32.0); Mean Corpuscular Volume 95.1 fL (81-99); Monocyte# 0.45 X10^3/uL; Monocyte% 5.7 % (0-10); NRBC Flagged by Analyzer 0 % (0-5); Neutrophil # 5.68 X10^3/uL (2.7-7.7); Neutrophil % 71.5 % (47-70); Platelet Count 239 K/mm3 (150-450); RBC Distribution Width SD 61.1 fl (35.1-43.9); Red Blood Count 3.45 M/mm3 (4.2-5.4)
--- NOTE | 2022-05-29 11:45 | PCM.PN.HOSP ---
Objective Data Objective Data Vital Signs: Vital Signs Temp Pulse Resp BP Pulse Ox O2 Del Method O2 Flow Rate 97.3 F L 100 20 H 116/71 100 Nasal Cannula 3 05/29/22 11:00 05/29/22 11:00 05/29/22 11:00 05/29/22 11:00 05/29/22 11:00 05/29/22 11:00 05/29/22 11:00 Oxygen Flow Rate (L/min) 3 Oxygen Delivery Method Nasal Cannula Weight: 54.7 kg Body Mass Index (BMI) 21.3 Intake & Output: Intake and Output for Last 24 Hours 05/27/22 05/28/22 05/29/22 23:59 23:59 23:59 Intake Total 1155 / 1155 1271.67 / 1271.67 Output Total 200 / 200 Balance 955 / 955 1271.67 / 1271.67 Lab / Micro Data Result Diagrams: 05/29/22 10:51 05/29/22 06:31 Labs: Laboratory Results - last 24 hr 05/28/22 12:37: Lactic Acid 0.8 05/29/22 06:31: WBC 6.5, RBC 3.10 L, Hgb 8.6 L, Hct 29.1 L, MCV 93.9, MCH 27.7, MCHC 29.6 L, RDW Std Deviation 60.7 H, RDW Coeff of Pascual 17.6 H, Plt Count 191, MPV 11.2, Immature Gran % (Auto) 0.500, Neut % (Auto) 68.6, Lymph % (Auto) 22.1, [place] % (Auto) 5.7, Eos % (Auto) 2.6, Baso % (Auto) 0.5, Absolute Neuts (auto) 4.5, Absolute Lymphs (auto) 1.44, Nucleated RBC % 0 05/29/22 06:31: PT 14.9, INR 1.2 05/29/22 06:31: Sodium 143, Potassium 3.2 L, Chloride 114 H, Carbon Dioxide 19.0 L, Anion Gap 10, BUN 4 L, Creatinine 0.39 L, Estim Creat Clear Calc 42.59, Est GFR (MDRD) Af Amer 209, Est GFR (MDRD) Non-Af 173, BUN/Creatinine Ratio 10.2, Glucose 57 L, Calcium 6.9 L, Magnesium 0.6 L*, Total Bilirubin 0.50, AST 12 L, ALT 10 L, Alkaline Phosphatase 49, Total Protein 4.3 L, Albumin 1.9 L, Globulin 2.4, Albumin/Globulin Ratio 0.8 L, TSH 0.82 05/29/22 10:51: WBC 8.0, RBC 3.45 L, Hgb 9.8 L, Hct 32.8 L, MCV 95.1, MCH 28.4, MCHC 29.9 L, RDW Std Deviation 61.1 H, RDW Coeff of Pascual 18.0 H, Plt Count 239, MPV 11.0, Immature Gran % (Auto) 0.600, Neut % (Auto) 71.5 H, Lymph % (Auto) 19.0, [place] % (Auto) 5.7, Eos % (Auto) 2.6, Baso % (Auto) 0.6, Absolute Neuts (auto) 5.7, Absolute Lymphs (auto) 1.51, Nucleated RBC % 0 Micro: Microbiology 05/28/22 08:08 Urine, Catheterized Urine Culture - Preliminary 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 Small acute left posterior frontal subcortical infarct. Adjacent chronic left posterior frontal cortical infarct, corresponding to prior MRI findings. Chronic left posterior cerebral artery territory infarct. Electronically Signed: Leah Astudillo MD at 11:47 EDT Reading Location ID and State: [facility] / [place] Tel , Service support , ADDENDUM: 05/28/22 1210 IMPRESSION: Motion artifact. Small acute left posterior frontal subcortical infarct. Adjacent chronic left posterior frontal cortical infarct, corresponding to prior MRI findings. Chronic left posterior cerebral artery territory infarct. N.B. : GITA Blackman RN, confirmed on 05/28/2022 12:03:29 (ET) that the healthcare facility has received the radiology report. Electronically Signed: Leah Astudillo MD at 11:47 EDT , Physical Exam Const alert, oriented x3, no apparent distress and average body habitus Constitutional Narrative: Apparently age white female sitting up in bed, appears much older than stated age, much more awake and appropriately interactive today. Has no recollection of previous events from yesterday. HEENT normocephalic, head/scalp atraumatic and moist oral mucous membranes HEENT Narrative: Mallampati 3, no thrush Resp normal respiratory effort, no retractions, no use of accessory muscles and clear to auscultation bilaterally Resp Narrative: Diffusely diminished but clear Auscultation: Negative for crackles, rales, rhonchi or wheezes Cardio regular rate, regular rhythm, S1 normal heart sound, S2 normal heart sound, no murmurs, no rub, no gallops, no clicks and no JVD GI normal to inspection, nondistended, normoactive bowel sounds, soft to palpation and non-tender Extremity no clubbing, cyanosis or edema Skin no rashes or lesions noted, no wounds, skin turgor normal, no jaundice, no petechiae and no mottling Skin Narrative: Skin is pale Neuro oriented x3, CN's II-XII intact bilaterally and moves all extremities Neuro Narrative: Slight right upper extremity/lower extremity weakness compared to left, follows all commands Sensorium / Orientation: awake, alert, oriented to person, oriented to place and oriented to time Speech: speech normal Psych Psych Narrative: Very pleasant and appropriately interactive Assessment & Plan Assessment/Plan (1) Acute stroke due to ischemia: (2) Acute UTI: (3) Acidosis, lactic: (4) New onset seizure: (5) Hypomagnesemia: (6) Hypokalemia: PLAN: Plan Acute stroke -MRI from 05/28/2022 showed new stroke in the left posterior frontal subcortical area -Recent stroke in the left posterior frontal cortical area -Continue aspirin -Hold apixaban but restart on 05/31/2022 per discussion with neurology -Start at 5 mg for appropriate dosing based on age and renal function -We will monitor hemoglobin with history of remote GI bleeding -Continue statin -Continue to control blood pressure -Echocardiogram is pending New onset seizure -Likely related to structural abnormality related to recent stroke -No further seizures overnight -Discussed case with neurology--> teleneurology -EEG remains pending -Continue Keppra--> will switch to oral upon discharge -Seizure precautions -We will discontinue Ultram upon return to facility as this may decrease seizure threshold Gram-positive/gram-negative UTI -Culture showing gram-positive/gram-negative's -Continue empiric Rocephin at this time Hypokalemia -We will replace magnesium -P.o. potassium 40 mill equivalents next-repeat lab in a.m. Hypomagnesemia -Mag level is 0.8 this morning -6 g mag bolus -Repeat magnesium level in a.m. Lactic acidosis -Quickly resolved -Likely related to acute seizures Parkinson's disease -Continue home medications PAF -Patient in normal sinus rhythm on admission -Continue diltiazem -Continue metoprolol -Restart Xarelto at 5 mg p.o. twice daily on 05/31/2022 History of Crohn's disease -Continue mesalamine -Patient to follow-up with GI as an outpatient--> make referral as discharge as patient will need to have this closely monitored with reinitiation of anticoagulation due to stroke x2 -Hemoglobin is currently stable GERD with history of GI bleed -Continue Protonix 40 mg p.o. twice daily COPD -Continue home inhalers -As needed albuterol -Supplemental oxygen as needed Hypertension -Continue diltiazem -Continue metoprolol Chronic anemia -Counts dropped some this morning and repeat hemoglobin was drawn and found to be 9.8 up from 8.6 early this morning -No signs of bleeding -Continue to monitor LEMUEL -Patient is currently only on nocturnal oxygen and does not wear CPAP DVT prophylaxis -Lovenox subcu daily -SCDs CODE STATUS -DNR CCA without intubation Disposition: -Anticipate discharge on 05/30/2022 back to her F Charges/Coding Visit Charges Inpatient E&M: 59397 Subs Hosp L2
[2022-05-29] MEDS: Ferrous Sulfate 325 MG Tablet PO (12:20)
[2022-05-29] MEDS: Enoxaparin 40 MG/0.4 ML Syringe SC (12:20)
[2022-05-29] MEDS: Potassium Chloride Oral Tablet 20 MEQ 40 MEQ PO (12:20)
--- NOTE | 2022-05-29 17:14 | CASEMGMT ---
Social Work As per admitting RN, pt has POA for Healthcare, no LW. POA for Healthcare is scanned into the summary tab of the echart, Minerva Soliz is listed as Healthcare POA. SHERRIE Chau
[2022-05-29] MEDS: Atorvastatin Calcium 40 MG Tablet PO (22:01)
[2022-05-29] MEDS: Latanoprost 0.005% 1 Bottle 1 DRP EACH EYE (22:02)
[2022-05-30 02:44] VITALS: BMI 21.3
[2022-05-30 02:52] VITALS: BP 116/63; PULSE 85; RESP 20; TEMP 36.4; O2SAT 96
[2022-05-30 03:17] VITALS: PULSE 81
[2022-05-30 06:41] LABS: Absolute Lymphocyte Count 1.25 X10^3/uL (0.83-4.51); Absolute Neutrophil Count 4.3 X10^3/uL (2.0-7.7); Basophil# 0.03 X10^3/uL; Basophil% 0.5 % (0-1); Eosinophil# 0.18 X10^3/uL; Eosinophils% 2.9 % (0-5); Hematocrit 30.5 % (37-47); Hemoglobin 9.3 g/dL (12.0-15.0); Lymphocyte # 1.25 X10^3/ul (0.83-4.51); Lymphocyte % 20.1 % (19-41); Mean Corp Hgb Conc 30.5 g/dL (32-36); Mean Corpuscular Hgb 28.5 pg (27.0-32.0); Mean Corpuscular Volume 93.6 fL (81-99); Mean Platelet Vol. 11.2 fl (6.2-12.0); Monocyte# 0.39 X10^3/uL; Monocyte% 6.3 % (0-10); NRBC Flagged by Analyzer 0 % (0-5); Neutrophil # 4.34 X10^3/uL (2.7-7.7); Neutrophil % 69.7 % (47-70); Platelet Count 210 K/mm3 (150-450); RBC Distribution Width CV 17.9 % (11.6-14.6); RBC Distribution Width SD 61.7 fl (35.1-43.9); Red Blood Count 3.26 M/mm3 (4.2-5.4); White Blood Count 6.2 K/mm3 (4.4-11.0)
[2022-05-30 07:02] VITALS: PULSE 93
[2022-05-30 07:02] LABS: Anion Gap 8 (5-15); BUN 2 mg/dL (7-18); BUN/Creat Ratio 4.3 RATIO (10-20); Calcium,Total 7.3 mg/dL (8.5-10.1); Chloride 111 mmol/L (98-107); Creatinine, Serum 0.47 mg/dL (0.55-1.02); EST Glomerular Filtration Rate 140 mL/min (>60); Est Glom Filt Rate - Afr Amer 169 mL/min (>60); Estimated Creatinine Clearance 42.59 ml/min; Glucose 81 mg/dL (74-106); Magnesium 2.4 mg/dL (1.6-2.6); Sodium Level 142 mmol/L (136-145)
[2022-05-30 07:19] LABS: Bedside Glucose 117 mg/dL (74-106)
[2022-05-30] MEDS: Budesonide Respules 0.5 MG/2 ML AMPUL.NEB. INHALATION (07:23)
[2022-05-30] MEDS: Ipratropium/Albuterol Sulfate 3 ML AMPUL.NEB INHALATION (07:23)
[2022-05-30 07:48] VITALS: PULSE 82; RESP 20; O2SAT 97
[2022-05-30] MEDS: 0.9% Normal Saline 1,000 ML 70 ML IV (08:23)
[2022-05-30] MEDS: Lidocaine 5% Patch 1 PATCH TOPICAL (08:28)
[2022-05-30] MEDS: Enoxaparin 40 MG/0.4 ML Syringe SC (08:28)
[2022-05-30 08:29] VITALS: PULSE 95
[2022-05-30] MEDS: Furosemide 20 MG Tablet PO (08:29)
[2022-05-30] MEDS: Pantoprazole Sodium 40 MG Tablet PO (08:29)
[2022-05-30] MEDS: Metoprolol Tartrate 50 MG Tablet PO (08:29)
[2022-05-30] MEDS: Loratadine 10 MG Tablet PO (08:29)
[2022-05-30] MEDS: dilTIAZem CD 180 MG Capsule PO (08:29)
[2022-05-30] MEDS: Aspirin 81 MG TAB.CHEW PO (08:29)
[2022-05-30] MEDS: sulfaSALAzine 500 MG Tablet 1000 MG PO (08:29)
[2022-05-30] MEDS: Mesalamine 1.2 GM Tablet PO (08:29)
[2022-05-30] MEDS: Ceftriaxone 1 GM/50 ML BAG IV (08:30)
[2022-05-30] MEDS: Potassium Chloride Oral Tablet 20 MEQ 60 MEQ PO (08:30)
[2022-05-30] MEDS: Dorzolamide HCL/Timolol 10 ml Bottle 1 DRP EACH EYE (08:30)
[2022-05-30] MEDS: Budesonide 3 MG CAPSULE.EC PO (08:30)
[2022-05-30 10:10] VITALS: BP 124/57; PULSE 95; RESP 20; TEMP 36.2; O2SAT 98
--- NOTE | 2022-05-30 11:04 | DS.PCM_ITS ---
Providers Date of Admission: 05/28/22 Date of Discharge: 05/30/22 Primary Care Physician: Dr. Quique Burroughs MD Reason For Visit: SEIZURE Diagnosis Discharge Diagnosis (1) Acute stroke due to ischemia: Status: Acute Code(s): I63.9 - Cerebral infarction, unspecified (2) Acute UTI: Status: Acute Code(s): N39.0 - Urinary tract infection, site not specified (3) Acidosis, lactic: Status: Acute Code(s): E87.2 - Acidosis (4) New onset seizure: Status: Acute Code(s): R56.9 - Unspecified convulsions (5) Hypomagnesemia: Status: Acute Code(s): E83.42 - Hypomagnesemia (6) Hypokalemia: Status: Acute Code(s): E87.6 - Hypokalemia Plan Acute stroke -MRI from 05/28/2022 showed new stroke in the left posterior frontal subcortical area -Recent stroke in the left posterior frontal cortical area -Continue aspirin -Hold apixaban but restart on 05/31/2022 per discussion with neurology -Start at 5 mg for appropriate dosing based on age and renal function -We will monitor hemoglobin with history of remote GI bleeding -Continue statin -Continue to control blood pressure -Echocardiogram is pending New onset seizure -Likely related to structural abnormality related to recent stroke -No further seizures overnight -Discussed case with neurology--> teleneurology -EEG remains pending -Continue Keppra--> will switch to oral upon discharge -Seizure precautions -We will discontinue Ultram upon return to facility as this may decrease seizure threshold Gram-positive/gram-negative UTI -Culture showing gram-positive/gram-negative's -Continue empiric Rocephin at this time Hypokalemia -We will replace magnesium -P.o. potassium 40 mill equivalents next-repeat lab in a.m. Hypomagnesemia -Mag level is 0.8 this morning -6 g mag bolus -Repeat magnesium level in a.m. Lactic acidosis -Quickly resolved -Likely related to acute seizures Parkinson's disease -Continue home medications PAF -Patient in normal sinus rhythm on admission -Continue diltiazem -Continue metoprolol -Restart Xarelto at 5 mg p.o. twice daily on 05/31/2022 History of Crohn's disease -Continue mesalamine -Patient to follow-up with GI as an outpatient--> make referral as discharge as patient will need to have this closely monitored with reinitiation of anticoagulation due to stroke x2 -Hemoglobin is currently stable GERD with history of GI bleed -Continue Protonix 40 mg p.o. twice daily COPD -Continue home inhalers -As needed albuterol -Supplemental oxygen as needed Hypertension -Continue diltiazem -Continue metoprolol Chronic anemia -Counts dropped some this morning and repeat hemoglobin was drawn and found to be 9.8 up from 8.6 early this morning -No signs of bleeding -Continue to monitor LEMUEL -Patient is currently only on nocturnal oxygen and does not wear CPAP DVT prophylaxis -Lovenox subcu daily -SCDs CODE STATUS -DNR CCA without intubation Disposition: -Anticipate discharge on 05/30/2022 back to her [facility] Medications at Discharge Home Medications albuterol 90 mcg/actuation aerosol inhaler 90 mcg inhalation BID 01/30/22 budesonide 3 mg capsule,delayed,extended release 3 mg PO DAILY 01/30/22 cetirizine 10 mg tablet 10 mg PO DAILY 01/30/22 fluticasone fur. 100 mcg-umeclid 62.5 mcg-vilant 25 mcg inhalat.powder (Trelegy Ellipta) 1 inh inhalation DAILY 01/30/22 furosemide 20 mg tablet 20 mg PO DAILY 01/30/22 guaifenesin 600 mg tablet, extended release 12 hr (Mucinex) 600 mg PO BID PRN Nasal Congestion 01/30/22 ipratropium 0.5 mg-albuterol 3 mg (2.5 mg base)/3 mL nebulization soln 3 ml inhalation Q4H PRN SHORTNESS 01/30/22 loperamide 2 mg tablet 2 mg PO Q4H PRN Diarrhea 01/30/22 mesalamine 0.375 gram capsule,extended release 24 hr 1.125 g PO DAILY 01/30/22 metoprolol tartrate 100 mg tablet 50 mg PO Q12H 01/30/22 pantoprazole 40 mg tablet,delayed release 40 mg PO BID 01/30/22 potassium chloride 20 mEq oral packet 40 meq PO QHS 01/30/22 sulfasalazine 500 mg tablet 1,000 mg PO BID 01/30/22 latanoprost 0.005 % eye drops 1 drp EACH EYE QPM 05/05/22 aspirin 81 mg chewable tablet 81 mg PO BREAKFAST #0 tabs 05/07/22 atorvastatin 40 mg tablet 40 mg PO QHS #0 tabs 05/07/22 acetaminophen 500 mg tablet 1,000 mg PO Q8H PRN 05/28/22 diclofenac sodium 1 % topical gel (Voltaren Arthritis Pain) 2 g topical BID 05/28/22 diltiazem HCl 180 mg capsule,extended release 24 hr 180 mg PO DAILY 05/28/22 dorzolamide 22.3 mg-timolol 6.8 mg/mL eye drops 1 drp EACH EYE BID 05/28/22 ferrous sulfate 325 mg (65 mg iron) tablet 325 mg PO DAILY 05/28/22 lidocaine 4 % topical patch 1 patch topical DAILY 05/28/22 ondansetron 4 mg disintegrating tablet 4 mg PO Q4H PRN PRN Nausea 05/28/22 roflumilast 250 mcg tablet (Daliresp) 250 mcg PO QHS 05/28/22 apixaban 5 mg tablet (Eliquis) 5 mg PO BID #60 tabs 05/30/22 cephalexin 500 mg capsule 500 mg PO BID #6 caps 05/30/22 levetiracetam 500 mg tablet (Keppra) 500 mg PO BID #60 tabs 05/30/22 Hospital Course Operations None Procedures 2-D Echocardiogram, Electroencephalogram and - (MRI) Summary of Care Provided Minutes Spent on Discharge: 38 Hospital Course: Mrs. Norris is a 67-year-old white female who presented to the emergency department was [facility] on 05/28/2022 with new onset seizures. She currently resides at the [facility]. The patient was recently admitted from 05/05/2022 through 05/07/2021 at which time she was found to have a stroke.? At the time of discharge she was having some expressive aphasia and some right-sided weakness that was quite minimal and appeared to have some right-sided neglect.? Her MRI at that time showed acute ischemic changes in the left posterior frontal cortex and an MRI showed occlusion of the distal portion of the left posterior cerebral artery.? She was evaluated by [facility]y at that time and they recommended continuing her aspirin as well as high intensity statin, obtain an echocardiogram and resuming her apixaban 10 days after her stroke.? She was evidently off of her Eliquis related to previous GI bleeding.? Her hemoglobin had been stable throughout her hospital course and therefore she was restarted on her Eliquis at [facility] on 05/15/2022.? She was at [facility] on the morning of admission in her normal state of health and had a witnessed event with shaking and foaming at the mouth and then went on to responsive. The [facility] was concerned that she may be having another stroke so they called EMS. When EMS arrived they noted a little bit of drool coming from her mouth but there was no seizure activity at that time. She did appear postictal however. Blood sugar was 130. Upon arrival to the emergency department she was awake but not speaking coherently. While in the emergency department she suffered another generalized tonic-clonic seizure for which she was given Ativan and loaded with Keppra. Vital signs on presentation showed a temperature of 97.6, heart rate of 106, blood pressure of 91/69 with a repeat at 132/83, respiratory rate anywhere from 20-26, and oxygen saturation was 98% on room air.? Her CBC shows a mild leukocytosis with no left shift present.? Her hemoglobin was 11.3 which is stable compared to previous.? Coags were unremarkable.? Her chemistry panel showed normal sodium with mild hypokalemia with potassium of 3.4, her serum bicarb was 18 with an elevated chloride at 110.? Renal function was normal with a BUN of 6 and a serum creatinine of 1.04.? Her initial lactic acid was 5.2.? A UA was obtained and was positive for leuk esterase and white cells but no bacteria was present.? CT of her brain showed no acute findings, small hypodensity in the left parietal frontal region and evidence of old bilateral infarcts and chronic microvascular changes.? Chest x- ray showed no evidence of intrathoracic acute process.? Her MRI showed motion artifact with a small acute left posterior frontal subcortical infarct and adjacent chronic left posterior frontal cortical infarct corresponding to previous MRI findings as well as chronic left posterior cerebral artery territory infarct. She was admitted to the telemetry floor and her NIH is 4 followed and stable. Her mental status improved over time and she was evaluated by [facility]y. They wanted to continue her plan from previous stroke but hold her Eliquis until 05/31/2022 to avoid hemorrhagic transformation. We have increased her Eliquis as well from 2.5 to 5 mg based on her age and renal function. Her echocardiogram showed an EF of 65% with trivial pericardial effusion and no atrial septal defect. Urine culture was sent and showed growth for which she was treated with ceftriaxone while hospitalized and discharged to continue her course and completed on Keflex. She was maintained on IV Keppra during her hospital course and did well with no further seizure activity. Neurology feels that her brain structure related to previous stroke is most likely the nidus for her seizure activity. An EEG was performed and showed encephalopathic changes however no acute epileptiform activity was noted. As noted above, her mental status improved throughout her hospital course and at discharge she was alert and oriented to self and location but still confused on time. She needed some assistance feeding herself but was improving. She maintained some right-sided weakness with some expressive aphasia that was mild however was able to converse. She had no recollections of the events that caused her to present to the emergency department. She had some electrolyte abnormalities during her hospitalization including severe hypomagnesemia which has normalized and hypokalemia for which she was treated. I suspect she likely has some mild cognitive impairment at baseline and likely developing some dementia based on her vascular issues. Time will tell but this may be her new baseline. Her new medications as noted above were Keflex, Eliquis (to start 05/31/2022), and Keppra 500 mg p.o. twice daily. We did discontinue her Ultram as this will decrease seizure threshold and I would recommend she maintain off of this. I did update her sister who is listed as her contact on the events that had transpired and are changes in treatment. All questions were answered prior to discharge. She was discharged back to her [facility] in stable condition on 05/30/2022. I have recommended follow-up with neurology-Dr. Pacheco and his office will need to be called for an appointment as well as her primary care physician within the next 2 weeks. Discharge diagnoses: Acute stroke in left posterior frontal cortical area adjacent to previous stroke New onset seizure Urinary tract infection Hypokalemia Hypomagnesemia-resolved Lactic acidosis-resolved Parkinson's disease PAF History of Crohn's disease GERD COPD Hypertension Chronic anemia LEMUEL Physical Exam Const alert, no apparent distress and average body habitus Constitutional Narrative: Apparently age white female sitting up in bed, appears much older than stated age, alertness and interaction has even improved in the last 24 hours, still rem ains somewhat confused is oriented to self and location but confused on month and date General Appearance: cooperative, comfortable, well kempt and well developed Orientation / Consciousness: awake, oriented to person, oriented to place and lethargic; Negative for oriented to time Exam Limitations: other limitations HEENT normocephalic, head/scalp atraumatic and moist oral mucous membranes Eyes PERRL, EOMs intact bilaterally and conjunctivae normal Eyes Narrative: Scleral icterus Neck no lymphadenopathy, supple, no JVD and no carotid bruits Neck Narrative: Trachea midline, no thyroid enlargement Resp normal respiratory effort, no retractions, no use of accessory muscles and clear to auscultation bilaterally Resp Narrative: Diffusely diminished but clear Auscultation: Negative for crackles, rales, rhonchi or wheezes Cardio regular rate, regular rhythm, S1 normal heart sound, S2 normal heart sound, no murmurs, no rub, no gallops, no clicks and no JVD GI normal to inspection, nondistended, normoactive bowel sounds, soft to palpation and non-tender Extremity no clubbing, cyanosis or edema Skin no rashes or lesions noted, no wounds, skin turgor normal, no jaundice, no petechiae and no mottling Skin Narrative: Skin is pale Neuro CN's II-XII intact bilaterally and moves all extremities Neuro Narrative: Slight right upper extremity/lower extremity weakness compared to left, follows all commands, speech is slightly slow and seems to have some expressive aphasia but per discussion on admission this seems to be baseline after recent stroke Sensorium / Orientation: awake, alert, oriented to person and oriented to place Psych affect normal Psych Narrative: Very pleasant and appropriately interactive Weight / BMI Weight Weight: 54.7 kg Body Mass Index (BMI) 21.3 ABG / Lab / Microbiology Data Result Diagrams: 05/30/22 05:30 05/30/22 05:30 Laboratory: Laboratory Results - last 24 hr 05/28/22 06:17: POC Glucose 117 H 05/29/22 10:51: WBC 8.0, RBC 3.45 L, Hgb 9.8 L, Hct 32.8 L, MCV 95.1, MCH 28.4, MCHC 29.9 L, RDW Std Deviation 61.1 H, RDW Coeff of Pascual 18.0 H, Plt Count 239, MPV 11.0, Immature Gran % (Auto) 0.600, Neut % (Auto) 71.5 H, Lymph % (Auto) 19.0, Fajardo % (Auto) 5.7, Eos % (Auto) 2.6, Baso % (Auto) 0.6, Absolute Neuts (auto) 5.7, Absolute Lymphs (auto) 1.51, Nucleated RBC % 0 05/30/22 05:30: WBC 6.2, RBC 3.26 L, Hgb 9.3 L, Hct 30.5 L, MCV 93.6, MCH 28.5, MCHC 30.5 L, RDW Std Deviation 61.7 H, RDW Coeff of Pascual 17.9 H, Plt Count 210, MPV 11.2, Immature Gran % (Auto) 0.500, Neut % (Auto) 69.7, Lymph % (Auto) 20.1, Fajardo % (Auto) 6.3, Eos % (Auto) 2.9, Baso % (Auto) 0.5, Absolute Neuts (auto) 4.3, Absolute Lymphs (auto) 1.25, Nucleated RBC % 0 05/30/22 05:30: Sodium 142, Potassium 3.0 L, Chloride 111 H, Carbon Dioxide 23.0, Anion Gap 8, BUN 2 L, Creatinine 0.47 L, Estim Creat Clear Calc 42.59, Est GFR (MDRD) Af Amer 169, Est GFR (MDRD) Non-Af 140, BUN/Creatinine Ratio 4.3 L, Glucose 81, Calcium 7.3 L, Magnesium 2.4 Microbiology: Microbiology 05/28/22 08:08 Urine, Catheterized Urine Culture - Final Corynebacterium striatum Klebsiella pneumoniae sp pneum Radiography Diagnostic Testing: Radiology Impression Echocardiogram 05/28/22 15:15 Interpretation Summary The estimated ejection fraction is 65 %. Unable to assess diastolic dysfunction. Trivial pericardial effusion. Ordering Physician: Liliana Higgins Referring Physician: Quique Burroughs Performed By: Karyn Zimmer, LORE, RVT D/C Instructions Discharge Diet: Low fat / Low cholesterol Discharge Activity: Return to Normal Activity Meaningful Use Info Meaningful Use Diagnoses (Choose all that apply): Ischemic CVA CVA Therapy Assessed for PT,OT and/or ST?: Yes Ischemic Stroke Antithrombotic order at d/c?: Yes Dx of Atrial fib/flutter?: Yes Anticoagulant at discharge?: Yes Statins at discharge?: Yes Primary Dx Acute Ischemic CVA?: Yes IV tPA ordered during stay?: No Reason IV t-PA not ordered: Medical Contraindication Discharge Plan Admission Admit Date/Time: 05/28/22 09:35 Primary Reason for Your Visit: New onset seizure Attending Provider: Liliana Higgins Primary Care Provider: Quique Burroughs Discharge Orders/Prescriptions Prescriptions: New levetiracetam [Keppra] 500 mg tablet 500 mg PO BID Qty: 60 0RF Eliquis 5 mg tablet 5 mg PO BID Qty: 60 0RF Rx Instructions: start date 05/31/2022 cephalexin 500 mg capsule 500 mg PO BID Qty: 6 0RF Continued metoprolol tartrate 100 mg Tablet 50 mg PO Q12H albuterol 90 mcg/actuation Aerosol 90 mcg INHALATION BID budesonide 3 mg Capsule,Delayed,Extend.Release 3 mg PO DAILY mesalamine 0.375 gram Capsule,Extended Release 24hr 1.125 g PO DAILY guaifenesin [Mucinex] 600 mg Tablet Extended Release 12hr 600 mg PO BID PRN (Reason: Nasal Congestion) sulfasalazine 500 mg Tablet 1,000 mg PO BID cetirizine 10 mg Tablet 10 mg PO DAILY loperamide 2 mg Tablet 2 mg PO Q4H PRN (Reason: Diarrhea) potassium chloride 20 mEq Packet 40 meq PO QHS furosemide 20 mg Tablet 20 mg PO DAILY Trelegy Ellipta 100-62.5-25 mcg Blister With Device 1 inh INHALATION DAILY ipratropium-albuterol 0.5 mg-3 mg(2.5 mg base)/3 mL Solution For Nebulization 3 ml INHALATION Q4H PRN (Reason: SHORTNESS) pantoprazole 40 mg Tablet,Delayed Release (Dr/Ec) 40 mg PO BID latanoprost 0.005 % Drops 1 drp EACH EYE QPM aspirin 81 mg Tablet,Chewable 81 mg PO BREAKFAST Qty: 0 0RF atorvastatin 40 mg Tablet 40 mg PO QHS Qty: 0 0RF lidocaine 4 % Adhesive Patch,Medicated 1 patch TOPICAL DAILY diltiazem HCl 180 mg capsule,extended release 24hr 180 mg PO DAILY acetaminophen 500 mg Tablet 1,000 mg PO Q8H PRN ferrous sulfate 325 mg (65 mg iron) Tablet 325 mg PO DAILY dorzolamide-timolol 22.3-6.8 mg/mL drops 1 drp EACH EYE BID ondansetron 4 mg Tablet,Disintegrating 4 mg PO Q4H PRN PRN (Reason: Nausea) diclofenac sodium [Voltaren Arthritis Pain] 1 % Gel 2 g TOPICAL BID Daliresp 250 mcg tablet 250 mcg PO QHS Discontinued tramadol 50 mg Tablet 50 mg PO Q6H PRN (Reason: Pain) Eliquis 2.5 mg tablet 2.5 mg PO BID Qty: 60 0RF Rx Instructions: Do not restart until 05/16/2022 Referrals / Follow Up: Quique Burroughs MD [Primary Care Provider] - Within 2 Weeks Will Pacheco MD [Non-Staff] - Within 1 Month (call for appt on Tuesday) Disposition Disposition (needs filled in before D/C Order can be placed): NonSkilled NH/Intermed Care Charges/Coding Visit Charges Inpatient E&M: 37901 SNF Disch >30 Min
--- NOTE | 2022-05-30 11:27 | PCM.TXEXTCAR ---
Diet Diet Order/Speech Therapy: 05/28/22 19:18 Diet: Cardiac - Heart Healthy Food consistency:: Soft & Bite Sized Liquid Consistency:: Regular/Thin Is pt able to select menu?: No Diet Comments: 1:1 supervision, HOB 90 degrees, alternate sips and bites Routine Orders/Code Status Routine Lab Work: [facility] (am 05/31/2022) Code Status: DNRCC-A Wound(s) left fa: Wound Type: Skin Tear Therapies Physical Therapy: Eval and Treat Occupational Therapy: Eval and Treat Speech Therapy: Eval and Treat Problem/Diagnosis (1) Acute stroke due to ischemia: Status: Acute Code(s): I63.9 - Cerebral infarction, unspecified (2) Acute UTI: Status: Acute Code(s): N39.0 - Urinary tract infection, site not specified (3) Acidosis, lactic: Status: Acute Code(s): E87.2 - Acidosis (4) New onset seizure: Status: Acute Code(s): R56.9 - Unspecified convulsions (5) Hypomagnesemia: Status: Acute Code(s): E83.42 - Hypomagnesemia (6) Hypokalemia: Status: Acute Code(s): E87.6 - Hypokalemia Allergies/Procedures Done in Hospital Allergies amoxicillin [From Augmentin] Allergy (Verified 05/28/22 06:19) PT UNABLE TO RESPOND-NEEDS F/U clavulanic acid [From Augmentin] Allergy (Verified 05/28/22 06:19) PT UNABLE TO RESPOND-NEEDS F/U codeine Allergy (Verified 05/28/22 06:19) PT UNABLE TO RESPOND-NEEDS F/U Iodinated Contrast Media Allergy (Verified 05/28/22 06:19) Anaphylaxis metronidazole [From Flagyl] Allergy (Verified 05/05/22 20:57) PT UNABLE TO RESPOND-NEEDS F/U morphine Allergy (Verified 05/28/22 06:19) PT UNSURE OF REACTION oxycodone Allergy (Verified 05/28/22 06:19) PT UNSURE OF REACTION ropinirole Allergy (Verified 05/28/22 06:19) PT UNSURE OF REACTION acetaminophen [From Vicodin] Adverse Reaction (Verified 05/28/22 06:19) PT UNSURE OF REACTION hydrocodone [From Vicodin] Adverse Reaction (Verified 05/28/22 06:19) PT UNSURE OF REACTION Procedures: 2-D Echocardiogram, Electroencephalogram and - (MRI brain) Type of Care/Length of Stay Estimated LOS: More Than 30 Days Type of Care Needed: Intermediate Rehab Potential: Fair Prognosis: Fair Additional Orders/Day of Discharge Day of Discharge: 05/30/22 Discharge Plan Admission Admit Date/Time: 05/28/22 09:35 Primary Reason for Your Visit: New onset seizure Attending Provider: Liliana Higgins Primary Care Provider: Quqiue Burroughs Discharge Orders/Prescriptions Prescriptions: New levetiracetam [Keppra] 500 mg tablet 500 mg PO BID Qty: 60 0RF Eliquis 5 mg tablet 5 mg PO BID Qty: 60 0RF Rx Instructions: start date 05/31/2022 cephalexin 500 mg capsule 500 mg PO BID Qty: 6 0RF Continued metoprolol tartrate 100 mg Tablet 50 mg PO Q12H albuterol 90 mcg/actuation Aerosol 90 mcg INHALATION BID budesonide 3 mg Capsule,Delayed,Extend.Release 3 mg PO DAILY mesalamine 0.375 gram Capsule,Extended Release 24hr 1.125 g PO DAILY guaifenesin [Mucinex] 600 mg Tablet Extended Release 12hr 600 mg PO BID PRN (Reason: Nasal Congestion) sulfasalazine 500 mg Tablet 1,000 mg PO BID cetirizine 10 mg Tablet 10 mg PO DAILY loperamide 2 mg Tablet 2 mg PO Q4H PRN (Reason: Diarrhea) potassium chloride 20 mEq Packet 40 meq PO QHS furosemide 20 mg Tablet 20 mg PO DAILY Trelegy Ellipta 100-62.5-25 mcg Blister With Device 1 inh INHALATION DAILY ipratropium-albuterol 0.5 mg-3 mg(2.5 mg base)/3 mL Solution For Nebulization 3 ml INHALATION Q4H PRN (Reason: SHORTNESS) pantoprazole 40 mg Tablet,Delayed Release (Dr/Ec) 40 mg PO BID latanoprost 0.005 % Drops 1 drp EACH EYE QPM aspirin 81 mg Tablet,Chewable 81 mg PO BREAKFAST Qty: 0 0RF atorvastatin 40 mg Tablet 40 mg PO QHS Qty: 0 0RF lidocaine 4 % Adhesive Patch,Medicated 1 patch TOPICAL DAILY diltiazem HCl 180 mg capsule,extended release 24hr 180 mg PO DAILY acetaminophen 500 mg Tablet 1,000 mg PO Q8H PRN ferrous sulfate 325 mg (65 mg iron) Tablet 325 mg PO DAILY dorzolamide-timolol 22.3-6.8 mg/mL drops 1 drp EACH EYE BID ondansetron 4 mg Tablet,Disintegrating 4 mg PO Q4H PRN PRN (Reason: Nausea) diclofenac sodium [Voltaren Arthritis Pain] 1 % Gel 2 g TOPICAL BID Daliresp 250 mcg tablet 250 mcg PO QHS Discontinued tramadol 50 mg Tablet 50 mg PO Q6H PRN (Reason: Pain) Eliquis 2.5 mg tablet 2.5 mg PO BID Qty: 60 0RF Rx Instructions: Do not restart until 05/16/2022 Referrals / Follow Up: Quique uBrroughs MD [Primary Care Provider] - Within 2 Weeks Will Pacheco MD [Non-Staff] - Within 1 Month (call for appt on Tuesday) Disposition Disposition (needs filled in before D/C Order can be placed): NonSkilled NH/Intermed Care
[2022-05-30] MEDS: Ferrous Sulfate 325 MG Tablet PO (11:33)
--- NOTE | 2022-05-30 12:42 | NURSING ---
Report called to nurse Ani at [facility] as she will resume care of pt when she returns
== END 2022-05-30 14:23 | disposition intermediate care facility (04) | DRG 65 ==
LOC: ED 09:43 → PCU 10:00
PROVIDERS: Emergency Medicine; Admitting Provider Internal Medicine; Emergency Provider Student in an Organized Health Care Education/Training Program; Visit Provider Internal Medicine
DX: I63.9 Cerebral infarction, unspecified (principal); E87.2 Acidosis; I50.32 Chronic diastolic (congestive) heart failure; N39.0 Urinary tract infection, site not specified; G20 Parkinson's disease; I11.0 Hypertensive heart disease with heart failure; J44.9 Chronic obstructive pulmonary disease, unspecified; I48.0 Paroxysmal atrial fibrillation; E83.42 Hypomagnesemia; D50.9 Iron deficiency anemia, unspecified; G47.33 Obstructive sleep apnea (adult) (pediatric); E78.5 Hyperlipidemia, unspecified; E87.6 Hypokalemia; Z66 Do not resuscitate; Z51.5 Encounter for palliative care; Z79.82 Long term (current) use of aspirin; Z87.891 Personal history of nicotine dependence; Z79.51 Long term (current) use of inhaled steroids; Z86.73 Personal history of transient ischemic attack (TIA), and cerebral infarction without residual deficits; Z86.16 Personal history of COVID-19
CPT/HCPCS: 36415; 70450; 70551; 71045; 80048; 80053; 81001; 82962; 83605; 83735; 84443; 85025; 85610; 85730; 87077; 87086; 87088; 87186; 87426; 92523; 92526; 92610; 93005; 93306; 94640; 94762; 95819; 97110; 97162; 97166; 97530; 97535; 99285; J7030; J7040; Q9957; A4216

== ENCOUNTER → 2022-06-29 | Outpatient (REF) | payer MEDICARE, MEDICAID, SELFPAY ==
[2022-06-29 10:00] LABS: Hematocrit 31.6 % (37-47); Hemoglobin 9.5 g/dL (12.0-15.0); Mean Corp Hgb Conc 30.1 g/dL (32-36); Mean Corpuscular Hgb 29.5 pg (27.0-32.0); Mean Corpuscular Volume 98.1 fL (81-99); Mean Platelet Vol. 12.6 fl (6.2-12.0); Platelet Count 271 K/mm3 (150-450); RBC Distribution Width CV 16.3 % (11.6-14.6); RBC Distribution Width SD 58.9 fl (35.1-43.9); Red Blood Count 3.22 M/mm3 (4.2-5.4); White Blood Count 7.1 K/mm3 (4.4-11.0)
[2022-06-29 10:19] LABS: Anion Gap 9 (5-15); BUN 9 mg/dL (7-18); BUN/Creat Ratio 13.8 RATIO (10-20); Calcium,Total 6.8 mg/dL (8.5-10.1); Chloride 108 mmol/L (98-107); Cholesterol 156 mg/dL (200); Creatinine, Serum 0.65 mg/dL (0.55-1.02); EST Glomerular Filtration Rate 96 mL/min (>60); Est Glom Filt Rate - Afr Amer 116 mL/min (>60); Ferritin 190 ng/mL (8-252); Glucose 88 mg/dL (74-106); High Density Lipoprotein 107 mg/dL; Iron 35 ug/dL (50-170); Iron Binding Capacity,Total 231 ug/dL (250-450); PERCENT IRON SATURATION 15.2 % (15.0-55.0); Potassium 2.8 mmol/L (3.5-5.1); Sodium Level 144 mmol/L (136-145); Triglycerides 112 mg/dL; Very Low Density Lipoprotein 22 mg/dL (5-40)
[2022-07-01 16:27] LABS: KEPPRA (LEVETIRACETAM) 29.3 ug/mL (10.0-40.0)
== END ==
LOC: OLS.WHLEAS 05:00
PROVIDERS: Visit Provider Family Medicine
DX: I63.532 Cerebral infarction due to unspecified occlusion or stenosis of left posterior cerebral artery (principal); J96.11 Chronic respiratory failure with hypoxia; I69.320 Aphasia following cerebral infarction; M62.81 Muscle weakness (generalized); E78.5 Hyperlipidemia, unspecified; D64.9 Anemia, unspecified
CPT/HCPCS: 36415; 80048; 80061; 80177; 82728; 83540; 83550; 85027

== ENCOUNTER 2022-07-03 14:47 | Inpatient (IN) | payer MEDICARE, MEDICAID, SELFPAY ==
[2022-07-03] VITALS (28 sets, daily range): BP systolic 90–167; BP diastolic 50–98; PULSE 94–132; RESP 12–28; TEMP 35.5–36.2; O2SAT 66–100; BMI 22.0; BMI 25.5
--- NOTE | 2022-07-03 15:02 | CT_ITS ---
We are attempting to reach an attending provider to discuss findings. An addendum with communication details will be sent when the communication is complete. EXAM: CT HEAD WITHOUT INTRAVENOUS CONTRAST CLINICAL INDICATION: Neuro deficit, acute, stroke suspected TECHNIQUE: Multiple axial images were obtained of the head without intravenous contrast. This CT exam was performed using one or more of the following dose reduction techniques: automated exposure control, adjustment of the mA and/or kV according to patient size, and/or use of iterative reconstruction technique. This report was created using [employer] report [employer] technology. COMPARISON: ct and mri of May 28 2022 FINDINGS: BRAIN AND EXTRA-AXIAL SPACES: There is an old left posterior frontal subcortical infarct. Chronic old left posterior cerebral artery territory infarct. No intra- or extra-axial hemorrhage. No intracranial mass or mass effect. Posterior fossa structures are unremarkable. Ventricles are appropriate for age. No hydrocephalus. Basal cisterns are patent. BONES/JOINTS: Unremarkable. No discrete lytic or blastic abnormalities. SINUSES: Unremarkable as visualized. Clear. MASTOID AIR CELLS: Unremarkable. Clear. ORBITS: Visualized globes, extraocular muscles, optic nerves and retrobulbar fat appear unremarkable. CT/STROKE Brain/Head without Cont IMPRESSION: 1. There is an old left posterior frontal subcortical infarct. 2. NO acute infarcts. 3. Chronic old left posterior cerebral artery territory infarct. Electronically Signed: Manolo Lagos MD at 15:29 EDT ,
--- NOTE | 2022-07-03 15:02 | EKG12_ITS ---
Test Reason : Blood Pressure : / mmHG Vent. Rate : 118 BPM Atrial Rate : 118 BPM P-R Int : 132 ms QRS Dur : 074 ms QT Int : 318 ms P-R-T Axes : 028 -17 009 degrees QTc Int : 445 ms Sinus tachycardia Low voltage QRS Cannot rule out Anterior infarct , age undetermined Abnormal ECG Confirmed by MELBA CABALLERO, VALENTIN ([id number]), video effects editor NATALIA ROJAS ([id number]) on 07/06/2022 12:40:27 PM Referred By: Confirmed By:VALENTIN REILLY MD
[2022-07-03 15:12] LABS: Absolute Lymphocyte Count 6.32 X10^3/uL (0.83-4.51); Absolute Neutrophil Count 8.9 X10^3/uL (2.0-7.7); Basophil# 0.06 X10^3/uL; Basophil% 0.4 % (0-1); Eosinophil# 0.24 X10^3/uL; Eosinophils% 1.5 % (0-5); Hematocrit 37.7 % (37-47); Hemoglobin 10.6 g/dL (12.0-15.0); Lymphocyte # 6.32 X10^3/ul (0.83-4.51); Lymphocyte % 38.4 % (19-41); Mean Corp Hgb Conc 28.1 g/dL (32-36); Mean Corpuscular Hgb 28.8 pg (27.0-32.0); Mean Corpuscular Volume 102.4 fL (81-99); Mean Platelet Vol. 11.5 fl (6.2-12.0); Monocyte# 0.85 X10^3/uL; Monocyte% 5.2 % (0-10); NRBC Flagged by Analyzer 0 % (0-5); Neutrophil # 8.85 X10^3/uL (2.7-7.7); Neutrophil % 53.6 % (47-70); POSITIVE DIFFERENTIAL YES; POSITIVE MORPHOLOGY YES; Platelet Count 377 K/mm3 (150-450); RBC Distribution Width CV 16.1 % (11.6-14.6); RBC Distribution Width SD 61.5 fl (35.1-43.9); Red Blood Count 3.68 M/mm3 (4.2-5.4); White Blood Count 16.5 K/mm3 (4.4-11.0)
--- NOTE | 2022-07-03 15:14 | NURSING ---
BLUE TOP TOO SHORT, NEEDS REDRAWN
--- NOTE | 2022-07-03 15:16 | CT_ITS ---
We are attempting to reach an attending provider to discuss findings. An addendum with communication details will be sent when the communication is complete. EXAM: CT ANGIOGRAPHY HEAD AND NECK WITH INTRAVENOUS CONTRAST CLINICAL INDICATION: Stroke TECHNIQUE: [place] [facility] [place]/head and neck CT angiography protocol performed with intravenous contrast. This CT exam was performed using one or more of the following dose reduction techniques: automated exposure control, adjustment of the mA and/or kV according to patient size, and/or use of iterative reconstruction technique. This report was created using [employer] report generation technology. MIP reconstructed images were created and reviewed. CONTRAST: IV 100mL [id number] RADIATION DOSE: CTDIvol = 19.04 mGy, DLP = 551.81 mGy-cm COMPARISON: None. FINDINGS: HEAD: RIGHT ANTERIOR CEREBRAL ARTERY: Unremarkable. No significant stenosis at the visualized segments. Anterior communicating artery is present. No aneurysm. RIGHT MIDDLE CEREBRAL ARTERY: Unremarkable. No significant stenosis at the visualized segments. No aneurysm. RIGHT POSTERIOR CEREBRAL ARTERY: Unremarkable. No occlusion or significant stenosis. No aneurysm. RIGHT INTRACRANIAL INTERNAL CAROTID ARTERY: Unremarkable. No significant stenosis. No dissection or occlusion. RIGHT INTRACRANIAL VERTEBRAL ARTERY: Unremarkable. No significant stenosis. No dissection or occlusion. LEFT ANTERIOR CEREBRAL ARTERY: Unremarkable. No significant stenosis at the visualized segments. No aneurysm. LEFT MIDDLE CEREBRAL ARTERY: Unremarkable. No significant stenosis at the visualized segments. No aneurysm. LEFT POSTERIOR CEREBRAL ARTERY: Unremarkable. No occlusion or significant stenosis. No aneurysm. LEFT INTRACRANIAL INTERNAL CAROTID ARTERY: Unremarkable. No significant stenosis. No dissection or occlusion. LEFT INTRACRANIAL VERTEBRAL ARTERY: Unremarkable. No significant stenosis. No dissection or occlusion. BASILAR ARTERY: Unremarkable. No significant stenosis. No aneurysm. OTHER VASCULATURE: There is calcified plaque formation of the right cavernous carotid artery, with a mild stenosis (less than 50%). ALL ABOVE CRITERIA BY NASCET. There are no acute findings of the right and left internal carotid artery. ALL ABOVE CRITERIA BY NASCET. NECK: RIGHT COMMON CAROTID ARTERY: Unremarkable. No significant stenosis. No dissection or occlusion. RIGHT EXTRACRANIAL INTERNAL CAROTID ARTERY: Unremarkable. No significant stenosis. No dissection or occlusion. RIGHT EXTERNAL CAROTID ARTERY: Unremarkable. No occlusion. RIGHT EXTRACRANIAL VERTEBRAL ARTERY: Unremarkable. No significant stenosis. No dissection or occlusion. LEFT COMMON CAROTID ARTERY: Unremarkable. No significant stenosis. No dissection or occlusion. LEFT EXTRACRANIAL INTERNAL CAROTID ARTERY: Unremarkable. No significant stenosis. No dissection or occlusion. LEFT EXTERNAL CAROTID ARTERY: Unremarkable. No occlusion. LEFT EXTRACRANIAL VERTEBRAL ARTERY: Unremarkable. No significant stenosis. No dissection or occlusion. GREAT VESSELS OF AORTIC ARCH: There is calcified plaque formation of the left cavernous carotid artery, with a mild stenosis (less than 50%). ALL ABOVE CRITERIA BY NASCET. LUNG APICES: Unremarkable as visualized. HEAD and NECK: BONES/JOINTS: Unremarkable. No discrete lytic or blastic abnormalities. SOFT TISSUES: Unremarkable. CAROTID STENOSIS REFERENCE USING NASCET CRITERIA: % ICA stenosis = (1 - narrowest ICA diameter/diameter of distal cervical ICA) x 100. Mild - <50% stenosis. Moderate - 50-69% stenosis. Severe - 70-94% stenosis. Near occlusion - 95-99% stenosis. Occluded - 100% stenosis. CT/STROKE CTA Head AND Neck W/Con IMPRESSION: 1. There is calcified plaque formation of the right cavernous carotid artery, with a mild stenosis (less than 50%). ALL ABOVE CRITERIA BY NASCET. 2. There is calcified plaque formation of the left cavernous carotid artery, with a mild stenosis (less than 50%). ALL ABOVE CRITERIA BY NASCET. 3. There are no acute findings of the right and left internal carotid artery. ALL ABOVE CRITERIA BY NASCET. Electronically Signed: Manolo Lagos MD at 15:54 EDT ,
[2022-07-03 15:18] LABS: Differential Indicated SCAN CRITERIA MET
[2022-07-03 15:25] LABS: Bedside Glucose 162 mg/dL (74-106)
[2022-07-03] MEDS: MethylPREDNISolone 125 MG/2 ML Vial IV (15:26)
[2022-07-03] MEDS: DiphenhydrAMINE 50 MG/ML Syringe 25 MG IV (15:26)
[2022-07-03] MEDS: Famotidine 200 MG/20 ML MDV 20 MG in 0.9% Normal Saline (Pres. free 8 ML 300 MG IV (15:28)
[2022-07-03 15:30] LABS: Anion Gap 4 (5-15); BUN 7 mg/dL (7-18); BUN/Creat Ratio 11.9 RATIO (10-20); Calcium,Total 7.9 mg/dL (8.5-10.1); Chloride 111 mmol/L (98-107); Creatinine, Serum 0.59 mg/dL (0.55-1.02); EST Glomerular Filtration Rate 108 mL/min (>60); Est Glom Filt Rate - Afr Amer 131 mL/min (>60); Estimated Creatinine Clearance 48.45 ml/min; Glucose 164 mg/dL (74-106); Potassium 5.1 mmol/L (3.5-5.1); Sodium Level 145 mmol/L (136-145); Troponin-I HS 9 pg/mL (3.0-54.0)
--- NOTE | 2022-07-03 15:33 | ED.RN ---
called daughter, Manju to check in that [facility] notified her of pt's condition. States pt's sister, Janette will be coming to ED. called and left message for GITA Savage now on phone with sister.
--- NOTE | 2022-07-03 15:39 | ED.RN ---
not able to complete NIH, glascow coma scale - see charting.
--- NOTE | 2022-07-03 15:47 | RAD_ITS ---
STUDY: X-RAY CHEST REASON FOR EXAM: Female, 67 years old. Neuro deficit, acute, stroke suspected TECHNIQUE: XR Chest 1 View COMPARISON: 8.3.22 FINDINGS: There is no demonstrated pleural abnormality. There is no pneumothorax. There is a left Port-A-Cath and/or mediport in place. The tip is in the superior vena cava. Normal size heart. Normal mediastinum and syeda. Normal visualized pulmonary arteries. There is atherosclerotic calcification of the aortic arch with tortuosity. There are diffuse degenerative changes of the visualized thoracic spine. There is degenerative osteoarthritis of the bilateral shoulders. There is no demonstrated abnormality of the visualized soft tissue structures of the upper abdomen. RAD/Chest 1 View IMPRESSION: There are no acute findings. Electronically Signed: Manolo Lagos MD at 16:00 EDT ,
[2022-07-03 15:51] LABS: Anisocytosis 1+; Atypical Lymphocyte 2+ %; Macrocytosis 1+; Platelet Estimate ADEQUATE (ADEQ); Red Cell Morphology N CHROM NORMAL (NORM C&C)
[2022-07-03 15:51] LABS: International Normalized Ratio 1.2
[2022-07-03 15:51] LABS: Allen Test Positive; Blood Gas Specimen Type ART; O2 Delivery Device NRB; PO2 214 mmHG (75-100); SITE R Radial; pH 6.93 (7.35-7.45)
[2022-07-03 15:53] LABS: Partial Thromboplast Time 29.5 Seconds (24.1-36.2)
[2022-07-03 15:56] LABS: pCO2 > 137.0 mmHg (35-45)
[2022-07-03 17:29] LABS: D-Dimer Quantitative (DVT/PE) 1.24 FEU/ug/m (0.27-0.49)
--- NOTE | 2022-07-03 18:10 | EX.ED.DYSGE1 ---
HPI History of Present Illness Chief Complaint: Unresponsive Informant: family, EMS and SNF Onset/Context/Timing Onset: Today Context: Sudden Onset Timing: Continuous Quality: Altered mental status Location: Generalized Worsened by: Nothing Relieved by: Nothing Narrative Narrative: Patient presents after being found unresponsive at [facility] today. assisted staff states that patient was doing well at approximately 2 PM today. Staff reports that they checked on her just before 3 AM noticed that she was unresponsive. Patient was recently diagnosed with a stroke. Patient is nonverbal and is a poor informant. Family states the patient has a family history of pulmonary emboli. Family is concerned this could be of pulmonary embolus. [facility] Medical History Anemia Anxiety and depression Atrial fibrillation Chronic anemia Chronic respiratory failure COPD (chronic obstructive pulmonary disease) Crohn's disease Crohn's disease Current use of penitentiary anticoagulation Strunk syndrome Diastolic CHF Dysphagia Former tobacco use GERD (gastroesophageal reflux disease) History of cerebrovascular accident History of COVID-19 History of deep venous thrombosis or pulmonary embolus Hyperlipemia Hypertension Iron deficiency anemia New onset seizure Parkinsons disease Paroxysmal A-fib Sleep apnea Stroke/cerebrovascular accident Home Medications albuterol 90 mcg/actuation aerosol inhaler 90 mcg inhalation BID 01/30/22 [History Last Taken Unknown] budesonide 3 mg capsule,delayed,extended release 3 mg PO DAILY 01/30/22 [History Last Taken Unknown] cetirizine 10 mg tablet 10 mg PO DAILY 01/30/22 [History Last Taken Unknown] fluticasone fur. 100 mcg-umeclid 62.5 mcg-vilant 25 mcg inhalat.powder (Trelegy Ellipta) 1 inh inhalation DAILY 01/30/22 [History Last Taken Unknown] furosemide 20 mg tablet 20 mg PO DAILY 01/30/22 [History Last Taken Unknown] guaifenesin 600 mg tablet, extended release 12 hr (Mucinex) 600 mg PO BID PRN Nasal Congestion 01/30/22 [History Last Taken Unknown] ipratropium 0.5 mg-albuterol 3 mg (2.5 mg base)/3 mL nebulization soln 3 ml inhalation Q4H PRN SHORTNESS 01/30/22 [History Last Taken Unknown] loperamide 2 mg tablet 2 mg PO Q4H PRN Diarrhea 01/30/22 [History Last Taken Unknown] mesalamine 0.375 gram capsule,extended release 24 hr 1.125 g PO DAILY 01/30/22 [History Last Taken Unknown] metoprolol tartrate 100 mg tablet 50 mg PO Q12H 01/30/22 [History Last Taken Unknown] pantoprazole 40 mg tablet,delayed release 40 mg PO BID 01/30/22 [History Last Taken Unknown] potassium chloride 20 mEq oral packet 40 meq PO QHS 01/30/22 [History Last Taken Unknown] sulfasalazine 500 mg tablet 1,000 mg PO BID 01/30/22 [History Last Taken Unknown] latanoprost 0.005 % eye drops 1 drp EACH EYE QPM 05/05/22 [History Last Taken Unknown] aspirin 81 mg chewable tablet 81 mg PO BREAKFAST #0 tabs 05/07/22 [Rx Last Taken Unknown] atorvastatin 40 mg tablet 40 mg PO QHS #0 tabs 05/07/22 [Rx Last Taken Unknown] acetaminophen 500 mg tablet 1,000 mg PO Q8H PRN 05/28/22 [History Last Taken Unknown] diclofenac sodium 1 % topical gel (Voltaren Arthritis Pain) 2 g topical BID 05/28/22 [History Last Taken Unknown] diltiazem HCl 180 mg capsule,extended release 24 hr 180 mg PO DAILY 05/28/22 [History Last Taken Unknown] dorzolamide 22.3 mg-timolol 6.8 mg/mL eye drops 1 drp EACH EYE BID 05/28/22 [History Last Taken Unknown] ferrous sulfate 325 mg (65 mg iron) tablet 325 mg PO DAILY 05/28/22 [History Last Taken Unknown] lidocaine 4 % topical patch 1 patch topical DAILY 05/28/22 [History Last Taken Unknown] ondansetron 4 mg disintegrating tablet 4 mg PO Q4H PRN PRN Nausea 05/28/22 [History Last Taken Unknown] roflumilast 250 mcg tablet (Daliresp) 250 mcg PO QHS 05/28/22 [History Last Taken Unknown] apixaban 5 mg tablet (Eliquis) 5 mg PO BID #60 tabs 05/30/22 [Rx Last Taken 06/28/22] cephalexin 500 mg capsule 500 mg PO BID #6 caps 05/30/22 [Rx Last Taken Unknown] levetiracetam 500 mg tablet (Keppra) 500 mg PO BID #60 tabs 05/30/22 [Rx Last Taken Unknown] food supplemt, lactose-reduced (Ensure oral liquid) 120 ml PO TID 07/03/22 [History Last Taken Unknown] gabapentin 100 mg tablet 100 mg PO TID 07/03/22 [History Last Taken Unknown] spironolactone 25 mg tablet 25 mg PO BID 07/03/22 [History Last Taken Unknown] tramadol 50 mg tablet 50 mg PO Q6H PRN Pain 07/03/22 [History Last Taken Unknown] Allergy/AdvReac Type Severity Reaction Status Date / Time amoxicillin [From Augmentin] Allergy PT UNABLE Verified 07/03/22 14:56 TO RESPOND-NEEDS F/U clavulanic acid Allergy PT UNABLE Verified 07/03/22 14:56 [From Augmentin] TO RESPOND-NEEDS F/U codeine Allergy PT UNABLE Verified 07/03/22 14:56 TO RESPOND-NEEDS F/U Iodinated Contrast Media Allergy Anaphylaxis Verified 07/03/22 14:56 metronidazole [From Flagyl] Allergy PT UNABLE Verified 07/03/22 14:56 TO RESPOND-NEEDS F/U morphine Allergy PT UNSURE Verified 07/03/22 14:56 OF REACTION oxycodone Allergy PT UNSURE Verified 07/03/22 14:56 OF REACTION ropinirole Allergy PT UNSURE Verified 07/03/22 14:56 OF REACTION acetaminophen [From Vicodin] AdvReac PT UNSURE Verified 07/03/22 14:56 OF REACTION hydrocodone [From Vicodin] AdvReac PT UNSURE Verified 07/03/22 14:56 OF REACTION Family History Mother Alzheimer's dementia Surgical History H/O exploratory laparotomy History of bilateral tubal ligation History of repair of hiatal hernia History of resection of small bowel History of total right hip replacement Hx of cataract surgery S/P carpal tunnel release S/P cholecystectomy Social History housing: [facility] sexually active: No Smoking Status: Former smoker how long ago did patient quit smoking: Quit ~ 13 years prior to current presentation. alcohol intake: never substance use type: does not use ROS ROS ED Review of Systems ROS Unobtainable: due to mental condition and due to mental status EXAM Physical Exam Const Vital Signs: 07/03/22 14:48 07/03/22 14:58 07/03/22 15:04 Temperature 97.2 F L Temperature Source Temporal Pulse Rate 119 H Respiratory Rate 16 Blood Pressure 159/84 H Blood Pressure Mean 109 Pulse Ox 99 66 97 Oxygen Delivery Method Non-Rebreather Room Air Non-Rebreather Oxygen Flow Rate (L/min) 15 15 Fraction of Inspired Oxygen (FIO2) 07/03/22 15:05 07/03/22 15:29 07/03/22 15:32 Temperature Temperature Source Pulse Rate 119 H 132 H 124 H Respiratory Rate 22 H 22 H 24 H Blood Pressure 155/94 H 167/98 H 167/98 H Blood Pressure Mean 114 121 121 Pulse Ox 97 97 100 Oxygen Delivery Method Non-Rebreather Bi-pap Bi-pap Oxygen Flow Rate (L/min) 15 Fraction of Inspired Oxygen (FIO2) 07/03/22 15:25 07/03/22 15:45 07/03/22 16:02 Temperature Temperature Source Pulse Rate 131 H 119 H 111 H Respiratory Rate 14 12 26 H Blood Pressure 158/74 H Blood Pressure Mean 102 Pulse Ox 94 99 99 Oxygen Delivery Method Bi-pap Oxygen Flow Rate (L/min) Fraction of Inspired Oxygen (FIO2) 100 100 07/03/22 16:30 07/03/22 17:00 07/03/22 17:00 Temperature Temperature Source Pulse Rate 112 H 114 H 114 H Respiratory Rate 28 H 16 16 Blood Pressure 140/72 H 116/50 L 116/50 L Blood Pressure Mean 94 72 72 Pulse Ox 99 99 99 Oxygen Delivery Method Bi-pap Bi-pap Bi-pap Oxygen Flow Rate (L/min) Fraction of Inspired Oxygen (FIO2) 07/03/22 17:30 07/03/22 18:00 07/03/22 18:09 Temperature Temperature Source Pulse Rate 110 H 109 H 111 H Respiratory Rate 22 H 22 H 12 Blood Pressure 108/57 L 112/72 Blood Pressure Mean 74 85 Pulse Ox 99 98 98 Oxygen Delivery Method Bi-pap Bi-pap Oxygen Flow Rate (L/min) Fraction of Inspired Oxygen (FIO2) 80 07/03/22 18:30 07/03/22 19:00 Temperature Temperature Source Pulse Rate 107 H 103 H Respiratory Rate 15 18 Blood Pressure 103/67 110/66 Blood Pressure Mean 79 80 Pulse Ox 98 99 Oxygen Delivery Method Bi-pap Bi-pap Oxygen Flow Rate (L/min) Fraction of Inspired Oxygen (FIO2) Positive well nourished, well developed and obese General Appearance ED: well developed Nutritional Appearance: obese Neck no lymphadenopathy and no JVD Resp Auscultation: diminished lung sounds diffuse Cardio regular rhythm Rate: tachycardic GI Palpation: soft Neuro Sensorium / Orientation: stuporous Motor Exam: general weakness Skin no rashes or lesions noted and skin turgor normal Sepsis Attestation Sepsis Alert: Yes Sepsis Attestation: Agree w/Sepsis Possible Source of Sepsis: Genitourinary Sepsis Organ Dysfunction Criteria Present: Acute Respiratory Failure (New need for BiPAP/CPAP or MV) and New/Unexplained change in mental status MDM MDM MDM Narrative Medical decision making narrative: Patient presented with acute symptoms and a last known well of approximately 1 hour prior to arrival. Because of this, stroke order sets were initiated. CT scan of the brain was obtained. There is an old infarct but there is no acute infarct. This was interpreted by the radiologist and reviewed by myself. CTA of the head neck was obtained. There is no large vessel occlusion noted. There are no acute findings. This was interpreted by the radiologist and reviewed by myself. Arterial blood gas was obtained. pH was 6.927, PCO2 was 137.0, PO2 was 214. This was obtained on nonrebreather mask. Patient was started on BiPAP. EKG was obtained. On my interpretation, it showed a sinus tachycardia with a rate of 118. NC interval, QRS interval, and QTc intervals were all normal. [place] was normal. There are no acute ST or T wave changes. Portable 1 view chest x-ray was obtained. On my interpretation, lung hays are clear. There is normal cardiac silhouette. Bony thorax is normal. There is no acute process noted. Radiologist also interpreted the x-ray and agrees. CBC shows a leukocytosis of 16.5. Hemoglobin was 10.6 and hematocrit was 37.7. Platelets were normal. Basic metabolic profile was essentially within normal limits. Glucose was normal at 164. High-sensitivity troponin was normal at 9. PT with INR and PTT were within normal limits. Family was concerned that this could be from a pulmonary embolism. Because of this a D-dimer was ordered. This was elevated at 1.24. CTA of the chest was unable to be performed due to the previous CTA of the head neck. Patient was given a dose of Lovenox. Since the patient was still unresponsive and her stroke work-up was essentially unremarkable, a urinalysis was ordered. There is a leukocyte esterase of 25 with positive nitrites. There is 0-5 white blood cells but there is 3+ bacteria. Urine cultures and blood cultures were ordered. Lactate was ordered and was normal at 1.1. Patient was started on Levaquin and vancomycin. Case was discussed with the hospitalist. He will admit the patient to ICU. Patient's family understood and was agreeable with the plan. All questions were answered. Lab Data Labs: Laboratory Results - last 24 hr 07/03/22 07/03/22 07/03/22 15:00 15:00 15:06 WBC 16.5 H RBC 3.68 L Hgb 10.6 L Hct 37.7 MCV 102.4 H MCH 28.8 MCHC 28.1 L D RDW Std Deviation 61.5 H RDW Coeff of [place] 16.1 H Plt Count 377 MPV 11.5 Immature Gran % (Auto) 0.900 Neut % (Auto) 53.6 Lymph % (Auto) 38.4 [place] % (Auto) 5.2 Eos % (Auto) 1.5 Baso % (Auto) 0.4 Absolute Neuts (auto) 8.9 H Absolute Lymphs (auto) 6.32 H Nucleated RBC % 0 Differential Comment SEE COMMENT Atypical Lymphocytes 2+ Platelet Estimate ADEQUATE RBC Morphology N CHROM Anisocytosis 1+ Macrocytosis 1+ PT INR APTT D-Dimer Quant (PE/DVT) Sodium 145 Potassium 5.1 Chloride 111 H Carbon Dioxide 30.0 Anion Gap 4 L BUN 7 Creatinine 0.59 Estim Creat Clear Calc 48.45 Est GFR (MDRD) Af Amer 131 Est GFR (MDRD) Non-Af 108 BUN/Creatinine Ratio 11.9 Glucose 164 H Lactic Acid Calcium 7.9 L Troponin I High Sens 9 Urine Color Urine Clarity Urine pH Ur Specific [place] Urine Protein Urine Glucose (UA) Urine Ketones Urine Occult Blood Urine Nitrite Urine Bilirubin Urine Urobilinogen Ur Leukocyte Esterase Urine RBC Urine WBC Ur Squamous Epith Cells Urine Bacteria Fine Granular Casts Urine Mucus POC Glucose 162 H 07/03/22 07/03/22 07/03/22 15:10 15:35 15:35 WBC RBC Hgb Hct MCV MCH MCHC RDW Std Deviation RDW Coeff of [place] Plt Count MPV Immature Gran % (Auto) Neut % (Auto) Lymph % (Auto) [place] % (Auto) Eos % (Auto) Baso % (Auto) Absolute Neuts (auto) Absolute Lymphs (auto) Nucleated RBC % Differential Comment Atypical Lymphocytes Platelet Estimate RBC Morphology Anisocytosis Macrocytosis PT Cancelled 15.0 H INR Cancelled 1.2 APTT Cancelled 29.5 D-Dimer Quant (PE/DVT) 1.24 H* Sodium Potassium Chloride Carbon Dioxide Anion Gap BUN Creatinine Estim Creat Clear Calc Est GFR (MDRD) Af Amer Est GFR (MDRD) Non-Af BUN/Creatinine Ratio Glucose Lactic Acid Calcium Troponin I High Sens Urine Color Urine Clarity Urine pH Ur Specific [place] Urine Protein Urine Glucose (UA) Urine Ketones Urine Occult Blood Urine Nitrite Urine Bilirubin Urine Urobilinogen Ur Leukocyte Esterase Urine RBC Urine WBC Ur Squamous Epith Cells Urine Bacteria Fine Granular Casts Urine Mucus POC Glucose 07/03/22 07/03/22 16:20 17:59 WBC RBC Hgb Hct MCV MCH MCHC RDW Std Deviation RDW Coeff of [place] Plt Count MPV Immature Gran % (Auto) Neut % (Auto) Lymph % (Auto) [place] % (Auto) Eos % (Auto) Baso % (Auto) Absolute Neuts (auto) Absolute Lymphs (auto) Nucleated RBC % Differential Comment Atypical Lymphocytes Platelet Estimate RBC Morphology Anisocytosis Macrocytosis PT INR APTT D-Dimer Quant (PE/DVT) Sodium Potassium Chloride Carbon Dioxide Anion Gap BUN Creatinine Estim Creat Clear Calc Est GFR (MDRD) Af Amer Est GFR (MDRD) Non-Af BUN/Creatinine Ratio Glucose Lactic Acid 1.1 Calcium Troponin I High Sens Urine Color Yellow Urine Clarity Clear Urine pH 5.0 Ur Specific [place] 1.020 Urine Protein 30 H Urine Glucose (UA) Normal Urine Ketones Negative Urine Occult Blood 10 H Urine Nitrite Positive H Urine Bilirubin Negative Urine Urobilinogen Normal Ur Leukocyte Esterase 25 H Urine RBC 0-5 SEEN Urine WBC 0-5 SEEN Ur Squamous Epith Cells 0-5 SEEN Urine Bacteria 3+ Fine Granular Casts 5-10 SEEN Urine Mucus 1+ POC Glucose ABG Data ABG results: ABG 07/03/22 15:13 Specimen Type ART Sample Site R Radial pH 6.93 L* Bicarbonate Actual TNP Total CO2 TNP Base Excess TNP O2 Saturation TNP ABG pCO2 > 137.0 H* ABG pO2 214 H Bg Test Positive O2 Delivery Device NRB Crit Call To/Read Back Yes Blood Gas Notified Whom carmen Diaz Diagnostic Testing: Clinical Impression(s) from Imaging Studies Brain CT 07/03/22 15:02 IMPRESSION: 1. There is an old left posterior frontal subcortical infarct. 2. NO acute infarcts. 3. Chronic old left posterior cerebral artery territory infarct. Electronically Signed: Manolo Lagos MD at 15:29 EDT , ADDENDUM: 07/03/22 1543 IMPRESSION: 1. There is an old left posterior frontal subcortical infarct. 2. NO acute infarcts. 3. Chronic old left posterior cerebral artery territory infarct. N.B. : The above Results were Read Back by Manolo Lagos MD to Tereso Cuellar DO, and understanding confirmed on 07/03/2022 15:36:44 (ET). Electronically Signed: Manolo Lagos MD at 15:29 EDT , Head/Neck CTA 07/03/22 15:16 IMPRESSION: 1. There is calcified plaque formation of the right cavernous carotid artery, with a mild stenosis (less than 50%). ALL ABOVE CRITERIA BY NASCET. 2. There is calcified plaque formation of the left cavernous carotid artery, with a mild stenosis (less than 50%). ALL ABOVE CRITERIA BY NASCET. 3. There are no acute findings of the right and left internal carotid artery. ALL ABOVE CRITERIA BY NASCET. Electronically Signed: Manolo Lagos MD at 15:54 EDT , ADDENDUM: 07/03/22 1603 IMPRESSION: 1. There is calcified plaque formation of the right cavernous carotid artery, with a mild stenosis (less than 50%). ALL ABOVE CRITERIA BY NASCET. 2. There is calcified plaque formation of the left cavernous carotid artery, with a mild stenosis (less than 50%). ALL ABOVE CRITERIA BY NASCET. 3. There are no acute findings of the right and left internal carotid artery. ALL ABOVE CRITERIA BY NASCET. N.B. : The above Results were Read Back by Manolo Lagos MD to Tereso Cuellar DO, and understanding confirmed on 07/03/2022 15:56:26 (ET). Electronically Signed: Manolo Lagos MD at 15:54 EDT , Chest X-Ray 07/03/22 15:47 IMPRESSION: There are no acute findings. Electronically Signed: Manolo Lagos MD at 16:00 EDT , EKG Initial EKG: Attestation: I personally reviewed and interpreted this EKG as follows: Interpretation: Sinus Tachycardia (118) and Non-Specific ST Changes Prior EKG tracings: available for review Prior: Unchanged (05/28/2022) Critical Care Time Critical Care Time: Yes Critical care time (excluding procedures): 30-74 minutes (49), Including time spent:, Discussing w/Patient &/or Family/[employer], Discussing w/Consultants, Arranging Admission or Transfer and Performing Direct Patient Care at Bedside Discharge Plan Dx/Rx/DC Orders Clinical Impression: Acute encephalopathy, Unresponsive, Sepsis, Acute UTI Disposition Disposition: [facility] Discharge Date/Time: 07/03/22 21:06
[2022-07-03] MEDS: Enoxaparin 60 MG/0.6 ML Syringe SC (18:12)
[2022-07-03 18:13] LABS: Color, Urine Yellow (Yellow); Glucose, Dipstick Normal (Normal); Ketone-Dipstick Negative (Negative); Leukocyte Esterase-Dipstick 25 /ul (Negative); Nitrite-Dipstick Positive (Negative); Occult Blood-Urine 10 /ul (Negative); Protein-Dipstick 30 mg/dl (Negative); Urine Bilirubin Dipstick Negative (Negative); Urine Clarity Clear (Clear); Urine Urobilinogen Normal (Normal)
[2022-07-03 18:22] LABS: Bacteria 3+ /hpf (None Seen); Fine Granular Cast- Urine 5-10 SEEN /lpf (0-5); Mucous, Urine 1+ /hpf (<or=2+); Red Blood Cells-Urine 0-5 SEEN /hpf (0-5); Squamous Epithelial Cells - UA 0-5 SEEN /hpf (5-10); White Blood Cells 0-5 SEEN /hpf (0-5)
[2022-07-03 19:04] LABS: Lactic Acid 1.1 mmol/L (0.4-1.9)
--- NOTE | 2022-07-03 19:20 | PCM.HP.STD ---
[facility] - General General Date of Admission: 07/03/22 Date of Service: 07/03/22 Chief Complaint: Unresponsiveness HPI Narrative GOLDIE PAIZ, is a 67 F with a significant history of COPD; pulmonary hypertension; atrial fibrillation who presents to the emergency department with unresponsiveness. Patient was recently discharged from our hospital on 05/30/2022 to a detention. One hour before this presentation patient was noted to be unresponsive. At the emergency department stroke work-up was negative. History was taken from emergency department doctor and patient's family who was at bedside. Per family patient has had 2 strokes in the last couple of months. Reportedly patient had blood clots on his heart valve in 2018 and at that time she was unresponsive. The clot at that time was evacuated. Patient's family reported that patient is on Eliquis and that patient has a history of rectal bleeding. [facility] Medical History Anemia Anxiety and depression Atrial fibrillation Chronic anemia Chronic respiratory failure COPD (chronic obstructive pulmonary disease) Crohn's disease Crohn's disease Current use of director long term care anticoagulation [place] syndrome Diastolic CHF Dysphagia Former tobacco use GERD (gastroesophageal reflux disease) History of cerebrovascular accident History of COVID-19 History of deep venous thrombosis or pulmonary embolus Hyperlipemia Hypertension Iron deficiency anemia New onset seizure Parkinsons disease Paroxysmal A-fib Sleep apnea Stroke/cerebrovascular accident Home Medications albuterol 90 mcg/actuation aerosol inhaler 90 mcg inhalation BID 01/30/22 [History Last Taken Unknown] budesonide 3 mg capsule,delayed,extended release 3 mg PO DAILY 01/30/22 [History Last Taken Unknown] cetirizine 10 mg tablet 10 mg PO DAILY 01/30/22 [History Last Taken Unknown] fluticasone fur. 100 mcg-umeclid 62.5 mcg-vilant 25 mcg inhalat.powder (Trelegy Ellipta) 1 inh inhalation DAILY 01/30/22 [History Last Taken Unknown] furosemide 20 mg tablet 20 mg PO DAILY 01/30/22 [History Last Taken Unknown] guaifenesin 600 mg tablet, extended release 12 hr (Mucinex) 600 mg PO BID PRN Nasal Congestion 01/30/22 [History Last Taken Unknown] ipratropium 0.5 mg-albuterol 3 mg (2.5 mg base)/3 mL nebulization soln 3 ml inhalation Q4H PRN SHORTNESS 01/30/22 [History Last Taken Unknown] loperamide 2 mg tablet 2 mg PO Q4H PRN Diarrhea 01/30/22 [History Last Taken Unknown] mesalamine 0.375 gram capsule,extended release 24 hr 1.125 g PO DAILY 01/30/22 [History Last Taken Unknown] metoprolol tartrate 100 mg tablet 50 mg PO Q12H 01/30/22 [History Last Taken Unknown] pantoprazole 40 mg tablet,delayed release 40 mg PO BID 01/30/22 [History Last Taken Unknown] potassium chloride 20 mEq oral packet 40 meq PO QHS 01/30/22 [History Last Taken Unknown] sulfasalazine 500 mg tablet 1,000 mg PO BID 01/30/22 [History Last Taken Unknown] latanoprost 0.005 % eye drops 1 drp EACH EYE QPM 05/05/22 [History Last Taken Unknown] aspirin 81 mg chewable tablet 81 mg PO BREAKFAST #0 tabs 05/07/22 [Rx Last Taken Unknown] atorvastatin 40 mg tablet 40 mg PO QHS #0 tabs 05/07/22 [Rx Last Taken Unknown] acetaminophen 500 mg tablet 1,000 mg PO Q8H PRN 05/28/22 [History Last Taken Unknown] diclofenac sodium 1 % topical gel (Voltaren Arthritis Pain) 2 g topical BID 05/28/22 [History Last Taken Unknown] diltiazem HCl 180 mg capsule,extended release 24 hr 180 mg PO DAILY 05/28/22 [History Last Taken Unknown] dorzolamide 22.3 mg-timolol 6.8 mg/mL eye drops 1 drp EACH EYE BID 05/28/22 [History Last Taken Unknown] ferrous sulfate 325 mg (65 mg iron) tablet 325 mg PO DAILY 05/28/22 [History Last Taken Unknown] lidocaine 4 % topical patch 1 patch topical DAILY 05/28/22 [History Last Taken Unknown] ondansetron 4 mg disintegrating tablet 4 mg PO Q4H PRN PRN Nausea 05/28/22 [History Last Taken Unknown] roflumilast 250 mcg tablet (Daliresp) 250 mcg PO QHS 05/28/22 [History Last Taken Unknown] apixaban 5 mg tablet (Eliquis) 5 mg PO BID #60 tabs 05/30/22 [Rx Last Taken 06/28/22] cephalexin 500 mg capsule 500 mg PO BID #6 caps 05/30/22 [Rx Last Taken Unknown] levetiracetam 500 mg tablet (Keppra) 500 mg PO BID #60 tabs 05/30/22 [Rx Last Taken Unknown] food supplemt, lactose-reduced (Ensure oral liquid) 120 ml PO TID 07/03/22 [History Last Taken Unknown] gabapentin 100 mg tablet 100 mg PO TID 07/03/22 [History Last Taken Unknown] spironolactone 25 mg tablet 25 mg PO BID 07/03/22 [History Last Taken Unknown] tramadol 50 mg tablet 50 mg PO Q6H PRN Pain 07/03/22 [History Last Taken Unknown] Allergy/AdvReac Type Severity Reaction Status Date / Time amoxicillin [From Augmentin] Allergy PT UNABLE Verified 07/03/22 14:56 TO RESPOND-NEEDS F/U clavulanic acid Allergy PT UNABLE Verified 07/03/22 14:56 [From Augmentin] TO RESPOND-NEEDS F/U codeine Allergy PT UNABLE Verified 07/03/22 14:56 TO RESPOND-NEEDS F/U Iodinated Contrast Media Allergy Anaphylaxis Verified 07/03/22 14:56 metronidazole [From Flagyl] Allergy PT UNABLE Verified 07/03/22 14:56 TO RESPOND-NEEDS F/U morphine Allergy PT UNSURE Verified 07/03/22 14:56 OF REACTION oxycodone Allergy PT UNSURE Verified 07/03/22 14:56 OF REACTION ropinirole Allergy PT UNSURE Verified 07/03/22 14:56 OF REACTION acetaminophen [From Vicodin] AdvReac PT UNSURE Verified 07/03/22 14:56 OF REACTION hydrocodone [From Vicodin] AdvReac PT UNSURE Verified 07/03/22 14:56 OF REACTION Family History Mother Alzheimer's dementia Surgical History H/O exploratory laparotomy History of bilateral tubal ligation History of repair of hiatal hernia History of resection of small bowel History of total right hip replacement Hx of cataract surgery S/P carpal tunnel release S/P cholecystectomy Social History housing: detention sexually active: No Smoking Status: Former smoker how long ago did patient quit smoking: Quit ~ 13 years prior to current presentation. alcohol intake: never substance use type: does not use ROS Review of Systems ROS Unobtainable: due to mental status Vital Signs Vital Signs Vital Signs: 07/03/22 14:48 07/03/22 14:58 07/03/22 15:04 Temperature 97.2 F L Temperature Source Temporal Pulse Rate 119 H Respiratory Rate 16 Blood Pressure 159/84 H Blood Pressure Mean 109 Pulse Ox 99 66 97 Oxygen Delivery Method Non-Rebreather Room Air Non-Rebreather Oxygen Flow Rate (L/min) 15 15 Fraction of Inspired Oxygen (FIO2) 07/03/22 15:05 07/03/22 15:29 07/03/22 15:32 Temperature Temperature Source Pulse Rate 119 H 132 H 124 H Respiratory Rate 22 H 22 H 24 H Blood Pressure 155/94 H 167/98 H 167/98 H Blood Pressure Mean 114 121 121 Pulse Ox 97 97 100 Oxygen Delivery Method Non-Rebreather Bi-pap Bi-pap Oxygen Flow Rate (L/min) 15 Fraction of Inspired Oxygen (FIO2) 07/03/22 15:25 07/03/22 15:45 07/03/22 16:02 Temperature Temperature Source Pulse Rate 131 H 119 H 111 H Respiratory Rate 14 12 26 H Blood Pressure 158/74 H Blood Pressure Mean 102 Pulse Ox 94 99 99 Oxygen Delivery Method Bi-pap Oxygen Flow Rate (L/min) Fraction of Inspired Oxygen (FIO2) 100 100 07/03/22 16:30 07/03/22 17:00 07/03/22 17:00 Temperature Temperature Source Pulse Rate 112 H 114 H 114 H Respiratory Rate 28 H 16 16 Blood Pressure 140/72 H 116/50 L 116/50 L Blood Pressure Mean 94 72 72 Pulse Ox 99 99 99 Oxygen Delivery Method Bi-pap Bi-pap Bi-pap Oxygen Flow Rate (L/min) Fraction of Inspired Oxygen (FIO2) 07/03/22 17:30 07/03/22 18:00 07/03/22 18:09 Temperature Temperature Source Pulse Rate 110 H 109 H 111 H Respiratory Rate 22 H 22 H 12 Blood Pressure 108/57 L 112/72 Blood Pressure Mean 74 85 Pulse Ox 99 98 98 Oxygen Delivery Method Bi-pap Bi-pap Oxygen Flow Rate (L/min) Fraction of Inspired Oxygen (FIO2) 80 07/03/22 18:30 Temperature Temperature Source Pulse Rate 107 H Respiratory Rate 15 Blood Pressure 103/67 Blood Pressure Mean 79 Pulse Ox 98 Oxygen Delivery Method Bi-pap Oxygen Flow Rate (L/min) Fraction of Inspired Oxygen (FIO2) Weight Weight: 60 kg Body Mass Index (BMI) 22.0 Physical Exam Narrative Physical exam: General: Well-nourished, well-developed. Head: Normocephalic, atraumatic, no tenderness Eyes: Unresponsive. Does not follow commands to move eyes. ENT, no trauma, moist mucous membranes, no rhinorrhea Neck: Nontender, full range of motion, CVS: Tachycardia. S1-S2 present. No murmur, gallop or rub. Respiratory : On BiPAP. Breath sounds are diminished. B Abdomen: Soft, nontender, nondistended, normal bowel sounds, no masses : Deferred Back: Nontender, no CVA tenderness, no midline spinal tenderness, deformities, step-offs Extremities: Nontender full range of motion, no trauma Skin: Pale, no trauma, abrasions Neuro: Comatose. Grimace and move extremities and head and torso with pain. Pupils react to light . Psychiatry: Comatose. Results Lab / Micro Data Result Diagrams: 07/03/22 15:00 07/03/22 15:00 Labs: Laboratory Results - last 24 hr 07/03/22 15:00: WBC 16.5 H, RBC 3.68 L, Hgb 10.6 L, Hct 37.7, MCV 102.4 H, MCH 28.8, MCHC 28.1 L D, RDW Std Deviation 61.5 H, RDW Coeff of Pascual 16.1 H, Plt Count 377, MPV 11.5, Immature Gran % (Auto) 0.900, Neut % (Auto) 53.6, Lymph % (Auto) 38.4, Power % (Auto) 5.2, Eos % (Auto) 1.5, Baso % (Auto) 0.4, Absolute Neuts (auto) 8.9 H, Absolute Lymphs (auto) 6.32 H, Nucleated RBC % 0, Differential Comment SEE COMMENT, Atypical Lymphocytes 2+, Platelet Estimate ADEQUATE, RBC Morphology N CHROM, Anisocytosis 1+, Macrocytosis 1+ 07/03/22 15:00: Sodium 145, Potassium 5.1, Chloride 111 H, Carbon Dioxide 30.0, Anion Gap 4 L, BUN 7, Creatinine 0.59, Estim Creat Clear Calc 48.45, Est GFR (MDRD) Af Amer 131, Est GFR (MDRD) Non-Af 108, BUN/Creatinine Ratio 11.9, Glucose 164 H, Calcium 7.9 L, Troponin I High Sens 9 07/03/22 15:06: POC Glucose 162 H 07/03/22 15:10: PT Cancelled, INR Cancelled, APTT Cancelled 07/03/22 15:35: PT 15.0 H, INR 1.2, APTT 29.5 07/03/22 15:35: D-Dimer Quant (PE/DVT) 1.24 H* 07/03/22 16:20: Lactic Acid 1.1 07/03/22 17:59: Urine Color Yellow, Urine Clarity Clear, Urine pH 5.0, Ur Specific [place] 1.020, Urine Protein 30 H, Urine Glucose (UA) Normal, Urine Ketones Negative, Urine Occult Blood 10 H, Urine Nitrite Positive H, Urine Bilirubin Negative, Urine Urobilinogen Normal, Ur Leukocyte Esterase 25 H, Urine RBC 0-5 SEEN, Urine WBC 0-5 SEEN, Ur Squamous Epith Cells 0-5 SEEN, Urine Bacteria 3+, Fine Granular Casts 5-10 SEEN, Urine Mucus 1+ ABG Data ABG results: ABG 07/03/22 15:13 Specimen Type ART Sample Site R Radial pH 6.93 L* Bicarbonate Actual TNP Total CO2 TNP Base Excess TNP O2 Saturation TNP ABG pCO2 > 137.0 H* ABG pO2 214 H Bg Test Positive O2 Delivery Device NRB Crit Call To/Read Back Yes Blood Gas Notified Whom carmen Radiology Impression Brain CT 07/03/22 15:02 IMPRESSION: 1. There is an old left posterior frontal subcortical infarct. 2. NO acute infarcts. 3. Chronic old left posterior cerebral artery territory infarct. Electronically Signed: Manolo Lagos MD at 15:29 EDT , ADDENDUM: 07/03/22 1543 IMPRESSION: 1. There is an old left posterior frontal subcortical infarct. 2. NO acute infarcts. 3. Chronic old left posterior cerebral artery territory infarct. N.B. : The above Results were Read Back by Manolo Lagos MD to Tereso Cuellar DO, and understanding confirmed on 07/03/2022 15:36:44 (ET). Electronically Signed: Manolo Lagos MD at 15:29 EDT , Head/Neck CTA 07/03/22 15:16 IMPRESSION: 1. There is calcified plaque formation of the right cavernous carotid artery, with a mild stenosis (less than 50%). ALL ABOVE CRITERIA BY NASCET. 2. There is calcified plaque formation of the left cavernous carotid artery, with a mild stenosis (less than 50%). ALL ABOVE CRITERIA BY NASCET. 3. There are no acute findings of the right and left internal carotid artery. ALL ABOVE CRITERIA BY NASCET. Electronically Signed: Manolo Lagos MD at 15:54 EDT , ADDENDUM: 07/03/22 1603 IMPRESSION: 1. There is calcified plaque formation of the right cavernous carotid artery, with a mild stenosis (less than 50%). ALL ABOVE CRITERIA BY NASCET. 2. There is calcified plaque formation of the left cavernous carotid artery, with a mild stenosis (less than 50%). ALL ABOVE CRITERIA BY NASCET. 3. There are no acute findings of the right and left internal carotid artery. ALL ABOVE CRITERIA BY NASCET. N.B. : The above Results were Read Back by Manolo Lagos MD to Tereso Cuellar DO, and understanding confirmed on 07/03/2022 15:56:26 (ET). Electronically Signed: Manolo Lagos MD at 15:54 EDT , Chest X-Ray 07/03/22 15:47 IMPRESSION: There are no acute findings. Electronically Signed: Manolo Lagos MD at 16:00 EDT , Assessment & Plan Assessment/Plan (1) Unresponsive: (2) Acute encephalopathy: (3) Sepsis: PLAN: Plan The patient presented with sepsis with unknown origin; and with acute sepsis related organ dysfunction as evidenced by acute hypercapnic respiratory failure SIRS criteria: Heart rate more than 90. White count of 16.5 ABG showed a PCO2 of more than 137. Lactic acid is 1.1 Etiology unclear at this time. Although urinalysis is abnormal with positive urine nitrite; urine leukocyte esterase of 25 and urine bacteria of 3+, urine WBC is normal. Chest x-ray was visualized and independently interpreted. I agree with radiologist interpretation of no acute findings. Patient has allergy to penicillins. Patient was started on vancomycin and Levaquin at the emergency department and continued. Trend CBC and BMP. Strep pneumonia and Legionella urine antigen ordered. COVID antigen and flu antigen negative. Blood culture ordered emergency department; follow. Urine culture ordered emergency department, follow-up. Acute COPD exacerbation/acute hypercapnic respiratory failure. Patient is no wheezes. Breath sounds are diminished. Steroids [id number] ordered. Breathing treatment [id number] ordered. Placed on BiPAP at emergency department and continued. Acute encephalopathy. Etiology unclear. Likely secondary to sepsis. Patient on Eliquis. Doubt PE. While encephalopathic and n.p.o. Lovenox ordered. A. fib with RVR. Lovenox as above. On home scheduled p.o. Cardizem and metoprolol. P.o. Cardizem metoprolol held secondary to n.p.o. As needed IV metoprolol ordered. Admit intensive care unit on telemetry. DVT prophylaxis: Eliquis for Lovenox as above. Charges/Coding Visit Charges Inpatient E&M: 80342 Init Hosp L3
--- NOTE | 2022-07-03 19:48 | ED.RN ---
called report to Chayo PELAYO
[2022-07-03] MEDS: levoFLOXacin IV 750 MG/150 ML BAG 100 MG IV (20:39)
--- NOTE | 2022-07-03 21:14 | PCM.RX.CS ---
Consult Pharmacy has been consulted to manage selected antiobiotic: Vancomycin Type of Consult: New start Suspected Infection: Sepsis Prior Doses of Antibiotics Received/Current Regimen: Medications Vancomycin HCl () 500 mg in 100 mls @ 100 mls/hr IV Q12H MALACHI Discontinued Medications Vancomycin HCl 1,500 mg/ (Sodium Chloride) 530 mls @ 250 mls/hr IV X1 ONE Stop: 07/03/22 21:09 Last Admin: 07/03/22 20:39 Dose: 250 mls/hr Labs: Sodium 145 mmol/L (136-145) 07/03/22 15:00 Potassium 5.1 mmol/L (3.5-5.1) 07/03/22 15:00 Chloride 111 mmol/L (98-107) H 07/03/22 15:00 Carbon Dioxide 30.0 mmol/L (21.0-32.0) 07/03/22 15:00 Anion Gap 4 (5-15) L 07/03/22 15:00 BUN 7 mg/dL (7-18) 07/03/22 15:00 Creatinine 0.59 mg/dL (0.55-1.02) 07/03/22 15:00 Est GFR (MDRD) Af Amer 131 mL/min (>60) 07/03/22 15:00 Est GFR (MDRD) Non-Af 108 mL/min (>60) 07/03/22 15:00 BUN/Creatinine Ratio 11.9 RATIO (10-20) 07/03/22 15:00 Glucose 164 mg/dL (74-106) H 07/03/22 15:00 Microbiology: Microbiology 07/03/22 19:50 Nasal Secretion SARS-CoV-2 & FLU Antigen (Rapid) - Final Weight used for dosin kg Estimated Creatinine Clearance: 48 Goal Trough: 15-20 mcg/mL Pharmacy Plan for Drug Dosing: Pharmacy Service will continue to monitor and adjust dosing as required. Follow-Up Labs: Trough Vancomycin Labs to be done on [date and time ordered]: 07/05/22 @0800
--- NOTE | 2022-07-03 21:40 | NURSING ---
Pt arrived to unit, minimally responsive, withdraws from pain; dtr Manju at bedside, reviewed assessment w/her and pt's sister Janette via phone. Family provided emotional support and those not at bedside informed that if pt's condition should change for the worse, then visitation would be readdressed at that time.
[2022-07-03] MEDS: Latanoprost 0.005% 1 Bottle 1 DRP EACH EYE (22:51)
[2022-07-03] MEDS: 0.9% Saline Lock 10 ML Syringe IV (22:52)
[2022-07-03 23:21] LABS: Troponin-I HS 33 pg/mL (3.0-54.0)
--- NOTE | 2022-07-03 23:25 | NURSING ---
Pt visualized on room camera pulling at BiPAP mask; dtr awakened, pt reassessed, extremities warmer, but still slightly mottled; pt does not interact w/this RN or dtr at bedside. Eyes are open, but no blinking to a hand waving in face, corneal reflexes present bilaterally, pt equally withdrawing from pain. Pt placed on O2 via NC at 6L and maintained pulse ox >96%.
--- NOTE | 2022-07-03 23:40 | NURSING ---
Pt placed back on BiPAP, mentation status unchanged, eyes open but not tracking. Educated dtr on importance of continuing BiPAP.
[2022-07-03] MEDS: Ipratropium/Albuterol Sulfate 3 ML AMPUL.NEB INHALATION (23:42)
[2022-07-04] VITALS (33 sets, daily range): BP systolic 91–131; BP diastolic 39–109; PULSE 70–141; RESP 12–34; TEMP 36.2–38.4; O2SAT 93–100
[2022-07-04 03:16] LABS: Allen Test Positive; Base Excess -4 mmol/L (-2 to +2); Bicarbonate 23.1 mmol/L (22-26); Blood Gas Specimen Type ART; FI02 35; O2 Delivery Device BiPAP; PO2 140 mmHG (75-100); RR 12; SITE R Radial; SO2 99 % (95-99); Total Carbon Dioxide 25 mmol/L; Vt 400; pCO2 50.3 mmHg (35-45); pH 7.27 (7.35-7.45)
[2022-07-04] MEDS: Ondansetron 4 MG/2 ML Vial IV ×2 (05:28→21:44)
[2022-07-04] MEDS: 0.9% Saline Lock 10 ML Syringe IV ×2 (05:30→07:56)
[2022-07-04] MEDS: Ketorolac 15 MG/ML Vial IV (05:50)
[2022-07-04 05:51] LABS: Absolute Lymphocyte Count 0.41 X10^3/uL (0.83-4.51); Absolute Neutrophil Count 7.1 X10^3/uL (2.0-7.7); Basophil# 0.01 X10^3/uL; Basophil% 0.1 % (0-1); Hemoglobin 8.7 g/dL (12.0-15.0); Lymphocyte # 0.41 X10^3/ul (0.83-4.51); Lymphocyte % 5.3 % (19-41); Mean Corp Hgb Conc 27.2 g/dL (32-36); Mean Corpuscular Hgb 28.5 pg (27.0-32.0); Mean Corpuscular Volume 104.9 fL (81-99); Mean Platelet Vol. 11.3 fl (6.2-12.0); Monocyte# 0.21 X10^3/uL; Monocyte% 2.7 % (0-10); NRBC Flagged by Analyzer 0 % (0-5); Neutrophil # 7.12 X10^3/uL (2.7-7.7); Neutrophil % 91.3 % (47-70); POSITIVE DIFFERENTIAL YES; Platelet Count 233 K/mm3 (150-450); RBC Distribution Width CV 15.9 % (11.6-14.6); RBC Distribution Width SD 60.7 fl (35.1-43.9); Red Blood Count 3.05 M/mm3 (4.2-5.4); White Blood Count 7.8 K/mm3 (4.4-11.0)
[2022-07-04 06:04] LABS: Differential Indicated SCAN CRITERIA MET
[2022-07-04 06:05] LABS: Anion Gap 7 (5-15); BUN 9 mg/dL (7-18); BUN/Creat Ratio 12.4 RATIO (10-20); Calcium,Total 7.5 mg/dL (8.5-10.1); Chloride 116 mmol/L (98-107); Creatinine, Serum 0.72 mg/dL (0.55-1.02); EST Glomerular Filtration Rate 85 mL/min (>60); Est Glom Filt Rate - Afr Amer 103 mL/min (>60); Estimated Creatinine Clearance 38.68 ml/min; Glucose 114 mg/dL (74-106); Potassium 5.9 mmol/L (3.5-5.1); Sodium Level 148 mmol/L (136-145)
[2022-07-04 06:08] LABS: Anisocytosis 1+; Macrocytosis 1+
[2022-07-04 06:13] LABS: Troponin-I HS 26 pg/mL (3.0-54.0)
[2022-07-04] MEDS: Vancomycin IV 500 MG/100 ML BAG 100 MG IV (07:42)
--- NOTE | 2022-07-04 07:51 | PN.HOSP_ITS ---
Subjective Subjective Follow-up on acute metabolic encephalopathy/acute hypercapnic respiratory failure/acute COPD exacerbation: Patient was seen and examined. She is more awake and oriented x2 but not to time. She complains of pain in her left upper extremity. She has also been shivering a lot. Her temperatures are now up; Jarvis hugger discontinued. She had an episode of nausea, improved with IV Reglan x1. Off Bipap, on 2L oxygen. Objective Data Objective Data Vital Signs: Vital Signs Temp Pulse Resp BP Pulse Ox O2 Del Method O2 Flow Rate 100.6 F H 70 19 H 114/66 95 Nasal Cannula 2 07/04/22 07:00 07/04/22 07:36 07/04/22 07:36 07/04/22 07:00 07/04/22 07:36 07/04/22 07:36 07/04/22 07:36 FiO2 30 07/04/22 04:58 Oxygen Flow Rate (L/min) 2 Oxygen Delivery Method Nasal Cannula Weight: 59.8 kg Body Mass Index (BMI) 25.5 Intake & Output: Intake and Output for Last 24 Hours 07/02/22 07/03/22 07/04/22 23:59 23:59 23:59 Intake Total 905 / 905 Output Total 300 / 300 Balance 905 / 755 -300 / -300 Lab / Micro Data Result Diagrams: 07/04/22 05:00 07/04/22 05:00 Labs: Laboratory Results - last 24 hr 07/03/22 15:00: WBC 16.5 H, RBC 3.68 L, Hgb 10.6 L, Hct 37.7, MCV 102.4 H, MCH 2 8.8, MCHC 28.1 L D, RDW Std Deviation 61.5 H, RDW Coeff of Pascual 16.1 H, Plt Count 377, MPV 11.5, Immature Gran % (Auto) 0.900, Neut % (Auto) 53.6, Lymph % (Auto) 38.4, [place] % (Auto) 5.2, Eos % (Auto) 1.5, Baso % (Auto) 0.4, Absolute Neuts (auto) 8.9 H, Absolute Lymphs (auto) 6.32 H, Nucleated RBC % 0, Differential Comment SEE COMMENT, Atypical Lymphocytes 2+, Platelet Estimate ADEQUATE, RBC Morphology N CHROM, Anisocytosis 1+, Macrocytosis 1+ 07/03/22 15:00: Sodium 145, Potassium 5.1, Chloride 111 H, Carbon Dioxide 30.0, Anion Gap 4 L, BUN 7, Creatinine 0.59, Estim Creat Clear Calc 48.45, Est GFR (MDRD) Af Amer 131, Est GFR (MDRD) Non-Af 108, BUN/Creatinine Ratio 11.9, Glucose 164 H, Calcium 7.9 L, Troponin I High Sens 9 07/03/22 15:06: POC Glucose 162 H 07/03/22 15:10: PT Cancelled, INR Cancelled, APTT Cancelled 07/03/22 15:35: PT 15.0 H, INR 1.2, APTT 29.5 07/03/22 15:35: D-Dimer Quant (PE/DVT) 1.24 H* 07/03/22 16:20: Lactic Acid 1.1 07/03/22 17:59: Urine Color Yellow, Urine Clarity Clear, Urine pH 5.0, Ur Specific [place] 1.020, Urine Protein 30 H, Urine Glucose (UA) Normal, Urine Ketones Negative, Urine Occult Blood 10 H, Urine Nitrite Positive H, Urine Bilirubin Negative, Urine Urobilinogen Normal, Ur Leukocyte Esterase 25 H, Urine RBC 0-5 SEEN, Urine WBC 0-5 SEEN, Ur Squamous Epith Cells 0-5 SEEN, Urine Bacteria 3+, Fine Granular Casts 5-10 SEEN, Urine Mucus 1+ 07/03/22 22:45: Troponin I High Sens 33 07/04/22 05:00: WBC 7.8, RBC 3.05 L, Hgb 8.7 L, Hct 32.0 L, MCV 104.9 H, MCH 28.5, MCHC 27.2 L, RDW Std Deviation 60.7 H, RDW Coeff of [place] 15.9 H, Plt Count 233, MPV 11.3, Immature Gran % (Auto) 0.600, Neut % (Auto) 91.3 H, Lymph % (Auto) 5.3 L, [place] % (Auto) 2.7, Eos % (Auto) 0.0, Baso % (Auto) 0.1, Absolute Neuts (auto) 7.1, Absolute Lymphs (auto) 0.41 L, Nucleated RBC % 0, Anisocytosis 1+, Macrocytosis 1+ 07/04/22 05:00: Sodium 148 H, Potassium 5.9 H, Chloride 116 H, Carbon Dioxide 25.0, Anion Gap 7, BUN 9, Creatinine 0.72, Estim Creat Clear Calc 38.68, Est GFR (MDRD) Af Amer 103, Est GFR (MDRD) Non-Af 85, BUN/Creatinine Ratio 12.4, Glucose 114 H, Calcium 7.5 L 07/04/22 05:00: Troponin I High Sens 26 Micro: Microbiology 07/03/22 22:45 Urine Catheter - Catheter Legionella Antigen - Final 07/03/22 22:45 Urine Catheter - Catheter Streptococcus pneumoniae Antigen (M - Final 07/03/22 19:50 Nasal Secretion SARS-CoV-2 & FLU Antigen (Rapid) - Final ABG Data ABG results: ABG 07/03/22 07/04/22 15:13 03:07 Specimen Type ART ART Sample Site R Radial R Radial pH 6.93 L* 7.27 L Bicarbonate Actual TNP 23.1 Total CO2 TNP 25 Base Excess TNP -4 L O2 Saturation TNP 99 O2 % 35 ABG pCO2 > 137.0 H* 50.3 H ABG pO2 214 H 140 H Bg Test Positive Positive Respiration Rate 12 O2 Delivery Device NRB BiPAP Tidal Volume 400 Crit Call To/Read Back Yes Blood Gas Notified Whom carmen Diaz Diagnostic Testing: Radiology Impression Brain CT 07/03/22 15:02 IMPRESSION: 1. There is an old left posterior frontal subcortical infarct. 2. NO acute infarcts. 3. Chronic old left posterior cerebral artery territory infarct. Electronically Signed: Manolo Lagos MD at 15:29 EDT , ADDENDUM: 07/03/22 1543 IMPRESSION: 1. There is an old left posterior frontal subcortical infarct. 2. NO acute infarcts. 3. Chronic old left posterior cerebral artery territory infarct. N.B. : The above Results were Read Back by Manolo Lagos MD to Tereso Cuellar, DO, and understanding confirmed on 07/03/2022 15:36:44 (ET). Electronically Signed: Manolo Lagos MD at 15:29 EDT , Head/Neck CTA 07/03/22 15:16 IMPRESSION: 1. There is calcified plaque formation of the right cavernous carotid artery, with a mild stenosis (less than 50%). ALL ABOVE CRITERIA BY NASCET. 2. There is calcified plaque formation of the left cavernous carotid artery, with a mild stenosis (less than 50%). ALL ABOVE CRITERIA BY NASCET. 3. There are no acute findings of the right and left internal carotid artery. ALL ABOVE CRITERIA BY NASCET. Electronically Signed: Manolo Lagos MD at 15:54 EDT , ADDENDUM: 07/03/22 1603 IMPRESSION: 1. There is calcified plaque formation of the right cavernous carotid artery, with a mild stenosis (less than 50%). ALL ABOVE CRITERIA BY NASCET. 2. There is calcified plaque formation of the left cavernous carotid artery, with a mild stenosis (less than 50%). ALL ABOVE CRITERIA BY NASCET. 3. There are no acute findings of the right and left internal carotid artery. ALL ABOVE CRITERIA BY NASCET. N.B. : The above Results were Read Back by Manolo Lagos MD to Tereso Cuellar DO, and understanding confirmed on 07/03/2022 15:56:26 (ET). Electronically Signed: Manolo Lagos MD at 15:54 EDT , Chest X-Ray 07/03/22 15:47 IMPRESSION: There are no acute findings. Electronically Signed: Manolo Lagos MD at 16:00 EDT , Physical Exam Narrative Physical exam: General: Alert, Oriented x2, Cooperative, on 2 L of oxygen HEENT: Atraumatic Oral: Moist Mucosa Neck: Supple Lungs: Diminished to auscultation Cardiovascular: HS I+II, regular, no murmurs Abdomen: Bowel Sounds Present, Soft, Non Tender Extremities: No edema, tenderness on palpating the left shoulder Skin: No rashes, No breakdown Neurological: Grossly intact Psych/Mental Status: Appropriate Assessment & Plan Assessment/Plan (1) Acute encephalopathy: PLAN: Plan 1. Acute metabolic encephalopathy secondary to acute hypercapnic respiratory failure, improved Patient is alert oriented x2 Continue to monitor mentation 2. 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 Acute COPD exacerbation, improving Admitting chest x-ray showed no acute infiltrate Rapid COVID-19 antigen and flu antigen negative. Urine streptococcal and Legionella antigen negative Blood cultures are pending 4. Fever, persistent, no source of infection noted. UA is mildly positive but patient denied any UTI symptoms Continue on IV vancomycin and Levaquin for now Follow-up on blood and urine cultures 5. Anemia, macrocytic, anemia of chronic disease, Drop in hemoglobin from 10.6 to 8.7 Repeat blood work, occult blood Folate, TSH, Vitamin B12 Repeat blood am 6. Elevated D-dimer, history of DVT/PE, Eliquis on hold Continue Lovenox therapeutic dose and 7. Dysphagia related to #1, speech therapy consult 8. Hypernatremia secondary dehydration, will trend 9. Hyperkalemia, likely secondary to fluid shifts Will repeat blood work in am 10. Acute left upper extremity pain, will get x-ray of the left shoulder and elbow 11. 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 Parkinson's disease, not on meds 13. Crohn's disease, on sulfasalazine, will resume when able to take po 14. DVT PPx- on therapeutic Lovenox Charges/Coding Visit Charges Inpatient E&M: 82527 Subs Hosp L3
[2022-07-04] MEDS: Metoclopramide 10 MG/2 ML Vial 5 MG IV (07:55)
[2022-07-04] MEDS: Aspirin 300 MG Suppository RC (08:48)
--- NOTE | 2022-07-04 08:55 | RAD_ITS ---
STUDY: X-RAY - LEFT ELBOW REASON FOR EXAM: Female, 67 years old. left upper extremity pain no injury, pt woke up with left arm pain TECHNIQUE: 4 view(s) of the elbow. COMPARISON: None. FINDINGS: Normal visualized humerus, radius and ulna. Normal radiocapitellar and ulnotrochlear articulations. The soft tissue structures are unremarkable. There is no demonstrated fracture. RAD/Elbow min 3 Views IMPRESSION: Normal x-ray examination of the elbow. Electronically Signed: Torito Jennings MD at 10:40 EDT ,
--- NOTE | 2022-07-04 08:55 | RAD_ITS ---
STUDY: X-RAY - LEFT SHOULDER REASON FOR EXAM: Female, 67 years old. Left upper extremity pain TECHNIQUE: 2 view(s) of the shoulder. COMPARISON: Chest x-ray dated July 03, 2022 FINDINGS: There is mild narrowing of the glenohumeral articulation. Normal acromioclavicular joint. Normal acromion. Normal humeral head and visualized proximal humerus. The soft tissue structures are unremarkable. Left chest port noted. Normal visualized pulmonary apex. RAD/Shoulder min 2 Views IMPRESSION: Mild narrowing of the left glenohumeral joint space Electronically Signed: Torito Jennings MD at 10:39 EDT ,
[2022-07-04] MEDS: Enoxaparin 60 MG/0.6 ML Syringe SC ×2 (08:57→21:43)
[2022-07-04] MEDS: Acetaminophen 650 MG Suppository RC ×3 (09:37→21:45)
[2022-07-04] MEDS: Ipratropium/Albuterol Sulfate 3 ML AMPUL.NEB INHALATION (11:05)
[2022-07-04 12:13] LABS: ALB/GLOB Ratio 0.7 RATIO (0.9-2.4); AST(SGOT) 39 U/L (15-37); Alanine Aminotransfer ALT/SGPT 25 U/L (13-56); Albumin, Serum 2.2 g/dL (3.2-5.0); Alkaline Phosphatase 67 U/L (45-117); Anion Gap 11 (5-15); BUN 8 mg/dL (7-18); BUN/Creat Ratio 10.6 RATIO (10-20); Calcium,Total 7.4 mg/dL (8.5-10.1); Chloride 113 mmol/L (98-107); Creatinine, Serum 0.76 mg/dL (0.55-1.02); EST Glomerular Filtration Rate 81 mL/min (>60); Est Glom Filt Rate - Afr Amer 98 mL/min (>60); Estimated Creatinine Clearance 38.68 ml/min; Globulin 3.3 g/dL (2.2-4.2); Glucose 111 mg/dL (74-106); Potassium 5.9 mmol/L (3.5-5.1); Protein, Total 5.5 g/dL (6.4-8.2); Sodium Level 147 mmol/L (136-145); Thyroid Stim Hormone (TSH) 1.16 uIU/mL (0.358-3.74)
[2022-07-04] MEDS: CHLORHEXIDINE GLUC 2% CLOTH 1 EACH TOWELETTE TOPICAL (12:22)
--- NOTE | 2022-07-04 12:41 | CON.PCM.CC_ITS ---
Assessment & Plan Assessment/Plan (1) Acute encephalopathy: PLAN: Plan 1. Acute metabolic encephalopathy secondary to acute hypercapnic respiratory failure, improved Patient is alert oriented x2 Continue to monitor mentation Likely multifactorial including metabolic Need to obtain medication list from intermediate 2. Acute hypercapnic respiratory failure, improved Patient is off BiPAP; currently on 2 L of oxygen Admitted with a PCO2 of 137, managed on BiPAP, PCO2 now is 50.3 Continue with BiPAP for naps and at night Wean off for SPO2 more than 92% Unlikely COPD exacerbation given rapid improvement 3. ? Acute COPD exacerbation, improving Admitting chest x-ray showed no acute infiltrate Rapid COVID-19 antigen and flu antigen negative. Urine streptococcal and Legionella antigen negative Blood cultures are pending 4. Fever, persistent, no source of infection noted. UA is mildly positive but patient denied any UTI symptoms Continue on IV vancomycin and Levaquin for now Follow-up on blood and urine cultures 5. Anemia, macrocytic, anemia of chronic disease, Drop in hemoglobin from 10.6 to 8.7 Repeat blood work, occult blood Folate, TSH, Vitamin B12 Repeat blood am 6. Elevated D-dimer, history of DVT/PE, Eliquis on hold Continue Lovenox therapeutic dose and 7. Dysphagia related to #1, speech therapy consult 8. Hypernatremia secondary dehydration, will trend 9. Hyperkalemia, likely secondary to fluid shifts Will repeat blood work in am 10. Acute left upper extremity pain, will get x-ray of the left shoulder and elbow 11. 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 Parkinson's disease, not on meds 13. Crohn's disease, on sulfasalazine, will resume when able to take po 14. DVT PPx- on therapeutic Lovenox HPI Consult Data Date of Consult: 07/04/22 HPI Narrative Reason for Consultation: Acute encephalopathy with hypercapnic respiratory failure HPI Narrative: GOLDIE PAIZ, is a 67 F with a significant history of COPD; pulmonary hypertension; atrial fibrillation who presents to the emergency department with unresponsiveness.? Patient was recently discharged from our hospital on 05/30/2022 to a half-way. One hour before this presentation patient was noted to be unresponsive.? At the emergency department stroke work-up was negative. Per family patient has had 2 strokes in the last couple of months.? Reportedly patient had blood clots on his heart valve in 2018 and at that time she was unresponsive.? The clot at that time was evacuated. Patient's family reported that patient is on Eliquis and that patient has a hi story of rectal bleeding. Since last night her mental status has certainly improved although she is oriented X 2. 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 Celso syndrome Diastolic CHF Dysphagia Former tobacco use GERD (gastroesophageal reflux disease) History of cerebrovascular accident History of COVID-19 History of deep venous thrombosis or pulmonary embolus Hyperlipemia Hypertension Iron deficiency anemia New onset seizure Parkinsons disease Paroxysmal A-fib Sleep apnea Stroke/cerebrovascular accident Home Medications albuterol 90 mcg/actuation aerosol inhaler 90 mcg inhalation BID 01/30/22 [History Last Taken Unknown] budesonide 3 mg capsule,delayed,extended release 3 mg PO DAILY 01/30/22 [History Last Taken Unknown] cetirizine 10 mg tablet 10 mg PO DAILY 01/30/22 [History Last Taken Unknown] fluticasone fur. 100 mcg-umeclid 62.5 mcg-vilant 25 mcg inhalat.powder (Trelegy Ellipta) 1 inh inhalation DAILY 01/30/22 [History Last Taken Unknown] furosemide 20 mg tablet 20 mg PO DAILY 01/30/22 [History Last Taken Unknown] guaifenesin 600 mg tablet, extended release 12 hr (Mucinex) 600 mg PO BID PRN Nasal Congestion 01/30/22 [History Last Taken Unknown] ipratropium 0.5 mg-albuterol 3 mg (2.5 mg base)/3 mL nebulization soln 3 ml inhalation Q4H PRN SHORTNESS 01/30/22 [History Last Taken Unknown] loperamide 2 mg tablet 2 mg PO Q4H PRN Diarrhea 01/30/22 [History Last Taken Unknown] mesalamine 0.375 gram capsule,extended release 24 hr 1.125 g PO DAILY 01/30/22 [History Last Taken Unknown] metoprolol tartrate 100 mg tablet 50 mg PO Q12H 01/30/22 [History Last Taken Unknown] pantoprazole 40 mg tablet,delayed release 40 mg PO BID 01/30/22 [History Last Taken Unknown] potassium chloride 20 mEq oral packet 40 meq PO QHS 01/30/22 [History Last Taken Unknown] sulfasalazine 500 mg tablet 1,000 mg PO BID 01/30/22 [History Last Taken Unknown] latanoprost 0.005 % eye drops 1 drp EACH EYE QPM 05/05/22 [History Last Taken Unknown] aspirin 81 mg chewable tablet 81 mg PO BREAKFAST #0 tabs 05/07/22 [Rx Last Taken Unknown] atorvastatin 40 mg tablet 40 mg PO QHS #0 tabs 05/07/22 [Rx Last Taken Unknown] acetaminophen 500 mg tablet 1,000 mg PO Q8H PRN 05/28/22 [History Last Taken Unknown] diclofenac sodium 1 % topical gel (Voltaren Arthritis Pain) 2 g topical BID 05/28/22 [History Last Taken Unknown] diltiazem HCl 180 mg capsule,extended release 24 hr 180 mg PO DAILY 05/28/22 [History Last Taken Unknown] dorzolamide 22.3 mg-timolol 6.8 mg/mL eye drops 1 drp EACH EYE BID 05/28/22 [History Last Taken Unknown] ferrous sulfate 325 mg (65 mg iron) tablet 325 mg PO DAILY 05/28/22 [History Last Taken Unknown] lidocaine 4 % topical patch 1 patch topical DAILY 05/28/22 [History Last Taken Unknown] ondansetron 4 mg disintegrating tablet 4 mg PO Q4H PRN PRN Nausea 05/28/22 [History Last Taken Unknown] roflumilast 250 mcg tablet (Daliresp) 250 mcg PO QHS 05/28/22 [History Last Taken Unknown] apixaban 5 mg tablet (Eliquis) 5 mg PO BID #60 tabs 05/30/22 [Rx Last Taken 06/28/22] cephalexin 500 mg capsule 500 mg PO BID #6 caps 05/30/22 [Rx Last Taken Unknown] levetiracetam 500 mg tablet (Keppra) 500 mg PO BID #60 tabs 05/30/22 [Rx Last Taken Unknown] food supplemt, lactose-reduced (Ensure oral liquid) 120 ml PO TID 07/03/22 [Hist ory Last Taken Unknown] gabapentin 100 mg tablet 100 mg PO TID 07/03/22 [History Last Taken Unknown] spironolactone 25 mg tablet 25 mg PO BID 07/03/22 [History Last Taken Unknown] tramadol 50 mg tablet 50 mg PO Q6H PRN Pain 07/03/22 [History Last Taken Unknown] Allergy/AdvReac Type Severity Reaction Status Date / Time amoxicillin [From Augmentin] Allergy PT UNABLE Verified 07/03/22 14:56 TO RESPOND-NEEDS F/U clavulanic acid Allergy PT UNABLE Verified 07/03/22 14:56 [From Augmentin] TO RESPOND-NEEDS F/U codeine Allergy PT UNABLE Verified 07/03/22 14:56 TO RESPOND-NEEDS F/U Iodinated Contrast Media Allergy Anaphylaxis Verified 07/03/22 14:56 metronidazole [From Flagyl] Allergy PT UNABLE Verified 07/03/22 14:56 TO RESPOND-NEEDS F/U morphine Allergy PT UNSURE Verified 07/03/22 14:56 OF REACTION oxycodone Allergy PT UNSURE Verified 07/03/22 14:56 OF REACTION ropinirole Allergy PT UNSURE Verified 07/03/22 14:56 OF REACTION hydrocodone [From Vicodin] AdvReac PT UNSURE Verified 07/03/22 14:56 OF REACTION Family History Mother Alzheimer's dementia Surgical History H/O exploratory laparotomy History of bilateral tubal ligation History of repair of hiatal hernia History of resection of small bowel History of total right hip replacement Hx of cataract surgery S/P carpal tunnel release S/P cholecystectomy Social History housing: half-way sexually active: No Smoking Status: Former smoker how long ago did patient quit smoking: Quit ~ 13 years prior to current presentation. alcohol intake: never substance use type: does not use Physical Exam Narrative Physical exam: General: Alert, Oriented x2, Cooperative, on 2 L of oxygen HEENT: Atraumatic Oral: Moist Mucosa Neck: Supple Lungs: Diminished to auscultation Cardiovascular: HS I+II, regular, no murmurs Abdomen: Bowel Sounds Present, Soft, Non Tender Extremities: No edema, tenderness on palpating the left shoulder Skin: No rashes, No breakdown Neurological: Grossly intact Psych/Mental Status: Appropriate Lab / Micro Data Result Diagrams: 07/04/22 05:00 07/04/22 05:48 Labs: Laboratory Results - last 24 hr 07/03/22 15:00: WBC 16.5 H, RBC 3.68 L, Hgb 10.6 L, Hct 37.7, MCV 102.4 H, MCH 28.8, MCHC 28.1 L D, RDW Std Deviation 61.5 H, RDW Coeff of Pascual 16.1 H, Plt Count 377, MPV 11.5, Immature Gran % (Auto) 0.900, Neut % (Auto) 53.6, Lymph % (Auto) 38.4, [place] % (Auto) 5.2, Eos % (Auto) 1.5, Baso % (Auto) 0.4, Absolute Neuts (auto) 8.9 H, Absolute Lymphs (auto) 6.32 H, Nucleated RBC % 0, Differential Comment SEE COMMENT, Atypical Lymphocytes 2+, Platelet Estimate ADEQUATE, RBC Morphology N CHROM, Anisocytosis 1+, Macrocytosis 1+ 07/03/22 15:00: Sodium 145, Potassium 5.1, Chloride 111 H, Carbon Dioxide 30.0, Anion Gap 4 L, BUN 7, Creatinine 0.59, Estim Creat Clear Calc 48.45, Est GFR (MDRD) Af Amer 131, Est GFR (MDRD) Non-Af 108, BUN/Creatinine Ratio 11.9, Glucose 164 H, Calcium 7.9 L, Troponin I High Sens 9 07/03/22 15:06: POC Glucose 162 H 07/03/22 15:10: PT Cancelled, INR Cancelled, APTT Cancelled 07/03/22 15:35: PT 15.0 H, INR 1.2, APTT 29.5 07/03/22 15:35: D-Dimer Quant (PE/DVT) 1.24 H* 07/03/22 16:20: Lactic Acid 1.1 07/03/22 17:59: Urine Color Yellow, Urine Clarity Clear, Urine pH 5.0, Ur Specific [place] 1.020, Urine Protein 30 H, Urine Glucose (UA) Normal, Urine Ketones Negative, Urine Occult Blood 10 H, Urine Nitrite Positive H, Urine Bilirubin Negative, Urine Urobilinogen Normal, Ur Leukocyte Esterase 25 H, Urine RBC 0-5 SEEN, Urine WBC 0-5 SEEN, Ur Squamous Epith Cells 0-5 SEEN, Urine Bacteria 3+, Fine Granular Casts 5-10 SEEN, Urine Mucus 1+ 07/03/22 22:45: Troponin I High Sens 33 07/04/22 05:00: WBC 7.8, RBC 3.05 L, Hgb 8.7 L, Hct 32.0 L, MCV 104.9 H, MCH 28.5, MCHC 27.2 L, RDW Std Deviation 60.7 H, RDW Coeff of [place] 15.9 H, Plt Count 233, MPV 11.3, Immature Gran % (Auto) 0.600, Neut % (Auto) 91.3 H, Lymph % (Aut o) 5.3 L, [place] % (Auto) 2.7, Eos % (Auto) 0.0, Baso % (Auto) 0.1, Absolute Neuts (auto) 7.1, Absolute Lymphs (auto) 0.41 L, Nucleated RBC % 0, Anisocytosis 1+, Macrocytosis 1+ 07/04/22 05:00: Sodium 148 H, Potassium 5.9 H, Chloride 116 H, Carbon Dioxide 25.0, Anion Gap 7, BUN 9, Creatinine 0.72, Estim Creat Clear Calc 38.68, Est GFR (MDRD) Af Amer 103, Est GFR (MDRD) Non-Af 85, BUN/Creatinine Ratio 12.4, Glucose 114 H, Calcium 7.5 L 07/04/22 05:00: Troponin I High Sens 26 07/04/22 05:48: Sodium 147 H, Potassium 5.9 H, Chloride 113 H, Carbon Dioxide 23.0, Anion Gap 11, BUN 8, Creatinine 0.76, Estim Creat Clear Calc 38.68, Est GFR (MDRD) Af Amer 98, Est GFR (MDRD) Non-Af 81, BUN/Creatinine Ratio 10.6, Glucose 111 H, Calcium 7.4 L, Total Bilirubin 0.20, AST 39 H, ALT 25, Alkaline Phosphatase 67, Total Protein 5.5 L, Albumin 2.2 L, Globulin 3.3, Albumin/Globulin Ratio 0.7 L, Folate 7.60, TSH 1.16 Micro: Microbiology 07/03/22 17:59 Urine, Catheterized Urine Culture - Preliminary GNR lactose tack cleaner 07/03/22 22:45 Urine Catheter - Catheter Legionella Antigen - Final 07/03/22 22:45 Urine Catheter - Catheter Streptococcus pneumoniae Antigen (M - Final 07/03/22 19:50 Nasal Secretion SARS-CoV-2 & FLU Antigen (Rapid) - Final ABG Data ABG results: ABG 07/03/22 07/04/22 15:13 03:07 Specimen Type ART ART Sample Site R Radial R Radial pH 6.93 L* 7.27 L Bicarbonate Actual TNP 23.1 Total CO2 TNP 25 Base Excess TNP -4 L O2 Saturation TNP 99 O2 % 35 ABG pCO2 > 137.0 H* 50.3 H ABG pO2 214 H 140 H Bg Test Positive Positive Respiration Rate 12 O2 Delivery Device NRB BiPAP Tidal Volume 400 Crit Call To/Read Back Yes Blood Gas Notified Whom carmen Radiology Impression Brain CT 07/03/22 15:02 IMPRESSION: 1. There is an old left posterior frontal subcortical infarct. 2. NO acute infarcts. 3. Chronic old left posterior cerebral artery territory infarct. Electronically Signed: Manolo Lagos MD at 15:29 EDT , ADDENDUM: 07/03/22 1543 IMPRESSION: 1. There is an old left posterior frontal subcortical infarct. 2. NO acute infarcts. 3. Chronic old left posterior cerebral artery territory infarct. N.B. : The above Results were Read Back by Manolo Lagos MD to Tereso Cuellar, , and understanding confirmed on 07/03/2022 15:36:44 (ET). Electronically Signed: Manolo Lagos MD at 15:29 EDT , Head/Neck CTA 07/03/22 15:16 IMPRESSION: 1. There is calcified plaque formation of the right cavernous carotid artery, with a mild stenosis (less than 50%). ALL ABOVE CRITERIA BY NASCET. 2. There is calcified plaque formation of the left cavernous carotid artery, with a mild stenosis (less than 50%). ALL ABOVE CRITERIA BY NASCET. 3. There are no acute findings of the right and left internal carotid artery. ALL ABOVE CRITERIA BY NASCET. Electronically Signed: Manolo Lagos MD at 15:54 EDT , ADDENDUM: 07/03/22 1603 IMPRESSION: 1. There is calcified plaque formation of the right cavernous carotid artery, with a mild stenosis (less than 50%). ALL ABOVE CRITERIA BY NASCET. 2. There is calcified plaque formation of the left cavernous carotid artery, with a mild stenosis (less than 50%). ALL ABOVE CRITERIA BY NASCET. 3. There are no acute findings of the right and left internal carotid artery. ALL ABOVE CRITERIA BY NASCET. N.B. : The above Results were Read Back by Manolo Lagos MD to Tereso Cuellar DO, and understanding confirmed on 07/03/2022 15:56:26 (ET). Electronically Signed: Manolo Lagos MD at 15:54 EDT , Chest X-Ray 07/03/22 15:47 IMPRESSION: There are no acute findings. Electronically Signed: Manolo Lagos MD at 16:00 EDT , Elbow X-Ray 07/04/22 08:55 IMPRESSION: Normal x-ray examination of the elbow. Electronically Signed: Torito Jennings MD at 10:40 EDT , Shoulder X-Ray 07/04/22 08:55 IMPRESSION: Mild narrowing of the left glenohumeral joint space Electronically Signed: Torito Jennings MD at 10:39 EDT , Charges/Coding Visit Charges Office Visits / Consults: 13451 IP Consult L5
[2022-07-04] MEDS: dilTIAZem 30 MG Tablet PO ×3 (14:25→23:09)
[2022-07-04 17:11] LABS: Hematocrit 26.2 % (37-47); Hemoglobin 7.5 g/dL (12.0-15.0)
[2022-07-04] MEDS: Latanoprost 0.005% 1 Bottle 1 DRP EACH EYE (21:43)
[2022-07-04] MEDS: Metoprolol Tartrate 5 MG/5 ML Vial 2.5 MG IV (21:45)
[2022-07-05] VITALS (27 sets, daily range): BP systolic 116–141; BP diastolic 44–96; PULSE 102–171; RESP 12–26; TEMP 36.9–37.9; O2SAT 92–100
[2022-07-05] MEDS: 0.9% Saline Lock 10 ML Syringe IV ×3 (05:01→22:10)
[2022-07-05] MEDS: Acetaminophen 650 MG Suppository RC (05:02)
[2022-07-05] MEDS: dilTIAZem 30 MG Tablet PO ×4 (05:03→23:23)
[2022-07-05 05:11] LABS: Absolute Lymphocyte Count 0.53 X10^3/uL (0.83-4.51); Absolute Neutrophil Count 7.8 X10^3/uL (2.0-7.7); Hematocrit 25.7 % (37-47); Hemoglobin 7.4 g/dL (12.0-15.0); Lymphocyte # 0.53 X10^3/ul (0.83-4.51); Lymphocyte % 6.1 % (19-41); Mean Corp Hgb Conc 28.8 g/dL (32-36); Mean Corpuscular Volume 100.8 fL (81-99); Mean Platelet Vol. 11.4 fl (6.2-12.0); Monocyte# 0.31 X10^3/uL; Monocyte% 3.5 % (0-10); NRBC Flagged by Analyzer 0 % (0-5); Neutrophil # 7.84 X10^3/uL (2.7-7.7); Neutrophil % 89.7 % (47-70); POSITIVE DIFFERENTIAL YES; Platelet Count 198 K/mm3 (150-450); RBC Distribution Width SD 59.2 fl (35.1-43.9); Red Blood Count 2.55 M/mm3 (4.2-5.4); White Blood Count 8.7 K/mm3 (4.4-11.0)
[2022-07-05 05:42] LABS: Differential Indicated SCAN CRITERIA MET
[2022-07-05 05:50] LABS: ALB/GLOB Ratio 0.6 RATIO (0.9-2.4); AST(SGOT) 22 U/L (15-37); Alanine Aminotransfer ALT/SGPT 19 U/L (13-56); Alkaline Phosphatase 50 U/L (45-117); Anion Gap 8 (5-15); BUN 9 mg/dL (7-18); Chloride 111 mmol/L (98-107); Creatinine, Serum 0.64 mg/dL (0.55-1.02); EST Glomerular Filtration Rate 97 mL/min (>60); Est Glom Filt Rate - Afr Amer 118 mL/min (>60); Estimated Creatinine Clearance 38.68 ml/min; Globulin 3.2 g/dL (2.2-4.2); Glucose 114 mg/dL (74-106); Potassium 3.7 mmol/L (3.5-5.1); Protein, Total 5.2 g/dL (6.4-8.2); Sodium Level 143 mmol/L (136-145)
[2022-07-05 06:22] LABS: Differential Comment SCANNED
--- NOTE | 2022-07-05 06:26 | PN.CC_ITS ---
Assessment & Plan Assessment/Plan (1) Acute encephalopathy: PLAN: Plan Assessment: 1. Hypercarbic encephalopathy 2. Acute on chronic respiratory failure 3. Pansensitive Klebsiella urinary tract infection 4. Acute on chronic anemia 5. COPD of unknown severity 6. History of Parkinson's disease 7. Recent CVA, seizure disorder Plan: 1. Continue antimicrobials based upon sensitivities to complete 7 days of therapy. 2. Continue bronchodilators as ordered. 3. Continue steroids, with tentative plans for prednisone taper at discharge. 4. Continue Keppra as ordered. 5. Continue to wean oxygen for saturations greater than 90%. 6. Encourage incentive spirometer use and mobilize patient as tolerated. 7. Continue PPI therapy. Continue to monitor H&H and transfuse if hemoglobin is less than 7 g/dL. 8. Okay for transfer out of the intensive care unit. This note was generated with [employer] dictation software. It may contain incorrect words, spelling, and punctuation that were not noted in checking the note before signing. Subjective Subjective The patient was seen and examined at the bedside this morning. Events from the last 24 hours have been reviewed. The patient currently has a low-grade fever and remains hemodynamically stable on 2 L/min via nasal cannula. Hemoglobin is stable at 7.4 g/dL. The patient does report some shortness of breath at rest but denies any coughing. Objective Data Objective Data The patient's most recent lab work, culture data and imaging studies have all been personally reviewed. 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 Vital Signs: Vital Signs Temp Pulse Resp BP Pulse Ox O2 Del Method O2 Flow Rate 100.1 F H 102 H 18 134/84 H 99 Nasal Cannula 2 07/05/22 06:00 07/05/22 06:00 07/05/22 06:00 07/05/22 06:00 07/05/22 06:00 07/05/22 06:00 07/05/22 06:00 FiO2 30 07/05/22 02:00 Oxygen Flow Rate (L/min) 2 Oxygen Delivery Method Nasal Cannula Weight: 133 lb 9.602 oz Body Mass Index (BMI) 25.5 Intake & Output: Intake and Output for Last 24 Hours 07/03/22 07/04/22 07/05/22 23:59 23:59 23:59 Intake Total 905 / 905 912.5 / 1112.5 350 / 350 Output Total 900 / 1200 700 / 700 Balance 905 / 755 12.5 / -87.5 -350 / -350 Lab / Micro Data Attestation: I reviewed the patient's lab results. Result Diagrams: 07/05/22 04:55 07/05/22 04:55 Labs: Laboratory Results - last 24 hr 07/04/22 05:48: Sodium 147 H, Potassium 5.9 H, Chloride 113 H, Carbon Dioxide 23.0, Anion Gap 11, BUN 8, Creatinine 0.76, Estim Creat Clear Calc 38.68, Est GFR (MDRD) Af Amer 98, Est GFR (MDRD) Non-Af 81, BUN/Creatinine Ratio 10.6, Glucose 111 H, Calcium 7.4 L, Total Bilirubin 0.20, AST 39 H, ALT 25, Alkaline Phosphatase 67, Total Protein 5.5 L, Albumin 2.2 L, Globulin 3.3, Albumin/Globulin Ratio 0.7 L, Folate 7.60, TSH 1.16 07/04/22 17:00: Hgb 7.5 L, Hct 26.2 L 07/05/22 04:55: WBC 8.7, RBC 2.55 L, Hgb 7.4 L, Hct 25.7 L, MCV 100.8 H, MCH 29.0, MCHC 28.8 L D, RDW Std Deviation 59.2 H, RDW Coeff of Pascual 16.0 H, Plt Count 198, MPV 11.4, Immature Gran % (Auto) 0.700, Neut % (Auto) 89.7 H, Lymph % (Auto) 6.1 L, [place] % (Auto) 3.5, Eos % (Auto) 0.0, Baso % (Auto) 0.0, Absolute Neuts (auto) 7.8 H, Absolute Lymphs (auto) 0.53 L, Nucleated RBC % 0, Differential Comment SCANNED 07/05/22 04:55: Sodium 143, Potassium 3.7, Chloride 111 H, Carbon Dioxide 24.0, Anion Gap 8, BUN 9, Creatinine 0.64, Estim Creat Clear Calc 38.68, Est GFR (MDRD) Af Amer 118, Est GFR (MDRD) Non-Af 97, BUN/Creatinine Ratio 14.0, Glucose 114 H, Calcium 7.0 L, Total Bilirubin 0.20, AST 22, ALT 19, Alkaline Phosphatase 50, Total Protein 5.2 L, Albumin 2.0 L, Globulin 3.2, Albumin/Globulin Ratio 0.6 L Micro: Microbiology 07/04/22 15:15 Stool Stool Occult Blood (WILLEM) - Final Occult Blood Positive 07/03/22 17:59 Urine, Catheterized Urine Culture - Preliminary GNR lactose senior software engineer analytics 07/03/22 22:45 Urine Catheter - Catheter Legionella Antigen - Final 07/03/22 22:45 Urine Catheter - Catheter Streptococcus pneumoniae Antigen (M - Final 07/03/22 19:50 Nasal Secretion SARS-CoV-2 & FLU Antigen (Rapid) - Final Radiography Diagnostic Testing: Radiology Impression Elbow X-Ray 07/04/22 08:55 IMPRESSION: Normal x-ray examination of the elbow. Electronically Signed: Torito Jennings MD at 10:40 EDT , Shoulder X-Ray 07/04/22 08:55 IMPRESSION: Mild narrowing of the left glenohumeral joint space Electronically Signed: Torito Jennings MD at 10:39 EDT , Physical Exam Const alert and no apparent distress General Appearance: cooperative HEENT normocephalic and head/scalp atraumatic Eyes PERRL, EOMs intact bilaterally and conjunctivae normal Neck supple General: trachea midline Chest inspection of chest normal Resp normal respiratory effort Auscultation: diminished lung sounds; Negative for rales, rhonchi or wheezes Cardio regular rate, regular rhythm and no murmurs GI normal to inspection, nondistended, normoactive bowel sounds Extremity no clubbing, cyanosis or edema Skin no rashes or lesions noted Neuro CN's II-XII intact bilaterally and no focal motor deficits Neuro Narrative: Tremulous. Psych cooperative and affect normal Charges/Coding Visit Charges Inpatient E&M: 44100 Subs Hosp L3
[2022-07-05] MEDS: Ipratropium/Albuterol Sulfate 3 ML AMPUL.NEB INHALATION ×3 (06:47→19:02)
--- NOTE | 2022-07-05 07:17 | PCM.PN.HOSP ---
Subjective Subjective Ms. Norris is a 67y/o F who [facility] being unresponsive. Overnight she has had variable HR in the low 100's and remains mildly confused. Per report she is tolerating her current diet. This AM she is A&O x1. Reports frequent headaches though denies one at this time. Endorses she is tired but has been eating and feels she is doing well with that. She is unsure if her current tremors are at baseline. She has had small BMs, reports some intermittent nausea but no reported vomiting. Intermittently feels SOB when talking or moving around in bed but feels better on current 3.5L NC. Denies other complains this AM. Pt denies changes in vision, denies overt productive cough, denies changes in bowel or bladder, denies difficulty with limb movement, slight chest discomfort if she coughs but denies any chest pain otherwise. Objective Data Objective Data Vital Signs: Vital Signs Temp Pulse Resp BP Pulse Ox O2 Del Method O2 Flow Rate 100.0 F H 107 H 19 H 129/81 H 100 Nasal Cannula 2 07/05/22 07:00 07/05/22 07:00 07/05/22 07:00 07/05/22 07:00 07/05/22 07:00 07/05/22 07:00 07/05/22 07:00 FiO2 30 07/05/22 02:00 Oxygen Flow Rate (L/min) 2 Oxygen Delivery Method Nasal Cannula Weight: 60.6 kg Body Mass Index (BMI) 25.5 Intake & Output: Intake and Output for Last 24 Hours 07/03/22 07/04/22 07/05/22 23:59 23:59 23:59 Intake Total 905 / 905 912.5 / 1112.5 350 / 350 Output Total 900 / 1200 700 / 700 Balance 905 / 755 12.5 / -87.5 -350 / -350 Lab / Micro Data Result Diagrams: 07/05/22 04:55 07/05/22 04:55 Labs: Laboratory Results - last 24 hr 07/04/22 05:48: Sodium 147 H, Potassium 5.9 H, Chloride 113 H, Carbon Dioxide 23.0, Anion Gap 11, BUN 8, Creatinine 0.76, Estim Creat Clear Calc 38.68, Est GFR (MDRD) Af Amer 98, Est GFR (MDRD) Non-Af 81, BUN/Creatinine Ratio 10.6, Glucose 111 H, Calcium 7.4 L, Total Bilirubin 0.20, AST 39 H, ALT 25, Alkaline Phosphatase 67, Total Protein 5.5 L, Albumin 2.2 L, Globulin 3.3, Albumin/Globulin Ratio 0.7 L, Folate 7.60, TSH 1.16 07/04/22 17:00: Hgb 7.5 L, Hct 26.2 L 07/05/22 04:55: WBC 8.7, RBC 2.55 L, Hgb 7.4 L, Hct 25.7 L, MCV 100.8 H, MCH 29.0, MCHC 28.8 L D, RDW Std Deviation 59.2 H, RDW Coeff of Pascual 16.0 H, Plt Count 198, MPV 11.4, Immature Gran % (Auto) 0.700, Neut % (Auto) 89.7 H, Lymph % (Auto) 6.1 L, [place] % (Auto) 3.5, Eos % (Auto) 0.0, Baso % (Auto) 0.0, Absolute Neuts (auto) 7.8 H, Absolute Lymphs (auto) 0.53 L, Nucleated RBC % 0, Differential Comment SCANNED 07/05/22 04:55: Sodium 143, Potassium 3.7, Chloride 111 H, Carbon Dioxide 24.0, Anion Gap 8, BUN 9, Creatinine 0.64, Estim Creat Clear Calc 38.68, Est GFR (MDRD) Af Amer 118, Est GFR (MDRD) Non-Af 97, BUN/Creatinine Ratio 14.0, Glucose 114 H, Calcium 7.0 L, Total Bilirubin 0.20, AST 22, ALT 19, Alkaline Phosphatase 50, Total Protein 5.2 L, Albumin 2.0 L, Globulin 3.2, Albumin/Globulin Ratio 0.6 L Micro: Microbiology 07/04/22 15:15 Stool Stool Occult Blood ([facility]LEM) - Final Occult Blood Positive 07/03/22 17:59 Urine, Catheterized Urine Culture - Preliminary GNR 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 Electronically Signed: Torito Jennings MD at 10:40 EDT , Shoulder X-Ray 07/04/22 08:55 IMPRESSION: Mild narrowing of the left glenohumeral joint space Electronically Signed: Torito Jennings MD at 10:39 EDT , Physical Exam Const alert Constitutional Narrative: oriented x1 to person, somewhat confused on place and time but was aware she was in a hospital, cooperative HEENT HEENT Narrative: poor dentition Eyes Eyes Narrative: Had difficulty following finger for EOM evaluation but no overt nystagmus or palsys Neck supple Resp normal respiratory effort and no retractions Resp Narrative: Slightly diminished at the bases Cardio Cardio Narrative: Mildly tachy, normal rhythm overall GI GI Narrative: nondistended, no rebound, guarding, rigidity Extremity Extremity Narrative: 1+ BLE pitting edema to shins Neuro Neuro Narrative: Tremor noted bilaterally, worse in hands with both movement and rest Difficulty with finger to nose bilaterally with tremor Able to follow commands Alert to self and that she is in the hospital Psych Psych Narrative: Cooperative Assessment & Plan Assessment/Plan (1) Acute encephalopathy: PLAN: Plan 1. Acute metabolic encephalopathy secondary to acute hypercapnic respiratory failure but likely with additional confounding factors, improving Patient is alert and oriented to self and that she is in the hospital but had difficulty with the city and year Continue to monitor mentation Will attempt to discuss with family today to establish baseline PCO2 improved to 50.3 from 137 Likely also component of UTI- ucx + for klebsiella On zosyn, will continue at this time s/p vanc CT on admission demonstrated previous infarcts EEG obtained and demonstrated L temporal periodic discharges Has hx of seizures and is on keppra neuro was consulted and increased keppra to 750mg BID and repeat EEG recommended for today This has been ordered, will f/u 2. Acute hypercapnic respiratory failure secondary to acute COPD exacerbation, improved Patient is off BiPAP; currently on 3.5 L of oxygen with Sat 98%, wean as tolerated CXR on admission w/ no acute infiltrate Rapid COVID-19 antigen and flu antigen negative. Urine streptococcal and Legionella antigen negative Admitted with a PCO2 of 137, managed on BiPAP, PCO2 trended down to 50.3 Wean off for SPO2 more than 92% Ok w/ ICU team to tx out- tx order to PCU entered 3. Hx of afib Eliquis held and pt on full dose lovenox d/t her afib Given downtrending hgb, FOBT +, and need for EGD will hold lovenox at this time Does not appear to have an indication that requires heparin bridge SCDs for dvt ppx at this time Restart AC when able On cardizem 30mg q6hr 5. Fever, persistent UA is mildly positive but patient denied any UTI symptoms though Ucx + for klebsiella and pt is improving on abx Continue zosyn 5. Acute on chronic Anemia, macrocytic Likely component of chronic disease but hbg also downtrending further and occult blood in stool positive Drop in hemoglobin from 10.6 to 8.7 and continues to downtrend, today 7.4 Occult blood + Does have known hx of IBD Vitamin B12 pending GI consulted Ultimately would benefit from colonoscopy but likely cannot tolerate prep Will have upper endoscopy per GI GI rec CT abd/pelvis as well as ESR, CRP, fecal calprotectin, and stool lactoferrin Continue PPI Transfuse if hgb <7 Will hold full dose AC at this time given bleed and pending upper endoscopy 6. 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 Dysphagia related to #1, speech therapy consult Reportedly tolerating PO 8. Hypernatremia secondary dehydration, resolved 9. Hyperkalemia, resolved 10. Acute left upper extremity pain XR with OA noted Pt not reporting pain today On tramadol at home per documentation- continue to hold given mental status and comorbidities Continue atorvastatin 11. 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 Parkinson's disease, not on meds 13. Crohn's disease, on sulfasalazine, will resume when able to take po On stress dose steroids- chronically on budesonide 14. DVT PPx- SCDs Additional Prolonged Billing Time: An additional 55 minutes was preformed above the daily [id number] 35 minute progress note evaluation to discuss results with family, review results, and alternate interventions/treatments. Billing code: [id number] Yesenia Lomas MD Charges/Coding Multi Select Codes Visit Charges Visit Charges: 31250 Subs Hosp Hospitalists' Procedures Procedures: 56319 Prolonged InPt Service; first hour
[2022-07-05] MEDS: Metoprolol Tartrate 5 MG/5 ML Vial 2.5 MG IV ×2 (08:02→16:30)
[2022-07-05 09:18] LABS: Vitamin B12 447 pg/mL (211-911)
[2022-07-05] MEDS: Enoxaparin 60 MG/0.6 ML Syringe SC (10:17)
[2022-07-05] MEDS: Aspirin 81 MG TAB.CHEW PO (10:17)
--- NOTE | 2022-07-05 11:41 | CASEMGMT ---
Discharge Hemodialysis Patient Care Specialist This insurance underwriter sent a patient update to Tawny at [place]. Plan: Kami Becker Discharge Hemodialysis Patient Care Specialist
--- NOTE | 2022-07-05 11:45 | CON.PCM_ITS ---
Assessment & Plan Assessment/Plan (1) Crohn's disease: PLAN: I think it is reasonable to get a CT scan of abdomen pelvis along with an ESR, CRP, fecal calprotectin, stool lactoferrin in order to evaluate her Crohn's disease. I do not think she can tolerate a prep at this time and she is currently being treated with mesalamine and budesonide for a few. Her recent stool studies were negative for C. difficile (2) Anemia: PLAN: She should undergo an upper endoscopy to evaluate upper GI tract for acute on chronic blood loss anemia. And possibly colonoscopy in the future. Patient is okay with undergoing upper endoscopy. She was explained alternatives, risk, benefits include not withstanding bleeding, infection, sepsis, perforation, need for emergent . She will have an ASA of 3. HPI Consult Data Date of Consult: 07/05/22 HPI Narrative Reason for Consultation: anemia HPI Narrative: GOLDIE PAIZ, is a 67 F who [facility] with [facility] status. She was discovered to have urosepsis and is currently in ICU.? She has a past medical history of COPD on 4 L of oxygen, Crohn's disease status post ileocolonic resection on mesalamine therapy.? She also has a past medical history of paroxysmal atrial fibrillation on anticoagulation and iron deficiency anemia.? She did admit to some blood in her stool but she is convinced it is from her hemorrhoids that have been treated in past with banding procedures.? Her abdominal pain is a lot better since being started on antisuppressive therapy and antisecretory therapy.? She is tolerating a diet.? I was called to see her due to the fact that she had blood in her stool and a hemoglobin of 7.4..? Initially when she came to the hospital her hemoglobin was 9.2, white blood cell count of 10.6, platelet count of 467.? Her hemoglobin dropped down to 6.8 this morning.? In the hospital emergency room she had a CT scan abdomen pelvis that showed no acute evidence of intra-abdominal pathology.? There were multiple surgeries seen because of the presence of clips and a right upper quadrant and right lower quadrant. [facility] Medical History (Updated 07/05/22 @ 11:[address] Alegre Friend, DO) Anemia Anxiety and depression Atrial fibrillation Chronic anemia Chronic respiratory failure COPD (chronic obstructive pulmonary disease) Crohn's disease Crohn's disease Current use of senior living anticoagulation Dyess syndrome Diastolic CHF Dysphagia Former tobacco use GERD (gastroesophageal reflux disease) History of cerebrovascular accident History of COVID-19 History of deep venous thrombosis or pulmonary embolus Hyperlipemia Hypertension Iron deficiency anemia New onset seizure Parkinsons disease Paroxysmal A-fib Sleep apnea Stroke/cerebrovascular accident Home Medications albuterol 90 mcg/actuation aerosol inhaler 90 mcg inhalation BID 01/30/22 [H istory Last Taken Unknown] budesonide 3 mg capsule,delayed,extended release 3 mg PO DAILY 01/30/22 [History Last Taken Unknown] cetirizine 10 mg tablet 10 mg PO DAILY 01/30/22 [History Last Taken Unknown] fluticasone fur. 100 mcg-umeclid 62.5 mcg-vilant 25 mcg inhalat.powder (Trelegy Ellipta) 1 inh inhalation DAILY 01/30/22 [History Last Taken Unknown] furosemide 20 mg tablet 20 mg PO DAILY 01/30/22 [History Last Taken Unknown] guaifenesin 600 mg tablet, extended release 12 hr (Mucinex) 600 mg PO BID PRN Nasal Congestion 01/30/22 [History Last Taken Unknown] ipratropium 0.5 mg-albuterol 3 mg (2.5 mg base)/3 mL nebulization soln 3 ml inhalation Q4H PRN SHORTNESS 01/30/22 [History Last Taken Unknown] loperamide 2 mg tablet 2 mg PO Q4H PRN Diarrhea 01/30/22 [History Last Taken Unknown] mesalamine 0.375 gram capsule,extended release 24 hr 1.125 g PO DAILY 01/30/22 [History Last Taken Unknown] metoprolol tartrate 100 mg tablet 50 mg PO Q12H 01/30/22 [History Last Taken Unknown] pantoprazole 40 mg tablet,delayed release 40 mg PO BID 01/30/22 [History Last Taken Unknown] potassium chloride 20 mEq oral packet 40 meq PO QHS 01/30/22 [History Last Taken Unknown] sulfasalazine 500 mg tablet 1,000 mg PO BID 01/30/22 [History Last Taken Unknown] latanoprost 0.005 % eye drops 1 drp EACH EYE QPM 05/05/22 [History Last Taken Unknown] aspirin 81 mg chewable tablet 81 mg PO BREAKFAST #0 tabs 05/07/22 [Rx Last Taken Unknown] atorvastatin 40 mg tablet 40 mg PO QHS #0 tabs 05/07/22 [Rx Last Taken Unknown] acetaminophen 500 mg tablet 1,000 mg PO Q8H PRN 05/28/22 [History Last Taken Unknown] diclofenac sodium 1 % topical gel (Voltaren Arthritis Pain) 2 g topical BID 05/28/22 [History Last Taken Unknown] diltiazem HCl 180 mg capsule,extended release 24 hr 180 mg PO DAILY 05/28/22 [History Last Taken Unknown] dorzolamide 22.3 mg-timolol 6.8 mg/mL eye drops 1 drp EACH EYE BID 05/28/22 [History Last Taken Unknown] ferrous sulfate 325 mg (65 mg iron) tablet 325 mg PO DAILY 05/28/22 [History La st Taken Unknown] lidocaine 4 % topical patch 1 patch topical DAILY 05/28/22 [History Last Taken Unknown] ondansetron 4 mg disintegrating tablet 4 mg PO Q4H PRN PRN Nausea 05/28/22 [History Last Taken Unknown] roflumilast 250 mcg tablet (Daliresp) 250 mcg PO QHS 05/28/22 [History Last Taken Unknown] apixaban 5 mg tablet (Eliquis) 5 mg PO BID #60 tabs 05/30/22 [Rx Last Taken 06/28/22] cephalexin 500 mg capsule 500 mg PO BID #6 caps 05/30/22 [Rx Last Taken Unknown] levetiracetam 500 mg tablet (Keppra) 500 mg PO BID #60 tabs 05/30/22 [Rx Last Taken Unknown] food supplemt, lactose-reduced (Ensure oral liquid) 120 ml PO TID 07/03/22 [History Last Taken Unknown] gabapentin 100 mg tablet 100 mg PO TID 07/03/22 [History Last Taken Unknown] spironolactone 25 mg tablet 25 mg PO BID 07/03/22 [History Last Taken Unknown] tramadol 50 mg tablet 50 mg PO Q6H PRN Pain 07/03/22 [History Last Taken Unknow n] Allergy/AdvReac Type Severity Reaction Status Date / Time amoxicillin [From Augmentin] Allergy PT UNABLE Verified 07/03/22 14:56 TO RESPOND-NEEDS F/U clavulanic acid Allergy PT UNABLE Verified 07/03/22 14:56 [From Augmentin] TO RESPOND-NEEDS F/U codeine Allergy PT UNABLE Verified 07/03/22 14:56 TO RESPOND-NEEDS F/U Iodinated Contrast Media Allergy Anaphylaxis Verified 07/03/22 14:56 metronidazole [From Flagyl] Allergy PT UNABLE Verified 07/03/22 14:56 TO RESPOND-NEEDS F/U morphine Allergy PT UNSURE Verified 07/03/22 14:56 OF REACTION oxycodone Allergy PT UNSURE Verified 07/03/22 14:56 OF REACTION ropinirole Allergy PT UNSURE Verified 07/03/22 14:56 OF REACTION hydrocodone [From Vicodin] AdvReac PT UNSURE Verified 07/03/22 14:56 OF REACTION Family History Mother Alzheimer's dementia Surgical History H/O exploratory laparotomy History of bilateral tubal ligation History of repair of hiatal hernia History of resection of small bowel History of total right hip replacement Hx of cataract surgery S/P carpal tunnel release S/P cholecystectomy Social History housing: [facility] sexually active: No Smoking Status: Former smoker how long ago did patient quit smoking: Quit ~ 13 years prior to current presentation. alcohol intake: never substance use type: does not use ROS ROS Narrative Admission Review of Systems: CONSTITUTIONAL: No weight loss, fever, chills, + weakness or fatigue. HEENT: + Headache. Eyes: No visual loss, blurred vision, double vision or yellow sclerae. Ears, Nose, Throat: No hearing loss, sneezing, congestion, runny nose or sore throat. SKIN: No rash or itching, lesions, wounds. CARDIOVASCULAR: No chest pain, chest pressure or chest discomfort, palpitations, edema, orthopnea, syncopal events. RESPIRATORY: + Chronic dyspnea, occasional chronic cough and wheezing, No hemoptysis. GASTROINTESTINAL: + Anorexia, nausea, vomiting, diarrhea, abdominal pain, No melena, BRBPR. GENITOURINARY: No dysuria, frequency, urgency or retention. NEUROLOGICAL:+ Headache, dizziness, No syncope, paralysis, ataxia, numbness or t ingling in the extremities, focal weakness, change in bowel or bladder control, seizure. MUSCULOSKELETAL: + muscle, back pain, joint pain or stiffness. HEMATOLOGIC: + anemia, bleeding or bruising. LYMPHATICS: No enlarged nodes. No history of splenectomy. PSYCHIATRIC: No history of depression or anxiety. ENDOCRINOLOGIC: No reports of sweating, cold or heat intolerance. No polyuria or polydipsia. ALLERGIES: + history of hives, eczema or rhinitis. Physical Exam Narrative Physical exam: General: Alert, Oriented x2, Cooperative, on 2 L of oxygen HEENT: Atraumatic Oral: Moist Mucosa Neck: Supple Lungs: Diminished to auscultation Cardiovascular: HS I+II, regular, no murmurs Abdomen: Bowel Sounds Present, Soft, Non Tender Extremities: No edema, tenderness on palpating the left shoulder Skin: No rashes, No breakdown Neurological: Grossly intact Psych/Mental Status: Appropriate Lab / Micro Data Result Diagrams: 07/05/22 04:55 07/05/22 04:55 Labs: Laboratory Results - last 24 hr 07/04/22 05:48: Sodium 147 H, Potassium 5.9 H, Chloride 113 H, Carbon Dioxide 23.0, Anion Gap 11, BUN 8, Creatinine 0.76, Estim Creat Clear Calc 38.68, Est GFR (MDRD) Af Amer 98, Est GFR (MDRD) Non-Af 81, BUN/Creatinine Ratio 10.6, Glucose 111 H, Calcium 7.4 L, Total Bilirubin 0.20, AST 39 H, ALT 25, Alkaline Phosphatase 67, Total Protein 5.5 L, Albumin 2.2 L, Globulin 3.3, Albumin/Globulin Ratio 0.7 L, Folate 7.60, TSH 1.16 07/04/22 12:50: Vitamin B12 447 07/04/22 17:00: Hgb 7.5 L, Hct 26.2 L 07/05/22 04:55: WBC 8.7, RBC 2.55 L, Hgb 7.4 L, Hct 25.7 L, MCV 100.8 H, MCH 29.0, MCHC 28.8 L D, RDW Std Deviation 59.2 H, RDW Coeff of Pascual 16.0 H, Plt Count 198, MPV 11.4, Immature Gran % (Auto) 0.700, Neut % (Auto) 89.7 H, Lymph % (Auto) 6.1 L, [place] % (Auto) 3.5, Eos % (Auto) 0.0, Baso % (Auto) 0.0, Absolute Neuts (auto) 7.8 H, Absolute Lymphs (auto) 0.53 L, Nucleated RBC % 0, Differ ential Comment SCANNED 07/05/22 04:55: Sodium 143, Potassium 3.7, Chloride 111 H, Carbon Dioxide 24.0, Anion Gap 8, BUN 9, Creatinine 0.64, Estim Creat Clear Calc 38.68, Est GFR (MDRD) Af Amer 118, Est GFR (MDRD) Non-Af 97, BUN/Creatinine Ratio 14.0, Glucose 114 H, Calcium 7.0 L, Total Bilirubin 0.20, AST 22, ALT 19, Alkaline Phosphatase 50, Total Protein 5.2 L, Albumin 2.0 L, Globulin 3.2, Albumin/Globulin Ratio 0.6 L Micro: Microbiology 07/05/22 03:10 Stool C. difficile DNA Amplification - Final 07/03/22 17:59 Urine, Catheterized Urine Culture - Final Klebsiella pneumoniae sp pneum 07/04/22 15:15 Stool Stool Occult Blood (WILLEM) - Final Occult Blood Positive
[2022-07-05] MEDS: Acetaminophen 325 MG Tablet 650 MG PO ×2 (13:05→22:01)
[2022-07-05] MEDS: CHLORHEXIDINE GLUC 2% CLOTH 1 EACH TOWELETTE TOPICAL (13:06)
--- NOTE | 2022-07-05 15:09 | CHAPLAIN ---
Type of Pastoral Visit _x__ Initial Visit ___ Follow-up Visit ___ On-call Visit ___ General Patient Visit ___ Spiritual Assessment ___ Family Conference ___ Bereavement ___ Rapid Response ___ Code Blue ___ Other (describe below) Pastoral Care Referral From _x__ Patient ___ Family ___ Nurse ___ Physician ___ Respiratory Clinician ___ System Auditor ___ Other (describe below) Sacrament/Intervention _x__ Active listening ___ Anointing ___ Uatsdin ___ Bereavement ___ Communion ___ Roselia exploration ___ ___ Life review _x__ Prayer ___ Reconciliation ___ Sacrament of Sick _x__ Supportive presence ___ Wedding ___ Other (describe below) Pastoral Comments patient was sleeping but awoke to her name; offer of support welcomed; pt states that she is getting better and knows she is to be moved downstairs; pt states she is a member of [employer] and tells about her children and where they live; pt is weak but appears to follow the conversation; patient welcomes prayer
--- NOTE | 2022-07-05 16:15 | EKG12_ITS ---
Test Reason : EKG CHANGES Blood Pressure : / mmHG Vent. Rate : 000 BPM Atrial Rate : 227 BPM P-R Int : 000 ms QRS Dur : 052 ms QT Int : 158 ms P-R-T Axes : 000 018 175 degrees QTc Int : 000 ms Atrial tachycardia Low voltage QRS Marked ST abnormality, possible lateral subendocardial injury Abnormal ECG When compared with ECG of 03-JUL-2022 15:04, MANUAL COMPARISON REQUIRED, DATA IS UNCONFIRMED Confirmed by MELBA CABALLERO, VALENTIN ([id number]), proposal editor NATALIA ROJAS ([id number]) on 07/06/2022 12:51:00 PM Referred By: DINA Confirmed By:VALENTIN REILLY MD
--- NOTE | 2022-07-05 16:21 | EKG12_ITS ---
Test Reason : RHYTHM CHANGE Blood Pressure : / mmHG Vent. Rate : 138 BPM Atrial Rate : 138 BPM P-R Int : 138 ms QRS Dur : 054 ms QT Int : 290 ms P-R-T Axes : 001 -16 010 degrees QTc Int : 439 ms Sinus tachycardia with occasional and consecutive Premature ventricular complexes Low voltage QRS Poor R wave progression Anterior-Lateral MN age undetermined, cannot be excluded Abnormal ECG Confirmed by AMRY BETH CABALLERO, JULES ([id number]), sports editor NATALIA ROJAS ([id number]) on 07/07/2022 9:37:01 AM Referred By: DAMON Confirmed By:JULES CLINTON MD
[2022-07-05] MEDS: Lactated Ringers 1,000 ML 75 ML IV (17:25)
[2022-07-05 17:46] LABS: Magnesium 0.7 mg/dL (1.6-2.6)
[2022-07-05] MEDS: Magnesium Sulfate 4gm/100mL 4 GM/100 ML IV.SOLN. IV (19:23)
[2022-07-05] MEDS: Latanoprost 0.005% 1 Bottle 1 DRP EACH EYE (22:01)
[2022-07-05] MEDS: Metoprolol Tartrate 5 MG/5 ML Vial IV (22:12)
[2022-07-06] VITALS (14 sets, daily range): BP systolic 133–149; BP diastolic 71–98; PULSE 90–149; RESP 12–24; TEMP 36.3–37.1; O2SAT 95–100
[2022-07-06] MEDS: Metoprolol Tartrate 5 MG/5 ML Vial IV (03:18)
[2022-07-06 05:17] LABS: Absolute Lymphocyte Count 0.23 X10^3/uL (0.83-4.51); Absolute Neutrophil Count 4.5 X10^3/uL (2.0-7.7); Hematocrit 25.8 % (37-47); Hemoglobin 7.7 g/dL (12.0-15.0); Lymphocyte # 0.23 X10^3/ul (0.83-4.51); Lymphocyte % 4.7 % (19-41); Mean Corp Hgb Conc 29.8 g/dL (32-36); Mean Corpuscular Hgb 28.6 pg (27.0-32.0); Mean Corpuscular Volume 95.9 fL (81-99); Mean Platelet Vol. 11.2 fl (6.2-12.0); Monocyte# 0.16 X10^3/uL; Monocyte% 3.3 % (0-10); NRBC Flagged by Analyzer 0.4 % (0-5); Neutrophil # 4.45 X10^3/uL (2.7-7.7); Neutrophil % 90.8 % (47-70); POSITIVE DIFFERENTIAL YES; Platelet Count 168 K/mm3 (150-450); RBC Distribution Width CV 16.1 % (11.6-14.6); Red Blood Count 2.69 M/mm3 (4.2-5.4); White Blood Count 4.9 K/mm3 (4.4-11.0)
[2022-07-06] MEDS: dilTIAZem 30 MG Tablet PO ×3 (05:17→18:02)
[2022-07-06] MEDS: Acetaminophen 325 MG Tablet 650 MG PO ×3 (05:18→21:23)
[2022-07-06 05:27] LABS: Differential Indicated SCAN CRITERIA MET
[2022-07-06 05:37] LABS: Anisocytosis 1+; Erythrocyte Sedimentation Rate 11 mm/hr (0-30)
[2022-07-06 05:48] LABS: ALB/GLOB Ratio 0.7 RATIO (0.9-2.4); AST(SGOT) 21 U/L (15-37); Alanine Aminotransfer ALT/SGPT 19 U/L (13-56); Albumin, Serum 2.1 g/dL (3.2-5.0); Alkaline Phosphatase 44 U/L (45-117); Anion Gap 8 (5-15); BUN 6 mg/dL (7-18); BUN/Creat Ratio 11.5 RATIO (10-20); Calcium,Total 7.5 mg/dL (8.5-10.1); Chloride 111 mmol/L (98-107); Creatinine, Serum 0.52 mg/dL (0.55-1.02); EST Glomerular Filtration Rate 124 mL/min (>60); Est Glom Filt Rate - Afr Amer 150 mL/min (>60); Estimated Creatinine Clearance 38.68 ml/min; Globulin 3.1 g/dL (2.2-4.2); Glucose 124 mg/dL (74-106); Potassium 3.2 mmol/L (3.5-5.1); Protein, Total 5.2 g/dL (6.4-8.2); Sodium Level 143 mmol/L (136-145)
[2022-07-06] MEDS: Aspirin 81 MG TAB.CHEW PO (08:17)
--- NOTE | 2022-07-06 08:27 | PCM.PN.INT ---
Assessment & Plan Assessment/Plan (1) Acute encephalopathy: PLAN: Plan Assessment: 1. Hypercarbic encephalopathy 2. Acute on chronic respiratory failure 3. Pansensitive Klebsiella urinary tract infection 4. Acute on chronic anemia 5. COPD of unknown severity 6. History of Parkinson's disease 7. Recent CVA, seizure disorder Plan: 1. Continue antimicrobials based upon sensitivities to complete 7 days of therapy. 2. Continue bronchodilators as ordered. 3. Continue steroids, with tentative plans for prednisone taper at discharge. 4. Continue Keppra as ordered. 5. Continue to wean oxygen for saturations greater than 90%. 6. Encourage incentive spirometer use and mobilize patient as tolerated. 7. Continue PPI therapy. Continue to monitor H&H and transfuse if hemoglobin is less than 7 g/dL. This note was generated with [employer] dictation software. It may contain incorrect words, spelling, and punctuation that were not noted in checking the note before signing. Subjective Subjective The patient was seen and examined at the bedside this morning. Events from the last 24 hours have been reviewed. The patient is currently afebrile, hemodynamically stable and maintaining appropriate oxygen saturations on 2 L/min via nasal cannula. She is currently documented to be overall net +2 L for the hospitalization. Hemoglobin is stable at 7.7 g/dL. Potassium is low at 3.2. Objective Data Objective Data The patient's most recent lab work, culture data and imaging studies have all been personally reviewed. Urine culture dated July 03 was positive for Klebsiella pneumonia. Vital Signs: Vital Signs Temp Pulse Resp BP Pulse Ox O2 Del Method O2 Flow Rate 98.1 F 149 H 24 H 133/98 H 96 Nasal Cannula 2 07/06/22 03:00 07/06/22 03:18 07/06/22 03:00 07/06/22 03:00 07/06/22 03:00 07/06/22 08:24 07/06/22 08:24 FiO2 25 07/06/22 01:35 Oxygen Flow Rate (L/min) 2 Oxygen Delivery Method Nasal Cannula Weight: 141 lb Body Mass Index (BMI) 25.5 Intake & Output: Intake and Output for Last 24 Hours 07/04/22 07/05/22 07/06/22 23:59 23:59 23:59 Intake Total 912.5 / 1112.5 1423.75 / 1423.75 350 / 350 Output Total 900 / 1200 1110 / 1110 500 / 500 Balance 12.5 / -87.5 313.75 / 313.75 -150 / -150 Lab / Micro Data Attestation: I reviewed the patient's lab results. Result Diagrams: 07/07/22 08:20 07/07/22 08:20 Labs: Laboratory Results - last 24 hr 07/04/22 12:50: Vitamin B12 447 07/05/22 04:55: Magnesium 0.7 L* 07/06/22 04:56: WBC 4.9, RBC 2.69 L, Hgb 7.7 L, Hct 25.8 L, MCV 95.9, MCH 28.6, MCHC 29.8 L, RDW Std Deviation 57.0 H, RDW Coeff of Pascual 16.1 H, Plt Count 168, MPV 11.2, Immature Gran % (Auto) 1.200 H, Neut % (Auto) 90.8 H, Lymph % (Auto) 4.7 L, [place] % (Auto) 3.3, Eos % (Auto) 0.0, Baso % (Auto) 0.0, Absolute Neuts (auto) 4.5, Absolute Lymphs (auto) 0.23 L, Nucleated RBC % 0.4, Anisocytosis 1+, ESR 11 07/06/22 04:56: Sodium 143, Potassium 3.2 L, Chloride 111 H, Carbon Dioxide 24.0, Anion Gap 8, BUN 6 L, Creatinine 0.52 L, Estim Creat Clear Calc 38.68, Est GFR (MDRD) Af Amer 150, Est GFR (MDRD) Non-Af 124, BUN/Creatinine Ratio 11.5, Glucose 124 H, Calcium 7.5 L, Total Bilirubin 0.20, AST 21, ALT 19, Alkaline Phosphatase 44 L, C-React Prot Ext Range 5.00 H, Total Protein 5.2 L, Albumin 2.1 L, Globulin 3.1, Albumin/Globulin Ratio 0.7 L Micro: Microbiology 07/05/22 17:28 Stool Stool Lactoferrin - Final 07/05/22 03:10 Stool C. difficile DNA Amplification - Final 07/03/22 17:59 Urine, Catheterized Urine Culture - Final Klebsiella pneumoniae sp pneum 07/04/22 15:15 Stool Stool Occult Blood (WILLEM) - Final Occult Blood Positive 07/03/22 22:45 Urine Catheter - Catheter Legionella Antigen - Final 07/03/22 22:45 Urine Catheter - Catheter Streptococcus pneumoniae Antigen (M - Final 07/03/22 19:50 Nasal Secretion SARS-CoV-2 & FLU Antigen (Rapid) - Final Radiography Diagnostic Testing: Radiology Impression Elbow X-Ray 07/04/22 08:55 IMPRESSION: Normal x-ray examination of the elbow. Electronically Signed: Torito Jennings MD at 10:40 EDT , Shoulder X-Ray 07/04/22 08:55 IMPRESSION: Mild narrowing of the left glenohumeral joint space Electronically Signed: Torito Jennings MD at 10:39 EDT , Physical Exam Const alert and no apparent distress General Appearance: cooperative HEENT normocephalic and head/scalp atraumatic Eyes PERRL, EOMs intact bilaterally and conjunctivae normal Neck supple General: trachea midline Chest inspection of chest normal Resp normal respiratory effort Auscultation: diminished lung sounds; Negative for rales, rhonchi or wheezes Cardio regular rate, regular rhythm and no murmurs GI normal to inspection, nondistended, normoactive bowel sounds Extremity no clubbing, cyanosis or edema Skin no rashes or lesions noted Neuro CN's II-XII intact bilaterally and no focal motor deficits Neuro Narrative: Tremulous. Psych cooperative and affect normal Charges/Coding Visit Charges Inpatient E&M: 52012 Subs Hosp L2
--- NOTE | 2022-07-06 09:57 | CASEMGMT ---
SW called patient's sister Janette. SINDI introduced self and role at [facility]. 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 SINDI also confirmed with Tawny at [place] that patient is a senior care resident. Plan: d/c back to [place] when medically ready. Carrie Haley CANDY MIXER WU
[2022-07-06] MEDS: Potassium Chloride Oral Soln 20 MEQ/15 ML UDC 40 MEQ PO (10:33)
--- NOTE | 2022-07-06 11:34 | PN.HOSP_ITS ---
Subjective Subjective DOS 07/06/22 CC: Cough Ms. Norris is a 67y/o F who [facility] being unresponsive and was diagnosed with acute metabolic encephalopathy 2/2 AHRF. Today she is more awake and alert and answering questions somewhat more appropriately. She feels she has a cough that is bothering her though notes it is unchanged. UOP somewhat lower but pt with somewhat poor liquid intake. Has been eating some but notes she gets full quickly. Does have some nausea but no vomiting. No gross blood reported in stool. Denies changes in her breathing. Has a little chest pain when coughing but denies any other chest pain/pain outside of coughing. Denies headache, does have chronic changes in vision which she reports hasn't changed. Spoke with pts sister, Janette, yesterday and she reported at baseline Kira has difficulty with her memory ever since her strokes and that while she wasn't quite at baseline yet, she was improving. Objective Data Objective Data Vital Signs: Vital Signs Temp Pulse Resp BP Pulse Ox O2 Del Method O2 Flow Rate 97.9 F 105 H 18 136/76 H 100 Nasal Cannula 2 07/06/22 08:00 07/06/22 08:00 07/06/22 08:00 07/06/22 08:00 07/06/22 08:00 07/06/22 08:24 07/06/22 08:24 FiO2 25 07/06/22 01:35 Oxygen Flow Rate (L/min) 2 Oxygen Delivery Method Nasal Cannula Weight: 63.957 kg Body Mass Index (BMI) 25.5 Intake & Output: Intake and Output for Last 24 Hours 07/04/22 07/05/22 07/06/22 23:59 23:59 23:59 Intake Total 912.5 / 1112.5 1423.75 / 1423.75 1385.25 / 1385.25 Output Total 900 / 1200 1110 / 1110 500 / 500 Balance 12.5 / -87.5 313.75 / 313.75 885.25 / 885.25 Lab / Micro Data Result Diagrams: 07/06/22 04:56 07/06/22 04:56 Labs: Laboratory Results - last 24 hr 07/05/22 04:55: Magnesium 0.7 L* 07/06/22 04:56: WBC 4.9, RBC 2.69 L, Hgb 7.7 L, Hct 25.8 L, MCV 95.9, MCH 28.6, MCHC 29.8 L, RDW Std Deviation 57.0 H, RDW Coeff of Pascual 16.1 H, Plt Count 168, MPV 11.2, Immature Gran % (Auto) 1.200 H, Neut % (Auto) 90.8 H, Lymph % (Auto) 4.7 L, [place] % (Auto) 3.3, Eos % (Auto) 0.0, Baso % (Auto) 0.0, Absolute Neuts (auto) 4.5, Absolute Lymphs (auto) 0.23 L, Nucleated RBC % 0.4, Anisocytosis 1+, ESR 11 07/06/22 04:56: Sodium 143, Potassium 3.2 L, Chloride 111 H, Carbon Dioxide 24.0, Anion Gap 8, BUN 6 L, Creatinine 0.52 L, Estim Creat Clear Calc 38.68, Est GFR (MDRD) Af Amer 150, Est GFR (MDRD) Non-Af 124, BUN/Creatinine Ratio 11.5, Glucose 124 H, Calcium 7.5 L, Total Bilirubin 0.20, AST 21, ALT 19, Alkaline Phosphatase 44 L, C-React Prot Ext Range 5.00 H, Total Protein 5.2 L, Albumin 2.1 L, Globulin 3.1, Albumin/Globulin Ratio 0.7 L Micro: Microbiology 07/05/22 17:28 Stool Stool Lactoferrin - Final 07/05/22 03:10 Stool C. difficile DNA Amplification - Final 07/03/22 17:59 Urine, Catheterized Urine Culture - Final Klebsiella pneumoniae sp pneum 07/04/22 15:15 Stool Stool Occult Blood (WILLEM) - Final Occult Blood Positive 07/03/22 22:45 Urine Catheter - Catheter Legionella Antigen - Final 07/03/22 22:45 Urine Catheter - Catheter Streptococcus pneumoniae Antigen (M - Final 07/03/22 19:50 Nasal Secretion SARS-CoV-2 & FLU Antigen (Rapid) - Final Physical Exam Const alert Constitutional Narrative: oriented to person, and that she was in the hospital, able to better answer questions, does not know the date but per sister that is chronic HEENT HEENT Narrative: Poor dentition Eyes Eyes Narrative: No overt nystagmus or palsys Neck supple Resp normal respiratory effort and no retractions Resp Narrative: Slightly diminished at the bases Cardio regular rate and regular rhythm GI GI Narrative: nondistended, no rebound, guarding, rigidity Extremity Extremity Narrative: trace+ BLE pitting edema to shins, moves all extremities against gravity Skin Skin Narrative: Scattered ecchymosis Neuro Neuro Narrative: Tremor noted bilaterally, worse in hands with both movement and rest Difficulty with finger to nose bilaterally with tremor but somewhat better today Able to follow commands Alert to self and that she is in the hospital Psych Psych Narrative: Cooperative Assessment & Plan Assessment/Plan (1) Acute encephalopathy: PLAN: Plan 1. Acute metabolic encephalopathy secondary to acute hypercapnic respiratory failure but likely with additional confounding factors, improving Patient is alert and oriented to self and that she is in the hospital and was answering questions more appropriately Likely close to baseline Continue to monitor mentation PCO2 improved to 50.3 from 137 and has no longer been trended Likely also component of UTI- ucx + for klebsiella On zosyn, will continue at this time Blood cx ngtd Fever has now defervesced s/p vanc CT on admission demonstrated previous infarcts EEG obtained and demonstrated L temporal periodic discharges- repeat EEG on 07/05 with diffuse but predominantly left hemispheric irregularities but no sz or epileptiform abnormalities and it has improved from prior. It also noted that the focalities may be due to functional/psot ictal changes or structural lesion from prior stroke Has hx of seizures and is on keppra neuro was consulted and increased keppra to 750mg BID which was increased yeste rday, has done well on this 2. Acute hypercapnic respiratory failure secondary to acute COPD exacerbation, improved Patient is off BiPAP; currently on 2 L of oxygen with Sat 98%, wean as tolerated CXR on admission w/ no acute infiltrate Rapid COVID-19 antigen and flu antigen negative. Urine streptococcal and Legionella antigen negative Admitted with a PCO2 of 137, managed on BiPAP, PCO2 trended down to 50.3 Wean off for SPO2 more than 92% Pt post ICU- team following 3. Hx of afib Intermittently tachycardic but this is beginning to improve with fluids and improvement in status Likely combination of home meds d/c'd on admission d/t status, dehydration, and deconditioning On cardizem 30mg q6hr Will resume metoprolol Eliquis held and pt was on full dose lovenox d/t her afib Given downtrending hgb, FOBT +, and need for EGD will hold lovenox at this time Does not appear to have an indication that requires heparin bridge SCDs for dvt ppx at this time Restart AC when able 5. Fever, resolved UA is mildly positive but patient denied any UTI symptoms though Ucx + for klebsiella and pt is improving on abx Blood cx ngtd Continue zosyn Sepsis ruled out 5. Acute on chronic Anemia, macrocytic Likely component of chronic disease but hbg also downtrending further and occult blood in stool positive Drop in hemoglobin from 10.6 to 8.7 and is 7.7 today Occult blood + Does have known hx of IBD Vitamin B12 pending GI consulted Ultimately would benefit from colonoscopy but likely cannot tolerate prep Will have upper endoscopy per GI GI rec CT abd/pelvis as well as ESR, CRP, fecal calprotectin, and stool lactoferrin Stool studies ordered Continue PPI Transfuse if hgb <7 Will hold full dose AC at this time given bleed and pending upper endoscopy 6. 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 Dysphagia related to #1, speech therapy consult Speech following, has been tolerating PO 8. Hypernatremia secondary dehydration, resolved 9. Hyperkalemia, resolved 10. Acute left upper extremity pain XR with OA noted Pt not reporting pain today On tramadol at home per documentation- continue to hold given mental status and comorbidities Continue atorvastatin 11. 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 Parkinson's disease, not on meds 13. Crohn's disease, on mesalamine and sulfasalazine at home On stress dose steroids- chronically on budesonide, likely steroid taper on d/c GI following 14. DVT PPx- SCDs Yesenia Lomas MD Medical Decision Making: Ms. Norris was transferred out of the ICU yesterday and has improved slightly today but continues to require inpatient admission d/t hgb drop requiring further evaluation as well as her intermittent tachycardia a nd continued O2 requirement which are improving but slowly and given her poor po and deconditioning in addition she is high risk for adverse outcomes and also for readmission. Mentation improving closer to baseline, will continue to monitor closely. Time spent 30 minutes Charges/Coding Visit Charges Inpatient E&M: 29418 Subs Hosp L2
[2022-07-06] MEDS: 0.9% Saline Lock 10 ML Syringe IV ×2 (12:05→21:23)
[2022-07-06] MEDS: 0.9% Normal Saline 1,000 ML 75 ML IV (12:31)
[2022-07-06 13:09] LABS: Magnesium 2.3 mg/dL (1.6-2.6)
--- NOTE | 2022-07-06 13:46 | CASEMGMT ---
SW sent updates to [place]. 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
[2022-07-06] MEDS: Ipratropium/Albuterol Sulfate 3 ML AMPUL.NEB INHALATION (15:47)
[2022-07-06] MEDS: Latanoprost 0.005% 1 Bottle 1 DRP EACH EYE (21:15)
[2022-07-06] MEDS: Metoprolol Tartrate 25 MG Tablet 12.5 MG PO (21:17)
[2022-07-06] MEDS: MELATONIN 10 MG TABLET PO (21:21)
[2022-07-07] VITALS (18 sets, daily range): BP systolic 119–152; BP diastolic 64–84; PULSE 73–124; RESP 12–20; TEMP 36.2–37; O2SAT 95–99
[2022-07-07] MEDS: dilTIAZem 30 MG Tablet PO ×2 (00:14→06:18)
[2022-07-07] MEDS: Ipratropium/Albuterol Sulfate 3 ML AMPUL.NEB INHALATION ×3 (03:15→13:53)
[2022-07-07] MEDS: Acetaminophen 325 MG Tablet 650 MG PO ×3 (06:20→20:59)
[2022-07-07 08:32] LABS: Absolute Lymphocyte Count 0.18 X10^3/uL (0.83-4.51); Absolute Neutrophil Count 2.2 X10^3/uL (2.0-7.7); Hematocrit 28.1 % (37-47); Hemoglobin 8.3 g/dL (12.0-15.0); Lymphocyte # 0.18 X10^3/ul (0.83-4.51); Lymphocyte % 7.3 % (19-41); Mean Corp Hgb Conc 29.5 g/dL (32-36); Mean Corpuscular Hgb 29.1 pg (27.0-32.0); Mean Corpuscular Volume 98.6 fL (81-99); Mean Platelet Vol. 11.2 fl (6.2-12.0); Monocyte# 0.12 X10^3/uL; Monocyte% 4.8 % (0-10); NRBC Flagged by Analyzer 0 % (0-5); Neutrophil # 2.15 X10^3/uL (2.7-7.7); Neutrophil % 86.7 % (47-70); POSITIVE DIFFERENTIAL YES; Platelet Count 174 K/mm3 (150-450); RBC Distribution Width SD 57.3 fl (35.1-43.9); Red Blood Count 2.85 M/mm3 (4.2-5.4); White Blood Count 2.5 K/mm3 (4.4-11.0)
[2022-07-07 08:34] LABS: Differential Indicated SCAN CRITERIA MET
[2022-07-07] MEDS: Aspirin 81 MG TAB.CHEW PO (08:39)
[2022-07-07] MEDS: Metoprolol Tartrate 25 MG Tablet PO ×2 (08:39→21:00)
[2022-07-07 08:56] LABS: Platelet Estimate ADEQUATE (ADEQ)
[2022-07-07 08:57] LABS: Red Cell Morphology NORM C+C NORMAL (NORM C&C)
[2022-07-07 09:28] LABS: ALB/GLOB Ratio 0.8 RATIO (0.9-2.4); AST(SGOT) 14 U/L (15-37); Alanine Aminotransfer ALT/SGPT 18 U/L (13-56); Albumin, Serum 2.4 g/dL (3.2-5.0); Alkaline Phosphatase 43 U/L (45-117); Anion Gap 8 (5-15); BUN 6 mg/dL (7-18); BUN/Creat Ratio 8.8 RATIO (10-20); Calcium,Total 8.2 mg/dL (8.5-10.1); Chloride 107 mmol/L (98-107); Creatinine, Serum 0.68 mg/dL (0.55-1.02); EST Glomerular Filtration Rate 91 mL/min (>60); Est Glom Filt Rate - Afr Amer 110 mL/min (>60); Estimated Creatinine Clearance 38.68 ml/min; Globulin 3.2 g/dL (2.2-4.2); Glucose 139 mg/dL (74-106); Potassium 3.5 mmol/L (3.5-5.1); Protein, Total 5.6 g/dL (6.4-8.2); Sodium Level 141 mmol/L (136-145)
[2022-07-07 09:31] LABS: Magnesium 2.3 mg/dL (1.6-2.6)
[2022-07-07] MEDS: Budesonide Respules 0.5 MG/2 ML AMPUL.NEB. INHALATION (13:53)
--- NOTE | 2022-07-07 14:03 | CHAPLAIN ---
Type of Pastoral Visit ___ Initial Visit _x__ Follow-up Visit ___ On-call Visit ___ General Patient Visit ___ Spiritual Assessment ___ Family Conference ___ Bereavement ___ Rapid Response ___ Code Blue ___ Other (describe below) Pastoral Care Referral From _x__ Patient ___ Family ___ Nurse ___ Physician ___ Microarray Specialist ___ Bridge Carpenter ___ Other (describe below) Sacrament/Intervention _x__ Active listening ___ Anointing ___ Confucianist ___ Bereavement ___ Communion ___ Roselia exploration ___ ___ Life review _x__ Prayer ___ Reconciliation ___ Sacrament of Sick ___ Supportive presence ___ Wedding ___ Other (describe below) Pastoral Comments follow up visit as patient was in ICU previously; pt is trying to eat some lunch but explains why she is not eating much; pt states that she wants to back to her ECF and hopes it can happen soon; pt welcomes prayer and thanks this director patient accounting for stopping to check on her
[2022-07-07] MEDS: dilTIAZem 60 MG Tablet PO ×2 (14:04→21:00)
--- NOTE | 2022-07-07 15:33 | PCM.PN.HOSP ---
Subjective Subjective DOS 07/07/22 CC: Stomach pain Ms. Norris is a 67y/o F who presented 07/03/22 from the [facility] where she resides 2/2 being unresponsive and was diagnosed with acute metabolic encephalopathy 2/2 AHRF. Today she reports intermittent pain in her abdomen that comes and goes. She does have chronic pain with her comorbidities and multiple surgeries. Intermittently some nausea, no vomiting and no nausea and the time of evaluation. Reports bowel movements. No blood reported. Chronic changes in vision. Denies chest pain. Objective Data Objective Data Vital Signs: Vital Signs Temp Pulse Resp BP Pulse Ox O2 Del Method O2 Flow Rate 97.2 F L 121 H 18 131/81 H 97 Nasal Cannula 4 07/07/22 14:00 07/07/22 15:02 07/07/22 14:00 07/07/22 14:00 07/07/22 14:00 07/07/22 14:00 07/07/22 14:00 FiO2 25 07/07/22 14:00 Oxygen Flow Rate (L/min) 4 Oxygen Delivery Method Nasal Cannula Weight: 63.5 kg Body Mass Index (BMI) 25.5 Intake & Output: Intake and Output for Last 24 Hours 07/05/22 07/06/22 07/07/22 23:59 23:59 23:59 Intake Total 1423.75 / 1423.75 2022.75 / 3004.00 2045.25 / 2045.25 Output Total 1110 / 1110 1150 / 1150 850 / 850 Balance 313.75 / 313.75 872.75 / 1854.00 1195.25 / 1195.25 Lab / Micro Data Result Diagrams: 07/07/22 08:20 07/07/22 08:20 Labs: Laboratory Results - last 24 hr 07/07/22 08:20: WBC 2.5 L, RBC 2.85 L, Hgb 8.3 L, Hct 28.1 L, MCV 98.6, MCH 29.1, MCHC 29.5 L, RDW Std Deviation 57.3 H, RDW Coeff of Pascual 16.0 H, Plt Count 174, MPV 11.2, Immature Gran % (Auto) 1.200 H, Neut % (Auto) 86.7 H, Lymph % (Auto) 7.3 L, [place] % (Auto) 4.8, Eos % (Auto) 0.0, Baso % (Auto) 0.0, Absolute Neuts (auto) 2.2, Absolute Lymphs (auto) 0.18 L, Nucleated RBC % 0, Diff Path Review January foll, Platelet Estimate ADEQUATE, RBC Morphology NORM C+C 07/07/22 08:20: Sodium 141, Potassium 3.5, Chloride 107, Carbon Dioxide 26.0, Anion Gap 8, BUN 6 L, Creatinine 0.68, Estim Creat Clear Calc 38.68, Est GFR (MDRD) Af Amer 110, Est GFR (MDRD) Non-Af 91, BUN/Creatinine Ratio 8.8 L, Glucose 139 H, Calcium 8.2 L, Total Bilirubin 0.30, AST 14 L, ALT 18, Alkaline Phosphatase 43 L, Total Protein 5.6 L, Albumin 2.4 L, Globulin 3.2, Albumin/Globulin Ratio 0.8 L 07/07/22 08:20: Magnesium 2.3 Micro: Microbiology 07/03/22 18:40 Blood Culture (Wb) - Port Blood Culture - Preliminary No growth in 48 hours. 07/03/22 16:20 Blood Culture (Wb) - Venous Blood Culture - Preliminary No growth in 48 hours. 07/05/22 17:28 Stool Stool Lactoferrin - Final 07/05/22 03:10 Stool C. difficile DNA Amplification - Final 07/03/22 17:59 Urine, Catheterized Urine Culture - Final Klebsiella pneumoniae sp pneum 07/04/22 15:15 Stool Stool Occult Blood (WILLEM) - Final Occult Blood Positive 07/03/22 22:45 Urine Catheter - Catheter Legionella Antigen - Final 07/03/22 22:45 Urine Catheter - Catheter Streptococcus pneumoniae Antigen (M - Final 07/03/22 19:50 Nasal Secretion SARS-CoV-2 & FLU Antigen (Rapid) - Final Physical Exam Const alert Constitutional Narrative: oriented to person, and that she was in the hospital, able to better answer questions, does not know the date but per sister that is chronic Eyes Eyes Narrative: No overt nystagmus or palsys Neck supple Resp normal respiratory effort and no retractions Resp Narrative: Slightly diminished at the bases Cardio regular rate and regular rhythm Cardio Narrative: Mildly tachy, normal rhythm overall GI GI Narrative: nondistended, no rebound, guarding, rigidity Extremity Extremity Narrative: trace+ BLE pitting edema to shins, moves all extremities against gravity Skin Skin Narrative: Scattered ecchymosis Neuro Neuro Narrative: Tremor noted bilaterally, worse in hands with both movement and rest Difficulty with finger to nose bilaterally with tremor but somewhat better today Able to follow commands Alert to self and that she is in the hospital Psych Psych Narrative: Cooperative Assessment & Plan Assessment/Plan (1) Acute encephalopathy: PLAN: Plan 1. Acute metabolic encephalopathy secondary to acute hypercapnic respiratory failure but likely with additional confounding factors, improving Patient is alert and oriented to self and that she is in the hospital and continues to answer questions more appropriately Likely close to baseline Continue to monitor mentation PCO2 improved to 50.3 from 137 and has no longer been trended Likely also component of UTI- ucx + for klebsiella On zosyn, will continue at this time Blood cx ngtd Fever has now defervesced s/p vanc CT on admission demonstrated previous infarcts EEG obtained and demonstrated L temporal periodic discharges- repeat EEG on 07/05 with diffuse but predominantly left hemispheric irregularities but no sz or epileptiform abnormalities and it has improved from prior. It also noted that the focalities may be due to functional/psot ictal changes or structural lesion from prior stroke Has hx of seizures and is on keppra neuro was consulted and increased keppra to 750mg BID which was increased, has done well on this 2. Tachycardia Intermittent tachycardia Has afib but does not appear to be in RVR Likely multifactorial Was low 80's for a period today before increasing again Metoprolol and Cardizem increased today Does not appear to have a new infection 2. Acute hypercapnic respiratory failure secondary to acute COPD exacerbation, improved Patient is off BiPAP; currently on 3 L of oxygen with Sat 98%, wean as tolerated CXR on admission w/ no acute infiltrate Rapid COVID-19 antigen and flu antigen negative. Urine streptococcal and Legionella antigen negative Admitted with a PCO2 of 137, managed on BiPAP, PCO2 trended down to 50.3 Wean off for SPO2 more than 92% Pt post ICU- team following 3. Hx of afib Intermittently tachycardic but this is beginning to improve with fluids and improvement in status Likely combination of home meds d/c'd on admission d/t status, dehydration, and deconditioning On cardizem 30mg q6hr Will resume metoprolol Eliquis held and pt was on full dose lovenox d/t her afib Given downtrending hgb, FOBT +, and need for EGD will hold lovenox at this time Does not appear to have an indication that requires heparin bridge SCDs for dvt ppx at this time Restart AC when able 5. Fever, resolved UA is mildly positive but patient denied any UTI symptoms though Ucx + for klebsiella and pt is improving on abx Blood cx ngtd Continue zosyn Sepsis ruled out 5. Acute on chronic Anemia, macrocytic Likely component of chronic disease but hbg also downtrending further and occult blood in stool positive Drop in hemoglobin from 10.6 to 7.7, hgb roughly the same today 8.3 Occult blood + Does have known hx of IBD Vitamin B12 pending GI consulted Ultimately would benefit from colonoscopy but likely cannot tolerate prep- consider outpatient Will have upper endoscopy per GI, pt npo GI rec CT abd/pelvis as well as ESR, CRP, fecal calprotectin, and stool lactoferrin Stool studies ordered Continue PPI Transfuse if hgb <7 Will hold full dose AC at this time given bleed and pending upper endoscopy 6. 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 Dysphagia related to #1, speech therapy consult Speech following, has been tolerating PO 8. Hypernatremia secondary dehydration, resolved 9. Hyperkalemia, resolved 10. Acute left upper extremity pain- resolved XR with OA noted Pt not reporting pain today On tramadol at home per documentation- continue to hold given mental status and comorbidities Continue atorvastatin 11. 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 Parkinson's disease, not on meds 13. Crohn's disease, on mesalamine and sulfasalazine at home On stress dose steroids- chronically on budesonide, likely steroid taper on d/c GI following Will restart mesalamine 14. DVT PPx- SCDs Yesenia Lomas MD Time spent 30 minutes Charges/Coding Visit Charges Inpatient E&M: 79431 Subs Hosp L2
--- NOTE | 2022-07-07 16:57 | PN_ITS ---
Subjective Subjective Patient does not have any abdominal pain. Oxygen requirements have decreased. She is tolerating a diet without nausea. Objective Data Objective Data Vital Signs: Vital Signs Temp Pulse Resp BP Pulse Ox O2 Del Method O2 Flow Rate 97.3 F L 113 H 20 H 119/64 98 Nasal Cannula 3 07/07/22 16:00 07/07/22 16:00 07/07/22 16:00 07/07/22 16:00 07/07/22 16:00 07/07/22 16:00 07/07/22 16:00 FiO2 25 07/07/22 14:00 Oxygen Flow Rate (L/min) 3 Oxygen Delivery Method Nasal Cannula Weight: 139 lb 15.896 oz Body Mass Index (BMI) 25.5 Intake & Output: Intake and Output for Last 24 Hours 07/05/22 07/06/22 07/07/22 23:59 23:59 23:59 Intake Total 1423.75 / 1423.75 2022.75 / 3004.00 2045.25 / 2045.25 Output Total 1110 / 1110 1150 / 1150 850 / 850 Balance 313.75 / 313.75 872.75 / 1854.00 1195.25 / 1195.25 Lab / Micro Data Result Diagrams: 07/07/22 08:20 07/07/22 08:20 Labs: Laboratory Results - last 24 hr 07/07/22 08:20: WBC 2.5 L, RBC 2.85 L, Hgb 8.3 L, Hct 28.1 L, MCV 98.6, MCH 29.1, MCHC 29.5 L, RDW Std Deviation 57.3 H, RDW Coeff of Pascual 16.0 H, Plt Count 174, MPV 11.2, Immature Gran % (Auto) 1.200 H, Neut % (Auto) 86.7 H, Lymph % (Auto) 7.3 L, [place] % (Auto) 4.8, Eos % (Auto) 0.0, Baso % (Auto) 0.0, Absolute Neuts (auto) 2.2, Absolute Lymphs (auto) 0.18 L, Nucleated RBC % 0, Diff Path Review May , Platelet Estimate ADEQUATE, RBC Morphology NORM C+C 07/07/22 08:20: Sodium 141, Potassium 3.5, Chloride 107, Carbon Dioxide 26.0, Anion Gap 8, BUN 6 L, Creatinine 0.68, Estim Creat Clear Calc 38.68, Est GFR (MDRD) Af Amer 110, Est GFR (MDRD) Non-Af 91, BUN/Creatinine Ratio 8.8 L, Glucose 139 H, Calcium 8.2 L, Total Bilirubin 0.30, AST 14 L, ALT 18, Alkaline Phosphatase 43 L, Total Protein 5.6 L, Albumin 2.4 L, Globulin 3.2, Albumin/Globulin Ratio 0.8 L 07/07/22 08:20: Magnesium 2.3 Micro: Microbiology 07/03/22 18:40 Blood Culture (Wb) - Port Blood Culture - Preliminary No growth in 48 hours. 07/03/22 16:20 Blood Culture (Wb) - Venous Blood Culture - Preliminary No growth in 48 hours. 07/05/22 17:28 Stool Stool Lactoferrin - Final 07/05/22 03:10 Stool C. difficile DNA Amplification - Final 07/03/22 17:59 Urine, Catheterized Urine Culture - Final Klebsiella pneumoniae sp pneum 07/04/22 15:15 Stool Stool Occult Blood ([facility]ILLEM) - Final Occult Blood Positive 07/03/22 22:45 Urine Catheter - Catheter Legionella Antigen - Final 07/03/22 22:45 Urine Catheter - Catheter Streptococcus pneumoniae Antigen (M - Final 07/03/22 19:50 Nasal Secretion SARS-CoV-2 & FLU Antigen (Rapid) - Final Physical Exam Const alert HEENT HEENT Narrative: Poor dentition Eyes Eyes Narrative: No overt nystagmus or palsys Neck supple Resp normal respiratory effort and no retractions Resp Narrative: Slightly diminished at the bases Cardio regular rate and regular rhythm GI GI Narrative: nondistended, no rebound, guarding, rigidity Extremity Extremity Narrative: trace+ BLE pitting edema Skin Skin Narrative: Scattered ecchymosis Neuro Neuro Narrative: Tremor Psych Psych Narrative: Cooperative Assessment & Plan Assessment/Plan (1) Crohn's disease: PLAN: She has a history of multiple bowel surgeries. She is status post ileal resection with primary anastomosis. She is on mesalamine based therapy. I do not think that is the best choice of therapy for her in the long-term however I would need to see her surgical anatomy endoscopically and radiologically. Recommend upper endoscopy and possible, colonoscopy with capsule endoscopy in the future as an outpatient. She should have a ESR, CRP checked. She needs high-protein, malnutrition likely secondary to malabsorption from her multiple surgeries.. (2) Anemia: PLAN: She will undergo an upper endoscopy to evaluate upper GI tract for any signs of acute or chronic blood loss anemia. I suspect that most of her blood loss is from her surgical anastomosis in the ileum has mesalamine and sulfasalazine which she was previously on to treat small bowel IBD. Charges/Coding Visit Charges Inpatient E&M: 99310 Subs Hosp L2
[2022-07-07] MEDS: Latanoprost 0.005% 1 Bottle 1 DRP EACH EYE (20:59)
[2022-07-07] MEDS: MELATONIN 10 MG TABLET PO (21:01)
[2022-07-07] MEDS: Menthol/Lanolin/Calamine/Znox 113 GM Tube 1 APPLIC TOPICAL (22:15)
[2022-07-08] VITALS (24 sets, daily range): BP systolic 112–156; BP diastolic 63–93; PULSE 65–96; RESP 13–20; TEMP 36.4–37.3; O2SAT 93–100; BMI 27.3
--- NOTE | 2022-07-08 | ESO_PTH ---
PATIENT: GOLDIE PAIZ LOC: [facility] U#:[id number] AGE/SX: 67/F ROOM: [facility] RE07/03/[address]: Dr. Janneth Carrillo MD : [id number] BED: 1 DIS: 07/09/2022 SPEC #: [id number] RECD: 07/08/22 15:04 STATUS: YANN BALLESTEROS #: [id number] MARIZA: 07/08/22 00:[address]: Codey Schaffer DEPT: SURGICAL PATHOLOGY RECD BY: Zay Andrade ENTERED: 07/09/22 10:33 SP TYPE: ESOPH BX OTHR DR: MD Dr. Saurabh Bustos MD Dr. Derek Brown, DO Dr. Joseph Agyepong, MD Dr. John E Miller, MD Dr. Lee Ann Baggott, MD Dr. Nana Yaa Koram, MD Dr. Paige Pierce, MD Dr. Tanmay Panchabhai, MD Christina Muller, A P MECHANIC-C Tissues: Esophagus, NOS Procedures: Special Stain Group I Surgery Specimen Level IV GMS Stain (control) Comments: @ Ordering doctor for SUIV edited from to @ by KIKA at 07/09/22 141 @ Submitting doctor edited from to @ by KIKA at 07/09/221412 HEADER OPERATION: EGD (MAC) and bipolar coagulation with gold probe PRE-OP DIAGNOSIS: Crohn?s disease, anemia TISSUE SUBMITTED: Random esophagus biopsy MICROSCOPIC DIAGNOSIS Esophagus, random biopsy: Fragments of benign squamous epithelium. See comment. SJ:john 07/12/2022 COMMENT Special stain for fungi is positive for organisms (yeast and pseudohyphae) in the superficial epithelial layers, consistent with Penny species; matched control is appropriate. Significant acute inflammation is not seen. Correlation with clinical findings and appropriate follow-up are necessary. This case has been reviewed in consultation with Dr. Slater who concurs with the above diagnosis. MICROSCOPIC DESCRIPTION Slides are reviewed. GROSS DESCRIPTION Received in fixative is one container labeled with the patient's name and designated random esophagus biopsy. The specimen consists of multiple irregular fragments of light black soft tissue that in aggregate measure 1.5 x 0.3 x 0.1 cm. The specimen is totally submitted in one cassette. / VANESSA:john 07/09/2022 TC:5 CPT: 19193, 97385
[2022-07-08] MEDS: dilTIAZem 60 MG Tablet PO ×3 (05:26→22:30)
[2022-07-08 06:16] LABS: Absolute Lymphocyte Count 0.22 X10^3/uL (0.83-4.51); Absolute Neutrophil Count 2.1 X10^3/uL (2.0-7.7); Basophil# 0.01 X10^3/uL; Basophil% 0.4 % (0-1); Hematocrit 27.2 % (37-47); Hemoglobin 8.3 g/dL (12.0-15.0); Lymphocyte # 0.22 X10^3/ul (0.83-4.51); Lymphocyte % 8.9 % (19-41); Mean Corp Hgb Conc 30.5 g/dL (32-36); Mean Corpuscular Hgb 30.1 pg (27.0-32.0); Mean Corpuscular Volume 98.6 fL (81-99); Mean Platelet Vol. 10.9 fl (6.2-12.0); Monocyte# 0.08 X10^3/uL; Monocyte% 3.2 % (0-10); NRBC Flagged by Analyzer 0.8 % (0-5); Neutrophil # 2.13 X10^3/uL (2.7-7.7); Neutrophil % 86.3 % (47-70); POSITIVE COUNT YES; POSITIVE DIFFERENTIAL YES; Platelet Count 153 K/mm3 (150-450); RBC Distribution Width CV 16.1 % (11.6-14.6); RBC Distribution Width SD 57.7 fl (35.1-43.9); Red Blood Count 2.76 M/mm3 (4.2-5.4); White Blood Count 2.5 K/mm3 (4.4-11.0)
[2022-07-08 06:17] LABS: Differential Indicated SCAN CRITERIA MET
[2022-07-08 06:20] LABS: International Normalized Ratio 1.2; Partial Thromboplast Time 22.8 Seconds (24.1-36.2); Prothrombin Time (Protime)PT. 14.4 SECONDS (11.7-14.9)
[2022-07-08 06:44] LABS: Anisocytosis 1+; Erythrocyte Sedimentation Rate 2 mm/hr (0-30)
[2022-07-08] MEDS: Budesonide Respules 0.5 MG/2 ML AMPUL.NEB. INHALATION ×2 (06:44→22:00)
[2022-07-08] MEDS: Ipratropium/Albuterol Sulfate 3 ML AMPUL.NEB INHALATION ×2 (06:45→22:00)
[2022-07-08 06:46] LABS: Ovalocyte RARE; Polychromasia Y
[2022-07-08 07:06] LABS: ALB/GLOB Ratio 0.8 RATIO (0.9-2.4); AST(SGOT) 9 U/L (15-37); Alanine Aminotransfer ALT/SGPT 16 U/L (13-56); Albumin, Serum 2.2 g/dL (3.2-5.0); Alkaline Phosphatase 37 U/L (45-117); Anion Gap 5 (5-15); BUN 5 mg/dL (7-18); BUN/Creat Ratio 10.3 RATIO (10-20); CRP < 2.90 mg/L (0.0-3.0); Calcium,Total 7.6 mg/dL (8.5-10.1); Chloride 109 mmol/L (98-107); Creatinine, Serum 0.49 mg/dL (0.55-1.02); EST Glomerular Filtration Rate 134 mL/min (>60); Est Glom Filt Rate - Afr Amer 162 mL/min (>60); Estimated Creatinine Clearance 38.68 ml/min; Globulin 2.6 g/dL (2.2-4.2); Glucose 108 mg/dL (74-106); Magnesium 2.3 mg/dL (1.6-2.6); Potassium 3.5 mmol/L (3.5-5.1); Protein, Total 4.8 g/dL (6.4-8.2); Sodium Level 141 mmol/L (136-145)
--- NOTE | 2022-07-08 07:57 | PCM.PN.HOSP ---
Subjective Subjective DOS 07/08/22 CC: intermittent abd pain Ms. Norris is a 67y/o F who presented 07/03/22 from the [facility] where she resides 2/2 being unresponsive and was diagnosed with acute metabolic encephalopathy 2/2 AHRF. Continues to report intremittent abd pain that comes and goes with intermittent nausea. She was started back on mesalamine. Continues to be on stress dose steroids. Does endorse BMs without difficulty, marcial remains in place, will remove today. Pt for EGD today for hgb drop and +stool occult blood Objective Data Objective Data Vital Signs: Vital Signs Temp Pulse Resp BP Pulse Ox O2 Del Method O2 Flow Rate 97.8 F 77 18 134/71 H 100 Nasal Cannula 3 07/08/22 06:43 07/08/22 07:01 07/08/22 06:43 07/08/22 06:43 07/08/22 06:43 07/08/22 06:43 07/08/22 06:43 FiO2 25 07/07/22 14:00 Oxygen Flow Rate (L/min) 3 Oxygen Delivery Method Nasal Cannula Weight: 63.5 kg Body Mass Index (BMI) 27.3 Intake & Output: Intake and Output for Last 24 Hours 07/06/22 07/07/22 07/08/22 23:59 23:59 23:59 Intake Total 2022.75 / 3004.00 2671.25 / 2671.25 50 / 50 Output Total 1150 / 1150 1450 / 1450 750 / 750 Balance 872.75 / 1854.00 1221.25 / 1221.25 -700 / -700 Lab / Micro Data Result Diagrams: 07/08/22 05:55 07/08/22 05:55 Labs: Laboratory Results - last 24 hr 07/07/22 08:20: WBC 2.5 L, RBC 2.85 L, Hgb 8.3 L, Hct 28.1 L, MCV 98.6, MCH 29.1, MCHC 29.5 L, RDW Std Deviation 57.3 H, RDW Coeff of Pascual 16.0 H, Plt Count 174, MPV 11.2, Immature Gran % (Auto) 1.200 H, Neut % (Auto) 86.7 H, Lymph % (Auto) 7.3 L, [place] % (Auto) 4.8, Eos % (Auto) 0.0, Baso % (Auto) 0.0, Absolute Neuts (auto) 2.2, Absolute Lymphs (auto) 0.18 L, Nucleated RBC % 0, Diff Path Review January foll, Platelet Estimate ADEQUATE, RBC Morphology NORM C+C 07/07/22 08:20: Sodium 141, Potassium 3.5, Chloride 107, Carbon Dioxide 26.0, Anion Gap 8, BUN 6 L, Creatinine 0.68, Estim Creat Clear Calc 38.68, Est GFR (MDRD) Af Amer 110, Est GFR (MDRD) Non-Af 91, BUN/Creatinine Ratio 8.8 L, Glucose 139 H, Calcium 8.2 L, Total Bilirubin 0.30, AST 14 L, ALT 18, Alkaline Phosphatase 43 L, Total Protein 5.6 L, Albumin 2.4 L, Globulin 3.2, Albumin/Globulin Ratio 0.8 L 07/07/22 08:20: Magnesium 2.3 07/08/22 05:55: WBC 2.5 L, RBC 2.76 L, Hgb 8.3 L, Hct 27.2 L, MCV 98.6, MCH 30.1, MCHC 30.5 L, RDW Std Deviation 57.7 H, RDW Coeff of Pascual 16.1 H, Plt Count 153, MPV 10.9, Immature Gran % (Auto) 1.200 H, Neut % (Auto) 86.3 H, Lymph % (Auto) 8.9 L, [place] % (Auto) 3.2, Eos % (Auto) 0.0, Baso % (Auto) 0.4, Absolute Neuts (auto) 2.1, Absolute Lymphs (auto) 0.22 L, Nucleated RBC % 0.8, Diff Path Review January foll, Polychromasia Y, Anisocytosis 1+, Ovalocytes RARE, ESR 2 07/08/22 05:55: Sodium 141, Potassium 3.5, Chloride 109 H, Carbon Dioxide 27.0, Anion Gap 5, BUN 5 L, Creatinine 0.49 L, Estim Creat Clear Calc 38.68, Est GFR (MDRD) Af Amer 162, Est GFR (MDRD) Non-Af 134, BUN/Creatinine Ratio 10.3, Glucose 108 H, Calcium 7.6 L, Magnesium 2.3, Total Bilirubin 0.20, AST 9 L, ALT 16, Alkaline Phosphatase 37 L, C-React Prot Ext Range < 2.90, Total Protein 4.8 L, Albumin 2.2 L, Globulin 2.6, Albumin/Globulin Ratio 0.8 L 07/08/22 05:55: PT 14.4, INR 1.2, APTT 22.8 L Micro: Microbiology 07/03/22 18:40 Blood Culture (Wb) - Port Blood Culture - Preliminary No growth in 48 hours. 07/03/22 16:20 Blood Culture (Wb) - Venous Blood Culture - Preliminary No growth in 48 hours. 07/05/22 17:28 Stool Stool Lactoferrin - Final 07/05/22 03:10 Stool C. difficile DNA Amplification - Final 07/03/22 17:59 Urine, Catheterized Urine Culture - Final Klebsiella pneumoniae sp pneum 07/04/22 15:15 Stool Stool Occult Blood (WILLEM) - Final Occult Blood Positive 07/03/22 22:45 Urine Catheter - Catheter Legionella Antigen - Final 07/03/22 22:45 Urine Catheter - Catheter Streptococcus pneumoniae Antigen (M - Final 07/03/22 19:50 Nasal Secretion SARS-CoV-2 & FLU Antigen (Rapid) - Final Physical Exam Const alert Constitutional Narrative: oriented to person, situation, and said the year was 2020, more oriented and appropriate HEENT Head and Scalp: normocephalic Eyes Eyes Narrative: No overt nystagmus or palsys Neck supple Resp normal respiratory effort and no retractions Resp Narrative: Slightly diminished at the bases, slight wheezes in upper lobes Cardio regular rate and regular rhythm Cardio Narrative: Mildly tachy, normal rhythm GI GI Narrative: nondistended, no rebound, guarding, rigidity Extremity Extremity Narrative: 1+ BLE pitting edema to shins, moves all extremities against gravity Skin Skin Narrative: Scattered ecchymosis Neuro moves all extremities Neuro Narrative: Tremor noted bilaterally, worse in hands with both movement and rest Able to follow commands Psych Psych Narrative: Cooperative Assessment & Plan Assessment/Plan (1) Acute encephalopathy: PLAN: Plan - Acute on chronic Anemia, macrocytic Likely component of chronic disease but hbg also downtrending further and occult blood in stool positive concerning for GI bleed Drop in hemoglobin from 10.6 to 8.3, hgb beginning to stabilize but this is off her AC Occult blood + Does have known hx of IBD GI consulted- EGD today, pt NPO Ultimately would benefit from colonoscopy but likely cannot tolerate prep- consider outpatient B12 wnl Fecal lactoferrin negative Stool calprotectin pending ESR 2 Continue PPI Transfuse if hgb <7 Will hold full dose AC at this time given bleed and pending upper endoscopy -sinus Tachycardia Intermittent tachycardia w/ intermittent afib and PVCs Has afib but does not appear to be in RVR Likely multifactorial This AM 90's-low 100's Metoprolol and Cardizem increased yesterday and seems to be improving Does not appear to have a new infection, likely component of deconditioning as well as HR faster with movement and when awake than anticipated for level of energy expenditure Acute metabolic encephalopathy secondary to acute hypercapnic respiratory failure but likely with additional confounding factors- resolved Patient is alert and oriented to self and that she is in the hospital and continues to answer questions more appropriately, today she said the year was 2020, previously it was s Likely close to baseline Continue to monitor mentation PCO2 improved to 50.3 from 137 and has no longer been trended Likely also component of UTI- ucx + for klebsiella On zosyn, started 07/04, 7 days recommended by critial care team Blood cx ngtd Fever has now defervesced s/p vanc CT on admission demonstrated previous infarcts EEG obtained and demonstrated L temporal periodic discharges- repeat EEG on 07/05 with diffuse but predominantly left hemispheric irregularities but no sz or epileptiform abnormalities and it has improved from prior. It also noted that the focalities may be due to functional/psot ictal changes or structural lesion from prior stroke Has hx of seizures and is on keppra neuro was consulted and increased keppra to 750mg BID which was increased, has done well on this -Acute hypercapnic respiratory failure secondary to acute COPD exacerbation, resolved Patient is off BiPAP; currently on 3 L of oxygen with Sat 98%, wean as tolerated, wears 3-4 L at correction per report so is likely close to baseline Continue inhalers CXR on admission w/ no acute infiltrate Rapid COVID-19 antigen and flu antigen negative. Urine streptococcal and Legionella antigen negative Admitted with a PCO2 of 137, managed on BiPAP, PCO2 trended down to 50.3 Wean off for SPO2 more than 92% -Hx of afib Intermittently tachycardic but this is beginning to improve with fluids and improvement in status Likely combination of home meds d/c'd on admission d/t status, dehydration, and deconditioning On cardizem 60 q8hr- equivalent to home dose of 180mg Metoprolol 25mg po BID- can consider increasing further to home 50mg BID dosing if PVCs/tachycardia continue Eliquis held and pt was on full dose lovenox d/t her afib Given downtrending hgb, FOBT +, and need for EGD will hold lovenox at this time Does not appear to have an indication that requires heparin bridge SCDs for dvt ppx at this time Restart AC when able 5. Fever, resolved UA is mildly positive but patient denied any UTI symptoms though Ucx + for klebsiella and pt is improving on abx Blood cx ngtd Continue zosyn Sepsis ruled out 6. history of DVT/PE In 2018, on home eliquis likely 2/2 afib Will hold AC at this time given GI bleed EGD today Resume lovenox when stalbe 7. Dysphagia related to #1, speech therapy consult Speech following, has been tolerating PO 8. Hypernatremia secondary dehydration, resolved 9. Hyperkalemia, resolved 10. Acute left upper extremity pain- resolved XR with OA noted Pt not reporting pain today On tramadol at home per documentation- continue to hold given mental status and comorbidities Continue atorvastatin 11. 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 Parkinson's disease, not on meds 13. Crohn's disease, on mesalamine and sulfasalazine at home On stress dose steroids- chronically on budesonide, likely steroid taper on d/c GI following Restarted mesalamine fecal calprotectin pending 14. DVT PPx- SCDs Yesenia Lomas MD Time spent 30 minutes Charges/Coding Visit Charges Inpatient E&M: 02083 Subs Hosp L2
[2022-07-08] MEDS: Metoprolol Tartrate 25 MG Tablet PO ×2 (09:17→22:30)
[2022-07-08] MEDS: Aspirin 81 MG TAB.CHEW PO (09:17)
[2022-07-08 09:28] LABS: Pathologist Review Reviewed
[2022-07-08 09:33] LABS: Pathologist Review Reviewed
--- NOTE | 2022-07-08 09:33 | CASEMGMT ---
SW sent updates to [facility] via [employer]. 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
--- NOTE | 2022-07-08 14:40 | OP.CCLET_ITS ---
07/08/2022 Quique Burroughs Md Re : Upper GI endoscopy procedure for Kira Norris Dear Manjeet This procedure was performed on July. My impressions and recommendations are as follows: Impressions : - Esophageal plaques were found, consistent with candidiasis. Biopsied. - Large hiatal hernia. 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 Treated with bipolar cautery. - Normal second portion of the duodenum. Biopsied. Recommendations : - Return patient to hospital [facility] for ongoing care. - Resume previous diet. - Continue present medications. - Await pathology results. - Diflucan (fluconazole) 100 mg PO daily for 2 weeks. My findings are described in the full procedure note, which is enclosed. If I can be of further assistance, please feel free to contact me at . Sincerely, Codey Schaffer, 07/08/2022 2:39:15 PM This report has been signed electronically.
--- NOTE | 2022-07-08 14:40 | OP.EGD_ITS ---
Patient Name: Kira Norris Procedure Date: 07/08/2022 2:18 PM Date of : 1955 Age: 67 Procedure: Upper GI endoscopy Indications: Iron deficiency anemia Providers: Codey Schaffer DO Medicines: Monitored Anesthesia Care Patient Profile: This is a 67 year old female. Refer to note in patient chart for documentation of history and physical. Patient has symptoms of dysphagia with both liquids and solids. Complications: No immediate complications. Procedure: Pre-Anesthesia Assessment: - Prior to the procedure, a History and Physical was performed, and patient medications and allergies were reviewed. The risks and benefits of the procedure and the sedation options and risks were discussed with the patient. All questions were answered and informed consent was obtained. Patient identification and proposed procedure were verified by the physician in the pre-procedure area. Mental Status Examination: alert and oriented. Airway Examination: normal oropharyngeal airway and neck mobility. CV Examination: normal. Prophylactic Antibiotics: The patient does not require prophylactic antibiotics. Prior Anticoagulants: The patient has taken no previous anticoagulant or antiplatelet agents. After reviewing the risks and benefits, the patient was deemed in satisfactory condition to undergo the procedure. The anesthesia plan was to use monitored anesthesia care (MAC). Immediately prior to administration of medications, the patient was re-assessed for adequacy to receive sedatives. The heart rate, respiratory rate, oxygen saturations, blood pressure, adequacy of pulmonary ventilation, and response to care were monitored throughout the procedure. The physical status of the patient was re-assessed after the procedure. After obtaining informed consent, the endoscope was passed under direct vision. Throughout the procedure, the patient's blood pressure, pulse, and oxygen saturations were monitored continuously. The Endoscope was introduced through the mouth, and advanced to the second part of duodenum. The upper GI endoscopy was accomplished without difficulty. The patient tolerated the procedure well. Scope In: 2:30:23 PM Scope Out: 2:35:54 PM Total Procedure Duration Time 0 hours 5 minutes 31 seconds Findings: Diffuse, white plaques were found in the entire esophagus. Biopsies were taken with a cold forceps for histology. Verification of patient identification for the specimen was done. Estimated blood loss was minimal. A large hiatal hernia was present. Two 5 mm bleeding angiodysplastic lesions were found in the cardia. Coagulation for hemostasis using bipolar probe was successful. Estimated blood loss was minimal. The second portion of the duodenum was normal. Biopsies were taken with a cold forceps for histology. Verification of patient identification for the specimen was done. Estimated blood loss was minimal. Impression: - Esophageal plaques were found, consistent with candidiasis. Biopsied. - Large hiatal hernia. 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 Treated with bipolar cautery. - Normal second portion of the duodenum. Biopsied. Recommendation: - Return patient to hospital [facility] for ongoing care. - Resume previous diet. - Continue present medications. - Await pathology results. - Diflucan (fluconazole) 100 mg PO daily for 2 weeks. Procedure Code(s): --- Professional --- 11315, 59, Esophagogastroduodenoscopy, flexible, transoral; with control of bleeding, any method 84877, 51, Esophagogastroduodenoscopy, flexible, transoral; with biopsy, single or multiple CPT copyright 2017 [employer]. All rights reserved. The codes documented in this report are preliminary and upon meteorology professor review may be revised to meet current compliance requirements. Codey Schaffer DO 07/08/2022 2:39:15 PM This report has been signed electronically. Number of Addenda: 0 Note Initiated On: 07/08/2022 2:18 PM
[2022-07-08] MEDS: Acetaminophen 325 MG Tablet 650 MG PO ×2 (16:14→22:14)
[2022-07-08] MEDS: Menthol/Lanolin/Calamine/Znox 113 GM Tube 1 APPLIC TOPICAL (16:14)
[2022-07-08] MEDS: Mesalamine 1.2 GM Tablet PO (16:15)
[2022-07-08] MEDS: MELATONIN 10 MG TABLET PO (22:14)
[2022-07-08] MEDS: Latanoprost 0.005% 1 Bottle 1 DRP EACH EYE (22:16)
[2022-07-08] MEDS: Fluconazole 100 MG Tablet PO (22:30)
[2022-07-08] MEDS: Enoxaparin 60 MG/0.6 ML Syringe SC (22:35)
--- NOTE | 2022-07-08 23:06 | CPS ---
20:05 this even pt was placed on bipap while sleeping, spo2 kept dropping while pt was asleep.
[2022-07-09] VITALS (19 sets, daily range): BP systolic 125–143; BP diastolic 60–89; PULSE 70–96; RESP 12–25; TEMP 36.6–36.7; O2SAT 94–100
[2022-07-09] MEDS: dilTIAZem 60 MG Tablet PO ×3 (05:04→20:57)
[2022-07-09] MEDS: Acetaminophen 325 MG Tablet 650 MG PO ×3 (05:04→20:57)
[2022-07-09 06:34] LABS: Absolute Lymphocyte Count 0.19 X10^3/uL (0.83-4.51); Absolute Neutrophil Count 1.6 X10^3/uL (2.0-7.7); Hematocrit 29.4 % (37-47); Hemoglobin 8.7 g/dL (12.0-15.0); Lymphocyte # 0.19 X10^3/ul (0.83-4.51); Lymphocyte % 10.1 % (19-41); Mean Corp Hgb Conc 29.6 g/dL (32-36); Mean Corpuscular Hgb 28.9 pg (27.0-32.0); Mean Corpuscular Volume 97.7 fL (81-99); Mean Platelet Vol. 10.8 fl (6.2-12.0); Monocyte# 0.08 X10^3/uL; Monocyte% 4.2 % (0-10); NRBC Flagged by Analyzer 1.6 % (0-5); Neutrophil % 84.6 % (47-70); POSITIVE DIFFERENTIAL YES; Platelet Count 180 K/mm3 (150-450); RBC Distribution Width CV 16.1 % (11.6-14.6); RBC Distribution Width SD 57.4 fl (35.1-43.9); Red Blood Count 3.01 M/mm3 (4.2-5.4); White Blood Count 1.9 K/mm3 (4.4-11.0)
[2022-07-09] MEDS: Ipratropium/Albuterol Sulfate 3 ML AMPUL.NEB INHALATION ×3 (06:55→19:16)
[2022-07-09] MEDS: Budesonide Respules 0.5 MG/2 ML AMPUL.NEB. INHALATION ×2 (06:55→19:17)
[2022-07-09 07:07] LABS: ALB/GLOB Ratio 0.8 RATIO (0.9-2.4); AST(SGOT) 10 U/L (15-37); Alanine Aminotransfer ALT/SGPT 14 U/L (13-56); Albumin, Serum 2.2 g/dL (3.2-5.0); Alkaline Phosphatase 36 U/L (45-117); Anion Gap 6 (5-15); BUN 8 mg/dL (7-18); BUN/Creat Ratio 14.4 RATIO (10-20); Calcium,Total 7.7 mg/dL (8.5-10.1); Chloride 106 mmol/L (98-107); Creatinine, Serum 0.56 mg/dL (0.55-1.02); EST Glomerular Filtration Rate 115 mL/min (>60); Est Glom Filt Rate - Afr Amer 140 mL/min (>60); Estimated Creatinine Clearance 38.68 ml/min; Globulin 2.9 g/dL (2.2-4.2); Glucose 135 mg/dL (74-106); Potassium 3.1 mmol/L (3.5-5.1); Protein, Total 5.1 g/dL (6.4-8.2); Sodium Level 141 mmol/L (136-145)
[2022-07-09 07:16] LABS: Differential Indicated SCAN CRITERIA MET
[2022-07-09 07:28] LABS: Differential Comment SCANNED; Hypochromasia 1+
[2022-07-09] MEDS: Potassium Chloride Oral Tablet 20 MEQ 40 MEQ PO (07:59)
[2022-07-09] MEDS: Aspirin 81 MG TAB.CHEW PO (08:00)
[2022-07-09] MEDS: Metoprolol Tartrate 25 MG Tablet PO ×2 (08:00→20:56)
[2022-07-09] MEDS: Menthol/Lanolin/Calamine/Znox 113 GM Tube 1 APPLIC TOPICAL ×2 (08:02→20:58)
[2022-07-09] MEDS: Enoxaparin 60 MG/0.6 ML Syringe SC ×2 (08:35→20:56)
[2022-07-09] MEDS: Fluconazole 100 MG Tablet PO ×2 (08:35→20:56)
--- NOTE | 2022-07-09 10:00 | PCM.PROGNOTE ---
Subjective Subjective She underwent an upper endoscopy yesterday for acute on chronic blood loss anemia. She had angiodysplastic lesions which were treated endoscopically. She also discovered to have a large hiatal hernia. Objective Data Objective Data Vital Signs: Vital Signs Temp Pulse Resp BP Pulse Ox O2 Del Method O2 Flow Rate 98 F 93 16 136/78 H 94 Nasal Cannula 3 07/09/22 10:00 07/09/22 12:56 07/09/22 12:56 07/09/22 10:00 07/09/22 11:54 07/09/22 10:00 07/09/22 11:54 FiO2 25 07/09/22 03:14 Oxygen Flow Rate (L/min) 3 Oxygen Delivery Method Nasal Cannula Weight: 143 lb 4.807 oz Body Mass Index (BMI) 27.3 Intake & Output: Intake and Output for Last 24 Hours 07/07/22 07/08/22 07/09/22 23:59 23:59 23:59 Intake Total 2671.25 / 2671.25 1026.25 / 1026.25 517.5 / 517.5 Output Total 1450 / 1450 1275 / 1275 Balance 1221.25 / 1221.25 -248.75 / -248.75 517.5 / 517.5 Lab / Micro Data Result Diagrams: 07/09/22 06:20 07/09/22 06:20 Labs: Laboratory Results - last 24 hr 07/09/22 06:20: WBC 1.9 L, RBC 3.01 L, Hgb 8.7 L, Hct 29.4 L, MCV 97.7, MCH 28.9, MCHC 29.6 L, RDW Std Deviation 57.4 H, RDW Coeff of Pascual 16.1 H, Plt Count 180, MPV 10.8, Immature Gran % (Auto) 1.100 H, Neut % (Auto) 84.6 H, Lymph % (Auto) 10.1 L, [place] % (Auto) 4.2, Eos % (Auto) 0.0, Baso % (Auto) 0.0, Absolute Neuts (auto) 1.6 L, Absolute Lymphs (auto) 0.19 L, Nucleated RBC % 1.6, Differential Comment SCANNED, Diff Path Review Reviewed, Hypochromasia 1+ 07/09/22 06:20: Sodium 141, Potassium 3.1 L, Chloride 106, Carbon Dioxide 29.0, Anion Gap 6, BUN 8, Creatinine 0.56, Estim Creat Clear Calc 38.68, Est GFR (MDRD) Af Amer 140, Est GFR (MDRD) Non-Af 115, BUN/Creatinine Ratio 14.4, Glucose 135 H, Calcium 7.7 L, Total Bilirubin 0.20, AST 10 L, ALT 14, Alkaline Phosphatase 36 L, Total Protein 5.1 L, Albumin 2.2 L, Globulin 2.9, Albumin/Globulin Ratio 0.8 L Micro: Microbiology 07/03/22 18:40 Blood Culture (Wb) - Port Blood Culture - Final No growth in 5 days. 07/03/22 16:20 Blood Culture (Wb) - Venous Blood Culture - Final No growth in 5 days. 07/05/22 17:28 Stool Stool Lactoferrin - Final 07/05/22 03:10 Stool C. difficile DNA Amplification - Final 07/03/22 17:59 Urine, Catheterized Urine Culture - Final Klebsiella pneumoniae sp pneum 07/04/22 15:15 Stool Stool Occult Blood (WILLEM) - Final Occult Blood Positive 07/03/22 22:45 Urine Catheter - Catheter Legionella Antigen - Final 07/03/22 22:45 Urine Catheter - Catheter Streptococcus pneumoniae Antigen (M - Final 07/03/22 19:50 Nasal Secretion SARS-CoV-2 & FLU Antigen (Rapid) - Final Physical Exam Const alert Constitutional Narrative: oriented to person, situation, and said the year was 2020, more oriented and appropriate HEENT Head and Scalp: normocephalic Eyes Eyes Narrative: No overt nystagmus or palsys Neck supple Resp normal respiratory effort and no retractions Resp Narrative: Slightly diminished at the bases, slight wheezes in upper lobes Cardio regular rate and regular rhythm Cardio Narrative: Mildly tachy, normal rhythm GI GI Narrative: nondistended, no rebound, guarding, rigidity Extremity Extremity Narrative: 1+ BLE pitting edema to shins, moves all extremities against gravity Skin Skin Narrative: Scattered ecchymosis Neuro moves all extremities Neuro Narrative: Tremor noted bilaterally, worse in hands with both movement and rest Able to follow commands Psych Psych Narrative: Cooperative Assessment & Plan Assessment/Plan (1) Anemia: PLAN: She was discovered to have multiple angiodysplastic lesions in her upper GI tract. Number typically in her stomach that were treated endoscopically. Her hemoglobin seems to be stable. She can go back on anticoagulation and antiplatelet therapy if needed as per primary team. (2) Crohn's disease: PLAN: She has history of multiple surgeries secondary to Crohn's disease as that could be also contributing to acute blood loss anemia due to insufficient stores. Recommendations: Medical therapy for Crohn's disease as she is not having any symptoms. Charges/Coding Visit Charges Inpatient E&M: 20455 Subs Hosp L2
[2022-07-09 13:13] LABS: Pathologist Review Reviewed
--- NOTE | 2022-07-09 13:40 | PCM.DC.SUM ---
Providers Date of Admission: 07/03/22 Date of Discharge: 07/09/22 Primary Care Physician: Dr. Quique Burroughs MD Consultations 07/03/22 20:04 Consult: Hedis Coordinator / Pulmonary Medicine Routine Consulting Provider: Pulmonary Medicine chay [place] Reason for Consult: sepsis; unresponsive; hypercapnic resp failure EMERGENT Consult: No Notified: Yes Date Notified: 07/03/22 Time Notified: 19:11 Method of Notification: Text 07/04/22 15:37 Consult: Gastroenterology Routine Consulting Provider: [facility] Reason for Consult: GI bleed EMERGENT Consult: No Notified: Yes Date Notified: 07/04/22 Time Notified: 16:00 Method of Notification: Text Reason For Visit: ACUTE ENCEPHALOPATHY, POSSIBLE SEPSIS Diagnosis Discharge Diagnosis (1) Acute encephalopathy: Status: Acute Code(s): G93.40 - Encephalopathy, unspecified Medications at Discharge Home Medications albuterol 90 mcg/actuation aerosol inhaler 90 mcg inhalation BID 01/30/22 budesonide 3 mg capsule,delayed,extended release 3 mg PO DAILY 01/30/22 cetirizine 10 mg tablet 10 mg PO DAILY 01/30/22 fluticasone fur. 100 mcg-umeclid 62.5 mcg-vilant 25 mcg inhalat.powder (Trelegy Ellipta) 1 inh inhalation DAILY 01/30/22 furosemide 20 mg tablet 20 mg PO DAILY 01/30/22 guaifenesin 600 mg tablet, extended release 12 hr (Mucinex) 600 mg PO BID PRN Nasal Congestion 01/30/22 ipratropium 0.5 mg-albuterol 3 mg (2.5 mg base)/3 mL nebulization soln 3 ml inhalation Q4H PRN SHORTNESS 01/30/22 loperamide 2 mg tablet 2 mg PO Q4H PRN Diarrhea 01/30/22 mesalamine 0.375 gram capsule,extended release 24 hr 1.125 g PO DAILY 01/30/22 metoprolol tartrate 100 mg tablet 50 mg PO Q12H 01/30/22 pantoprazole 40 mg tablet,delayed release 40 mg PO BID 01/30/22 potassium chloride 20 mEq oral packet 40 meq PO QHS 01/30/22 sulfasalazine 500 mg tablet 1,000 mg PO BID 01/30/22 latanoprost 0.005 % eye drops 1 drp EACH EYE QPM 08/03/22 aspirin 81 mg chewable tablet 81 mg PO BREAKFAST #0 tabs 05/07/22 atorvastatin 40 mg tablet 40 mg PO QHS #0 tabs 05/07/22 acetaminophen 500 mg tablet 1,000 mg PO Q8H PRN 05/28/22 diclofenac sodium 1 % topical gel (Voltaren Arthritis Pain) 2 g topical BID 05/28/22 diltiazem HCl 180 mg capsule,extended release 24 hr 180 mg PO DAILY 05/28/22 dorzolamide 22.3 mg-timolol 6.8 mg/mL eye drops 1 drp EACH EYE BID 05/28/22 ferrous sulfate 325 mg (65 mg iron) tablet 325 mg PO DAILY 05/28/22 lidocaine 4 % topical patch 1 patch topical DAILY 05/28/22 ondansetron 4 mg disintegrating tablet 4 mg PO Q4H PRN PRN Nausea 05/28/22 roflumilast 250 mcg tablet (Daliresp) 250 mcg PO QHS 05/28/22 apixaban 5 mg tablet (Eliquis) 5 mg PO BID #60 tabs 05/30/22 food supplemt, lactose-reduced (Ensure oral liquid) 120 ml PO TID 07/03/22 gabapentin 100 mg tablet 100 mg PO TID 07/03/22 spironolactone 25 mg tablet 25 mg PO BID 07/03/22 tramadol 50 mg tablet 50 mg PO Q6H PRN Pain 07/03/22 cefdinir 300 mg capsule 300 mg PO BID #4 caps 07/09/22 fluconazole 100 mg tablet 100 mg PO DAILY #14 tabs 07/09/22 levetiracetam 750 mg tablet (Keppra) 750 mg PO BID #60 tabs 07/09/22 pantoprazole 40 mg tablet,delayed release 40 mg PO BID #60 tabs 07/09/22 Hospital Course Operations None Procedures EGD Summary of Care Provided Minutes Spent on Discharge: 45 Hospital Course: Patient is a 67-year-old female with a significant past medical history as outlined who was admitted through the ED on 07/03/2022 after being found unresponsive. She was found in her senior living. She had recently had 2 strokes in the last couple of months and also had blood clots in 2018 and had recently been discharged from [facility] on 05/30/2022 to a senior living. Upon this current presentation, work-up for stroke was negative. She was admitted and managed for acute metabolic encephalopathy and acute hypercapnic respiratory failure due to acute COPD exacerbation. [facility] neurolog[facility] was consulted on account of concerns for seizures. She was admitted to the ICU and critical care was consulted. She was placed on breathing treatments and steroids. She was also COVID with IV vancomycin and Levaquin empirically on account of persistent fever with no clear source of infection. 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 CT of the brain and CTA of the head and neck were unremarkable. [facility] neurology was consulted and increased her Keppra to 750 mg twice daily. Hospital course was complicated by acute on chronic anemia with hemoglobin dropping to a binta of 7.7. Stool for occult blood was also positive. Gastroenterology was consulted. She had EGD which showed esophageal plaques consistent with candidiasis which was biopsied as well as 2 bleeding angiodysplastic lesions in the stomach which were treated with bipolar cautery and large hiatal hernia. She was placed on Diflucan 100 mg daily which she was to take for 2 weeks. Patient felt much better. Urine culture was positive for Klebsiella and she was transitioned to Zosyn, to complete a 7-day course of antibiotics. She was taken off of BiPAP and transition to her baseline 3 L of oxygen. Patient remained stable and was discharged on 07/09/2022 and is to follow-up with her primary care doctor and with neurology as well as gastroenterology. Patient seen and examined prior to discharge. She had no active complaints and had an uneventful night. Review of systems otherwise negative. Labs and vitals reviewed. Home medication reviewed and reconciled. Physical Exam Const alert, oriented x3 and no apparent distress General Appearance: cooperative, comfortable and well kempt Orientation / Consciousness: awake Exam Limitations: no limitations HEENT normocephalic, head/scalp atraumatic, hearing grossly normal bilaterally and moist oral mucous membranes Mouth: oral and palatal mucosa normal Eyes PERRL, EOMs intact bilaterally and conjunctivae normal Neck no lymphadenopathy and supple Resp Resp Narrative: mildly diminished breath sounds bibasally, no wheezes or crackles. on 3L of oxygen by nasal canula Cardio regular rate, regular rhythm, S1 normal heart sound, S2 normal heart sound and no murmurs GI normal to inspection, nondistended, normoactive bowel sounds, soft to palpation, non-tender and non-distended Extremity normal to inspection and no clubbing, cyanosis or edema Skin no rashes or lesions noted Neuro oriented x3, CN's II-XII intact bilaterally, moves all extremities and no focal motor deficits Sensorium / Orientation: awake and alert Motor Exam: strength 5/5 throughout Psych affect normal Weight / BMI Weight Weight: 143 lb 4.807 oz Body Mass Index (BMI) 27.3 ABG / Lab / Microbiology Data Result Diagrams: 07/09/22 06:20 07/09/22 06:20 Laboratory: Laboratory Results - last 24 hr 07/09/22 06:20: WBC 1.9 L, RBC 3.01 L, Hgb 8.7 L, Hct 29.4 L, MCV 97.7, MCH 28.9, MCHC 29.6 L, RDW Std Deviation 57.4 H, RDW Coeff of Pascual 16.1 H, Plt Count 180, MPV 10.8, Immature Gran % (Auto) 1.100 H, Neut % (Auto) 84.6 H, Lymph % (Auto) 10.1 L, [place] % (Auto) 4.2, Eos % (Auto) 0.0, Baso % (Auto) 0.0, Absolute Neuts (auto) 1.6 L, Absolute Lymphs (auto) 0.19 L, Nucleated RBC % 1.6, Differential Comment SCANNED, Diff Path Review Reviewed, Hypochromasia 1+ 07/09/22 06:20: Sodium 141, Potassium 3.1 L, Chloride 106, Carbon Dioxide 29.0, Anion Gap 6, BUN 8, Creatinine 0.56, Estim Creat Clear Calc 38.68, Est GFR (MDRD) Af Amer 140, Est GFR (MDRD) Non-Af 115, BUN/Creatinine Ratio 14.4, Glucose 135 H, Calcium 7.7 L, Total Bilirubin 0.20, AST 10 L, ALT 14, Alkaline Phosphatase 36 L, Total Protein 5.1 L, Albumin 2.2 L, Globulin 2.9, Albumin/Globulin Ratio 0.8 L Microbiology: Microbiology 07/03/22 18:40 Blood Culture (Wb) - Port Blood Culture - Final No growth in 5 days. 07/03/22 16:20 Blood Culture (Wb) - Venous Blood Culture - Final No growth in 5 days. 07/05/22 17:28 Stool Stool Lactoferrin - Final 07/05/22 03:10 Stool C. difficile DNA Amplification - Final 07/03/22 17:59 Urine, Catheterized Urine Culture - Final Klebsiella pneumoniae sp pneum 07/04/22 15:15 Stool Stool Occult Blood (WILLEM) - Final Occult Blood Positive 07/03/22 22:45 Urine Catheter - Catheter Legionella Antigen - Final 07/03/22 22:45 Urine Catheter - Catheter Streptococcus pneumoniae Antigen (M - Final 07/03/22 19:50 Nasal Secretion SARS-CoV-2 & FLU Antigen (Rapid) - Final D/C Instructions Discharge Diet: Low fat / Low cholesterol Discharge Activity: Return to Normal Activity Weight Bearing Status: Weight bearing as tolerated Call your doctor if you observe: Fever of 101 or Higher, Shortness of breath, Dizziness, Fainting spells, Swelling in the ankles, Chest pain and Uncontrolled pain Meaningful Use Info Meaningful Use Diagnoses (Choose all that apply): None applicable Discharge Plan Admission Admit Date/Time: 07/03/22 19:03 Primary Reason for Your Visit: acute hypercapnic respiratory failure Attending Provider: Janneth Carrillo Primary Care Provider: Quique Burroughs Consulting Providers: Akira De Oliveira ; María Morfin ; Saurabh Auguste ; Lonnie Hartmann ; Ronaldo To ; Reza Luis ; Obdulia Ratliff NP ; Yesenia Lomas Discharge Orders/Prescriptions Prescriptions: New levetiracetam [Keppra] 750 mg tablet 750 mg PO BID Qty: 60 0RF pantoprazole 40 mg tablet,delayed release (DR/EC) 40 mg PO BID Qty: 60 1RF cefdinir 300 mg capsule 300 mg PO BID Qty: 4 0RF fluconazole 100 mg tablet 100 mg PO DAILY Qty: 14 0RF Continued metoprolol tartrate 100 mg Tablet 50 mg PO Q12H albuterol 90 mcg/actuation Aerosol 90 mcg INHALATION BID budesonide 3 mg Capsule,Delayed,Extend.Release 3 mg PO DAILY mesalamine 0.375 gram Capsule,Extended Release 24hr 1.125 g PO DAILY guaifenesin [Mucinex] 600 mg Tablet Extended Release 12hr 600 mg PO BID PRN (Reason: Nasal Congestion) sulfasalazine 500 mg Tablet 1,000 mg PO BID cetirizine 10 mg Tablet 10 mg PO DAILY loperamide 2 mg Tablet 2 mg PO Q4H PRN (Reason: Diarrhea) potassium chloride 20 mEq Packet 40 meq PO QHS furosemide 20 mg Tablet 20 mg PO DAILY Trelegy Ellipta 100-62.5-25 mcg Blister With Device 1 inh INHALATION DAILY ipratropium-albuterol 0.5 mg-3 mg(2.5 mg base)/3 mL Solution For Nebulization 3 ml INHALATION Q4H PRN (Reason: SHORTNESS) pantoprazole 40 mg Tablet,Delayed Release (Dr/Ec) 40 mg PO BID latanoprost 0.005 % Drops 1 drp EACH EYE QPM aspirin 81 mg Tablet,Chewable 81 mg PO BREAKFAST Qty: 0 0RF atorvastatin 40 mg Tablet 40 mg PO QHS Qty: 0 0RF lidocaine 4 % Adhesive Patch,Medicated 1 patch TOPICAL DAILY diltiazem HCl 180 mg capsule,extended release 24hr 180 mg PO DAILY acetaminophen 500 mg Tablet 1,000 mg PO Q8H PRN ferrous sulfate 325 mg (65 mg iron) Tablet 325 mg PO DAILY dorzolamide-timolol 22.3-6.8 mg/mL drops 1 drp EACH EYE BID ondansetron 4 mg Tablet,Disintegrating 4 mg PO Q4H PRN PRN (Reason: Nausea) diclofenac sodium [Voltaren Arthritis Pain] 1 % Gel 2 g TOPICAL BID Daliresp 250 mcg tablet 250 mcg PO QHS Eliquis 5 mg tablet 5 mg PO BID Qty: 60 0RF Rx Instructions: start date 05/31/2022 tramadol 50 mg Tablet 50 mg PO Q6H PRN (Reason: Pain) spironolactone 25 mg Tablet 25 mg PO BID gabapentin 100 mg Tablet 100 mg PO TID Ensure Liquid 120 ml PO TID Discontinued levetiracetam [Keppra] 500 mg tablet 500 mg PO BID Qty: 60 0RF cephalexin 500 mg capsule 500 mg PO BID Qty: 6 0RF Referrals / Follow Up: Quique Burroughs MD [Primary Care Provider] - Within 2 Weeks Codey Schaffer DO [Med Staff - Active Staff] - Within 2 Weeks Disposition Disposition (needs filled in before D/C Order can be placed): [facility] Facility Charges/Coding Visit Charges Inpatient E&M: 51967 Disch Hosp
--- NOTE | 2022-07-09 14:21 | CASEMGMT ---
SINDI notified Tawny at [facility] that patient will be returning today. Carrie Haley [employer] LOC[employer] MANAGER [facility]
--- NOTE | 2022-07-09 14:34 | PCM.TXEXTCAR ---
Diet Diet Order/Speech Therapy: 07/08/22 16:52 Diet: Cardiac - Heart Healthy Food consistency:: Easy to Chew Liquid Consistency:: Regular/Thin Is pt able to select menu?: No Diet Comments: assist as needed, meds whole with water, upright position for po Routine Orders/Code Status Enema Type: Fleetz Enema Frequency: Daily PRN Suppository Type: Dulcolax 10mg Suppository Frequency: Daily PRN O2 Frequency: PRN Keep PO Greater than or Equal to (%): 90 Therapies Weight Bearing: Weight bearing as tolerated Physical Therapy: Eval and Treat Occupational Therapy: Eval and Treat Problem/Diagnosis (1) Acute encephalopathy: Status: Acute Code(s): G93.40 - Encephalopathy, unspecified (2) Anemia: Status: Acute Code(s): D64.9 - Anemia, unspecified (3) Crohn's disease: Status: Acute Code(s): K50.90 - Crohn's disease, unspecified, without complications Allergies/Procedures Done in Hospital Allergies amoxicillin [From Augmentin] Allergy (Verified 07/03/22 14:56) PT UNABLE TO RESPOND-NEEDS F/U clavulanic acid [From Augmentin] Allergy (Verified 07/03/22 14:56) PT UNABLE TO RESPOND-NEEDS F/U codeine Allergy (Verified 07/03/22 14:56) PT UNABLE TO RESPOND-NEEDS F/U Iodinated Contrast Media Allergy (Verified 07/03/22 14:56) Anaphylaxis metronidazole [From Flagyl] Allergy (Verified 07/03/22 14:56) PT UNABLE TO RESPOND-NEEDS F/U morphine Allergy (Verified 07/03/22 14:56) PT UNSURE OF REACTION oxycodone Allergy (Verified 07/03/22 14:56) PT UNSURE OF REACTION ropinirole Allergy (Verified 07/03/22 14:56) PT UNSURE OF REACTION hydrocodone [From Vicodin] Adverse Reaction (Verified 07/03/22 14:56) PT UNSURE OF REACTION Procedures: Electroencephalogram and EGD Type of Care/Length of Stay Estimated LOS: Convalescent Care Less Than 30 days Type of Care Needed: Skilled Rehab Potential: Fair Prognosis: Fair Additional Orders/Day of Discharge Day of Discharge: 07/09/22 Dietary and Speech Recommendations Dietitian Recommendations/Changes: recommend advance diet as tolerated to cardiac; consider liberalizing diet to regular if PO intake is poor after EGD. Texture/consistency modifications per [facility] SPECIALIST. Discharge Plan Admission Admit Date/Time: 07/03/22 19:03 Primary Reason for Your Visit: acute hypercapnic respiratory failure Attending Provider: Janneth Carrillo Primary Care Provider: Quique Burroughs Consulting Providers: Akira De Oliveira ; María Morfin ; Saurabh Auguste ; Lonnie Hartmann ; Ronaldo To ; Reza Luis ; Obdulia Ratliff NP ; Yesenia Lomas Instructions Patient Instructions: ED Esophagitis, Penny, ED Cystitis Female Adult Discharge Orders/Prescriptions Prescriptions: New levetiracetam [Keppra] 750 mg tablet 750 mg PO BID Qty: 60 0RF pantoprazole 40 mg tablet,delayed release (DR/EC) 40 mg PO BID Qty: 60 1RF cefdinir 300 mg capsule 300 mg PO BID Qty: 4 0RF fluconazole 100 mg tablet 100 mg PO DAILY Qty: 14 0RF Continued metoprolol tartrate 100 mg Tablet 50 mg PO Q12H albuterol 90 mcg/actuation Aerosol 90 mcg INHALATION BID budesonide 3 mg Capsule,Delayed,Extend.Release 3 mg PO DAILY mesalamine 0.375 gram Capsule,Extended Release 24hr 1.125 g PO DAILY guaifenesin [Mucinex] 600 mg Tablet Extended Release 12hr 600 mg PO BID PRN (Reason: Nasal Congestion) sulfasalazine 500 mg Tablet 1,000 mg PO BID cetirizine 10 mg Tablet 10 mg PO DAILY loperamide 2 mg Tablet 2 mg PO Q4H PRN (Reason: Diarrhea) potassium chloride 20 mEq Packet 40 meq PO QHS furosemide 20 mg Tablet 20 mg PO DAILY Trelegy Ellipta 100-62.5-25 mcg Blister With Device 1 inh INHALATION DAILY ipratropium-albuterol 0.5 mg-3 mg(2.5 mg base)/3 mL Solution For Nebulization 3 ml INHALATION Q4H PRN (Reason: SHORTNESS) pantoprazole 40 mg Tablet,Delayed Release (Dr/Ec) 40 mg PO BID latanoprost 0.005 % Drops 1 drp EACH EYE QPM aspirin 81 mg Tablet,Chewable 81 mg PO BREAKFAST Qty: 0 0RF atorvastatin 40 mg Tablet 40 mg PO QHS Qty: 0 0RF lidocaine 4 % Adhesive Patch,Medicated 1 patch TOPICAL DAILY diltiazem HCl 180 mg capsule,extended release 24hr 180 mg PO DAILY acetaminophen 500 mg Tablet 1,000 mg PO Q8H PRN ferrous sulfate 325 mg (65 mg iron) Tablet 325 mg PO DAILY dorzolamide-timolol 22.3-6.8 mg/mL drops 1 drp EACH EYE BID ondansetron 4 mg Tablet,Disintegrating 4 mg PO Q4H PRN PRN (Reason: Nausea) diclofenac sodium [Voltaren Arthritis Pain] 1 % Gel 2 g TOPICAL BID Daliresp 250 mcg tablet 250 mcg PO QHS Eliquis 5 mg tablet 5 mg PO BID Qty: 60 0RF Rx Instructions: start date 05/31/2022 tramadol 50 mg Tablet 50 mg PO Q6H PRN (Reason: Pain) spironolactone 25 mg Tablet 25 mg PO BID gabapentin 100 mg Tablet 100 mg PO TID Ensure Liquid 120 ml PO TID Discontinued levetiracetam [Keppra] 500 mg tablet 500 mg PO BID Qty: 60 0RF cephalexin 500 mg capsule 500 mg PO BID Qty: 6 0RF Referrals / Follow Up: Quique Burroughs MD [Primary Care Provider] - Within 2 Weeks Ilan Russo MD [Non-Staff -Ordering Privileges] - Within 2 Weeks Codey Schaffer DO [Med Staff - Active Staff] - Within 2 Weeks Disposition Disposition (needs filled in before D/C Order can be placed): Assisted Facility
--- NOTE | 2022-07-09 16:34 | NURSING ---
report called to [facility] [id number] a-fib hr 91
[2022-07-09] MEDS: Latanoprost 0.005% 1 Bottle 1 DRP EACH EYE (20:57)
[2022-07-14 10:33] LABS: Calprotectin, Stool 23 ug/g (0-120)
== END 2022-07-09 22:00 | disposition skilled nursing facility (03) | DRG 189 ==
LOC: ED 19:10 → ICU 19:34 → PCU 07-05 16:47
PROVIDERS: Anesthesiology; Internal Medicine; Internal Medicine Gastroenterology; Admitting Provider Hospitalist; Emergency Provider Emergency Medicine; Visit Provider Student in an Organized Health Care Education/Training Program
PROC: 0DJ08ZZ Inspection of Upper Intestinal Tract, Via Natural or Artificial Opening Endoscopic (ICD-10-PCS; CPT 43235; principal; 2022-07-08 12:55)
DX: J96.02 Acute respiratory failure with hypercapnia (principal); G93.41 Metabolic encephalopathy; K31.811 Angiodysplasia of stomach and duodenum with bleeding; B37.81 Candidal esophagitis; E87.0 Hyperosmolality and hypernatremia; D62 Acute posthemorrhagic anemia; J44.1 Chronic obstructive pulmonary disease with (acute) exacerbation; I50.32 Chronic diastolic (congestive) heart failure; K50.90 Crohn's disease, unspecified, without complications; N39.0 Urinary tract infection, site not specified; D63.8 Anemia in other chronic diseases classified elsewhere; I48.91 Unspecified atrial fibrillation; G40.909 Epilepsy, unspecified, not intractable, without status epilepticus; I11.0 Hypertensive heart disease with heart failure; G20 Parkinson's disease; E87.5 Hyperkalemia; E78.5 Hyperlipidemia, unspecified; I65.23 Occlusion and stenosis of bilateral carotid arteries; D53.9 Nutritional anemia, unspecified; D50.9 Iron deficiency anemia, unspecified; M19.90 Unspecified osteoarthritis, unspecified site; K44.9 Diaphragmatic hernia without obstruction or gangrene; Z79.82 Long term (current) use of aspirin; Z86.73 Personal history of transient ischemic attack (TIA), and cerebral infarction without residual deficits; Z79.2 Long term (current) use of antibiotics; Z79.51 Long term (current) use of inhaled steroids; Z87.891 Personal history of nicotine dependence; B96.1 Klebsiella pneumoniae [K. pneumoniae] as the cause of diseases classified elsewhere; I49.3 Ventricular premature depolarization
CPT/HCPCS: 36415; 36591; 36600; 51702; 70450; 70496; 70498; 71045; 73030; 73080; 80048; 80053; 81001; 82274; 82330; 82607; 82746; 82803; 82962; 83605; 83630; 83735; 83993; 84443; 84484; 85014; 85018; 85025; 85379; 85610; 85652; 85730; 86140; 87040; 87077; 87086; 87088; 87186; 87426; 87428; 87449; 87493; 88305; 88312; 92526; 92610; 93005; 94002; 94003; 94640; 94762; 95819; 97110; 97116; 97129; 97162; 97166; 97530; 97535; 99285; J7030; J7040; J7050; J7120; Q9967; A4216; J0610; J2405; J3490

== ENCOUNTER 2022-08-06 19:01 | Emergency (ER) | payer MEDICARE, MEDICAID, SELFPAY ==
[2022-08-06 19:03] VITALS: BP 135/93; PULSE 100; RESP 20; O2SAT 97
[2022-08-06 19:05] VITALS: BP 132/80; PULSE 95; RESP 18; O2SAT 99
--- NOTE | 2022-08-06 19:05 | CT_ITS ---
We are attempting to reach an attending provider to discuss findings. An addendum with communication details will be sent when the communication is complete. STUDY: CT BRAIN WITHOUT CONTRAST REASON FOR EXAM: Female, 67 years old. Neuro deficit, acute, stroke suspected RADIATION DOSAGE (If Supplied By Facility): CTDIvol = ( ) mGy, DLP = ( ) mGycm TECHNIQUE: Transaxial CT imaging of the brain was performed without administration of intravenous contrast material. Individualized dose optimization techniques were used for this CT. COMPARISON: 07/03/2022. FINDINGS: Normal soft tissue structures. Normal calvarium. Loss of cordova-white differentiation in the left temporal, posterior frontal and parietal lobes. There is effacement of left cortical sulci. Findings are consistent with large, acute left MCA infarct. No midline shift. No acute hemorrhage. Small chronic left thalamic lacunar infarct. Chronic left occipital infarct. Mild periventricular low attenuation changes consistent with microvascular ischemia. Normal size ventricles for the patient''s age. Normal visualized paranasal sinuses. CT/STROKE Brain/Head without Cont IMPRESSION: Acute left MCA infarct. No bleed. Electronically Signed: Armida Zhao MD at 19:32 EDT Reading Location ID and State: [id number] / Tel , Service support ,
--- NOTE | 2022-08-06 19:05 | EKG12_ITS ---
Test Reason : DYSRHYTHMIA Blood Pressure : / mmHG Vent. Rate : 105 BPM Atrial Rate : 105 BPM P-R Int : 146 ms QRS Dur : 058 ms QT Int : 374 ms P-R-T Axes : 005 -29 023 degrees QTc Int : 494 ms Sinus tachycardia with occasional Premature ventricular complexes Low voltage QRS Inferior infarct (cited on or before 05-JUL-2022) Abnormal ECG Confirmed by MELBA CABALLERO, VALENTIN ([id number]), school photograph editor RADHA WEEMS ([id number]) on 08/09/2022 11:40:47 AM Referred By: WESTON Confirmed By:VALENTIN REILLY MD
--- NOTE | 2022-08-06 19:06 | EDS_ITS ---
HPI History of Present Illness Chief Complaint: Stroke Alert Detail of Chief Complaint: Possible stroke Informant: patient, family and EMS Narrative Narrative: Patient presents to the emergency department via EMS with concern for possible s troke. Patient was being visited by her sister when the sister noted that patient had a right-sided facial droop and was not using her right side. Patient does have history of prior strokes. Patient currently on Eliquis. Sister also believes patient has been having some expressive aphasia for a couple of days. Patient really cannot give me much history. EMS states patient was hypoxic with an O2 sat of 80% on room air but responded to nasal cannula O2. [facility] Medical History (Updated 08/06/22 @ 19:[address] 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 Diastolic CHF Dysphagia Former tobacco use GERD (gastroesophageal reflux disease) History of cerebrovascular accident History of COVID-19 History of deep venous thrombosis or pulmonary embolus Hyperlipemia Hypertension Iron deficiency anemia New onset seizure Parkinsons disease Paroxysmal A-fib Sleep apnea Stroke/cerebrovascular accident Home Medications albuterol 90 mcg/actuation aerosol inhaler 90 mcg inhalation BID 01/30/22 [History Last Taken Unknown] budesonide 3 mg capsule,delayed,extended release 3 mg PO DAILY 01/30/22 [History Last Taken Unknown] cetirizine 10 mg tablet 10 mg PO DAILY 01/30/22 [History Last Taken Unknown] fluticasone fur. 100 mcg-umeclid 62.5 mcg-vilant 25 mcg inhalat.powder (Trelegy Ellipta) 1 inh inhalation DAILY 01/30/22 [History Last Taken Unknown] furosemide 20 mg tablet 20 mg PO DAILY 01/30/22 [History Last Taken Unknown] guaifenesin 600 mg tablet, extended release 12 hr (Mucinex) 600 mg PO BID PRN Nasal Congestion 01/30/22 [History Last Taken Unknown] ipratropium 0.5 mg-albuterol 3 mg (2.5 mg base)/3 mL nebulization soln 3 ml inhalation Q4H PRN SHORTNESS 01/30/22 [History Last Taken Unknown] mesalamine 0.375 gram capsule,extended release 24 hr 1.125 g PO DAILY 01/30/22 [History Last Taken Unknown] pantoprazole 40 mg tablet,delayed release 40 mg PO BID 01/30/22 [History Last Taken Unknown] potassium chloride 20 mEq oral packet 40 meq PO QHS 01/30/22 [History Last Taken Unknown] sulfasalazine 500 mg tablet 1,000 mg PO BID 01/30/22 [History Last Taken Unknown] latanoprost 0.005 % eye drops 1 drp EACH EYE QPM 05/05/22 [History Last Taken Unknown] atorvastatin 40 mg tablet 40 mg PO QHS #0 tabs 05/07/22 [Rx Last Taken Unknown] acetaminophen 500 mg tablet 1,000 mg PO Q8H PRN 05/28/22 [History Last Taken Unknown] diclofenac sodium 1 % topical gel (Voltaren Arthritis Pain) 2 g topical BID 05/28/22 [History Last Taken Unknown] diltiazem HCl 180 mg capsule,extended release 24 hr 180 mg PO DAILY 05/28/22 [History Last Taken Unknown] dorzolamide 22.3 mg-timolol 6.8 mg/mL eye drops 1 drp EACH EYE BID 05/28/22 [History Last Taken Unknown] ferrous sulfate 325 mg (65 mg iron) tablet 325 mg PO DAILY 05/28/22 [History Last Taken Unknown] lidocaine 4 % topical patch 1 patch topical DAILY 05/28/22 [History Last Taken Unknown] ondansetron 4 mg disintegrating tablet 4 mg PO Q4H PRN PRN Nausea 05/28/22 [History Last Taken Unknown] roflumilast 250 mcg tablet (Daliresp) 250 mcg PO QHS 05/28/22 [History Last Taken Unknown] spironolactone 25 mg tablet 25 mg PO BID 07/03/22 [History Last Taken Unknown] tramadol 50 mg tablet 50 mg PO Q6H PRN Pain 07/03/22 [History Last Taken Unknown] levetiracetam 750 mg tablet (Keppra) 750 mg PO BID #60 tabs 07/09/22 [Rx Last Taken Unknown] apixaban 5 mg tablet (Eliquis) 5 mg PO BID 08/06/22 [History Last Taken 08/06/22 09:47] aspirin 81 mg tablet,delayed release 81 mg PO DAILY 08/06/22 [History Last Taken 08/06/22 09:47] gabapentin 100 mg capsule 100 mg PO TID 08/06/22 [History Last Taken 08/06/22 15:16] metoprolol tartrate 50 mg tablet 50 mg PO BID 08/06/22 [History Last Taken 08/05/22 19:07] mirtazapine 7.5 mg tablet 7.5 mg PO QHS 08/06/22 [History Last Taken 08/05/22 19:07] Allergy/AdvReac Type Severity Reaction Status Date / Time amoxicillin [From Augmentin] Allergy PT UNABLE Verified 08/06/22 19:25 TO RESPOND-NEEDS F/U clavulanic acid Allergy PT UNABLE Verified 08/06/22 19:25 [From Augmentin] TO RESPOND-NEEDS F/U codeine Allergy PT UNABLE Verified 08/06/22 19:25 TO RESPOND-NEEDS F/U Iodinated Contrast Media Allergy Anaphylaxis Verified 08/06/22 19:25 metronidazole [From Flagyl] Allergy PT UNABLE Verified 08/06/22 19:25 TO RESPOND-NEEDS F/U morphine Allergy PT UNSURE Verified 08/06/22 19:25 OF REACTION oxycodone Allergy PT UNSURE Verified 08/06/22 19:25 OF REACTION ropinirole Allergy PT UNSURE Verified 08/06/22 19:25 OF REACTION hydrocodone [From Vicodin] AdvReac PT UNSURE Verified 08/06/22 19:25 OF REACTION Family History Mother Alzheimer's dementia Surgical History H/O exploratory laparotomy History of bilateral tubal ligation History of repair of hiatal hernia History of resection of small bowel History of total right hip replacement Hx of cataract surgery S/P carpal tunnel release S/P cholecystectomy Social History housing: long term sexually active: No Smoking Status: Former smoker how long ago did patient quit smoking: Quit ~ 13 years prior to current presentation. alcohol intake: never substance use type: does not use ROS ROS ED Review of Systems ROS Unobtainable: due to mental status and other Constitutional Constitutional ED: Reports lethargy; Denies chills, fever(s), sweats or weight loss Eyes Eyes: Denies blurry vision, change in vision or diplopia ENT ENT ED: Denies rhinorrhea or sore throat Cardiovascular Cardiovascular: Denies chest pain, orthopnea or racing heartbeat Respiratory/Chest Respiratory/Chest: Reports dyspnea; Denies cough, dyspnea on exertion, orthopnea or sputum Gastrointestinal Gastrointestinal: Reports abdominal pain; Denies diarrhea, nausea or vomiting Genitourinary Genitourinary ED: Denies dysuria, hematuria or urinary frequency Musculoskeletal Musculoskeletal: Denies arthralgias, back pain, myalgias or neck pain Integumentary Denies abscess, Abrasions or rash Neurologic Neurologic: Denies headache(s) or weakness Psychiatric Psychiatric: Denies anxiety, depression or suicidal thoughts Endocrine Endocrinology: Denies polydipsia, polyphagia or polyuria Hematologic/Lymphatic Hematologic/Lymphatic: Denies easy bleeding, easy bruising or lymphadenopathy Allergic/Immunologic Allergic/Immunologic ED: Denies mouth swelling, tongue swelling or urticaria EXAM Physical Exam Const Vital Signs: 08/06/22 19:03 08/06/22 19:19 08/06/22 19:22 Temperature 97.8 F Temperature Source Oral Pulse Rate 100 96 Respiratory Rate 20 H 20 H Blood Pressure 135/93 H 131/78 H Blood Pressure Mean 107 95 Pulse Ox 97 100 97 Oxygen Delivery Method Nasal Cannula Nasal Cannula Nasal Cannula Oxygen Flow Rate (L/min) 4 3 3 Positive well nourished and well developed General Appearance ED: well developed and NAD HEENT Reports TM's clear and moist mucous membranes normocephalic and atraumatic; Negative for trauma or tenderness Tympanic Membrane ED: Yes TM's clear Eyes PERRL and EOMs intact bilaterally General Eye ED: Negative for pale conjunctiva or scleral icterus Neck no lymphadenopathy, supple and no JVD General: Negative for tenderness Chest Wall inspection of chest normal and palpation of chest normal Chest: Negative for tenderness Resp normal respiratory effort and clear to auscultation bilaterally Resp Narrative: Rhonchi bilaterally with few rales in the bases. Patient tachypneic. No accessory muscle use or retractions noted. Effort and Inspection: Negative for respiratory distress or pain with movement Auscultation: Negative for rhonchi, wheezes or diminished lung sounds Cardio regular rate, regular rhythm, S1 normal heart sound, S2 normal heart sound and no murmurs Peripheral Pulses: pulses 2+ throughout GI normal to inspection, nondistended, normoactive bowel sounds, soft to palpation, non-tender, non-distended and no masses Back/Spine no CVA tenderness and no thoracic nor lumbar tenderness Extremity normal to inspection General Extremety ED: Negative for edema General Extremity: Negative for edema Neuro oriented x3, CN's II-XII intact bilaterally, no sensory deficits noted and gait normal Neuro Narrative: Patient has right-sided arm and leg weakness. She has a right-sided facial droop. [place] Coma Scale was 14. Sensorium / Orientation: awake, alert, oriented to person, oriented to place and oriented to time Motor Exam: strength 5/5 throughout and strength abnormal Psych mental status grossly normal Skin no rashes or lesions noted and no wounds MDM MDM MDM Narrative Medical decision making narrative: Stroke team was called prior to patient arrival in the emergency department. Patient did have an NIH stroke scale of 14. CT scan showed a large left MCA stroke that is acute. I discussed with stroke neurologist who recommended transfer to their facility at [facility] as patient has potential to decompensate and brain swelling. I discussed with [facility] who will transfer patient to [facility]. I discussed with patient's sister who is in agreement. Lab Data Attestation: I reviewed the patient's lab results. Critical Care Time Critical Care Time: Yes Critical care time (excluding procedures): 30-74 minutes, Including time spent:, Discussing w/Patient &/or Family/[employer], Discussing w/Consultants, Arranging Admission or Transfer, Performing Direct Patient Care at Bedside and - (30 minutes) Discharge Plan Triage Chief Complaint: Stroke Alert ED Provider: Elisabeth Glez Dx/Rx/DC Orders Clinical Impression: Acute CVA (cerebrovascular accident), Hypoxemia, History of hypertension Prescriptions: No Action metoprolol tartrate 100 mg Tablet 50 mg PO Q12H albuterol 90 mcg/actuation Aerosol 90 mcg INHALATION BID budesonide 3 mg Capsule,Delayed,Extend.Release 3 mg PO DAILY mesalamine 0.375 gram Capsule,Extended Release 24hr 1.125 g PO DAILY guaifenesin [Mucinex] 600 mg Tablet Extended Release 12hr 600 mg PO BID PRN (Reason: Nasal Congestion) sulfasalazine 500 mg Tablet 1,000 mg PO BID cetirizine 10 mg Tablet 10 mg PO DAILY loperamide 2 mg Tablet 2 mg PO Q4H PRN (Reason: Diarrhea) potassium chloride 20 mEq Packet 40 meq PO QHS furosemide 20 mg Tablet 20 mg PO DAILY Trelegy Ellipta 100-62.5-25 mcg Blister With Device 1 inh INHALATION DAILY ipratropium-albuterol 0.5 mg-3 mg(2.5 mg base)/3 mL Solution For Nebulization 3 ml INHALATION Q4H PRN (Reason: SHORTNESS) pantoprazole 40 mg Tablet,Delayed Release (Dr/Ec) 40 mg PO BID latanoprost 0.005 % Drops 1 drp EACH EYE QPM aspirin 81 mg Tablet,Chewable 81 mg PO BREAKFAST Qty: 0 0RF atorvastatin 40 mg Tablet 40 mg PO QHS Qty: 0 0RF lidocaine 4 % Adhesive Patch,Medicated 1 patch TOPICAL DAILY diltiazem HCl 180 mg capsule,extended release 24hr 180 mg PO DAILY acetaminophen 500 mg Tablet 1,000 mg PO Q8H PRN ferrous sulfate 325 mg (65 mg iron) Tablet 325 mg PO DAILY dorzolamide-timolol 22.3-6.8 mg/mL drops 1 drp EACH EYE BID ondansetron 4 mg Tablet,Disintegrating 4 mg PO Q4H PRN PRN (Reason: Nausea) diclofenac sodium [Voltaren Arthritis Pain] 1 % Gel 2 g TOPICAL BID Daliresp 250 mcg tablet 250 mcg PO QHS Eliquis 5 mg tablet 5 mg PO BID Qty: 60 0RF Rx Instructions: start date 05/31/2022 tramadol 50 mg Tablet 50 mg PO Q6H PRN (Reason: Pain) spironolactone 25 mg Tablet 25 mg PO BID gabapentin 100 mg Tablet 100 mg PO TID Ensure Liquid 120 ml PO TID levetiracetam [Keppra] 750 mg tablet 750 mg PO BID Qty: 60 0RF pantoprazole 40 mg tablet,delayed release (DR/EC) 40 mg PO BID Qty: 60 1RF cefdinir 300 mg capsule 300 mg PO BID Qty: 4 0RF fluconazole 100 mg tablet 100 mg PO DAILY Qty: 14 0RF Primary Care Provider: Quique Burroughs Referrals: Quique Burroughs MD [Primary Care Provider] - Disposition Disposition: DC/Tx to Another Type of HCF
[2022-08-06 19:19] VITALS: BP 131/78; PULSE 96; RESP 20; TEMP 36.6; O2SAT 100; BMI 22.7
[2022-08-06 19:22] VITALS: O2SAT 97
[2022-08-06 19:25] VITALS: BP 132/80; PULSE 93; RESP 18; O2SAT 99
--- NOTE | 2022-08-06 19:29 | CM.ED ---
SINDI Note SW responded to stroke alert. Patient is being sent to [facility]. SINDI presented map and directions to [facility]. [facility] was advised to get her HCPOA paperwork for [facility]. 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 Jaki QUIÑONEZ
[2022-08-06 19:34] VITALS: BMI 22.8
[2022-08-06] MEDS: 0.9% Normal Saline 1,000 ML 100 ML IV (19:36)
[2022-08-06 19:41] LABS: Absolute Neutrophil Count 5.3 X10^3/uL (2.0-7.7); Basophil# 0.06 X10^3/uL; Basophil% 0.7 % (0-1); Eosinophil# 0.03 X10^3/uL; Eosinophils% 0.4 % (0-5); Hematocrit 32.9 % (37-47); Hemoglobin 10.4 g/dL (12.0-15.0); Lymphocyte % 28.4 % (19-41); Mean Corp Hgb Conc 31.6 g/dL (32-36); Mean Corpuscular Hgb 28.5 pg (27.0-32.0); Mean Corpuscular Volume 90.1 fL (81-99); Mean Platelet Vol. 10.5 fl (6.2-12.0); Monocyte# 0.58 X10^3/uL; Monocyte% 6.9 % (0-10); NRBC Flagged by Analyzer 0 % (0-5); Neutrophil # 5.28 X10^3/uL (2.7-7.7); Neutrophil % 62.3 % (47-70); Platelet Count 545 K/mm3 (150-450); RBC Distribution Width CV 15.9 % (11.6-14.6); RBC Distribution Width SD 52.8 fl (35.1-43.9); Red Blood Count 3.65 M/mm3 (4.2-5.4); White Blood Count 8.5 K/mm3 (4.4-11.0)
[2022-08-06 19:53] LABS: International Normalized Ratio 1.7; Prothrombin Time (Protime)PT. 19.9 SECONDS (11.7-14.9)
[2022-08-06 20:00] LABS: Anion Gap 13 (5-15); BUN 31 mg/dL (7-18); BUN/Creat Ratio 17.7 RATIO (10-20); Chloride 102 mmol/L (98-107); Creatinine, Serum 1.75 mg/dL (0.55-1.02); EST Glomerular Filtration Rate 31 mL/min (>60); Est Glom Filt Rate - Afr Amer 37 mL/min (>60); Estimated Creatinine Clearance 25.69 ml/min; Glucose 182 mg/dL (74-106); Sodium Level 133 mmol/L (136-145); Troponin-I HS 16 pg/mL (3.0-54.0)
--- NOTE | 2022-08-06 20:03 | ED.RN ---
[facility] CALLED TO UPDATE ABOUT PT TRANSFER TO [facility].
== END 2022-08-06 20:03 | disposition other institution (70) ==
PROVIDERS: Emergency Provider Emergency Medicine; Visit Provider Emergency Medicine
DX: I63.512 Cerebral infarction due to unspecified occlusion or stenosis of left middle cerebral artery (principal); J44.9 Chronic obstructive pulmonary disease, unspecified; I11.0 Hypertensive heart disease with heart failure; I50.32 Chronic diastolic (congestive) heart failure; R47.01 Aphasia; Z86.73 Personal history of transient ischemic attack (TIA), and cerebral infarction without residual deficits; E78.5 Hyperlipidemia, unspecified; R09.02 Hypoxemia; Z87.891 Personal history of nicotine dependence; R29.714 NIHSS score 14
CPT/HCPCS: 70450; 80048; 84484; 85025; 85610; 85730; 93005; 99285; J7030; A4216